=== PATIENT | female | born 1955 | race Caucasian/White ===

== ENCOUNTER 2017-11-01 12:56 | Emergency (ER) | payer SELFPAY ==
[~2017-11-01] VITALS: Ht 149.9 cm; Wt 59.0 kg
[~2017-11-01 12:56] MED LIST: ACHD5005 PO; ALPR1T PO; ALPR1TAB7; ALPR1TAB7 PO; DOCU-143 PO; DOXY-13 PO; HYDR-3820; HYDR-3820 PO; KETO10TA77 PO; OXYC10TA7; OXYC10TA7 PO; PRD20T PO; SULF1TAB35 PO; SULF1TAB38 PO; TRAM50TA2; TRM50T PO
--- OUTSIDE RECORDS SUMMARY | 2017-11-01 13:02 | XMS REPORT ---
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 Role Phone SHAHNAZ WIN Unavailable PROBLEMS Type Condition ICD9-CM Code [id number] Code Onset Dates Condition Status SNOMED Code Problem Excessive daytime sleepiness G47.19 Active 091543306399 Problem Lumbago with sciatica, left side M54.42 Active 820765615 Problem ADHD (attention deficit hyperactivity disorder), inattentive type F90.0 Active 62497909 Problem Other chronic pain G89.29 Active 58029169 Problem Other atopic dermatitis L20.89 Active 60459653 Problem 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 08024084990925 Problem 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 Active 28386964662845 Problem Arthritis M19.90 Active 7451605 Problem Positive skin test for tuberculosis R76.11 Active 342147909 ALLERGIES Substance Reaction Event Type Date Status Penicillins Unknown Non Drug Allergy Apr, Active ENCOUNTERS Encounter Location Date Diagnosis [place] [address] [id number] [place] [address] 58342- 8419 Aug, Other chronic pain G89.29 ; Right lower quadrant pain R10.31 and Other atopic dermatitis L20.89 [facility] [id number] [place] [address] 90592- 4883 Jul, Right lower quadrant abdominal pain R10.31 and Rash R21 [place] [address] 91128- 9903 Apr, ADHD (attention deficit hyperactivity disorder), inattentive type F90.0 ; Lumbago with sciatica, left side M54.42 and Arthritis M19.90 [facility] [id number] [place] [address] 26148- 0878 Apr, ADHD (attention deficit hyperactivity disorder), inattentive type F90.0 and Lumbar neuritis M54.16 [facility] [id number] [place] [address] 60799- 2591 16 Apr, 2017 [facility] [id number] [place] [address] 04502- 2671 Apr, Lumbar neuritis M54.16 [facility] [id number] [place] [address] 12678- 8800 Apr, Low back pain M54.5 [facility] [id number] [place] [address] 35133- 8416 Apr, ADHD (attention deficit hyperactivity disorder), inattentive type F90.0 [facility] [id number] [place] [address] 97322- 4514 Apr, Positive skin test for tuberculosis R76.11 [facility] [id number] [place] [address] 65432- 7444 Apr, Positive skin test for tuberculosis R76.11 [facility] [id number] [place] [address] 17221- 1375 Apr, [facility] [id number] [place] [address] 39703- 3375 Mar, Lumbar neuritis M54.16 [facility] [id number] [place] [address] 46671- 8030 Mar, ADHD (attention deficit hyperactivity disorder), inattentive type F90.0 [facility] [id number] [place] [address] 95270- 9584 Mar, [facility] [id number] [place] [address] 65517- 0791 Jan, Lumbar neuritis M54.16 [facility] [id number] [place] [address] 99269- 9344 Jan, ADHD (attention deficit hyperactivity disorder), inattentive type F90.0 [facility] [id number] [place] [address] 58638- 5889 Jan, [facility] [id number] [place] [address] 81064- 1962 Jan, [facility] [id number] [place] [address] 07484- 5851 Dec, Lumbar neuritis M54.16 [facility] [id number] [place] [address] 54272- 7969 Dec, ADHD (attention deficit hyperactivity disorder), inattentive type F90.0 and 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 [facility] [id number] [place] [address] 90497- 5389 Dec, [facility] [id number] [place] [address] 98478- 3657 Dec, [facility] [id number] [place] [address] 84218- 0300 Nov, Lumbar neuritis M54.16 and ADHD (attention deficit hyperactivity disorder), inattentive type F90.0 [facility] [id number] [place] [address] 87051- 1069 Nov, [facility] [id number] [place] [address] 77322- 3861 Oct, Lumbar neuritis M54.16 and ADHD (attention deficit hyperactivity disorder), inattentive type F90.0 [facility] [id number] [place] [address] 85846- 4289 Oct, [facility] [id number] [place] [address] 35214- 9587 Sep, ADHD (attention deficit hyperactivity disorder), inattentive type F90.0 and Lumbar neuritis M54.16 [facility] [id number] [place] [address] 59428- 7349 Sep, Lumbar neuritis M54.16 [facility] [id number] [place] [address] 49718- 6886 Sep, [facility] [id number] [place] [address] 25972- 9396 Sep, ADHD (attention deficit hyperactivity disorder), inattentive type F90.0 and Lumbar neuritis M54.16 [facility] [id number] [place] [address] 19647- 8167 Sep, [facility] [id number] [place] [address] 08012- 9094 Aug, [facility] [id number] [place] [address] 90892- 5906 Aug, [facility] [id number] [place] [address] 52501- 1372 Aug, [facility] [id number] [place] [address] 41942- 4907 Aug, [facility] [id number] [place] [address] 16351- 6133 Aug, ADHD (attention deficit hyperactivity disorder), inattentive type F90.0 and Lumbar neuritis M54.16 [facility] [id number] [place] [address] 49307- 6694 Jul, [facility] [id number] [place] [address] 31605- 6758 Jul, [facility] [address] [place] [address] 53433- 7897 Jul, Lumbar neuritis M54.16 and ADHD (attention deficit hyperactivity disorder), inattentive type F90.0 [facility] [address] [place] [address] [id number]- 1557 Jul, [facility] [address], [place] [address]- 9303 June, Lumbar neuritis M54.16 and ADHD (attention deficit hyperactivity disorder), inattentive type F90.0 [facility] [id number] [place] [address] 86015- 2273 June, [facility] [id number] [place] [address] 80784- 5148 June, [facility] [id number] [place] [address] 02072- 8600 May, 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 and Lumbago with sciatica, left side M54.42 [facility] [id number] [place] [address] 91324- 9297 May, Lumbar neuritis M54.16 and ADHD (attention deficit hyperactivity disorder), inattentive type F90.0 [facility] [id number] [place] [address] 93032- 2996 Apr, [facility] [id number] [place] [address] 03312- 8637 Apr, Lumbar neuritis M54.16 and ADHD (attention deficit hyperactivity disorder), inattentive type F90.0 [facility] [id number] [place] [address] 46320- 6455 Apr, [facility] [id number] [place] [address] 12986- 3524 Apr, [facility] [id number] [place] [address] 35283- 1754 Apr, ADHD (attention deficit hyperactivity disorder), inattentive type F90.0 [facility] [id number] [place] [address] 54208- 5025 Apr, Lumbar neuritis M54.16 [facility] [id number] [place] [address] 88559- 4085 08 Apr, 2016 [facility] [id number] [place] [address] 79140- 8523 Apr, [facility] [address], [place] [address]- 9726 Mar, Attention deficit hyperactivity disorder (ADHD), predominantly inattentive type F90.0 [facility] [address], [place] [address]- 6624 Mar, [facility] [address], [place] [address]- 7425 Mar, [facility] [address], [place] [address]- 0691 Mar, [facility] [address] [place] [address] 47282- 2879 Jan, Attention deficit hyperactivity disorder (ADHD), predominantly inattentive type F90.0 [facility] [address], [place] [address]- 5063 Jan, [facility] [address], [place] [address]- 7130 Jan, [facility] [address], [place] [address]- 2431 Jan, [facility] [address], [place] [address]- 0570 Jan, [facility] [address], [place] [address]- 1988 Jan, Low TSH level R94.6 [facility] [address], [place] [address]- 7876 Jan, [facility] [address], [place] [address]- 4502 Dec, [facility] [address], [place] [address]- 8605 Dec, [facility] [address], [place] [address]- 5374 Dec, [facility] [id number] [place] [address] 26785- 8708 Nov, Low TSH level R94.6 [facility] [id number] [place] [address] 63710- 5559 Nov, Excessive daytime sleepiness G47.19 and ADHD (attention deficit hyperactivity disorder), inattentive type F90.0 [facility] [id number] [place] [address] 20133- 9310 Nov, [facility] [id number] [place] [address] 64024- 2683 Nov, [facility] [id number] [place] [address] 46579- 7469 Nov, [facility] [id number] [place] [address] 01570- 1210 Oct, [facility] [id number] [place] [address] 32405- 1941 Oct, [facility] [id number] [place] [address] 14519- 0469 Oct, [facility] [id number] [place] [address] 45218- 7841 Sep, [facility] [id number] [place] [address] 69718- 5449 Sep, [facility] [id number] [place] [address] 40769- 3350 Sep, [facility] [id number] [place] [address] 49397- 4496 Aug, Lumbar neuritis M54.16 [facility] [id number] [place] [address] 85638- 1212 Aug, [facility] [id number] [place] [address] 52315- 6822 Aug, [facility] [id number] [place] [address] 00692- 0933 Jul, Lumbar neuritis M54.16 [facility] [address] [facility] [id number] [place] [address]- 2063 Jul, [facility] [address] [facility] [id number] [place] [address] 2546 Jul, [facility] [address] [facility] [id number] [place] [address], [place] [address]- 8547 June, Lumbar neuritis M54.16 [facility] [address] [facility] [id number] [place] [address]- 3617 June, [facility] [address] [facility] [id number] [place] [address], [place] [address]- 0679 June, [facility] [address] [facility] [id number] [place] [address], [place] [address]- 5269 May, Lumbar neuritis M54.16 [facility] [id number] [place] [address], [place] [address]- 2904 May, [facility] [address] [facility] [id number] [place] [address]- 2716 May, [facility] [address] [facility] [id number] [place] [address]- 0023 23 May, 2015 [facility] [address] [id number] [address]- 4291 Apr, [facility] [address], [place] [address]- 2785 14 May, 2015 [facility] [address] [facility] [id number] [place] [address]- 0239 Apr, [facility] [address] [facility] [id number] [place] [address]- 4423 24 Apr, 2015 [facility] [address] [facility] [id number] [place] [address]- 6454 Apr, Inguinal hernia, right K40.90 [facility] [address], [place] [address]- 2627 17 Apr, 2015 [facility] [id number] [place] [address]- 4984 Apr, 2016 Low back pain M54.5 and Sciatica, unspecified side M54.30 [facility] [address], [place] [address]- 3632 Mar, [facility] [id number] [place] [address] 80346- 7627 Mar, [facility] [id number] [place] [address] 76021- 3201 Jan, [facility] [id number] [place] [address] 48030- 1276 Jan, [facility] [id number] [place] [address] 62741- 6711 Jan, [facility] [id number] [place] [address] 60424- 9711 Dec, [facility] [address] [place] [address] 66693- 0024 Dec, [facility] [id number] [place] [address] 22060- 9847 Dec, [facility] [address], [place] [address]- 5178 Dec, [facility] [address] [place] [address] 20755- 2695 Nov, [facility] [address], [place] [address]- 2510 Nov, Encounter for immunization Z23 [facility] [id number] [place] [address] 76010- 6817 Nov, [facility] [address], [place] [address]- 9677 Nov, [facility] [id number] [place] [address]- 1295 Oct, [facility] [place] [facility] [address] [id number] [place] [address]- 3952 Oct, [facility] [place] [facility] [address] [id number] [place] [address]- 9384 Sep, Lumbago 724.2 [facility] [place] [facility] [address] [id number] [place] [address]- 1777 Sep, [facility] [place] [facility] [address] [id number] [place] [address]- 0515 Aug, Lumbago 724.2 [facility] [place] [facility] [address] [id number] [place] [address]- 2061 Aug, [facility] [place] [facility] [address] [id number] [place] [address]- 8540 Aug, [facility] [place] [facility] [address] [id number] [place] [address]- 1474 Jul, [facility] [place] [facility] [address] [id number] [place] [address]- 6287 Jul, [facility] [place] [facility] [address] [id number] [place] [address]- 4775 Jul, [facility] [place] [facility] [address] [id number] [place] [address]- 3526 June, [facility] [place] [facility] [address] [id number] [place] [address]- 7533 May, [facility] [place] [facility] [address] [id number] [place] [address] 254 May, [facility] [place] [facility] [address] [id number] [place] [address]- 2546 Apr, [facility] [place] [facility] [address] [id number] [place] [address]- 4009 Apr, [facility] [place] [facility] [address] [id number] [place] [address]- 8987 Apr, [facility] [place] [facility] [address] [id number] [place] [address]- 8442 Apr, [facility] [place] [facility] [address] [id number] [place] 8022 Apr, [facility] [place] [facility] [address] [id number] [place] [address]- 4346 Apr, [facility] [place] [facility] [address] [id number] [place] [address]- 3239 Apr, [facility] [place] [facility] [address] [id number] [place] [address]- 4118 Apr, [facility] [place] [facility] [address] [id number] [place] [address]- 2629 Mar, [facility] [place] [facility] [address] [id number] [place] [address]- 5815 Mar, [facility] [place] [facility] [address] [id number] [place] [address]- 3171 Jan, [facility] [place] [facility] [address] [id number] [place] [address]- 4929 Jan, [facility] [place] [facility] [address] [id number] [place] [address]- 7085 Jan, [facility] [place] [facility] [address] [id number] [place] [address]- 4759 Jan, [facility] [place] [facility] [address] [id number] [place] 8766 Jan, [facility] [place] [facility] [address] [id number] [place] 1549 Jan, [facility] [place] [facility] [address] [id number] [place] 4005 Dec, [facility] [place] [facility] [address] [id number] [place] 6933 Dec, [facility] [place] [facility] [address] [id number] [place] [address]- 5192 Nov, [facility] [place] [facility] [address] [id number] [place] [address]- 8818 Nov, [facility] [place] [facility] [address] [id number] [place] [address]- 1527 Nov, [facility] [place] [facility] [address] [id number] [place] [address]- 3489 Nov, [facility] [place] [facility] [address] [id number] [place] [address]- 6940 Oct, [facility] [place] [facility] [address] [id number] [place] [address]- 2188 Oct, [facility] [place] [facility] [address] [id number] [place] [address]- 6946 Sep, [facility] [place] [facility] [address] [id number] [place] [address]- 9620 Sep, [facility] [place] [facility] [address] [id number] [place] [address]- 6343 Sep, [facility] [place] [facility] [address] [id number] [place] [address]- 9516 Sep, [facility] [place] [facility] [address] [id number] [place] [address]- 6840 Aug, [facility] [place] [facility] [address] [id number] [place] [address]- 6889 Aug, [facility] [place] [facility] [address] [id number] [place] [address]- 2119 Aug, [facility] [place] [facility] [address] [id number] [place] [address]- 2936 Aug, [facility] [place] [facility] [address] [id number] [place] [address]- 3059 Jul, [facility] [place] [facility] [address] [id number] [place] [address]- 2432 Jul, [facility] [place] [facility] [address] [id number] [place] [address]- 8596 June, [facility] [place] [facility] [address] [id number] [place] [address]- 2077 June, [facility] [place] [facility] [address] [id number] [place] [address]- 2348 June, [facility] [place] [facility] [address] [id number] [place] [address]- 4626 May, [facility] [place] [facility] [address] [id number] [place] [address]- 8299 May, [facility] [place] [facility] [address] [id number] [place] [address]- 0871 May, [facility] [place] [facility] [address] [id number] [place] [address]- 2575 May, [facility] [place] [facility] [address] [id number] [place] [address]- 4017 May, [facility] [place] [facility] [address] [id number] [place] [address]- 7268 May, [facility] [place] [facility] [address] [id number] [place] [address] May, [facility] [place] [facility] [address] [id number] [place] [address] May, [facility] [place] [facility] [address] [id number] [place] [address] May, [facility] [place] [facility] [address] [id number] [place] [address] May, [facility] [place] [facility] [address] [id number] [place] [address] May, [facility] [place] [facility] [address] [id number] [place] [address] Apr, [facility] [place] [facility] [address] [id number] [place] [address] Apr, [facility] [place] [facility] [address] [id number] [place] [address] Apr, [facility] [place] [facility] [address] [id number] [place] [address] Apr, [facility] [place] [facility] [address] [id number] [place] [address] Apr, [facility] [place] [facility] [address] [id number] [place] [address] Apr, [facility] [place] [facility] [address] [id number] [place] [address] Apr, [facility] [place] [facility] [address] [id number] [place] [address] Apr, [facility] [place] [facility] [address] [id number] [place] [address] Apr, [facility] [place] [facility] [address] [id number] [place] [address] Apr, [facility] [place] [facility] [address] [facility] [id number] [place] [address] Apr, [facility] [place] [facility] [address] [id number] [place] [address] Apr, [facility] [place] [facility] [address] [id number] [place] [address] Mar, [facility] [place] [facility] [address] [id number] [place] [address] Mar, [facility] [place] [facility] [address] [id number] [place] [address] Mar, [facility] [place] [facility] [address] [id number] [place] [address] Mar, [facility] [place] [facility] [address] [id number] [place] [address] Mar, [facility] [address] [facility] [id number] [place] [address] Mar, [facility] [address] [facility] [id number], [place] [address] Jan, [facility] [address] [facility] [id number], [place] [address] Jan, [facility] [address] [facility] [id number], [place] [address] Dec, [facility] [address] [facility] [id number], [place] [address] Dec, IMMUNIZATIONS No Known Immunizations SOCIAL HISTORY Never Assessed REASON FOR VISIT Pain management (chronic)-Luis Angel MADDEN PLAN OF CARE VITAL SIGNS Height 59 in 2017-05-13 Weight 125.7 lbs 2017-05-13 Temperature 98.1 degrees Fahrenheit 2017-05-13 Heart Rate 74 bpm 2017-05-13 Respiratory Rate 18 2017-05-13 BMI 25.39 kg/m2 2017-05-13 Blood pressure systolic 128 mmHg 2017-05-13 Blood pressure diastolic 80 mmHg 2017-05-13 MEDICATIONS Medication Instructions Dosage Frequency Start Date End Date Duration Status Nabumetone 500 mg Orally Twice a day 1 tablet 12h 14 Apr, 2017 June, 30 day(s) Active RESULTS No Results PROCEDURES Procedure Date Ordered Result Body Site COMPREHEN METABOLIC PANEL May 13, 2017 ANTINUCLEAR ANTIBODIES May 13, 2017 RHEUMATOID FACTOR, QUANT May 13, 2017 ASSAY THYROID STIM HORMONE May 13, 2017 RBC SED RATE, AUTOMATED May 13, 2017 COMPLETE CBC W/AUTO DIFF WBC May 13, 2017 C-REACTIVE PROTEIN May 13, 2017 ANTISTREPTOLYSIN O, TITER May 13, 2017 INSTRUCTIONS MEDICATIONS ADMINISTERED No Known Medications MEDICAL (GENERAL) HISTORY Type Description Date Medical History narcolepsy Medical History lupus Surgical History Gallbladder removed 05/2014 Surgical History Hernia repair 05/24/2015
--- OUTSIDE RECORDS SUMMARY | 2017-11-01 13:02 | XMS REPORT ---
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 Name Role Phone SHAHNAZ WIN Unavailable PROBLEMS Type Condition ICD9-CM Code SSZ36-DW Code Onset Dates Condition Status SNOMED Code Problem Excessive daytime sleepiness G47.19 Active 520623977886 Problem Lumbago with sciatica, left side M54.42 Active 320708643 Problem ADHD (attention deficit hyperactivity disorder), inattentive type F90.0 Active 54300834 Problem Other chronic pain G89.29 Active 37381166 Problem Other atopic dermatitis L20.89 Active 90235215 Problem 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 17605348498405 Problem 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 Active 73662782967797 Problem Arthritis M19.90 Active 3205053 Problem Positive skin test for tuberculosis R76.11 Active 026785762 ALLERGIES Substance Reaction Event Type Date Status Penicillins Unknown Non Drug Allergy Jul, Active ENCOUNTERS Encounter Location Date Diagnosis [place] [id number] [place] [address] 43099- 7406 Aug, Other chronic pain G89.29 ; Right lower quadrant pain R10.31 and Other atopic dermatitis L20.89 [facility] [id number] [place] [address] 43191- 4007 Jul, Right lower quadrant abdominal pain R10.31 and Rash R21 [place] [address] 60069- 0545 Apr, ADHD (attention deficit hyperactivity disorder), inattentive type F90.0 ; Lumbago with sciatica, left side M54.42 and Arthritis M19.90 [facility] [id number] [place] [address] 49760- 2879 Apr, ADHD (attention deficit hyperactivity disorder), inattentive type F90.0 and Lumbar neuritis M54.16 [facility] [id number] [place] [address] 37993- 9559 16 Apr, 2017 [facility] [id number] [place] [address] 15474- 2387 Apr, Lumbar neuritis M54.16 [facility] [id number] [place] [address] 46525- 6564 Apr, Low back pain M54.5 [facility] [id number] [place] [address] 64450- 7064 Apr, ADHD (attention deficit hyperactivity disorder), inattentive type F90.0 [facility] [id number] [place] [address] 90989- 2234 Apr, Positive skin test for tuberculosis R76.11 [facility] [id number] [place] [address] 14467- 9009 Apr, Positive skin test for tuberculosis R76.11 [facility] [id number] [place] [address] 38256- 2641 Apr, [facility] [id number] [place] [address] 19609- 6959 Mar, Lumbar neuritis M54.16 [facility] [id number] [place] [address] 29001- 0436 Mar, ADHD (attention deficit hyperactivity disorder), inattentive type F90.0 [facility] [id number] [place] [address] 65988- 1031 Mar, [facility] [id number] [place] [address] 29699- 7317 Jan, Lumbar neuritis M54.16 [facility] [id number] [place] [address] 02194- 1861 Jan, ADHD (attention deficit hyperactivity disorder), inattentive type F90.0 [facility] [id number] [place] [address] 15721- 7567 Jan, [facility] [id number] [place] [address] 87871- 1213 Jan, [facility] [id number] [place] [address] 64409- 7674 Dec, Lumbar neuritis M54.16 [facility] [id number] [place] [address] 97194- 2388 Dec, ADHD (attention deficit hyperactivity disorder), inattentive type F90.0 and 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 [facility] [id number] [place] [address] 19029- 2954 Dec, [facility] [id number] [place] [address] 61917- 0406 Dec, [facility] [id number] [place] [address] 06744- 6124 Nov, Lumbar neuritis M54.16 and ADHD (attention deficit hyperactivity disorder), inattentive type F90.0 [facility] [id number] [place] [address] 61874- 6578 Nov, [facility] [id number] [place] [address] 57655- 2696 Oct, Lumbar neuritis M54.16 and ADHD (attention deficit hyperactivity disorder), inattentive type F90.0 [facility] [id number] [place] [address] 14224- 4381 Oct, [facility] [id number] [place] [address] 36394- 1789 Sep, ADHD (attention deficit hyperactivity disorder), inattentive type F90.0 and Lumbar neuritis M54.16 [facility] [id number] [place] [address] 20326- 1971 Sep, Lumbar neuritis M54.16 [facility] [id number] [place] [address] 93198- 1367 Sep, [facility] [id number] [place] [address] 54130- 9876 Sep, ADHD (attention deficit hyperactivity disorder), inattentive type F90.0 and Lumbar neuritis M54.16 [facility] [id number] [place] [address] 87765- 3379 Sep, [facility] [id number] [place] [address] 49401- 0813 Aug, [facility] [id number] [place] [address] 66002- 6651 Aug, [facility] [id number] [place] [address] 26033- 2993 Aug, [facility] [id number] [place] [address] 79193- 4896 Aug, [facility] [id number] [place] [address] 43081- 5175 Aug, ADHD (attention deficit hyperactivity disorder), inattentive type F90.0 and Lumbar neuritis M54.16 [facility] [id number] [place] [address] 74662- 7277 Jul, [facility] [id number] [place] [address] 89815- 3442 Jul, [facility] [id number] [place] [address] 94148- 5835 Jul, Lumbar neuritis M54.16 and ADHD (attention deficit hyperactivity disorder), inattentive type F90.0 [facility] [id number] [place] [address] [id number]- 6963 Jul, [facility] [address] [address]- 1405 June, Lumbar neuritis M54.16 and ADHD (attention deficit hyperactivity disorder), inattentive type F90.0 [facility] [id number] [place] [address] 80860- 7104 June, [facility] [id number] [place] [address] 56814- 5035 June, [facility] [id number] [place] [address] 60442- 1025 May, 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 and Lumbago with sciatica, left side M54.42 [facility] [id number] [place] [address] 96285- 6392 May, Lumbar neuritis M54.16 and ADHD (attention deficit hyperactivity disorder), inattentive type F90.0 [facility] [id number] [place] [address] 00630- 1695 Apr, [facility] [id number] [place] [address] 75397- 5149 Apr, Lumbar neuritis M54.16 and ADHD (attention deficit hyperactivity disorder), inattentive type F90.0 [facility] [id number] [place] [address] 88937- 4831 Apr, [facility] [id number] [place] [address] 68084- 1956 Apr, [facility] [id number] [place] [address] 02169- 7453 Apr, ADHD (attention deficit hyperactivity disorder), inattentive type F90.0 [facility] [id number] [place] [address] 90834- 6169 Apr, Lumbar neuritis M54.16 [facility] [id number] [place] [address] 85978- 5463 08 Apr, 2016 [facility] [id number] [place] [address] 32443- 4633 Apr, [facility] [address] [address]- 2972 Mar, Attention deficit hyperactivity disorder (ADHD), predominantly inattentive type F90.0 [facility] [address] 2752 Mar, [facility] [address] [address]- 2564 Mar, [facility] [address] [address]- 9409 Mar, [facility] [id number] [place] [address] 21968- 5439 Jan, Attention deficit hyperactivity disorder (ADHD), predominantly inattentive type F90.0 [facility] [address] [address]- 7167 Jan, [facility] [address] [address]- 6833 Jan, [facility] [address] [address]- 1109 Jan, [facility] [address] [address]- 6533 Jan, Low TSH level R94.6 [facility] [address], [place] [address]- 6755 Jan, [facility] [address], [place] [address]- 0585 Jan, [facility] [address] [address]- 5092 Dec, [facility] [address] [place] [address]- 7597 Dec, [facility] [address] [address]- 6400 Dec, [facility] [id number] [place] [address] 75954- 6012 Nov, Low TSH level R94.6 [facility] [id number] [place] [address] 30777- 3797 Nov, Excessive daytime sleepiness G47.19 and ADHD (attention deficit hyperactivity disorder), inattentive type F90.0 [facility] [id number] [place] [address] 31125- 3545 Nov, [facility] [id number] [place] [address] 34211- 8040 Nov, [facility] [id number] [place] [address] 42545- 2984 Nov, [facility] [id number] [place] [address] 68081- 5332 Oct, [facility] [id number] [place] [address] 75295- 3450 Oct, [facility] [id number] [place] [address] 04655- 4257 Oct, [facility] [id number] [place] [address] 93860- 6822 Sep, [facility] [id number] [place] [address] 91353- 1653 Sep, [facility] [id number] [place] [address] 20975- 0120 Sep, [facility] [id number] [place] [address] 88636- 5259 Aug, Lumbar neuritis M54.16 [facility] [id number] [place] [address] 41095- 8902 Aug, [facility] [id number] [place] [address] 90114- 5106 Aug, [facility] [id number] [place] [address] 67105- 0025 Jul, Lumbar neuritis M54.16 [facility] [address] [facility] [id number] [place] [address]- 3132 Jul, [facility] [address] [facility] [id number] [place] [address] 2546 Jul, [facility] [address] [facility] [id number] [place] [address], [place] [address]- 5286 June, Lumbar neuritis M54.16 [facility] [address] [facility] [id number] [place] [address]- 0240 June, [facility] [address] [facility] [id number] [place] [address], [place] [address]- 6397 June, [facility] [address] [facility] [id number] [place] [address], [place] [address]- 4003 May, Lumbar neuritis M54.16 [facility] [id number] [place] [address], [place] [address]- 1698 May, [facility] [address] [facility] [id number] [place] [address]- 6061 May, [facility] [address] [facility] [id number] [place] [address]- 0419 23 May, 2015 [facility] [id number] [place] [address]- 7467 Apr, [facility] [address], [place] [address]- 3065 14 May, 2015 [facility] [address] [facility] [id number] [place] [address]- 3300 Apr, [facility] [address] [facility] [id number] [place] [address]- 4675 24 Apr, 2015 [facility] [address] [facility] [id number] [place] [address]- 2328 Apr, Inguinal hernia, right K40.90 [facility] [address], [place] [address]- 4088 17 Apr, 2015 [facility] [id number] [address]- 8085 Apr, 2016 Low back pain M54.5 and Sciatica, unspecified side M54.30 [facility] [address], [place] [address]- 5047 Mar, [facility] [id number] [place] [address] 36620- 8942 Mar, [facility] [id number] [place] [address] 62697- 7069 Jan, [facility] [id number] [place] [address] 82793- 6724 Jan, [facility] [id number] [place] [address] 61069- 6036 Jan, [facility] [id number] [place] [address] 75514- 9249 Dec, [facility] [id number] [place] [address] 06008- 6056 Dec, [facility] [id number] [place] [address] 25014- 1719 Dec, [facility] [address], [place] [address]- 9695 Dec, [facility] [id number] [place] [address] 08838- 5414 Nov, [facility] [address], [place] [address]- 2966 Nov, Encounter for immunization Z23 [facility] [id number] [place] [address] 84183- 9297 Nov, [facility] [address], [place] [address]- 2021 Nov, [facility] [id number] [place] [place] [address]- 1269 Oct, [facility] [place] [facility] [address] [id number] [place] [address]- 2594 Oct, [facility] [place] [facility] [address] [id number] [place] [address]- 7954 Sep, Lumbago 724.2 [facility] [place] [facility] [address] [id number] [place] [address]- 3719 Sep, [facility] [place] [facility] [address] [id number] [place] [address]- 1718 Aug, Lumbago 724.2 [facility] [place] [facility] [address] [id number] [place] [address]- 0384 Aug, [facility] [place] [facility] [address] [id number] [place] [address]- 6794 Aug, [facility] [place] [facility] [address] [id number] [place] [address]- 5090 Jul, [facility] [place] [facility] [address] [id number] [place] [address]- 0828 Jul, [facility] [place] [facility] [address] [id number] [place] [address]- 8136 Jul, [facility] [place] [facility] [address] [id number] [place] [address]- 4572 June, [facility] [place] [facility] [address] [id number] [place] [address]- 5691 May, [facility] [place] [facility] [address] [id number] [place] [address] 2547 May, [facility] [place] [facility] [address] [id number] [place] [address]- 2546 Apr, [facility] [place] [facility] [address] [id number] [place] [address]- 4693 Apr, [facility] [place] [facility] [address] [id number] [place] [address]- 5292 Apr, [facility] [place] [facility] [address] [id number] [place] [address]- 2338 Apr, [facility] [place] [facility] [address] [id number] [place] 0518 Apr, [facility] [place] [facility] [address] [id number] [place] [address]- 3396 Apr, [facility] [place] [facility] [address] [id number] [place] [address]- 2016 Apr, [facility] [place] [facility] [address] [id number] [place] [address]- 3992 Apr, [facility] [place] [facility] [address] [id number] [place] [address]- 4533 Mar, [facility] [place] [facility] [address] [id number] [place] [address]- 7852 Mar, [facility] [place] [facility] [address] [id number] [place] [address]- 9846 Jan, [facility] [place] [facility] [address] [id number] [place] [address]- 8782 Jan, [facility] [place] [facility] [address] [id number] [place] [address]- 4225 Jan, [facility] [place] [facility] [address] [id number] [place] [address]- 6863 Jan, [facility] [place] [facility] [address] [id number] [place] 6433 Jan, [facility] [place] [facility] [address] [id number] [place] 2873 Jan, [facility] [place] [facility] [address] [id number] [place] 2290 Dec, [facility] [place] [facility] [address] [id number] [place] 2286 Dec, [facility] [place] [facility] [address] [id number] [place] [address]- 3754 Nov, [facility] [place] [facility] [address] [id number] [place] [address] Nov, [facility] [place] [facility] [address] [id number] [place] [address] Nov, [facility] [place] [facility] [address] [id number] [place] [address] Nov, [facility] [place] [facility] [address] [id number] [place] [address] Oct, [facility] [place] [facility] [address] [id number] [place] [address] Oct, [facility] [place] [facility] [address] [id number] [place] [address] Sep, [facility] [place] [facility] [address] [id number] [place] [address] Sep, [facility] [place] [facility] [address] [id number] [place] [address] Sep, [facility] [place] [facility] [address] [id number] [place] [address] Sep, [facility] [place] [facility] [address] [id number] [place] [address] Aug, [facility] [place] [facility] [address] [id number] [place] [address] Aug, [facility] [place] [facility] [address] [id number] [place] [address] Aug, [facility] [place] [facility] [address] [id number] [place] [address] Aug, [facility] [place] [facility] [address] [id number] [place] [address] Jul, [facility] [place] [facility] [address] [id number] [place] [address] Jul, [facility] [place] [facility] [address] [id number] [place] [address] June, [facility] [place] [facility] [address] [id number] [place] [address] June, [facility] [place] [facility] [address] [id number] [place] [address] June, [facility] [place] [facility] [address] [id number] [place] [address] May, [facility] [place] [facility] [address] [id number] [place] [address] May, [facility] [place] [facility] [address] [id number] [place] [address] May, [facility] [place] [facility] [address] [id number] [place] [address] May, [facility] [place] [facility] [address] [id number] [place] [address] May, [facility] [place] [facility] [address] [id number] [place] [address] May, [facility] [place] [facility] [address] [id number] [place] [address] May, [facility] [place] [facility] [address] [id number] [place] [address] May, [facility] [place] [facility] [address] [id number] [place] [address] May, [facility] [place] [facility] [address] [id number] [place] [address] May, [facility] [place] [facility] [address] [id number] [place] [address] May, [facility] [place] [facility] [address] [id number] [place] [address] Apr, [facility] [place] [facility] [address] [id number] [place] [address] Apr, [facility] [place] [facility] [address] [id number] [place] [address] Apr, [facility] [place] [facility] [address] [id number] [place] [address] Apr, [facility] [place] [facility] [address] [id number] [place] [address] Apr, [facility] [place] [facility] [address] [id number] [place] [address] Apr, [facility] [place] [facility] [address] [id number] [place] [address] Apr, [facility] [place] [facility] [address] [id number] [place] [address] Apr, [facility] [place] [facility] [address] [id number] [place] [address] Apr, [facility] [place] [facility] [address] [id number] [place] [address] Apr, [facility] [place] [facility] [address] [facility] [id number] [place] [address] Apr, [facility] [place] [facility] [address] [id number] [place] [address] Apr, [facility] [place] [facility] [address] [id number] [place] [address] Mar, [facility] [place] [facility] [address] [id number] [place] [address] Mar, [facility] [place] [facility] [address] [id number] [place] [address] Mar, [facility] [place] [facility] [address] [id number] [place] [address] Mar, [facility] [place] [facility] [address] [id number], [place] [address] Mar, [facility] [address] [facility] [id number] [place] [address] Mar, [facility] [address] [facility] [id number], [place] [address] Jan, [facility] [address] [facility] [id number], [place] [address] Jan, [facility] [address] [facility] [id number], [place] [address] Dec, [facility] [address] [facility] [id number], [place] [address] Dec, IMMUNIZATIONS No Known Immunizations SOCIAL HISTORY Never Assessed REASON FOR VISIT Lupus WB-MA, PT has sores all over her left forearm and has a few sores on the right forearm proximal to the wrist, PT has a sharp pain on her right abdomen PLAN OF CARE VITAL SIGNS Height 59 in 2017-08-05 Weight 127 lbs 2017-08-05 Temperature 99.1 degrees Fahrenheit 2017-08-05 Heart Rate 86 bpm 2017-08-05 Respiratory Rate 18 2017-08-05 BMI 25.65 kg/m2 2017-08-05 Blood pressure systolic 124 mmHg 2017-08-05 Blood pressure diastolic 82 mmHg 2017-08-05 MEDICATIONS Medication Instructions Dosage Frequency Start Date End Date Duration Status Tylenol Extra Strength 500 MG Orally every 6 hrs 1 tablet as needed 6h Active Meloxicam 7.5 MG Orally 2 times a day 1 tablet 12h Jul, Oct, 30 day(s) Active Triamcinolone Acetonide 0.1 % Externally Twice a day 1 application to affected area 12h Jul, Active PredniSONE 20 mg Orally Once a day 2 tablets 24h Jul, Jul, 05 days Active RESULTS No Results PROCEDURES No Known procedures INSTRUCTIONS MEDICATIONS ADMINISTERED No Known Medications MEDICAL (GENERAL) HISTORY Type Description Date Medical History narcolepsy Medical History lupus Surgical History Gallbladder removed 05/2014 Surgical History Hernia repair 05/24/2015
--- OUTSIDE RECORDS SUMMARY | 2017-11-01 13:03 | XMS REPORT ---
Author Author SHAHNAZ WIN Organization [facility] Address [address] [place] [address] Care Team Providers Care Consumer Loan Underwriter Name Role Phone SHAHNAZ WIN Unavailable PROBLEMS Type Condition ICD9-CM Code VKD17-LU Code Onset Dates Condition Status SNOMED Code Problem ADHD (attention deficit hyperactivity disorder), inattentive type F90.0 Active 38263821 Problem Arthritis M19.90 Active 0237406 Problem Positive skin test for tuberculosis R76.11 Active 303975286 Problem Lumbago with sciatica, left side M54.42 Active 096020467 Problem Excessive daytime sleepiness G47.19 Active 346948421718 Problem 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 97143425893071 Problem 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 Active 34395661043839 ALLERGIES No Information ENCOUNTERS Encounter Location Date Diagnosis [place] [id number] [place] [address] 47743- 9212 Jul, Right lower quadrant abdominal pain R10.31 and Rash R21 [place] [id number] [place] [address] 47497- 2031 14 Apr, 2017 ADHD (attention deficit hyperactivity disorder), inattentive type F90.0 ; Lumbago with sciatica, left side M54.42 and Arthritis M19.90 [facility] [id number] [place] [address] 37026- 5468 Apr, ADHD (attention deficit hyperactivity disorder), inattentive type F90.0 and Lumbar neuritis M54.16 [facility] [id number] [place] [address] 27929- 2734 Apr, [place] [id number] [place] [address] 46992- 2164 Apr, Lumbar neuritis M54.16 [facility] [id number] [place] [address] 47409- 8291 16 Apr, 2017 Low back pain M54.5 [facility] [id number] [place] [address] 97314- 7821 11 Apr, 2017 ADHD (attention deficit hyperactivity disorder), inattentive type F90.0 [facility] [id number] [place] [address] 86611- 0494 09 Apr, 2017 Positive skin test for tuberculosis R76.11 [facility] [id number] [place] [address] 28064- 8462 Apr, Positive skin test for tuberculosis R76.11 [facility] [id number] [place] [address] 37496- 6669 Apr, [facility] [id number] [place] [address] 38064- 4091 Mar, Lumbar neuritis M54.16 [facility] [id number] [place] [address] 04088- 6112 Mar, ADHD (attention deficit hyperactivity disorder), inattentive type F90.0 [facility] [id number] [place] [address] 17289- 9655 Mar, [facility] [id number] [place] [address] 08588- 5232 Jan, Lumbar neuritis M54.16 [facility] [id number] [place] [address] 94500- 5234 Jan, ADHD (attention deficit hyperactivity disorder), inattentive type F90.0 [facility] [id number] [place] [address] 76306- 3792 Jan, [facility] [id number] [place] [address] 29493- 4123 Jan, [facility] [id number] [place] [address] 98440- 2493 Dec, Lumbar neuritis M54.16 [facility] [id number] [place] [address] 57169- 2092 Dec, ADHD (attention deficit hyperactivity disorder), inattentive type F90.0 and 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 [facility] [id number] [place] [address] 90496- 9698 Dec, [facility] [id number] [place] [address] 51085- 6599 Dec, [facility] [id number] [place] [address] 56745- 2792 Nov, Lumbar neuritis M54.16 and ADHD (attention deficit hyperactivity disorder), inattentive type F90.0 [facility] [id number] [place] [address] 41885- 1807 Nov, [facility] [id number] [place] [address] 63394- 3016 Oct, Lumbar neuritis M54.16 and ADHD (attention deficit hyperactivity disorder), inattentive type F90.0 [facility] [id number] [place] [address] 23488- 1656 Oct, [facility] [id number] [place] [address] 06232- 8029 Sep, ADHD (attention deficit hyperactivity disorder), inattentive type F90.0 and Lumbar neuritis M54.16 [facility] [id number] [place] [address] 79246- 1755 Sep, Lumbar neuritis M54.16 [facility] [id number] [place] [address] 84406- 4723 Sep, [facility] [id number] [place] [address] 27212- 6475 Sep, ADHD (attention deficit hyperactivity disorder), inattentive type F90.0 and Lumbar neuritis M54.16 [facility] [address] [address]- 1132 Sep, [facility] [address] [address]- 6117 Aug, [facility] [address] [address]- 8005 Aug, [facility] [id number] [place] [address] 64172- 3706 Aug, [facility] [id number] [place] [address] 11713- 8654 Aug, [facility] [id number] [place] [address] 68098- 8712 Aug, ADHD (attention deficit hyperactivity disorder), inattentive type F90.0 and Lumbar neuritis M54.16 [facility] [id number] [place] [address] 81829- 7281 Jul, [facility] [address] [address]- 2208 Jul, [facility] [id number] [place] [address] 93785- 7577 Jul, Lumbar neuritis M54.16 and ADHD (attention deficit hyperactivity disorder), inattentive type F90.0 [facility] [address] [address]- 7422 Jul, [facility] [address] [address]- 9021 June, Lumbar neuritis M54.16 and ADHD (attention deficit hyperactivity disorder), inattentive type F90.0 [facility] [address]- 5126 June, [facility] [address] [address]- 5268 June, [facility] [id number] [place] [address] 42265- 3220 May, 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 and Lumbago with sciatica, left side M54.42 [facility] [id number] [place] [address] 53440- 9931 14 May, 2016 Lumbar neuritis M54.16 and ADHD (attention deficit hyperactivity disorder), inattentive type F90.0 [facility] [id number] [place] [address] 32774- 9476 Apr, [facility] [id number] [place] [address] 66231- 6879 Apr, Lumbar neuritis M54.16 and ADHD (attention deficit hyperactivity disorder), inattentive type F90.0 [facility] [id number] [place] [address] 24993- 4762 Apr, [facility] [id number] [place] [address] 63743- 6013 Apr, [facility] [id number] [place] [address] 64779- 1867 15 Apr, 2016 ADHD (attention deficit hyperactivity disorder), inattentive type F90.0 [facility] [id number] [place] [address] 15080- 9982 15 Apr, 2016 Lumbar neuritis M54.16 [facility] [id number] [place] [address] 59830- 4368 08 Apr, 2016 [facility] [id number] [place] [address] 90739- 3656 07 Apr, 2016 [facility] [id number] [place] [address] 47464- 3505 Mar, Attention deficit hyperactivity disorder (ADHD), predominantly inattentive type F90.0 [facility] [id number] [place] [address] 09538- 8411 Mar, [facility] [address] [place] [address]- 9709 Mar, [facility] [id number] [place] [address] 48385- 0926 Mar, [facility] [id number] [place] [address] 29985- 7278 Jan, Attention deficit hyperactivity disorder (ADHD), predominantly inattentive type F90.0 [facility] [id number] [place] [address] 40776- 6643 Jan, [facility] [id number] [place] [address] 49354- 1092 Jan, [facility] [id number] [place] [address] 91548- 0125 Jan, [facility] [id number] [place] [address] 17712- 2069 Jan, Low TSH level R94.6 [facility] [address] [address]- 0357 Jan, [facility] [id number] [place] [address] 80011- 4686 Jan, [facility] [id number] [place] [address] 46602- 1048 Dec, [facility] [address] [address]- 7528 Dec, [facility] [address], [place] [address]- 3989 Dec, [facility] [address] [address]- 9402 Nov, Low TSH level R94.6 [facility] [id number] [place] [address] 41941- 6355 Nov, Excessive daytime sleepiness G47.19 and ADHD (attention deficit hyperactivity disorder), inattentive type F90.0 [facility] [id number] [place] [address]- 1249 13 Dec, 2015 [facility] [address] [facility] [id number] [place] [address]- 2243 Nov, [facility] [place] [facility] [address] [facility] [id number] [place] [address]- 5060 Nov, [facility] [address] [facility] [id number] [place] [address]- 2138 Oct, [facility] [place] [facility] [address] [facility] [id number] [place] [address]- 4532 14 Nov, 2015 [facility] [address] [facility] [id number] [place] [address], [place] [address]- 2011 Oct, [facility] [place] [facility] [id number] [place] [address]- 0506 Sep, [facility] [id number] [place] [address], [place] [address]- 1374 Sep, [facility] [address] [facility] [id number] [place] [address]- 5410 Sep, [facility] [id number] [place] [address], [place] [address]- 7149 Aug, Lumbar neuritis M54.16 [facility] [address] [address]- 2737 Aug, [facility] [place] [facility] [address] [place] [address]- 2974 Aug, [facility] [place] [facility] [address] [facility] [id number] [address]- 3526 Jul, Lumbar neuritis M54.16 [facility] [address] [facility] [id number] [place] [address]- 6379 Jul, [facility] [place] [facility] [id number] [place] [address]- 0794 Jul, [facility] [place] [facility] [address], [place] [address]- 7701 June, Lumbar neuritis M54.16 [facility] [address], [place] [address]- 5777 June, [facility] [id number] [address]- 9356 June, [facility] [id number] [place] [address] 20001- 3483 May, Lumbar neuritis M54.16 [facility] [address], [place] [address]- 5136 May, [facility] [id number] [place] [address] 13058- 2228 May, [facility] [id number] [place] [address] 88245- 2400 Apr, [facility] [id number] [place] [address] 87251- 1489 14 May, 2015 [facility] [address], [place] [address]- 3032 14 May, 2015 [facility] [id number] [place] [address] 04516- 4037 Apr, [facility] [address], [place] [address]- 8520 24 Apr, 2015 [facility] [address], [place] [address]- 0329 Apr, Inguinal hernia, right K40.90 [facility] [address], [place] [address]- 2217 17 Apr, 2015 [facility] [id number] [place] [address] 79718- 9483 15 Apr, 2015 Low back pain M54.5 and Sciatica, unspecified side M54.30 [facility] [address], [place] [address]- 5714 Mar, [facility] [place] [facility] [address] [facility] [id number] [address]- 6797 Mar, [facility] [place] [facility] [address] [facility] [id number] [place] [address], [place] [address]- 8057 Jan, [facility] [place] [facility] [address] [facility] [id number] [place] [address]- 1414 Jan, [facility] [place] [facility] [address] [facility] [id number] [place] [address], [place] [address]- 9057 Jan, [facility] [place] [facility] [address] [facility] [id number] [place] [address], [place] [address]- 0092 Dec, [facility] [place] [facility] [address] [facility] [id number] [place] [address] 88439- 1483 Dec, [facility] [id number] [place] [address], [place] [address]- 3365 Dec, [facility] [place] [facility] [id number] [place] [address] 90808- 9359 Dec, [facility] [place] [facility] [address], [place] [address]- 2325 Nov, [facility] [id number] [place] [address] 42582- 5363 Nov, Encounter for immunization Z23 [facility] [id number], [place] [address]- 8413 Nov, [facility] [place] [facility] [address], [place] [address]- 3831 Nov, [facility] [place] [facility] [address] [facility] [id number], [place] [address]- 5479 Oct, [facility] [place] [facility] [id number], [place] [address]- 7833 Oct, [facility] [place] [facility] [address], [place] [address]- 7445 Sep, Lumbago 724.2 [facility] [place] [facility] [address] [id number] [place] [address]- 4731 Sep, [facility] [place] [facility] [address] [id number] [place] [address]- 4542 Aug, Lumbago 724.2 [facility] [place] [facility] [address] [id number] [place] [address]- 7550 Aug, [facility] [place] [facility] [address] [id number] [place] [address]- 6117 Aug, [facility] [place] [facility] [address] [id number] [place] [address]- 8575 Jul, [facility] [place] [facility] [address] [id number] [place] [address]- 5030 Jul, [facility] [place] [facility] [address] [id number] [place] [address]- 8601 Jul, [facility] [place] [facility] [address] [id number] [place] [address]- 8920 June, [facility] [place] [facility] [address] [id number] [place] [address]- 6592 May, [facility] [place] [facility] [address] [id number] [place] [address]- 3603 May, [facility] [place] [facility] [address] [id number] [place] [address]- 8970 Apr, [facility] [place] [facility] [address] [id number] [place] [address]- 9311 Apr, [facility] [place] [facility] [address] [id number] [place] [address]- 1977 Apr, [facility] [place] [facility] [address] [id number] [place] 2240 Apr, [facility] [place] [facility] [address] [id number] [place] [address]- 7312 Apr, [facility] [place] [facility] [address] [id number] [place] [address]- 7506 Apr, 2014 [facility] [place] [facility] [address] [id number] [place] [address]- 9239 Apr, [facility] [place] [facility] [address] [id number] [place] [address]- 7926 Apr, [facility] [place] [facility] [address] [id number] [place] [address]- 1891 Mar, [facility] [place] [facility] [address] [id number] [place] [address]- 2857 Mar, [facility] [place] [facility] [address] [id number] [place] 0416 Jan, [facility] [place] [facility] [address] [id number] [place] [address]- 2512 Jan, [facility] [place] [facility] [address] [id number] [place] [address]- 6920 Jan, [facility] [place] [facility] [address] [id number] [place] [address]- 8783 Jan, [facility] [place] [facility] [address] [id number] [place] [address]- 5757 Jan, [facility] [place] [facility] [address] [facility] [id number] [place] [address]- 3751 Jan, [facility] [place] [facility] [address] [id number] [place] [address]- 7499 Dec, [facility] [place] [facility] [address] [id number] [place] [address]- 5709 Dec, [facility] [place] [facility] [address] [id number] [place] [address]- 7401 Nov, [facility] [place] [facility] [address] [id number] [place] 6069 Nov, [facility] [place] [facility] [address] [id number] [place] [address]- 7345 Nov, [facility] [place] [facility] [address] [id number] [place] [address]- 7634 Nov, [facility] [place] [facility] [address] [id number] [place] 1859 Oct, [facility] [place] [facility] [address] [id number] [place] [address]- 1562 Oct, [facility] [place] [facility] [address] [id number] [place] [address]- 8622 Sep, [facility] [place] [facility] [address] [id number] [place] [address]- 0721 Sep, [facility] [place] [facility] [address] [id number] [place] [address]- 2193 Sep, [facility] [place] [facility] [address] [id number] [place] [address]- 9292 Sep, [facility] [place] [facility] [address] [id number] [place] [address]- 9808 Aug, [facility] [place] [facility] [address] [id number] [place] [address]- 5696 Aug, [facility] [place] [facility] [address] [id number] [place] [address]- 0663 Aug, [facility] [place] [facility] [address] [id number] [place] [address]- 8465 Aug, [facility] [place] [facility] [address] [id number] [place] [address]- 7395 Jul, [facility] [place] [facility] [address] [id number] [place] [address]- 9287 Jul, [facility] [place] [facility] [address] [id number] [place] [address]- 0425 June, [facility] [place] [facility] [address] [id number] [place] [address]- 0994 June, [facility] [place] [facility] [address] [id number] [place] [address]- 6923 June, [facility] [place] [facility] [address] [id number] [place] [address]- 3028 May, [facility] [place] [facility] [address] [id number] [place] [address] May, [facility] [place] [facility] [address] [id number] [place] [address] May, [facility] [place] [facility] [address] [id number] [place] [address] May, [facility] [place] [facility] [address] [id number] [place] [address] May, [facility] [place] [facility] [address] [id number] [place] [address] May, [facility] [place] [facility] [address] [id number] [place] [address] May, [facility] [place] [facility] [address] [id number] [place] [address] May, [facility] [place] [facility] [address] [id number] [place] [address] May, [facility] [place] [facility] [address] [id number] [place] [address] May, [facility] [place] [facility] [address] [id number] [place] [address] May, [facility] [place] [facility] [address] [id number] [place] [address] Apr, [facility] [place] [facility] [address] [id number] [place] [address] Apr, [facility] [place] [facility] [address] [id number] [place] [address] Apr, [facility] [place] [facility] [address] [id number] [place] [address] Apr, [facility] [place] [facility] [address] [id number] [place] [address] Apr, [facility] [place] [facility] [address] [id number] [place] [address] Apr, [facility] [place] [facility] [address] [id number] [place] [address] Apr, [facility] [place] [facility] [address] [id number] [place] [address] Apr, [facility] [place] [facility] [address] [id number] [place] [address] Apr, [facility] [place] [facility] [address] [id number] [place] [address] Apr, [facility] [place] [facility] [address] [id number] [place] [address] Apr, [facility] [place] [facility] [address] [id number] [place] [address] Apr, [facility] [place] [facility] [address] [id number] [place] [address] Mar, [facility] [place] [facility] [address] [facility] [id number] [place] [address] Mar, [facility] [place] [facility] [address] [id number] [place] [address] Mar, [facility] [place] [facility] [address] [id number] [place] [address] Mar, [facility] [place] [facility] [address] [id number] [place] [address] Mar, [facility] [place] [facility] [address] [id number] [place] [address] Mar, [facility] [place] [facility] [address] [id number] [place] [address] Jan, [facility] [place] [facility] [address] [id number] [place] [address] Jan, [facility] [address] [facility] [id number] [place] [address] Dec, [facility] [address] [facility] [id number] [place] [address] Dec, IMMUNIZATIONS No Known Immunizations SOCIAL HISTORY Never Assessed REASON FOR VISIT Controlled Med Refill 03/16/17 PLAN OF CARE VITAL SIGNS MEDICATIONS Medication Instructions Dosage Frequency Start Date End Date Duration Status Adderall XR 30 MG Orally Once a day 1 capsule in the morning 24h Mar, 28 days Active RESULTS No Results PROCEDURES No Known procedures INSTRUCTIONS MEDICATIONS ADMINISTERED No Known Medications MEDICAL (GENERAL) HISTORY Type Description Date Medical History narcolepsy Surgical History Gallbladder removed 05/2014 Surgical History Hernia repair 05/24/2015
--- OUTSIDE RECORDS SUMMARY | 2017-11-01 13:03 | XMS REPORT ---
Author Author SHAHNAZ WIN Organization [facility] Address [address] [place] [address] Care Team Providers Care Clay Press Operator Name Role Phone SHAHNAZ WIN Unavailable PROBLEMS Type Condition ICD9-CM Code FAN24-AF Code Onset Dates Condition Status SNOMED Code Problem ADHD (attention deficit hyperactivity disorder), inattentive type F90.0 Active 96605752 Problem Arthritis M19.90 Active 1221980 Problem Positive skin test for tuberculosis R76.11 Active 212585305 Problem Lumbago with sciatica, left side M54.42 Active 070933317 Problem Excessive daytime sleepiness G47.19 Active 877213398552 Problem 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 62568570518814 Problem 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 Active [id number] ALLERGIES No Information ENCOUNTERS Encounter Location Date Diagnosis [place] [id number] [place] [address] 95161- 5547 June, [place] [id number] [place] [address] 29246- 4884 Apr, ADHD (attention deficit hyperactivity disorder), inattentive type F90.0 ; Lumbago with sciatica, left side M54.42 and Arthritis M19.90 [facility] [id number] [place] [address] 80938- 4326 Apr, ADHD (attention deficit hyperactivity disorder), inattentive type F90.0 and Lumbar neuritis M54.16 [place] [id number] [place] [address] 74711- 6115 Apr, [place] [id number] [place] [address] 98632- 1862 Apr, Lumbar neuritis M54.16 [place] [id number] [place] [address] 23810- 4204 16 Apr, 2017 Low back pain M54.5 [facility] [id number] [place] [address] 79410- 1046 Apr, ADHD (attention deficit hyperactivity disorder), inattentive type F90.0 [facility] [id number] [place] [address] 44490- 4156 Apr, Positive skin test for tuberculosis R76.11 [facility] [id number] [place] [address] 81992- 9260 Apr, Positive skin test for tuberculosis R76.11 [facility] [id number] [place] [address] 13011- 1249 Apr, [facility] [id number] [place] [address] 76115- 4085 Mar, Lumbar neuritis M54.16 [facility] [id number] [place] [address] 47770- 7564 Mar, ADHD (attention deficit hyperactivity disorder), inattentive type F90.0 [facility] [id number] [place] [address] 37085- 7016 Mar, [facility] [id number] [place] [address] 31735- 5524 Jan, Lumbar neuritis M54.16 [facility] [id number] [place] [address] 11545- 1105 Jan, ADHD (attention deficit hyperactivity disorder), inattentive type F90.0 [facility] [id number] [place] [address] 67408- 0876 Jan, [facility] [id number] [place] [address] 02654- 5090 Jan, [facility] [id number] [place] [address] 13985- 3428 Dec, Lumbar neuritis M54.16 [facility] [id number] [place] [address] 31326- 3591 Dec, ADHD (attention deficit hyperactivity disorder), inattentive type F90.0 and 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16 and ADHD (attention deficit hyperactivity disorder), inattentive type F90.0 [facility] [id number] [place] [address] 10212- 1209 Oct, [facility] [id number] [place] [address] 76260- 2537 Sep, ADHD (attention deficit hyperactivity disorder), inattentive type F90.0 and Lumbar neuritis M54.16 [facility] [id number] [place] [address] 13845- 7426 Sep, Lumbar neuritis M54.16 [facility] [id number] [place] [address] 73356- 6191 Sep, [facility] [id number] [place] [address] 25658- 6011 Sep, ADHD (attention deficit hyperactivity disorder), inattentive type F90.0 and Lumbar neuritis M54.16 [facility] [address] [place] [address]- 3601 Sep, [facility] [address] [address]- 9277 Aug, [facility] [address] 0241 Aug, [facility] [address] [address]- 8775 Aug, [facility] [address] [address]- 8068 Aug, [facility] [id number] [place] [address] 22140- 1850 Aug, ADHD (attention deficit hyperactivity disorder), inattentive type F90.0 and Lumbar neuritis M54.16 [facility] [id number] [address]- 7779 Jul, [facility] [id number] [address]- 0782 Jul, [facility] [id number] [place] [address] 35307- 2178 Jul, Lumbar neuritis M54.16 and ADHD (attention deficit hyperactivity disorder), inattentive type F90.0 [facility] [address] [address]- 2242 Jul, [facility] [address] [address]- 5881 June, Lumbar neuritis M54.16 and ADHD (attention deficit hyperactivity disorder), inattentive type F90.0 [facility] [address] 2273 June, [facility] [address] 6870 June, [facility] [address] [address]- 2356 May, 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 and Lumbago with sciatica, left side M54.42 [facility] [id number] [place] [address] 52870- 8479 May, Lumbar neuritis M54.16 and ADHD (attention deficit hyperactivity disorder), inattentive type F90.0 [facility] [id number] [place] [address] 67051- 3423 Apr, [facility] [id number] [place] [address] 34919- 9156 Apr, Lumbar neuritis M54.16 and ADHD (attention deficit hyperactivity disorder), inattentive type F90.0 [facility] [id number] [place] [address] 41409- 9349 Apr, [facility] [id number] [place] [address] 67612- 4527 Apr, [facility] [id number] [place] [address] 15836- 5206 Apr, ADHD (attention deficit hyperactivity disorder), inattentive type F90.0 [facility] [id number] [place] [address] 79979- 5077 Apr, Lumbar neuritis M54.16 [facility] [id number] [place] [address] 47146- 0687 08 Apr, 2016 [facility] [id number] [place] [address] 79780- 3322 07 Apr, 2016 [facility] [id number] [place] [address] 28427- 4020 Mar, Attention deficit hyperactivity disorder (ADHD), predominantly inattentive type F90.0 [facility] [id number] [place] [address] 37799- 1731 Mar, [facility] [id number] [place] [address] 61550- 5927 Mar, [facility] [id number] [place] [address] 17644- 4315 Mar, [facility] [id number] [place] [address] 93613- 1640 Jan, Attention deficit hyperactivity disorder (ADHD), predominantly inattentive type F90.0 [facility] [id number] [place] [address] 58337- 8485 Jan, [facility] [id number] [place] [address] 73047- 5398 Jan, [facility] [id number] [place] [address] 38481- 0647 Jan, [facility] [id number] [place] [address] 12087- 3495 Jan, Low TSH level R94.6 [facility] [id number] [place] [address] 04423- 6980 Jan, [facility] [id number] [place] [address] 73159- 9601 Jan, [facility] [id number] [place] [address] 30421- 6403 Dec, [facility] [id number] [place] [address] 58442- 4453 Dec, [facility] [id number] [place] [address] 90105- 8860 Dec, [facility] [id number] [place] [address] 97571- 6610 Nov, Low TSH level R94.6 [facility] [id number] [place] [address] 93369- 3652 Nov, Excessive daytime sleepiness G47.19 and ADHD (attention deficit hyperactivity disorder), inattentive type F90.0 [facility] [id number] [place] [address] 91047- 0692 Nov, [facility] [address] [facility] [id number] [place] [address]- 4273 Nov, [facility] [place] [facility] [address] [facility] [id number] [place] [address]- 9966 Nov, [facility] [address] [facility] [id number] [place] [address]- 6317 Oct, [facility] [place] [facility] [address] [facility] [id number] [place] [address], [place] [address]- 6870 Oct, [facility] [place] [facility] [address] [facility] [id number] [place] [address]- 3129 Oct, [facility] [place] [facility] [id number] [place] [address], [place] [address]- 8455 Sep, [facility] [place] [facility] [id number] [place] [address], [place] [address]- 7471 Sep, [facility] [place] [facility] [address] [facility] [id number] [place] [address], [place] [address]- 8722 Sep, [facility] [id number] [address]- 0745 Aug, Lumbar neuritis M54.16 [facility] [id number] [address]- 2700 Aug, [facility] [place] [facility] [address] [address]- 7512 Aug, [facility] [place] [facility] [address] [facility] [id number] [address]- 2621 Jul, Lumbar neuritis M54.16 [facility] [place] [facility] [address] [facility] [id number] [place] 4107 Jul, [facility] [place] [facility] [address] [facility] [id number] [place] [address]- 7866 Jul, [facility] [place] [facility] [address] [address]- 5136 June, Lumbar neuritis M54.16 [facility] [address] [place] [address]- 3357 June, [facility] [id number] [place] [address] 75778- 7152 June, [facility] [id number] [place] [address] 28623- 4656 May, Lumbar neuritis M54.16 [facility] [id number] [place] [address] 77413- 1276 May, [facility] [id number] [place] [address] 05853- 8367 May, [facility] [id number] [place] [address] 18368- 1595 23 May, 2015 [facility] [id number] [place] [address] 61201- 5662 Apr, [facility] [id number] [place] [address] 20865- 1590 14 May, 2015 [facility] [id number] [place] [address] 98513- 5161 Apr, [facility] [id number] [address]- 8797 24 Apr, 2015 [facility] [id number] [place] [address] 05039- 1903 22 Apr, 2015 Inguinal hernia, right K40.90 [facility] [address] [address]- 9880 17 Apr, 2015 [facility] [id number] [place] [address] 63586- 6196 15 Apr, 2015 Low back pain M54.5 and Sciatica, unspecified side M54.30 [facility] [address] [address]- 7101 Mar, [facility] [address] [id number] [place] [address]- 3658 Mar, [facility] [address] [facility] [id number] [place] [address], [place] [address]- 0587 Jan, [facility] [place] [facility] [address] [facility] [id number] [place] [address]- 4689 Jan, [facility] [address] [facility] [id number] [place] [address], [place] [address]- 3113 Jan, [facility] [place] [facility] [address] [facility] [id number] [place] [address]- 5390 Dec, [facility] [id number] [place] [address], [place] [address]- 1652 Dec, [facility] [id number] [place] [address], [place] [address]- 3221 Dec, [facility] [id number] [place] [address], [place] [address]- 6716 Dec, [facility] [id number] [place] [address] 43546- 8363 Nov, [facility] [id number] [place] [address] 14272- 4757 Nov, Encounter for immunization Z23 [facility] [address] [address]- 6002 Nov, [facility] [id number] [address]- 2945 Nov, [facility] [id number] [address]- 5298 Oct, [facility] [id number] [place] [address]- 7863 Oct, [facility] [id number] [address]- 7599 Sep, Lumbago 724.2 [facility] [id number] [place] [address]- 2176 Sep, [facility] [place] [facility] [address] [id number] [place] [address]- 9200 Aug, Lumbago 724.2 [facility] [place] [facility] [address] [id number] [place] [address]- 7786 Aug, [facility] [place] [facility] [address] [id number] [place] [address]- 9030 Aug, [facility] [place] [facility] [address] [id number] [place] [address]- 3473 Jul, [facility] [place] [facility] [address] [id number] [place] [address]- 5182 Jul, [facility] [place] [facility] [address] [id number] [place] [address]- 7965 Jul, [facility] [place] [facility] [address] [id number] [place] [address]- 9468 June, [facility] [place] [facility] [address] [id number] [place] [address]- 7851 May, [facility] [place] [facility] [address] [id number] [place] [address]- 3159 May, [facility] [place] [facility] [address] [facility] [id number] [place] [address]- 3235 Apr, [facility] [place] [facility] [address] [id number] [place] [address]- 8461 Apr, [facility] [place] [facility] [address] [id number] [place] [address]- 0462 Apr, [facility] [place] [facility] [address] [id number] [place] [address]- 4216 Apr, [facility] [place] [facility] [address] [id number] [place] [address]- 5036 Apr, [facility] [place] [facility] [address] [id number] [place] [address]- 1895 Apr, [facility] [place] [facility] [address] [id number] [place] [address]- 6498 Apr, [facility] [place] [facility] [address] [id number] [place] [address]- 1066 Apr, [facility] [place] [facility] [address] [facility] [id number] [place] [address]- 7125 Mar, [facility] [place] [facility] [address] [id number] [place] [address]- 7755 Mar, [facility] [place] [facility] [address] [id number] [place] [address]- 3491 Jan, [facility] [place] [facility] [address] [id number] [place] [address]- 8563 Jan, [facility] [place] [facility] [address] [id number] [place] [address]- 0342 Jan, [facility] [place] [facility] [address] [id number] [place] [address]- 8826 Jan, [facility] [place] [facility] [address] [id number] [place] [address]- 4439 Jan, [facility] [place] [facility] [address] [facility] [id number] [place] [address]- 9157 Jan, [facility] [place] [facility] [address] [id number] [place] [address]- 2103 Dec, [facility] [place] [facility] [address] [id number] [address]- 5579 Dec, [facility] [place] [facility] [address] [id number] [place] [address]- 4752 Nov, [facility] [place] [facility] [address] [id number] [place] [address]- 4546 Nov, [facility] [place] [facility] [address] [facility] [id number] [place] [address]- 6736 Nov, [facility] [place] [facility] [address] [id number] [place] [address]- 9416 Nov, [facility] [place] [facility] [address] [id number] [place] [address]- 9177 Oct, [facility] [place] [facility] [address] [id number] [place] 0340 Oct, [facility] [place] [facility] [address] [id number] [place] [address]- 2020 Sep, [facility] [place] [facility] [address] [id number] [place] [address]- 4069 Sep, [facility] [place] [facility] [address] [id number] [place] [address]- 1099 Sep, [facility] [place] [facility] [address] [id number] [place] [address]- 7419 Sep, [facility] [place] [facility] [address] [id number] [place] [address]- 0581 Aug, [facility] [place] [facility] [address] [id number] [place] [address]- 3898 Aug, [facility] [place] [facility] [address] [id number] [place] [address]- 6392 Aug, [facility] [place] [facility] [address] [id number] [place] [address]- 6940 Aug, [facility] [place] [facility] [address] [id number] [place] [address]- 9143 Jul, [facility] [place] [facility] [address] [id number] [place] [address]- 6766 Jul, [facility] [place] [facility] [address] [id number] [place] [address]- 5800 June, [facility] [place] [facility] [address] [id number] [id number] 1969 June, [facility] [place] [facility] [address] [id number] [place] [address]- 1701 June, [facility] [place] [facility] [address] [id number] [place] [address]- 2587 May, [facility] [place] [facility] [address] [id number] [place] [address]- 2552 May, [facility] [place] [facility] [address] [id number] [place] [address]- 6155 May, [facility] [place] [facility] [address] [id number] [place] [address]- 5635 May, [facility] [place] [facility] [address] [id number] [place] [address]- 2224 May, [facility] [place] [facility] [address] [id number] [place] [address]- 5967 May, [facility] [place] [facility] [address] [id number] [place] [address]- 9200 May, [facility] [place] [facility] [address] [id number] [place] [address]- 8763 May, [facility] [place] [facility] [address] [id number] [place] [address] May, [facility] [place] [facility] [address] [id number] [place] [address] May, [facility] [place] [facility] [address] [id number] [place] [address] May, [facility] [place] [facility] [address] [id number] [place] [address] Apr, [facility] [place] [facility] [address] [id number] [place] [address] Apr, [facility] [place] [facility] [address] [id number] [place] [address] Apr, [facility] [place] [facility] [address] [id number] [place] [address] Apr, [facility] [place] [facility] [address] [id number] [place] [address] Apr, [facility] [place] [facility] [address] [id number] [place] [address] Apr, [facility] [place] [facility] [address] [id number] [place] [address] Apr, [facility] [place] [facility] [address] [id number] [place] [address] Apr, [facility] [place] [facility] [address] [id number] [place] [address] Apr, [facility] [place] [facility] [address] [id number] [place] [address] Apr, [facility] [place] [facility] [address] [id number] [place] [address] Apr, [facility] [place] [facility] [address] [id number] [place] [address] Apr, [facility] [place] [facility] [address] [id number] [place] [address] Mar, [facility] [place] [facility] [address] [id number] [place] [address] Mar, [facility] [place] [facility] [address] [facility] [id number] [place] [address] Mar, [facility] [place] [facility] [address] [id number] [place] [address] Mar, [facility] [place] [facility] [address] [id number] [place] [address] Mar, [facility] [place] [facility] [address] [id number] [place] [address] Mar, [facility] [place] [facility] [address] [id number] [place] [address] Jan, [facility] [place] [facility] [address] [id number] [place] [address] Jan, [facility] [address] [facility] [id number] [place] [id number] Dec, [facility] [address] [facility] [id number] [place] [id number] Dec, IMMUNIZATIONS No Known Immunizations SOCIAL HISTORY Never Assessed REASON FOR VISIT Controlled Med Refill 12/16/16 PLAN OF CARE VITAL SIGNS MEDICATIONS Medication Instructions Dosage Frequency Start Date End Date Duration Status [place] 10-325 MG Orally every 6 hrs 1 tablet as needed 6h Nov, Active Xanax 1 MG Orally 3 times a day 1 tablet 8h Sep, Active RESULTS No Results PROCEDURES No Known procedures INSTRUCTIONS MEDICATIONS ADMINISTERED No Known Medications MEDICAL (GENERAL) HISTORY Type Description Date Medical History narcolepsy Surgical History Gallbladder removed 05/2014 Surgical History Hernia repair 05/24/2015
--- OUTSIDE RECORDS SUMMARY | 2017-11-01 13:04 | XMS REPORT ---
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 52494177452910 Problem ADHD (attention deficit hyperactivity disorder), inattentive type F90.0 Active 24006375 Problem Excessive daytime sleepiness G47.19 Active [id number] ALLERGIES Unknown Allergies SOCIAL HISTORY No smoking Hx information available PLAN OF CARE VITAL SIGNS MEDICATIONS Medication Instructions Dosage Frequency Start Date End Date Duration Status Hydrocodone-Acetaminophen 10-325 MG Orally every 6 hrs 1 tablet as needed 6h 10 Mar, 2016 28 days Active Alprazolam 1 MG Orally Three times a day 1 tablet 8h Apr, 28 days Active RESULTS No Results PROCEDURES No Known procedures IMMUNIZATIONS No Known Immunizations
--- OUTSIDE RECORDS SUMMARY | 2017-11-01 13:04 | XMS REPORT ---
Author Author SHAHNAZ WIN Organization [facility] Address [address] [place] [address] Care Team Providers Care Paver Layer Name Role Phone SHAHNAZ WIN Unavailable PROBLEMS Type Condition ICD9-CM Code RTS49-JH Code Onset Dates Condition Status SNOMED Code Problem ADHD (attention deficit hyperactivity disorder), inattentive type F90.0 Active 72004090 Problem Arthritis M19.90 Active 8620499 Problem Positive skin test for tuberculosis R76.11 Active 735672779 Problem Lumbago with sciatica, left side M54.42 Active 276724093 Problem Excessive daytime sleepiness G47.19 Active 893504547720 Problem 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 34961913740902 Problem 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 Active [id number] ALLERGIES No Information ENCOUNTERS Encounter Location Date Diagnosis [place] [address] [address] Apr, ADHD (attention deficit hyperactivity disorder), inattentive type F90.0 ; Lumbago with sciatica, left side M54.42 and Arthritis M19.90 [place] [address] [place] [id number] [place] [address] 67361- 4026 Apr, ADHD (attention deficit hyperactivity disorder), inattentive type F90.0 and Lumbar neuritis M54.16 [place] [address] [place] [id number] [place] [address] 74400- 9274 Apr, [place] [address] [address]- [address] Apr, Lumbar neuritis M54.16 [place] [address] [place] [id number] [place] [address] 91420- 6783 Apr, Low back pain M54.5 [facility] [id number] [address] 99320- 3010 Apr, ADHD (attention deficit hyperactivity disorder), inattentive type F90.0 [facility] [address] [place] [id number] [place] [address] 77676- 2978 Apr, Positive skin test for tuberculosis R76.11 [facility] [address] [place] [id number] [place] [address] 27227- 7803 Apr, Positive skin test for tuberculosis R76.11 [facility] [address] [place] [id number] [place] [address] 32870- 6602 Apr, [facility] [address] [address] [id number] [place] [address] 77434- 2829 Mar, Lumbar neuritis M54.16 [facility] [address] [place] [address] [id number] [place] [address] 20779- 1291 Mar, ADHD (attention deficit hyperactivity disorder), inattentive type F90.0 [facility] [address] [place] [id number] [place] [address] 58111- 3205 Mar, [facility] [address] [place] [id number] [place] [address] 81365- 0464 Jan, Lumbar neuritis M54.16 [facility] [address] [place] [address] [id number] [place] [address] 85302- 5511 Jan, ADHD (attention deficit hyperactivity disorder), inattentive type F90.0 [facility] [id number] [place] [address] 22167- 3528 Jan, [facility] [address] [place] [id number] [place] [address] 44392- 6676 Jan, [facility] [address] [place] [id number] [place] [address] 95892- 5128 Dec, Lumbar neuritis M54.16 [facility] [address] [place] [id number] [place] [address] 45903- 1216 Dec, ADHD (attention deficit hyperactivity disorder), inattentive type F90.0 and 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 [facility] [address] [place] [id number] [place] [address] 77594- 8445 Dec, [facility] [address] [place] [address] [id number] [place] [address] 74932- 8499 Dec, [facility] [address] [place] [id number] [place] [address] 35963- 7665 Nov, Lumbar neuritis M54.16 and ADHD (attention deficit hyperactivity disorder), inattentive type F90.0 [facility] [address] [place] [id number] [place] [address] 58697- 9507 Nov, [facility] [address] [place] [id number] [place] [address] 29232- 8178 Oct, Lumbar neuritis M54.16 and ADHD (attention deficit hyperactivity disorder), inattentive type F90.0 [facility] [address] [place] [id number] [place] [address] 69294- 5305 Oct, [facility] [address] [place] [id number] [place] [address] 89464- 9166 Sep, ADHD (attention deficit hyperactivity disorder), inattentive type F90.0 and Lumbar neuritis M54.16 [facility] [address] [place] [id number] [place] [address] 82169- 7172 Sep, Lumbar neuritis M54.16 [facility] [address] [place] [id number] [place] [address] 51132- 7630 Sep, [facility] [address] [place] [id number] [place] [address] 05392- 0453 Sep, ADHD (attention deficit hyperactivity disorder), inattentive type F90.0 and Lumbar neuritis M54.16 [facility] [address] [place] [id number] [place] [address] 12512- 2028 Sep, [facility] [address] [place] [address]- 5987 Aug, [facility] [address] [address]- 4555 Aug, [facility] [address] [address]- 3696 Aug, [facility] [address] [place] [id number] [place] [address] 02601- 5634 Aug, [facility] [address] [place] [id number] [place] [address] 17815- 0595 Aug, ADHD (attention deficit hyperactivity disorder), inattentive type F90.0 and Lumbar neuritis M54.16 [facility] [address] [address]- 2744 Jul, [facility] [address] [place] [id number] [place] [address] 21155- 3518 Jul, [facility] [id number] [place] [address] 69755- 2422 Jul, Lumbar neuritis M54.16 and ADHD (attention deficit hyperactivity disorder), inattentive type F90.0 [facility] [address] [address]- 5927 Jul, [facility] [address] [address]- 5265 June, Lumbar neuritis M54.16 and ADHD (attention deficit hyperactivity disorder), inattentive type F90.0 [facility] [address] [address]- 3631 June, [facility] [address] [address]- 5895 June, [facility] [address] [address]- 5649 May, 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 and Lumbago with sciatica, left side M54.42 [facility] [place] [facility] [address], [place] [address]- 4942 14 May, 2016 Lumbar neuritis M54.16 and ADHD (attention deficit hyperactivity disorder), inattentive type F90.0 [facility] [address] [place] [id number] [address]- 3886 Apr, [facility] [address] [place] [id number] [place] [address] 80505- 5420 Apr, Lumbar neuritis M54.16 and ADHD (attention deficit hyperactivity disorder), inattentive type F90.0 [facility] [address] [place] [id number] [place] [address] 74607- 3922 Apr, [facility] [address] [place] [id number] [place] [address] 29222- 7356 Apr, [facility] [address] [place] [id number] [place] [address] 99425- 0481 15 Apr, 2016 ADHD (attention deficit hyperactivity disorder), inattentive type F90.0 [facility] [id number] [place] [address] 12265- 1790 15 Apr, 2016 Lumbar neuritis M54.16 [facility] [address] [place] [id number] [address]- 6057 08 Apr, 2016 [facility] [address] [place] [id number] [place] [address] 58979- 0171 Apr, [facility] [address] [place] [id number] [place] [address] 71454- 7897 Mar, Attention deficit hyperactivity disorder (ADHD), predominantly inattentive type F90.0 [facility] [address] [place] [id number] [place] [address] 32565- 5043 Mar, [facility] [address] [address]- 8312 Mar, [facility] [address] [place] [id number] [place] [address] 85559- 7544 Mar, [facility] [id number] [place] [address] 81378- 4995 Jan, Attention deficit hyperactivity disorder (ADHD), predominantly inattentive type F90.0 [facility] [address] [place] [id number] [place] [address] 97366- 5805 Jan, [facility] [address] [place] [id number] [place] [address] 46136- 6679 Jan, [facility] [address] [place] [id number] [place] [address] 49022- 1771 Jan, [facility] [address] [place] [id number] [place] [address] 81519- 2852 Jan, [facility] [address] [place] [id number] [place] [address] 67005- 0881 Jan, Low TSH level R94.6 [facility] [address] [place] [id number] [place] [address] 61339- 5829 Jan, [facility] [address] [place] [id number] [place] [address] 72516- 0806 Dec, [facility] [address] [place] [id number] [place] [address] 95040- 0454 Dec, [facility] [address] [place] [id number] [place] [address] 43356- 5625 Dec, [facility] [address] [place] [id number] [place] [address] 06505- 4387 Nov, Low TSH level R94.6 [facility] [id number] [place] [address] 97864- 7286 Nov, Excessive daytime sleepiness G47.19 and ADHD (attention deficit hyperactivity disorder), inattentive type F90.0 [facility] [id number] [place] [address] 19328- 3954 13 Dec, 2015 [facility] [address] [place] [id number] [place] [address] 74202- 0396 Nov, [facility] [address] [facility] [id number] [place] [address]- 4731 Nov, [facility] [address] [facility] [id number] [place] [address], [place] [address]- 9514 Oct, [facility] [address] [facility] [id number] [place] [address]- 5015 Oct, [facility] [address] [facility] [id number] [place] [address], [place] [address]- 8334 Oct, [facility] [address] [facility] [id number] [place] [address], [place] [address]- 3913 Sep, [facility] [address] [facility] [id number] [place] [address], [place] [address]- 9474 Sep, [facility] [address] [facility] [id number] [place] [address], [place] [address]- 2948 Sep, [facility] [address] [place] [id number] [place] [address] 53420- 7055 Aug, Lumbar neuritis M54.16 [facility] [address] [place] [id number] [address]- 6076 Aug, [facility] [address] [place] [id number] [address]- 4058 Aug, [facility] [address] [address]- 9817 Jul, Lumbar neuritis M54.16 [facility] [address] [facility] [id number] [address]- 7016 Jul, [facility] [address] [place] [id number] [address]- 6936 Jul, [facility] [place] [facility] [address] [facility] [id number] [address]- 9610 June, Lumbar neuritis M54.16 [facility] [address] [place] [id number] [address]- 2512 June, [facility] [id number] [place] [address] 20875- 9382 June, [facility] [address] [place] [id number] [place] [address] 50022- 3000 May, Lumbar neuritis M54.16 [facility] [address] [place] [id number] [place] [address] 44709- 6332 May, [facility] [address] [place] [id number] [place] [address] 58196- 9913 May, [facility] [address] [place] [id number] [place] [address] 92600- 7258 Apr, [facility] [address] [place] [id number] [place] [address] 75580- 1960 Apr, [facility] [address] [place] [id number] [place] [address] 43036- 7111 Apr, [facility] [address] [place] [id number] [place] [address] 28900- 3448 Apr, [facility] [address] [place] [id number] [place] [address] 67753- 9099 24 Apr, 2015 [facility] [address] [place] [id number] [address]- 1347 Apr, Inguinal hernia, right K40.90 [facility] [address] [place] [id number] [place] [address] 23647- 0547 Apr, [facility] [id number] [place] [address] 67653- 2081 15 Apr, 2015 Low back pain M54.5 and Sciatica, unspecified side M54.30 [facility] [address] [place] [id number] [address]- 2768 Mar, [facility] [address] [place] [id number] [place] [address] 11298- 9782 Mar, [facility] [address] [facility] [id number] [place] [address]- 7935 Jan, [facility] [address] [place] [id number] [place] [address], [place] [address]- 0473 Jan, [facility] [place] [facility] [address] [facility] [id number] [place] [address]- 7593 Jan, [facility] [place] [facility] [address] [facility] [id number] [place] [address], [place] [address]- 8826 Dec, [facility] [place] [facility] [address] [facility] [id number] [place] [address]- 8391 Dec, [facility] [place] [facility] [address] [place] [id number] [place] [address], [place] [address]- 7733 Dec, [facility] [place] [facility] [address] [place] [id number] [place] [address], [place] [address]- 7657 Dec, [facility] [place] [facility] [address] [place] [id number] [place] [address], [place] [address]- 4528 Nov, [facility] [address] [place] [id number] [place] [address] 15925- 1085 Nov, Encounter for immunization Z23 [facility] [id number] [place] [address] 86891- 7900 Nov, [facility] [address] [address]- 0150 Nov, [facility] [place] [facility] [address] [address]- 9218 Oct, [facility] [place] [facility] [address] [place] [id number] [address]- 5375 Oct, [facility] [place] [facility] [address] [place] [id number] [address]- 1654 Sep, Lumbago 724.2 [facility] [place] [facility] [address] [place] [address]- 4079 Sep, [facility] [place] [facility] [address] [place] [id number] [place] [address]- 6354 Aug, Lumbago 724.2 [facility] [place] [facility] [address] [id number] [place] [address]- 8559 17 Aug, 2014 [facility] [place] [facility] [address] [id number] [place] [address]- 4250 Aug, [facility] [place] [facility] [address] [id number] [place] [address]- 6655 Jul, [facility] [place] [facility] [address] [id number] [place] [address]- 7870 Jul, [facility] [place] [facility] [address] [id number] [place] [address]- 8546 Jul, [facility] [place] [facility] [address] [facility] [id number] [place] [address]- 3790 June, [facility] [place] [facility] [address] [facility] [id number] [place] [address]- 3080 May, [facility] [place] [facility] [address] [facility] [id number] [place] [address]- 4601 May, [facility] [place] [facility] [address] [facility] [id number] [place] [address]- 4652 Apr, [facility] [place] [facility] [address] [facility] [id number] [place] [address]- 6116 Apr, [facility] [place] [facility] [address] [facility] [id number] [place] [address]- 2546 Apr, [facility] [place] [facility] [address] [facility] [id number] [place] [address]- 9356 Apr, [facility] [place] [facility] [address] [facility] [id number] [place] [address]- 9896 Apr, [facility] [place] [facility] [address] [facility] [id number] [place] [address]- 2546 Apr, [facility] [place] [facility] [address] [facility] [id number] [place] [address]- 6253 Apr, [facility] [place] [facility] [address] [id number] [place] [address]- 8577 Apr, [facility] [place] [facility] [address] [id number] [place] [address]- 3396 Mar, [facility] [place] [facility] [address] [facility] [id number] [place] [address]- 9183 Mar, [facility] [place] [facility] [address] [id number] [place] [address]- 6384 Jan, [facility] [place] [facility] [address] [id number] [place] 3941 Jan, [facility] [place] [facility] [address] [facility] [id number] [place] [address]- 3597 Jan, [facility] [place] [facility] [address] [facility] [id number] [place] [address]- 3934 Jan, [facility] [place] [facility] [address] [id number] [place] [address]- 5260 Jan, [facility] [place] [facility] [address] [facility] [id number] [place] [address]- 2127 Jan, [facility] [place] [facility] [address] [facility] [id number] [place] [address]- 4624 Dec, [facility] [place] [facility] [address] [facility] [id number] [address]- 9877 Dec, [facility] [place] [facility] [address] [id number] [address]- 5459 Nov, [facility] [place] [facility] [address] [id number] [place] [address]- 9945 Nov, [facility] [place] [facility] [address] [facility] [id number] [address]- 3181 Nov, [facility] [place] [facility] [address] [facility] [id number] [address]- 3142 Nov, [facility] [place] [facility] [address] [id number] [place] [address]- 1818 15 Oct, 2013 [facility] [address] [id number] [place] [address]- 8796 Oct, [facility] [place] [facility] [address] [id number] [place] [address] Sep, [facility] [place] [facility] [address] [id number] [place] [address] Sep, [facility] [place] [facility] [address] [id number] [place] [address] Sep, [facility] [place] [facility] [address] [id number] [place] [address] Sep, [facility] [place] [facility] [address] [id number] [place] [address] Aug, [facility] [place] [facility] [address] [id number] [place] [address] Aug, [facility] [address] [id number] [place] [address] Aug, [facility] [place] [facility] [address] [id number] [place] [address] Aug, [facility] [address] [id number] [place] [address] Jul, [facility] [place] [facility] [address] [id number] [place] [address] Jul, [facility] [place] [facility] [address] [id number] [place] [address] June, [facility] [place] [facility] [address] [id number] [place] [address] June, [facility] [place] [facility] [address] [id number] [place] [address] June, [facility] [place] [facility] [address] [id number] [place] [address] May, [facility] [place] [facility] [address] [id number] [place] [address] 30 May, 2013 [facility] [place] [facility] [address] [id number] [place] [address] May, [facility] [place] [facility] [address] [id number] [place] [address] May, [facility] [place] [facility] [address] [id number] [place] [address] May, [facility] [place] [facility] [address] [id number] [place] [address] May, [facility] [place] [facility] [address] [id number] [place] [address] May, [facility] [place] [facility] [address] [id number] [place] [address] May, [facility] [place] [facility] [address] [id number] [place] [address]- [address] May, [facility] [place] [facility] [address] [id number] [place] [address]- [address] May, [facility] [place] [facility] [address] [id number] [place] [address] May, [facility] [place] [facility] [address] [id number] [place] [address] Apr, [facility] [place] [facility] [address] [id number] [place] [address] Apr, [facility] [place] [facility] [address] [id number] [place] [address] Apr, [facility] [place] [facility] [address] [id number] [place] [address] Apr, [facility] [place] [facility] [address] [id number] [place] [address] Apr, [facility] [place] [facility] [address] [id number] [place] [address] Apr, [facility] [place] [facility] [address] [id number] [place] [address] Apr, [facility] [place] [facility] [address] [id number] [place] [address] Apr, [facility] [place] [facility] [address] [id number] [place] [address] Apr, [facility] [place] [facility] [address] [id number] [place] [address] Apr, [facility] [place] [facility] [address] [id number] [place] [address] Apr, [facility] [place] [facility] [address] [id number] [place] [address]- [address] Apr, [facility] [place] [facility] [address] [id number] [place] [address] Mar, [facility] [place] [facility] [address] [id number] [place] [address] Mar, [facility] [place] [facility] [address] [id number] [place] [address] Mar, [facility] [place] [facility] [address] [id number] [place] [address] Mar, [facility] [place] [facility] [address] [id number] [place] [address] Mar, [facility] [place] [facility] [address] [id number] [place] [address] Mar, [facility] [place] [facility] [address] [id number] [place] [address] Jan, [facility] [place] [facility] [address] [id number] [place] [address] Jan, [facility] [place] [facility] [address] [id number] [place] [address] Dec, [facility] [address] [facility] [id number] [place] [address] Dec, IMMUNIZATIONS No Known Immunizations SOCIAL HISTORY Never Assessed REASON FOR VISIT Controlled Refill Request PLAN OF CARE VITAL SIGNS MEDICATIONS Medication Instructions Dosage Frequency Start Date End Date Duration Status Adderall XR 20 MG Orally Once a day 1 capsule in the morning 24h Nov, 28 days Active Tramadol HCl 50 MG Orally every 6 hrs 1 tablet as needed 6h Jan, 28 days Active RESULTS No Results PROCEDURES No Known procedures INSTRUCTIONS MEDICATIONS ADMINISTERED No Known Medications MEDICAL (GENERAL) HISTORY Type Description Date Medical History narcolepsy Surgical History Gallbladder removed 05/2014 Surgical History Hernia repair 05/24/2015
--- OUTSIDE RECORDS SUMMARY | 2017-11-01 13:04 | XMS REPORT ---
Author Author ELEANOR NEGRON [facility] Address [address] [place] [address] Care Team Providers Care Mine Car Repairer Name Role Phone ELEANOR NEGRON Unavailable PROBLEMS Type Condition ICD9-CM Code HGL24-QD Code Onset Dates Condition Status SNOMED Code Problem ADHD (attention deficit hyperactivity disorder), inattentive type F90.0 Active 63711071 Problem Arthritis M19.90 Active 8883112 Problem Positive skin test for tuberculosis R76.11 Active 209419725 Problem Lumbago with sciatica, left side M54.42 Active 839631731 Problem Excessive daytime sleepiness G47.19 Active 070619615357 Problem 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 16362068700535 Problem 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 Active [id number] ALLERGIES No Information ENCOUNTERS Encounter Location Date Diagnosis [place] [address] [address] June, [place] [address] [place] [id number] [place] [address] 77581- 1255 Apr, ADHD (attention deficit hyperactivity disorder), inattentive type F90.0 ; Lumbago with sciatica, left side M54.42 and Arthritis M19.90 [facility] [id number] [place] [address] 37723- 3770 Apr, ADHD (attention deficit hyperactivity disorder), inattentive type F90.0 and Lumbar neuritis M54.16 [facility] [address] [id number] [place] [address] 07377- 4385 Apr, [facility] [id number] [place] [address] 09277- 6956 16 Apr, 2017 Lumbar neuritis M54.16 [facility] [address] [place] [address] 61256- 1401 16 Apr, 2017 Low back pain M54.5 [facility] [address] [id number] [place] [address] 34581- 0092 11 Apr, 2017 ADHD (attention deficit hyperactivity disorder), inattentive type F90.0 [facility] [id number] [place] [address] 97732- 4584 09 Apr, 2017 Positive skin test for tuberculosis R76.11 [facility] [address] [place] [id number] [place] [address] 28157- 5143 Apr, Positive skin test for tuberculosis R76.11 [facility] [id number] [place] [address] 31601- 4801 Apr, [facility] [address] [id number] [place] [address] 89872- 4280 Mar, Lumbar neuritis M54.16 [facility] [address] [id number] [place] [address] 27467- 8768 Mar, ADHD (attention deficit hyperactivity disorder), inattentive type F90.0 [facility] [id number] [place] [address] 08757- 1423 Mar, [facility] [id number] [place] [address] 23612- 0285 Jan, Lumbar neuritis M54.16 [facility] [address] [place] [id number] [place] [address] 99301- 4118 Jan, ADHD (attention deficit hyperactivity disorder), inattentive type F90.0 [facility] [address] [id number] [place] [address] 67497- 3329 Jan, [facility] [address] [place] [id number] [place] [address] 27972- 7876 Jan, [facility] [address] [id number] [place] [address] 93399- 4965 Dec, Lumbar neuritis M54.16 [facility] [address] [id number] [place] [address] 00634- 4173 Dec, ADHD (attention deficit hyperactivity disorder), inattentive type F90.0 and 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 [facility] [address] [id number] [place] [address] 73538- 4441 Dec, [facility] [address] [place] [id number] [place] [address] 56284- 7790 Dec, [facility] [address] [place] [id number] [place] [address] 22943- 7435 Nov, Lumbar neuritis M54.16 and ADHD (attention deficit hyperactivity disorder), inattentive type F90.0 [facility] [address] [place] [id number] [place] [address] 65333- 6818 Nov, [facility] [address] [place] [id number] [place] [address] 38242- 7473 Oct, Lumbar neuritis M54.16 and ADHD (attention deficit hyperactivity disorder), inattentive type F90.0 [facility] [address] [place] [id number] [place] [address] 41875- 2657 Oct, [facility] [address] [place] [address] [id number] [place] [address] 90568- 7050 Sep, ADHD (attention deficit hyperactivity disorder), inattentive type F90.0 and Lumbar neuritis M54.16 [facility] [address] [place] [id number] [place] [address] 76041- 6046 Sep, Lumbar neuritis M54.16 [facility] [address] [place] [id number] [place] [address] 14620- 4122 Sep, [facility] [address] [place] [id number] [place] [address] 23557- 2735 Sep, ADHD (attention deficit hyperactivity disorder), inattentive type F90.0 and Lumbar neuritis M54.16 [facility] [address] [address]- 6605 Sep, [facility] [id number] [address]- 1965 Aug, [facility] [address] [address]- 6117 Aug, [facility] [address] [place] [id number] [place] [address] 29375- 8336 Aug, [facility] [address] [place] [id number] [place] [address] 29346- 9835 Aug, [facility] [address] [place] [id number] [place] [address] 72499- 9589 Aug, ADHD (attention deficit hyperactivity disorder), inattentive type F90.0 and Lumbar neuritis M54.16 [facility] [address] [place] [id number] [place] [address] 44928- 5741 Jul, [facility] [address] [place] [address] [id number] [address]- 1385 Jul, [facility] [address] [place] [id number] [place] [address] 58542- 3146 Jul, Lumbar neuritis M54.16 and ADHD (attention deficit hyperactivity disorder), inattentive type F90.0 [facility] [address] [address]- 7281 Jul, [facility] [address] [address]- 7647 June, Lumbar neuritis M54.16 and ADHD (attention deficit hyperactivity disorder), inattentive type F90.0 [facility] [address] [id number] [address] 8278 June, [facility] [address] [address]- 1907 June, [facility] [address] [place] [id number] [place] [address] 04496- 1138 May, 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 and Lumbago with sciatica, left side M54.42 [facility] [address] [place] [id number] [place] [address] 04250- 9887 May, Lumbar neuritis M54.16 and ADHD (attention deficit hyperactivity disorder), inattentive type F90.0 [facility] [address] 31341- 7325 Apr, [facility] [address] [place] [address] [id number] [place] [address] 88350- 7224 Apr, Lumbar neuritis M54.16 and ADHD (attention deficit hyperactivity disorder), inattentive type F90.0 [facility] [address] [place] [id number] [place] [address] 73700- 9566 Apr, [facility] [address] 07773- 6560 Apr, [facility] [address] [place] [id number] [place] [address] 39830- 2040 15 Apr, 2016 ADHD (attention deficit hyperactivity disorder), inattentive type F90.0 [facility] [address] [place] [id number] [place] [address] 01217- 8957 15 Apr, 2016 Lumbar neuritis M54.16 [facility] [address] [place] [id number] [place] [address] 77476- 6071 08 Apr, 2016 [facility] [address] [place] [id number] [place] [address] 27467- 1131 Apr, [facility] [address] [place] [id number] [place] [address] 69023- 4245 Mar, Attention deficit hyperactivity disorder (ADHD), predominantly inattentive type F90.0 [facility] [address] [place] [id number] [place] [address] 63953- 5822 Mar, [facility] [address] [place] [id number] [place] [address] 99745- 6625 Mar, [facility] [address] [address]- 5016 Mar, [facility] [address] [place] [address] 149610- 7268 Jan, Attention deficit hyperactivity disorder (ADHD), predominantly inattentive type F90.0 [facility] [address] [place] [id number] [place] [address] 21463- 0114 Jan, [facility] [address] [place] [id number] [place] [address] 47500- 9230 Jan, [facility] [address] [place] [id number] [place] [address] 48197- 5479 Jan, [facility] [address] [place] [id number] [place] [address] 89877- 5563 Jan, Low TSH level R94.6 [facility] [address] [place] [id number] [place] [address] 81002- 2927 Jan, [facility] [address] [place] [address] 12759- 4022 Jan, [facility] [address] [place] [address] 42469- 0394 Dec, [facility] [address] [address]- 2076 Dec, [facility] [address] [place] [id number] [place] [address] 69637- 7568 Dec, [facility] [address] [place] [address] 64090- 4890 Nov, Low TSH level R94.6 [facility] [address] [place] [address] 27960- 0117 Nov, Excessive daytime sleepiness G47.19 and ADHD (attention deficit hyperactivity disorder), inattentive type F90.0 [facility] [address] [place] [id number] [place] [address] 68900- 2708 Nov, [facility] [address] [id number] [place] [address]- 5766 Nov, [facility] [address] [id number] [place] [address]- 3998 Nov, [facility] [address] [id number] [place] [address]- 3121 Oct, [facility] [address] [id number] [place] [address]- 5145 Oct, [facility] [address] [id number] [place] [address]- 6562 Oct, [facility] [place] [facility] [address] [facility] [id number] [place] [address]- 7815 Sep, [facility] [address] [place] [id number] [place] [address]- 3359 Sep, [facility] [address] [facility] [id number] [place] [address]- 7418 Sep, [facility] [address] [facility] [id number] [place] [address]- 5524 Aug, Lumbar neuritis M54.16 [facility] [address] [facility] [id number] [place] [address]- 6770 Aug, [facility] [place] [facility] [address] [place] [id number] [place] [address]- 3025 Aug, [facility] [place] [facility] [address] [facility] [id number] [place] [address]- 1575 Jul, Lumbar neuritis M54.16 [facility] [address] [facility] [id number] [place] 3370 Jul, [facility] [place] [facility] [address] [facility] [id number] [place] [address]- 2919 Jul, [facility] [address] [place] [id number] [place] [address]- 2091 June, Lumbar neuritis M54.16 [facility] [address] [place] [address]- 1221 June, [facility] [address] [place] [address] 95264- 3586 June, [facility] [address] [place] [id number] [place] [address], [place] [address]- 8957 May, Lumbar neuritis M54.16 [facility] [address] [place] [id number] [place] [address], [place] [address]- 7114 May, [facility] [address] [place] [id number] [place] [address], [place] [address]- 1013 May, [facility] [address] [id number] [place] [address] 53335- 7293 Apr, [facility] [address] [place] [id number] [place] [address] 38683- 6056 14 May, 2015 [facility] [address] [place] [address] 09780- 4359 14 May, 2015 [facility] [address] [place] [address] 34263- 0388 Apr, [facility] [address] [address]- 3309 24 Apr, 2015 [facility] [address] [place] [address] 16456- 8922 Apr, Inguinal hernia, right K40.90 [facility] [address] [address]- 7390 17 Apr, 2015 [facility] [id number] [address]- 7175 15 Apr, 2015 Low back pain M54.5 and Sciatica, unspecified side M54.30 [facility] [address] [address]- 0327 Mar, [facility] [address] [id number] [place] [address]- 6657 Mar, [facility] [place] [facility] [address] [facility] [id number] [place] [address]- 7916 Jan, [facility] [place] [facility] [address] [facility] [id number] [place] [address]- 7678 Jan, [facility] [place] [facility] [address] [facility] [id number] [place] [address], [place] [address]- 5693 Jan, [facility] [place] [facility] [address] [id number] [place] [address]- 8757 Dec, [facility] [place] [facility] [id number] [place] [address], [place] [address]- 2077 Dec, [facility] [address] [place] [address]- 7549 Dec, [facility] [place] [facility] [id number] [place] [address], [place] [address]- 4350 Dec, [facility] [address] [place] [id number] [place] [address]- 5614 Nov, [facility] [address] [address]- 1815 Nov, Encounter for immunization Z23 [facility] [address] [place] [id number] [place] [address]- 7194 Nov, [facility] [place] [facility] [address] [place] [place] [id number] [address]- 7816 Nov, [facility] [place] [facility] [address] [facility] [id number] [place] [address]- 0059 Oct, [facility] [place] [facility] [address] [place] [place] [id number] [address]- 9837 Oct, [facility] [place] [facility] [address] [place] [id number] [place] [address]- 4579 Sep, Lumbago 724.2 [facility] [address] [id number] [place] [address]- 2659 Sep, [facility] [place] [facility] [address] [id number] [place] [address]- 5790 Aug, Lumbago 724.2 [facility] [place] [facility] [address] [id number] [place] [address]- 9404 Aug, [facility] [place] [facility] [address] [id number] [place] [address]- 3624 Aug, [facility] [place] [facility] [address] [id number] [place] [address]- 0868 Jul, [facility] [place] [facility] [address] [id number] [place] [address]- 8456 Jul, [facility] [place] [facility] [address] [id number] [place] [address]- 2626 Jul, [facility] [place] [facility] [address] [id number] [place] [address]- 1827 June, [facility] [place] [facility] [address] [id number] [place] [address]- 8929 May, [facility] [place] [facility] [address] [id number] [place] [address]- 6605 May, [facility] [place] [facility] [address] [id number] [place] [address]- 0066 Apr, [facility] [place] [facility] [address] [id number] [place] [address]- 5985 Apr, [facility] [place] [facility] [address] [id number] [place] [address]- 6665 Apr, [facility] [place] [facility] [address] [id number] [place] [address]- 2257 Apr, [facility] [place] [facility] [address] [id number] [place] [address]- 6112 Apr, [facility] [place] [facility] [address] [id number] [address]- 7969 Apr, [facility] [place] [facility] [address] [id number] [place] [address]- 6433 Apr, [facility] [place] [facility] [address] [id number] [place] [address]- 3293 Apr, [facility] [place] [facility] [address] [facility] [id number] [place] [address]- 0553 Mar, [facility] [place] [facility] [address] [id number] [place] [address]- 2788 Mar, [facility] [place] [facility] [address] [id number] [place] [address]- 5634 Jan, [facility] [place] [facility] [address] [id number] [place] [address]- 5856 Jan, [facility] [place] [facility] [address] [id number] [place] [address]- 3428 Jan, [facility] [place] [facility] [address] [id number] [place] [address]- 6171 Jan, [facility] [place] [facility] [address] [id number] [place] [address]- 0301 Jan, [facility] [place] [facility] [address] [facility] [id number] [place] [address]- 6494 Jan, [facility] [place] [facility] [address] [id number] [address]- 8559 Dec, [facility] [place] [facility] [address] [id number] [place] [address]- 7664 Dec, [facility] [place] [facility] [address] [id number] [place] [address]- 4773 Nov, [facility] [place] [facility] [address] [id number] [place] [address]- 6446 Nov, [facility] [place] [facility] [address] [facility] [id number] [place] [address]- 4355 Nov, [facility] [place] [facility] [address] [id number] [place] [address]- 9854 Nov, [facility] [place] [facility] [address] [id number] [place] [address]- 1965 Oct, [facility] [place] [facility] [address] [id number] [place] [address]- 5526 Oct, [facility] [place] [facility] [address] [id number] [place] [address]- 8691 Sep, [facility] [place] [facility] [address] [id number] [place] [address]- 5875 Sep, [facility] [place] [facility] [address] [id number] [place] [address]- 4709 Sep, [facility] [place] [facility] [address] [id number] [place] [address]- 6055 Sep, [facility] [place] [facility] [address] [id number] [place] [address]- 2004 Aug, [facility] [place] [facility] [address] [id number] [place] [address]- 9994 Aug, [facility] [place] [facility] [address] [id number] [place] [address]- 2272 Aug, [facility] [place] [facility] [address] [id number] [place] [address]- 7215 Aug, [facility] [place] [facility] [address] [id number] [place] [address]- 9759 Jul, [facility] [place] [facility] [address] [id number] [place] [address]- 7922 Jul, [facility] [place] [facility] [address] [id number] [place] [address]- 5508 June, [facility] [place] [facility] [address] [id number] [place] [address]- 1073 June, [facility] [place] [facility] [address] [id number] [place] [address]- 9588 June, [facility] [place] [facility] [address] [id number] [place] [address]- 1224 May, [facility] [place] [facility] [address] [id number] [place] [address]- 7306 May, [facility] [place] [facility] [address] [id number] [place] [address]- 3587 May, [facility] [place] [facility] [address] [id number] [place] [address]- 0329 May, [facility] [place] [facility] [address] [id number] [place] [address]- 2367 May, [facility] [place] [facility] [address] [id number] [place] [address]- 3172 May, [facility] [place] [facility] [address] [id number] [place] [address]- 3211 May, [facility] [place] [facility] [address] [id number] [place] [address]- [address] May, [facility] [place] [facility] [address] [id number] [place] [address] 1998 May, [facility] [place] [facility] [address] [id number] [place] [address] May, [facility] [place] [facility] [address] [id number] [place] [address] May, [facility] [place] [facility] [address] [id number] [place] [address] Apr, [facility] [place] [facility] [address] [id number] [place] [address] Apr, [facility] [place] [facility] [address] [id number] [place] [address] Apr, [facility] [place] [facility] [address] [id number] [place] [address] Apr, [facility] [place] [facility] [address] [id number] [place] [address] Apr, [facility] [place] [facility] [address] [id number] [place] [address] Apr, [facility] [place] [facility] [address] [id number] [place] [address] Apr, [facility] [place] [facility] [address] [id number] [place] [address] 1996 Apr, [facility] [place] [facility] [address] [id number] [place] [address] 254 Apr, [facility] [place] [facility] [address] [id number] [place] [address] Apr, [facility] [place] [facility] [address] [id number] [place] [address] Apr, [facility] [place] [facility] [address] [id number] [place] [address] Apr, [facility] [place] [facility] [address] [id number] [place] [address] Mar, [facility] [place] [facility] [address] [id number] [place] [address] Mar, [facility] [place] [facility] [address] [facility] [id number] [place] [address] Mar, [facility] [place] [facility] [address] [id number] [place] [address] Mar, [facility] [place] [facility] [address] [id number] [place] [address]- [address] Mar, [facility] [place] [facility] [address] [id number] [place] [address] Mar, [facility] [place] [facility] [address] [id number] [place] [address] Jan, [facility] [place] [facility] [address] [id number] [place] [address] Jan, [facility] [address] [facility] [id number] [place] [address] Dec, [facility] [address] [facility] [id number] [place] [address] Dec, IMMUNIZATIONS No Known Immunizations SOCIAL HISTORY Never Assessed REASON FOR VISIT Controlled Med Refill 10/31/16 PLAN OF CARE VITAL SIGNS MEDICATIONS Medication Instructions Dosage Frequency Start Date End Date Duration Status Adderall XR 20 MG Orally Once a day 1 capsule in the morning 24h Oct, 28 days Active Tramadol HCl 50 MG Orally every 6 hrs 1 tablet as needed 6h Jan, 28 days Active RESULTS No Results PROCEDURES No Known procedures INSTRUCTIONS MEDICATIONS ADMINISTERED No Known Medications MEDICAL (GENERAL) HISTORY Type Description Date Medical History narcolepsy Surgical History Gallbladder removed 05/2014 Surgical History Hernia repair 05/24/2015
--- OUTSIDE RECORDS SUMMARY | 2017-11-01 13:04 | XMS REPORT ---
Author SHAHNAZ Card Organization [employer] Address Unknown Phone Unavailable Care Team Providers Care Director Global Sales Name Role Phone SHAHNAZ WIN CP Unavailable Allergies No Known Allergies Problems Problem Type Condition Code Onset Dates Condition Status Problem Pain in joint, pelvic region and thigh 719.45 Active Problem Anxiety state, unspecified 300.00 Active Problem Lumbago 724.2 Active Problem ADHD (attention deficit hyperactivity disorder), inattentive type F90.0 Active Problem Unspecified arthropathy, site unspecified 716.90 Active Problem Excessive daytime sleepiness G47.19 Active Problem Family history of malignant neoplasm of breast V16.3 Active Problem Family history of diabetes mellitus V18.0 Active Problem Family history of ischemic heart disease V17.3 Active Problem Family history of other cardiovascular diseases V17.49 Active Assessment Low TSH level R94.6 Active Problem Screening examination for pulmonary tuberculosis V74.1 Active Problem Pneumonia, organism unspecified 486 Active Medications No Known Medications Results No Known Results Summary Purpose [employer] Submission
--- OUTSIDE RECORDS SUMMARY | 2017-11-01 13:04 | XMS REPORT ---
Author Author SHAHNAZ WIN Organization [facility] Address [address] [place] [address] Care Team Providers Care Moulder Operator Name Role Phone SHAHNAZ WIN Unavailable PROBLEMS Type Condition ICD9-CM Code [id number] Code Onset Dates Condition Status SNOMED Code Problem Lumbago 724.2 Active 031917540 Problem Family history of diabetes mellitus V18.0 Active 400573799 Problem Anxiety state, unspecified 300.00 Active 667865599 Problem Screening examination for pulmonary tuberculosis V74.1 Active 890772421 Problem Pneumonia, organism unspecified 486 Active 409951003 Problem Pain in joint, pelvic region and thigh 719.45 Active 217761467 Problem Excessive daytime sleepiness G47.19 Active 597890627066 Problem ADHD (attention deficit hyperactivity disorder), inattentive type F90.0 Active 28075214 Problem Family history of other cardiovascular diseases V17.49 Active 064453906 Problem Family history of malignant neoplasm of breast V16.3 Active 447758139 Problem Unspecified arthropathy, site unspecified 716.90 Active 313637699 Problem Family history of ischemic heart disease V17.3 Active 866355306 ALLERGIES Unknown Allergies SOCIAL HISTORY No smoking Hx information available PLAN OF CARE VITAL SIGNS MEDICATIONS Medication Instructions Dosage Frequency Start Date End Date Duration Status Hydrocodone-Acetaminophen 10-325 MG Orally every 6 hrs 1 tablet as needed 6h 12 Jan, 2016 Active Alprazolam 1 MG 1 tablet 8h 30 Apr, 2014 Active RESULTS No Results PROCEDURES No Known procedures IMMUNIZATIONS No Known Immunizations
--- OUTSIDE RECORDS SUMMARY | 2017-11-01 13:04 | XMS REPORT ---
Author Author SHAHNAZ WIN Organization [employer] Address Unknown Phone Unavailable Care Team Providers Care Line Cook Name Role Phone SHAHNAZ WIN CP Unavailable Allergies No Known Allergies Problems Problem Type Condition Code Onset Dates Condition Status Problem Screening examination for pulmonary tuberculosis V74.1 Active Problem Pain in joint, pelvic region and thigh 719.45 Active Problem Pneumonia, organism unspecified 486 Active Problem Family history of ischemic heart disease V17.3 Active Problem Family history of other cardiovascular diseases V17.49 Active Problem Unspecified arthropathy, site unspecified 716.90 Active Problem Anxiety state, unspecified 300.00 Active Problem Lumbago 724.2 Active Problem Family history of malignant neoplasm of breast V16.3 Active Problem Family history of diabetes mellitus V18.0 Active Medications No Known Medications Results No Known Results Summary Purpose [employer] Submission
--- OUTSIDE RECORDS SUMMARY | 2017-11-01 13:05 | XMS REPORT ---
Author Author SHAHNAZ WIN Organization [employer] Address Unknown Phone Unavailable Care Team Providers Care Import Export Agent Name Role Phone SHAHNAZ WIN CP Unavailable [...]
--- OUTSIDE RECORDS SUMMARY | 2017-11-01 13:05 | XMS REPORT ---
Author Author SHAHNAZ WIN Organization [facility] Address [address] [place] [address] Care Team Providers Care Crystal Calibrator Name Role Phone SHAHNAZ WIN Unavailable PROBLEMS Type Condition ICD9-CM Code BVT45-TD Code Onset Dates Condition Status SNOMED Code Problem ADHD (attention deficit hyperactivity disorder), inattentive type F90.0 Active 16560407 Problem Arthritis M19.90 Active 4742548 Problem Positive skin test for tuberculosis R76.11 Active 584932913 Problem Lumbago with sciatica, left side M54.42 Active 775913055 Problem Excessive daytime sleepiness G47.19 Active 625188363605 Problem 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 03923520022492 Problem 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 Active [id number] ALLERGIES No Information ENCOUNTERS Encounter Location Date Diagnosis [facility] [id number] [place] [address] 90490- 9473 June, [facility] [id number] [place] [address] 08598- 5457 Apr, ADHD (attention deficit hyperactivity disorder), inattentive type F90.0 ; Lumbago with sciatica, left side M54.42 and Arthritis M19.90 [facility] [id number] [place] [address] 44616- 6750 Apr, ADHD (attention deficit hyperactivity disorder), inattentive type F90.0 and Lumbar neuritis M54.16 [facility] [id number] [place] [address] 29409- 7959 Apr, [facility] [id number] [place] [address] 56896- 0254 Apr, Lumbar neuritis M54.16 [facility] [id number] [place] [address] 39642- 4194 16 Apr, 2017 Low back pain M54.5 [facility] [id number] [place] [address] 32711- 4921 Apr, ADHD (attention deficit hyperactivity disorder), inattentive type F90.0 [facility] [id number] [place] [address] 63862- 2085 Apr, Positive skin test for tuberculosis R76.11 [facility] [id number] [place] [address] 04531- 1171 Apr, Positive skin test for tuberculosis R76.11 [facility] [id number] [place] [address] 30421- 1005 Apr, [facility] [id number] [place] [address] 68230- 7395 Mar, Lumbar neuritis M54.16 [facility] [id number] [place] [address] 67760- 5511 Mar, ADHD (attention deficit hyperactivity disorder), inattentive type F90.0 [facility] [id number] [place] [address] 22678- 2808 Mar, [facility] [id number] [place] [address] 05748- 8891 Jan, Lumbar neuritis M54.16 [facility] [id number] [place] [address] 74154- 2057 Jan, ADHD (attention deficit hyperactivity disorder), inattentive type F90.0 [facility] [id number] [place] [address] 61807- 6186 Jan, [facility] [id number] [place] [address] 53909- 0032 Jan, [facility] [id number] [place] [address] 39343- 2976 Dec, Lumbar neuritis M54.16 [facility] [id number] [place] [address] 77453- 6110 Dec, ADHD (attention deficit hyperactivity disorder), inattentive type F90.0 and 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 [facility] [id number] [place] [address] 27675- 2508 Dec, [facility] [id number] [place] [address] 06875- 3937 Dec, [facility] [id number] [place] [address] 18133- 5174 Nov, Lumbar neuritis M54.16 and ADHD (attention deficit hyperactivity disorder), inattentive type F90.0 [facility] [id number] [place] [address] 84127- 5173 Nov, [facility] [id number] [place] [address] 09690- 1761 Oct, Lumbar neuritis M54.16 and ADHD (attention deficit hyperactivity disorder), inattentive type F90.0 [facility] [id number] [place] [address] 34660- 5578 Oct, [facility] [id number] [place] [address] 80286- 9823 Sep, ADHD (attention deficit hyperactivity disorder), inattentive type F90.0 and Lumbar neuritis M54.16 [facility] [id number] [place] [address] 56505- 6753 Sep, Lumbar neuritis M54.16 [facility] [id number] [place] [address] 29380- 7554 Sep, [facility] [id number] [place] [address] 21640- 7136 Sep, ADHD (attention deficit hyperactivity disorder), inattentive type F90.0 and Lumbar neuritis M54.16 [facility] [address] [place] [address]- 4485 Sep, [facility] [address] [address]- 8082 Aug, [facility] [address] 6283 Aug, [facility] [address] [address]- 4950 Aug, [facility] [address] [address]- 8920 Aug, [facility] [id number] [place] [address] 10141- 6801 Aug, ADHD (attention deficit hyperactivity disorder), inattentive type F90.0 and Lumbar neuritis M54.16 [facility] [id number] [address]- 4827 Jul, [facility] [id number] [address]- 0654 Jul, [facility] [address] [place] [address] 60000- 8554 Jul, Lumbar neuritis M54.16 and ADHD (attention deficit hyperactivity disorder), inattentive type F90.0 [facility] [address] [address]- 4770 Jul, [facility] [address] [address]- 6471 June, Lumbar neuritis M54.16 and ADHD (attention deficit hyperactivity disorder), inattentive type F90.0 [facility] [address] 6652 June, [facility] [address] 6514 June, [facility] [address] [address]- 9256 May, 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 and Lumbago with sciatica, left side M54.42 [facility] [id number] [place] [address] 22264- 9221 May, Lumbar neuritis M54.16 and ADHD (attention deficit hyperactivity disorder), inattentive type F90.0 [facility] [id number] [place] [address] 35691- 1711 Apr, [facility] [id number] [place] [address] 55157- 0049 Apr, Lumbar neuritis M54.16 and ADHD (attention deficit hyperactivity disorder), inattentive type F90.0 [facility] [id number] [place] [address] 02328- 8439 Apr, [facility] [id number] [place] [address] 96508- 1506 Apr, [facility] [id number] [place] [address] 89640- 1117 Apr, ADHD (attention deficit hyperactivity disorder), inattentive type F90.0 [facility] [id number] [place] [address] 54886- 2201 Apr, Lumbar neuritis M54.16 [facility] [id number] [place] [address] 55783- 1035 08 Apr, 2016 [facility] [id number] [place] [address] 29857- 1217 07 Apr, 2016 [facility] [id number] [place] [address] 68921- 9755 Mar, Attention deficit hyperactivity disorder (ADHD), predominantly inattentive type F90.0 [facility] [id number] [place] [address] 41629- 7132 Mar, [facility] [id number] [place] [address] 41535- 2465 Mar, [facility] [id number] [place] [address] 12103- 2520 Mar, [facility] [id number] [place] [address] 29492- 5064 Jan, Attention deficit hyperactivity disorder (ADHD), predominantly inattentive type F90.0 [facility] [id number] [place] [address] 99961- 5019 Jan, [facility] [id number] [place] [address] 48607- 3425 Jan, [facility] [id number] [place] [address] 06963- 1378 Jan, [facility] [id number] [place] [address] 33431- 2618 Jan, Low TSH level R94.6 [facility] [id number] [place] [address] 47927- 3325 Jan, [facility] [id number] [place] [address] 82185- 0158 Jan, [facility] [id number] [place] [address] 04758- 2252 Dec, [facility] [id number] [place] [address] 30737- 4946 Dec, [facility] [id number] [place] [address] 56599- 4972 Dec, [facility] [id number] [place] [address] 25364- 8718 Nov, Low TSH level R94.6 [facility] [id number] [place] [address] 66098- 9700 Nov, Excessive daytime sleepiness G47.19 and ADHD (attention deficit hyperactivity disorder), inattentive type F90.0 [facility] [id number] [place] [address] 57695- 5129 Nov, [facility] [address] [facility] [id number] [place] [address]- 0011 Nov, [facility] [place] [facility] [address] [facility] [id number] [place] [address]- 5173 Nov, [facility] [address] [facility] [id number] [place] [address]- 2568 Oct, [facility] [place] [facility] [address] [facility] [id number] [place] [address], [place] [address]- 4735 Oct, [facility] [place] [facility] [address] [facility] [id number] [place] [address]- 6718 Oct, [facility] [place] [facility] [id number] [place] [address], [place] [address]- 6709 Sep, [facility] [place] [facility] [id number] [place] [address], [place] [address]- 7371 Sep, [facility] [place] [facility] [address] [facility] [id number] [place] [address], [place] [address]- 5691 Sep, [facility] [id number] [address]- 6029 Aug, Lumbar neuritis M54.[address] [facility] [id number] [address]- 0372 Aug, [facility] [place] [facility] [address] [address]- 9611 Aug, [facility] [place] [facility] [address] [facility] [id number] [address]- 9373 Jul, Lumbar neuritis M54.16 [facility] [place] [facility] [address] [facility] [id number] [place] 2831 Jul, [facility] [place] [facility] [address] [facility] [id number] [place] [address]- 0138 Jul, [facility] [place] [facility] [address], [place] [address]- 8125 June, Lumbar neuritis M54.16 [facility] [address] [place] [address]- 7603 June, [facility] [id number] [place] [address] 75065- 8547 June, [facility] [id number] [place] [address] 45374- 3367 May, Lumbar neuritis M54.16 [facility] [id number] [place] [address] 93940- 2981 May, [facility] [id number] [place] [address] 82446- 8874 May, [facility] [id number] [place] [address] 63234- 0742 23 May, 2015 [facility] [id number] [place] [address] 15503- 3698 Apr, [facility] [id number] [place] [address] 22053- 1546 14 May, 2015 [facility] [id number] [place] [address] 58518- 0988 Apr, [facility] [id number], [place] [address]- 1879 24 Apr, 2015 [facility] [id number] [place] [address] 02444- 9294 22 Apr, 2015 Inguinal hernia, right K40.90 [facility] [address], [place] [address]- 7662 17 Apr, 2015 [facility] [id number] [place] [address] 15757- 5337 15 Apr, 2015 Low back pain M54.5 and Sciatica, unspecified side M54.30 [facility] [address], [place] [address]- 1839 Mar, [facility] [address] [id number] [place] [address]- 6379 Mar, [facility] [address] [facility] [id number] [place] [address], [place] [address]- 1928 Jan, [facility] [place] [facility] [address] [facility] [id number] [place] [address]- 2438 Jan, [facility] [address] [facility] [id number] [place] [address], [place] [address]- 4701 Jan, [facility] [place] [facility] [address] [facility] [id number] [place] [address]- 3682 Dec, [facility] [id number] [place] [address], [place] [address]- 8044 Dec, [facility] [id number] [place] [address], [place] [address]- [address] Dec, [facility] [id number] [place] [address], [place] [address]- [address] Dec, [facility] [id number] [place] [address] 98627- 3664 Nov, [facility] [id number] [place] [address] 97642- 3050 Nov, Encounter for immunization Z23 [facility] [address], [place] [address]- [address] Nov, [facility] [id number], [place] [address]- 9693 Nov, [facility] [id number], [place] [address]- 6191 Oct, [facility] [id number] [place] [address]- 9837 Oct, [facility] [id number], [place] [address]- 0323 Sep, Lumbago 724.2 [facility] [id number] [place] [address]- 8000 Sep, [facility] [place] [facility] [address] [id number] [place] [address]- 1280 Aug, Lumbago 724.2 [facility] [place] [facility] [address] [id number] [place] [address]- 4676 Aug, [facility] [place] [facility] [address] [id number] [place] [address]- 8627 Aug, [facility] [place] [facility] [address] [id number] [place] [address]- 1344 Jul, [facility] [place] [facility] [address] [id number] [place] [address]- 2472 Jul, [facility] [place] [facility] [address] [id number] [place] [address]- 9005 Jul, [facility] [place] [facility] [address] [id number] [place] [address]- 6483 June, [facility] [place] [facility] [address] [id number] [place] [address]- 1599 May, [facility] [place] [facility] [address] [id number] [place] [address]- 5600 May, [facility] [place] [facility] [address] [facility] [id number] [place] [address]- 8015 Apr, [facility] [place] [facility] [address] [id number] [place] [address]- 6146 Apr, [facility] [place] [facility] [address] [id number] [place] [address]- 0066 Apr, [facility] [place] [facility] [address] [id number] [place] [address]- 3936 Apr, [facility] [place] [facility] [address] [id number] [place] [address]- 1876 Apr, [facility] [place] [facility] [address] [id number] [place] [address]- 5774 Apr, [facility] [place] [facility] [address] [id number] [place] [address]- 0537 Apr, [facility] [place] [facility] [address] [id number] [place] [address]- 8026 Apr, [facility] [place] [facility] [address] [facility] [id number] [place] [address]- 3651 Mar, [facility] [place] [facility] [address] [id number] [place] [address]- 0568 Mar, [facility] [place] [facility] [address] [id number] [place] [address]- 3649 Jan, [facility] [place] [facility] [address] [id number] [place] [address]- 1413 Jan, [facility] [place] [facility] [address] [id number] [place] [address]- 7650 Jan, [facility] [place] [facility] [address] [id number] [place] [address]- 9078 Jan, [facility] [place] [facility] [address] [id number] [place] [address]- 0353 Jan, [facility] [place] [facility] [address] [facility] [id number] [place] [address]- 0707 Jan, [facility] [place] [facility] [address] [id number] [place] [address]- 8383 Dec, [facility] [place] [facility] [address] [id number] [address]- 7752 Dec, [facility] [place] [facility] [address] [id number] [place] [address]- 8663 Nov, [facility] [place] [facility] [address] [id number] [place] [address]- 0169 Nov, [facility] [place] [facility] [address] [facility] [id number] [place] [address]- 4460 Nov, [facility] [place] [facility] [address] [id number] [place] [address]- 4680 Nov, [facility] [place] [facility] [address] [id number] [place] [address]- 3781 Oct, [facility] [place] [facility] [address] [id number] [place] 0130 Oct, [facility] [place] [facility] [address] [id number] [place] [address]- 0437 Sep, [facility] [place] [facility] [address] [id number] [place] [address]- 7491 Sep, [facility] [place] [facility] [address] [id number] [place] [address]- 4633 Sep, [facility] [place] [facility] [address] [id number] [place] [address]- 9270 Sep, [facility] [place] [facility] [address] [id number] [place] [address]- 6034 Aug, [facility] [place] [facility] [address] [id number] [place] [address]- 8030 Aug, [facility] [place] [facility] [address] [id number] [place] [address]- 6425 Aug, [facility] [place] [facility] [address] [id number] [place] [address]- 0702 Aug, [facility] [place] [facility] [address] [id number] [place] [address]- 2206 Jul, [facility] [place] [facility] [address] [id number] [place] [address]- 6720 Jul, [facility] [place] [facility] [address] [id number] [place] [address] June, [facility] [place] [facility] [address] [id number] [place] [id number] June, [facility] [place] [facility] [address] [id number] [place] [address] June, [facility] [place] [facility] [address] [id number] [place] [address] May, [facility] [place] [facility] [address] [id number] [place] [address] May, [facility] [place] [facility] [address] [id number] [place] [address] May, [facility] [place] [facility] [address] [id number] [place] [address] May, [facility] [place] [facility] [address] [id number] [place] [address] May, [facility] [place] [facility] [address] [id number] [place] [address] May, [facility] [place] [facility] [address] [id number] [place] [address] May, [facility] [place] [facility] [address] [id number] [place] [address] May, [facility] [place] [facility] [address] [id number] [place] [address] May, [facility] [place] [facility] [address] [id number] [place] [address] May, [facility] [place] [facility] [address] [id number] [place] [address] May, [facility] [place] [facility] [address] [id number] [place] [address] Apr, [facility] [place] [facility] [address] [id number] [place] [address] Apr, [facility] [place] [facility] [address] [id number] [place] [address] Apr, [facility] [place] [facility] [address] [id number] [place] [address] Apr, [facility] [place] [facility] [address] [id number] [place] [address] Apr, [facility] [place] [facility] [address] [id number] [place] [address] Apr, [facility] [place] [facility] [address] [id number] [place] [address] Apr, [facility] [place] [facility] [address] [id number] [place] [address] Apr, [facility] [place] [facility] [address] [id number] [place] [address] Apr, [facility] [place] [facility] [address] [id number] [place] [address] Apr, [facility] [place] [facility] [address] [id number] [place] [address] Apr, [facility] [place] [facility] [address] [id number] [place] [address] Apr, [facility] [place] [facility] [address] [id number] [place] [address] Mar, [facility] [place] [facility] [address] [id number] [place] [address] Mar, [facility] [place] [facility] [address] [facility] [id number] [place] [address] Mar, [facility] [place] [facility] [address] [id number] [place] [address] Mar, [facility] [place] [facility] [address] [id number] [place] [address] Mar, [facility] [place] [facility] [address] [id number] [place] [address] Mar, [facility] [place] [facility] [address] [id number] [place] [address] Jan, [facility] [place] [facility] [address] [id number] [place] [address] Jan, [facility] [address] [facility] [id number] [place] [id number] Dec, [facility] [address] [facility] [id number] [address] Dec, IMMUNIZATIONS No Known Immunizations SOCIAL HISTORY Never Assessed REASON FOR VISIT Controlled Med Refill 10/03/16 PLAN OF CARE VITAL SIGNS MEDICATIONS Medication Instructions Dosage Frequency Start Date End Date Duration Status Tramadol HCl 50 MG Orally every 6 hrs 1 tablet as needed 6h Jan, 28 days Active Adderall XR 20 MG Orally Once a day 1 capsule in the morning 24h Sep, 28 days Active RESULTS No Results PROCEDURES No Known procedures INSTRUCTIONS MEDICATIONS ADMINISTERED No Known Medications MEDICAL (GENERAL) HISTORY Type Description Date Medical History narcolepsy Surgical History Gallbladder removed 05/2014 Surgical History Hernia repair 05/24/2015
--- OUTSIDE RECORDS SUMMARY | 2017-11-01 13:05 | XMS REPORT ---
Author Author SHAHNAZ WIN Organization [employer] Address Unknown Phone Unavailable Care Team Providers Care Human Service Specialist Name Role Phone SHAHNAZ WIN CP Unavailable [...] history of diabetes mellitus V18.0 Active Medications Medication Code System Code Instructions Start Date End Date Status Dosage tramadol NDC 0 50 mg May 29, 2014 take 1 tablet (50 mg) by oral route every 6 hours as needed Results No Known Results Summary Purpose [employer] Submission
--- OUTSIDE RECORDS SUMMARY | 2017-11-01 13:05 | XMS REPORT ---
Author Author SHAHNAZ WIN Organization [facility] Address [address] [place] [address] Care Team Providers Care Roll Plugger Name Role Phone SHAHNAZ WIN Unavailable PROBLEMS Type Condition ICD9-CM Code UIR03-FG Code Onset Dates Condition Status SNOMED Code Problem ADHD (attention deficit hyperactivity disorder), inattentive type F90.0 Active 28330674 Problem Arthritis M19.90 Active 8604624 Problem Positive skin test for tuberculosis R76.11 Active 405606516 Problem Lumbago with sciatica, left side M54.42 Active 650024012 Problem Excessive daytime sleepiness G47.19 Active 643333181607 Problem 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 49668454432927 Problem 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 Active [id number] ALLERGIES No Information ENCOUNTERS Encounter Location Date Diagnosis [place] [id number] [place] [address] 38088- 4648 June, [place] [id number] [place] [address] 37890- 8427 Apr, ADHD (attention deficit hyperactivity disorder), inattentive type F90.0 ; Lumbago with sciatica, left side M54.42 and Arthritis M19.90 [facility] [id number] [place] [address] 04653- 6920 Apr, ADHD (attention deficit hyperactivity disorder), inattentive type F90.0 and Lumbar neuritis M54.16 [place] [id number] [place] [address] 97278- 2082 16 Apr, 2017 [place] [id number] [place] [address] 36818- 0813 Apr, Lumbar neuritis M54.16 [place] [id number] [place] [address] 30827- 8712 16 Apr, 2017 Low back pain M54.5 [facility] [id number] [place] [address] 09298- 6528 Apr, ADHD (attention deficit hyperactivity disorder), inattentive type F90.0 [facility] [id number] [place] [address] 46283- 9629 Apr, Positive skin test for tuberculosis R76.11 [facility] [id number] [place] [address] 74730- 2895 Apr, Positive skin test for tuberculosis R76.11 [facility] [id number] [place] [address] 99451- 4848 Apr, [facility] [id number] [place] [address] 46685- 0166 Mar, Lumbar neuritis M54.16 [facility] [id number] [place] [address] 12420- 8787 Mar, ADHD (attention deficit hyperactivity disorder), inattentive type F90.0 [facility] [id number] [place] [address] 40591- 5273 Mar, [facility] [id number] [place] [address] 98022- 7259 Jan, Lumbar neuritis M54.16 [facility] [id number] [place] [address] 36232- 9960 Jan, ADHD (attention deficit hyperactivity disorder), inattentive type F90.0 [facility] [id number] [place] [address] 01678- 9646 Jan, [facility] [id number] [place] [address] 27182- 9266 Jan, [facility] [id number] [place] [address] 94707- 8167 Dec, Lumbar neuritis M54.16 [facility] [id number] [place] [address] 76595- 9160 Dec, ADHD (attention deficit hyperactivity disorder), inattentive type F90.0 and 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 [facility] [id number] [place] [address] 50407- 0577 Dec, [facility] [id number] [place] [address] 46905- 8090 Dec, [facility] [id number] [place] [address] 90180- 8933 Nov, Lumbar neuritis M54.16 and ADHD (attention deficit hyperactivity disorder), inattentive type F90.0 [facility] [id number] [place] [address] 33464- 4463 Nov, [facility] [id number] [place] [address] 07005- 5772 Oct, Lumbar neuritis M54.16 and ADHD (attention deficit hyperactivity disorder), inattentive type F90.0 [facility] [id number] [place] [address] 48780- 4408 Oct, [facility] [id number] [place] [address] 77847- 4163 Sep, ADHD (attention deficit hyperactivity disorder), inattentive type F90.0 and Lumbar neuritis M54.16 [facility] [id number] [place] [address] 30010- 5780 Sep, Lumbar neuritis M54.16 [facility] [id number] [place] [address] 06934- 7760 Sep, [facility] [id number] [place] [address] 44321- 5778 Sep, ADHD (attention deficit hyperactivity disorder), inattentive type F90.0 and Lumbar neuritis M54.16 [facility] [address] [address]- 5103 Sep, [facility] [address] [address]- 5136 Aug, [facility] [address] 0632 Aug, [facility] [address], [place] [address]- 8854 Aug, [facility] [address], [place] [address]- 3025 Aug, [facility] [id number] [place] [address] 75755- 4538 Aug, ADHD (attention deficit hyperactivity disorder), inattentive type F90.0 and Lumbar neuritis M54.16 [facility] [id number] [address]- 7556 Jul, [facility] [id number] [address]- 3275 Jul, [facility] [address] [place] [address] 91356- 6252 Jul, Lumbar neuritis M54.16 and ADHD (attention deficit hyperactivity disorder), inattentive type F90.0 [facility] [address] [address]- 2772 Jul, [facility] [address], [place] [address]- 2988 June, Lumbar neuritis M54.16 and ADHD (attention deficit hyperactivity disorder), inattentive type F90.0 [facility] [address] 4016 June, [facility] [address] 0445 June, [facility] [address], [place] [address]- 3161 May, 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 and Lumbago with sciatica, left side M54.42 [facility] [id number] [place] [address] 89131- 1888 May, Lumbar neuritis M54.16 and ADHD (attention deficit hyperactivity disorder), inattentive type F90.0 [facility] [id number] [place] [address] 95042- 1054 Apr, [facility] [id number] [place] [address] 80183- 6925 Apr, Lumbar neuritis M54.16 and ADHD (attention deficit hyperactivity disorder), inattentive type F90.0 [facility] [id number] [place] [address] 75597- 1813 Apr, [facility] [id number] [place] [address] 91387- 1703 Apr, [facility] [id number] [place] [address] 54016- 0708 Apr, ADHD (attention deficit hyperactivity disorder), inattentive type F90.0 [facility] [id number] [place] [address] 60659- 4754 Apr, Lumbar neuritis M54.16 [facility] [id number] [place] [address] 07453- 8456 08 Apr, 2016 [facility] [id number] [place] [address] 48668- 6060 07 Apr, 2016 [facility] [id number] [place] [address] 65341- 5878 Mar, Attention deficit hyperactivity disorder (ADHD), predominantly inattentive type F90.0 [facility] [id number] [place] [address] 41903- 0989 Mar, [facility] [id number] [place] [address] 70467- 3215 Mar, [facility] [address] [place] [address] 55786- 9093 Mar, [facility] [id number] [place] [address] 37902- 3330 Jan, Attention deficit hyperactivity disorder (ADHD), predominantly inattentive type F90.0 [facility] [id number] [place] [address] 45920- 8286 Jan, [facility] [id number] [place] [address] 21520- 0268 Jan, [facility] [id number] [place] [address] 70807- 4404 Jan, [facility] [id number] [place] [address] 33486- 3080 Jan, [facility] [id number] [place] [address] 07528- 6427 Jan, Low TSH level R94.6 [facility] [id number] [place] [address] 40786- 2265 Jan, [facility] [id number] [place] [address] 48915- 5294 Dec, [facility] [id number] [place] [address] 70074- 7544 Dec, [facility] [id number] [place] [address] 25829- 0292 Dec, [facility] [address] [place] [address] 08939- 7006 Nov, Low TSH level R94.6 [facility] [id number] [place] [address] 27593- 6180 Nov, Excessive daytime sleepiness G47.19 and ADHD (attention deficit hyperactivity disorder), inattentive type F90.0 [facility] [id number] [place] [address] 54207- 0195 Nov, [facility] [address] [facility] [id number] [place] [address]- 5851 Nov, [facility] [place] [facility] [address] [facility] [id number] [place] [address]- 4279 Nov, [facility] [address] [facility] [id number] [place] [address]- 3636 Oct, [facility] [place] [facility] [address] [facility] [id number] [place] [address], [place] [address]- 9354 Oct, [facility] [place] [facility] [address] [facility] [id number] [place] [address]- 0221 Oct, [facility] [place] [facility] [id number] [place] [address], [place] [address]- 4007 Sep, [facility] [place] [facility] [id number] [place] [address], [place] [address]- 5419 Sep, [facility] [place] [facility] [address] [facility] [id number] [place] [address], [place] [address]- 7738 Sep, [facility] [id number], [place] [address]- 6578 Aug, Lumbar neuritis M54.16 [facility] [id number], [place] [address]- 8373 Aug, [facility] [place] [facility] [address], [place] [address]- 9041 Aug, [facility] [place] [facility] [address] [facility] [id number], [place] [address]- 5732 Jul, Lumbar neuritis M54.16 [facility] [place] [facility] [address] [facility] [id number] [place] 2743 Jul, [facility] [place] [facility] [address] [facility] [id number] [place] [address]- 7603 Jul, [facility] [place] [facility] [address], [place] [address]- 0914 June, Lumbar neuritis M54.16 [facility] [address] [place] [address]- 4769 June, [facility] [id number] [place] [address] 67830- 9511 June, [facility] [id number] [place] [address] 45573- 9472 May, Lumbar neuritis M54.16 [facility] [id number] [place] [address] 48412- 9178 May, [facility] [id number] [place] [address] 09577- 4210 May, [facility] [id number] [place] [address] 76402- 6193 23 May, 2015 [facility] [id number] [place] [address] 23867- 2561 Apr, [facility] [id number] [place] [address] 72507- 3657 14 May, 2015 [facility] [id number] [place] [address] 50085- 6720 Apr, [facility] [id number] [address]- 3856 24 Apr, 2015 [facility] [id number] [place] [address] 69043- 1582 22 Apr, 2015 Inguinal hernia, right K40.90 [facility] [address], [place] [address]- 4633 17 Apr, 2015 [facility] [id number] [place] [address] 62178- 5933 15 Apr, 2015 Low back pain M54.5 and Sciatica, unspecified side M54.30 [facility] [address], [place] [address]- 5064 Mar, [facility] [address] [id number] [place] [address]- 4342 Mar, [facility] [address] [facility] [id number] [place] [address], [place] [address]- 7848 Jan, [facility] [place] [facility] [address] [facility] [id number] [place] [address]- 6474 Jan, [facility] [address] [facility] [id number] [place] [address], [place] [address]- 8231 Jan, [facility] [place] [facility] [address] [facility] [id number] [place] [address]- 3470 Dec, [facility] [id number] [place] [address], [place] [address]- 9740 Dec, [facility] [id number] [place] [address], [place] [address]- 1676 Dec, [facility] [id number] [place] [address], [place] [address]- 3343 Dec, [facility] [id number] [place] [address] 99542- 8918 Nov, [facility] [id number] [place] [address] 12828- 8892 Nov, Encounter for immunization Z23 [facility] [address], [place] [address]- 2561 Nov, [facility] [id number], [place] [address]- 5820 Nov, [facility] [id number], [place] [address]- 7281 Oct, [facility] [id number] [place] [address]- 8874 Oct, [facility] [id number], [place] [address]- 3200 Sep, Lumbago 724.2 [facility] [id number] [place] [address]- 4037 Sep, [facility] [place] [facility] [address] [id number] [place] [address]- 9265 Aug, Lumbago 724.2 [facility] [place] [facility] [address] [id number] [place] [address]- 8006 Aug, [facility] [place] [facility] [address] [id number] [place] [address]- 2321 Aug, [facility] [place] [facility] [address] [id number] [place] [address]- 6121 Jul, [facility] [place] [facility] [address] [id number] [place] [address]- 8719 Jul, [facility] [place] [facility] [address] [id number] [place] [address]- 2068 Jul, [facility] [place] [facility] [address] [id number] [place] [address]- 5342 June, [facility] [place] [facility] [address] [id number] [place] [address]- 8419 May, [facility] [place] [facility] [address] [id number] [place] [address]- 4657 May, [facility] [place] [facility] [address] [facility] [id number] [place] [address]- 3570 Apr, [facility] [place] [facility] [address] [id number] [place] [address]- 0080 Apr, [facility] [place] [facility] [address] [id number] [place] [address]- 1454 Apr, [facility] [place] [facility] [address] [id number] [place] [address]- 5916 Apr, [facility] [place] [facility] [address] [id number] [place] [address]- 6136 Apr, [facility] [place] [facility] [address] [id number] [place] [address]- 9673 Apr, [facility] [place] [facility] [address] [id number] [place] [address]- 3963 Apr, [facility] [place] [facility] [address] [id number] [place] [address]- 6436 Apr, [facility] [place] [facility] [address] [facility] [id number] [place] [address]- 3140 Mar, [facility] [place] [facility] [address] [id number] [place] [address]- 4111 Mar, [facility] [place] [facility] [address] [id number] [place] [address]- 8804 Jan, [facility] [place] [facility] [address] [id number] [place] [address]- 4322 Jan, [facility] [place] [facility] [address] [id number] [place] [address]- 7798 Jan, [facility] [place] [facility] [address] [id number] [place] [address]- 7663 Jan, [facility] [place] [facility] [address] [id number] [place] [address]- 2928 Jan, [facility] [place] [facility] [address] [facility] [id number] [place] [address]- 4985 Jan, [facility] [place] [facility] [address] [id number] [place] [address]- 2879 Dec, [facility] [place] [facility] [address] [id number], [place] [address]- 9260 Dec, [facility] [place] [facility] [address] [id number] [place] [address]- 8564 Nov, [facility] [place] [facility] [address] [id number] [place] [address]- 8392 Nov, [facility] [place] [facility] [address] [facility] [id number] [place] [address]- 1146 Nov, [facility] [place] [facility] [address] [id number] [place] [address]- 8765 Nov, [facility] [place] [facility] [address] [id number] [place] [address]- 2414 Oct, [facility] [place] [facility] [address] [id number] [place] 8180 Oct, [facility] [place] [facility] [address] [id number] [place] [address]- 1721 Sep, [facility] [place] [facility] [address] [id number] [place] [address]- 6061 Sep, [facility] [place] [facility] [address] [id number] [place] [address]- 1953 Sep, [facility] [place] [facility] [address] [id number] [place] [address]- 9207 Sep, [facility] [place] [facility] [address] [id number] [place] [address]- 9731 Aug, [facility] [place] [facility] [address] [id number] [place] [address]- 6960 Aug, [facility] [place] [facility] [address] [id number] [place] [address]- 6824 Aug, [facility] [place] [facility] [address] [id number] [place] [address]- 8789 Aug, [facility] [place] [facility] [address] [id number] [place] [address]- 7213 Jul, [facility] [place] [facility] [address] [id number] [place] [address]- 0502 Jul, [facility] [place] [facility] [address] [id number] [place] [address]- 4141 June, [facility] [place] [facility] [address] [id number] [place] [id number] June, [facility] [place] [facility] [address] [id number] [place] [address] June, [facility] [place] [facility] [address] [id number] [place] [address] May, [facility] [place] [facility] [address] [id number] [place] [address] May, [facility] [place] [facility] [address] [id number] [place] [address] May, [facility] [place] [facility] [address] [id number] [place] [address] May, [facility] [place] [facility] [address] [id number] [place] [address] May, [facility] [place] [facility] [address] [id number] [place] [address] May, [facility] [place] [facility] [address] [id number] [place] [address] May, [facility] [place] [facility] [address] [id number] [place] [address] May, [facility] [place] [facility] [address] [id number] [place] [address] May, [facility] [place] [facility] [address] [id number] [place] [address] May, [facility] [place] [facility] [address] [id number] [place] [address] May, [facility] [place] [facility] [address] [id number] [place] [address] Apr, [facility] [place] [facility] [address] [id number] [place] [address] Apr, [facility] [place] [facility] [address] [id number] [place] [address] Apr, [facility] [place] [facility] [address] [id number] [place] [address] Apr, [facility] [place] [facility] [address] [id number] [place] [address] Apr, [facility] [place] [facility] [address] [id number] [place] [address] Apr, [facility] [place] [facility] [address] [id number] [place] [address] Apr, [facility] [place] [facility] [address] [id number] [place] [address] Apr, [facility] [place] [facility] [address] [id number] [place] [address] Apr, [facility] [place] [facility] [address] [id number] [place] [address] Apr, [facility] [place] [facility] [address] [id number] [place] [address] Apr, [facility] [place] [facility] [address] [id number] [place] [address] Apr, [facility] [place] [facility] [address] [id number] [place] [address] Mar, [facility] [place] [facility] [address] [id number] [place] [address] Mar, [facility] [place] [facility] [address] [facility] [id number] [place] [address] Mar, [facility] [place] [facility] [address] [id number] [place] [address] Mar, [facility] [place] [facility] [address] [id number] [place] [address] Mar, [facility] [place] [facility] [address] [id number] [place] [address] Mar, [facility] [place] [facility] [address] [id number] [place] [address] Jan, [facility] [place] [facility] [address] [id number] [place] [address] Jan, [facility] [address] [facility] [id number] [place] [id number] Dec, [facility] [address] [facility] [id number] [address] Dec, IMMUNIZATIONS No Known Immunizations SOCIAL HISTORY Never Assessed REASON FOR VISIT PLAN OF CARE VITAL SIGNS MEDICATIONS Medication Instructions Dosage Frequency Start Date End Date Duration Status Xanax 1 MG Orally 3 times a day 1 tablet 8h Sep, Active Hart 10-325 MG Orally every 6 hrs 1 tablet as needed 6h Oct, Active RESULTS No Results PROCEDURES No Known procedures INSTRUCTIONS MEDICATIONS ADMINISTERED No Known Medications MEDICAL (GENERAL) HISTORY Type Description Date Medical History narcolepsy Surgical History Gallbladder removed 05/2014 Surgical History Hernia repair 05/24/2015
--- OUTSIDE RECORDS SUMMARY | 2017-11-01 13:06 | XMS REPORT ---
Author Author SHAHNAZ WIN Organization [employer] Address Unknown Phone Unavailable Care Team Providers Care Foot Cutter Name Role Phone SHAHNAZ WIN CP Unavailable [...] Instructions Start Date End Date Status Dosage Hydrocodone-Acetaminophen [facility] [address]-22 10-325 MG May 29, 2014 take 1 tablet by oral route every 6 hours as needed for pain PRN tramadol [facility] 0 50 mg May 29, 2014 take 1 tablet (50 mg) by oral route every 6 hours as needed Alprazolam [facility] [address]-01 1 MG May 29, 2014 take 1 tablet (1 mg) by oral route 3 times per day Results No Known Results Summary Purpose [employer] Submission
--- OUTSIDE RECORDS SUMMARY | 2017-11-01 13:06 | XMS REPORT ---
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
--- OUTSIDE RECORDS SUMMARY | 2017-11-01 13:06 | XMS REPORT ---
Author Author SHAHNAZ WIN [facility] Address [address] [place] [address] Care Team Providers Care Release Coordinator Name Role Phone SHAHNAZ WIN Unavailable PROBLEMS Type Condition ICD9-CM Code SJJ09-[id number] Code Onset Dates Condition Status SNOMED Code Problem Lumbago 724.2 Active 033539142 Problem Family history of diabetes mellitus V18.0 Active 141059808 Problem Anxiety state, unspecified 300.00 Active 586092726 Problem Screening examination for pulmonary tuberculosis V74.1 Active 801880971 Problem Pneumonia, organism unspecified 486 Active 430651344 Problem Pain in joint, pelvic region and thigh 719.45 Active 754253562 Problem Excessive daytime sleepiness G47.19 Active 377137211551 Problem ADHD (attention deficit hyperactivity disorder), inattentive type F90.0 Active 38163007 Problem Family history of other cardiovascular diseases V17.49 Active 991088820 Problem Family history of malignant neoplasm of breast V16.3 Active 780604108 Problem Unspecified arthropathy, site unspecified 716.90 Active 080766388 Problem Family history of ischemic heart disease V17.3 Active 002002182 ALLERGIES Unknown Allergies SOCIAL HISTORY No smoking Hx information available PLAN OF CARE VITAL SIGNS MEDICATIONS Unknown Medications RESULTS No Results PROCEDURES No Known procedures IMMUNIZATIONS No Known Immunizations
--- OUTSIDE RECORDS SUMMARY | 2017-11-01 13:06 | XMS REPORT ---
Author Author SHAHNAZ WIN Organization [facility] Address [address] [place] [address] Care Team Providers Care Cup Machine Operator Name Role Phone SHAHNAZ WIN Unavailable PROBLEMS Type Condition ICD9-CM Code QOP29-EK Code Onset Dates Condition Status SNOMED Code Problem ADHD (attention deficit hyperactivity disorder), inattentive type F90.0 Active 71698807 Problem Arthritis M19.90 Active 8773265 Problem Positive skin test for tuberculosis R76.11 Active 353592477 Problem Lumbago with sciatica, left side M54.42 Active 916767490 Problem Excessive daytime sleepiness G47.19 Active 603459306678 Problem 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 96356469929982 Problem 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 Active [id number] ALLERGIES No Information ENCOUNTERS Encounter Location Date Diagnosis [facility] [id number] [place] [address] 86377- 1538 Aug, [facility] [id number] [place] [address] 07070- 7932 Jul, Right lower quadrant abdominal pain R10.31 and Rash R21 [facility] [id number] [place] [address] 28041- 9360 Apr, ADHD (attention deficit hyperactivity disorder), inattentive type F90.0 ; Lumbago with sciatica, left side M54.42 and Arthritis M19.90 [facility] [address] 92081- 9690 Apr, ADHD (attention deficit hyperactivity disorder), inattentive type F90.0 and Lumbar neuritis M54.16 [facility] [id number] [place] [address] 34938- 9790 Apr, [facility] [id number] [place] [address] 84497- 5096 Apr, Lumbar neuritis M54.16 [facility] [id number] [place] [address] 70027- 4729 16 Apr, 2017 Low back pain M54.5 [facility] [id number] [place] [address] 04291- 6474 Apr, ADHD (attention deficit hyperactivity disorder), inattentive type F90.0 [facility] [id number] [place] [address] 47721- 4822 Apr, Positive skin test for tuberculosis R76.11 [facility] [id number] [place] [address] 20323- 3253 Apr, Positive skin test for tuberculosis R76.11 [facility] [id number] [place] [address] 90822- 5563 Apr, [facility] [id number] [place] [address] 35404- 1232 Mar, Lumbar neuritis M54.16 [facility] [id number] [place] [address] 06893- 6059 Mar, ADHD (attention deficit hyperactivity disorder), inattentive type F90.0 [facility] [id number] [place] [address] 36403- 8919 Mar, [facility] [id number] [place] [address] 16334- 2619 Jan, Lumbar neuritis M54.16 [facility] [id number] [place] [address] 90487- 1050 Jan, ADHD (attention deficit hyperactivity disorder), inattentive type F90.0 [facility] [id number] [place] [address] 18109- 6276 Jan, [facility] [id number] [place] [address] 56279- 1297 Jan, [facility] [id number] [place] [address] 81124- 1650 Dec, Lumbar neuritis M54.16 [facility] [id number] [place] [address] 60939- 6474 Dec, ADHD (attention deficit hyperactivity disorder), inattentive type F90.0 and 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 [facility] [id number] [place] [address] 78505- 1336 Dec, [facility] [id number] [place] [address] 54520- 2059 Dec, [facility] [id number] [place] [address] 64535- 3673 Nov, Lumbar neuritis M54.16 and ADHD (attention deficit hyperactivity disorder), inattentive type F90.0 [facility] [id number] [place] [address] 24524- 8434 Nov, [facility] [id number] [place] [address] 08971- 0724 Oct, Lumbar neuritis M54.16 and ADHD (attention deficit hyperactivity disorder), inattentive type F90.0 [facility] [id number] [place] [address] 31790- 5611 Oct, [facility] [id number] [place] [address] 31721- 3146 Sep, ADHD (attention deficit hyperactivity disorder), inattentive type F90.0 and Lumbar neuritis M54.16 [facility] [id number] [place] [address] 75615- 8739 Sep, Lumbar neuritis M54.16 [facility] [id number] [place] [address] 11825- 1752 Sep, [facility] [id number] [place] [address] 24692- 5379 Sep, ADHD (attention deficit hyperactivity disorder), inattentive type F90.0 and Lumbar neuritis M54.16 [facility] [address] [address]- 8283 Sep, [facility] [id number] [address]- 7893 Aug, [facility] [id number] [place] [address] 87257- 3927 Aug, [facility] [id number] [place] [address] 30817- 0210 Aug, [facility] [id number] [place] [address] 59907- 1531 Aug, [facility] [id number] [place] [address] 57712- 3100 Aug, ADHD (attention deficit hyperactivity disorder), inattentive type F90.0 and Lumbar neuritis M54.16 [facility] [address] [address]- 3777 Jul, [facility] [id number] [place] [address] 93121- 7471 Jul, [facility] [address] [place] [address] 93951- 1141 Jul, Lumbar neuritis M54.16 and ADHD (attention deficit hyperactivity disorder), inattentive type F90.0 [facility] [address], [place] [address]- 8442 Jul, [facility] [id number] [place] [address] 43757- 7283 June, Lumbar neuritis M54.16 and ADHD (attention deficit hyperactivity disorder), inattentive type F90.0 [facility] [address], [place] [address]- 4547 June, [facility] [id number] [place] [address] 60485- 4345 June, [facility] [id number] [place] [address] 08744- 3905 May, 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 and Lumbago with sciatica, left side M54.42 [facility] [id number] [place] [address] 45866- 3194 May, Lumbar neuritis M54.16 and ADHD (attention deficit hyperactivity disorder), inattentive type F90.0 [facility] [id number] [place] [address] 20500- 4181 Apr, [facility] [id number] [place] [address] 66054- 0761 Apr, Lumbar neuritis M54.16 and ADHD (attention deficit hyperactivity disorder), inattentive type F90.0 [facility] [id number] [place] [address] 90915- 0588 Apr, [facility] [id number] [place] [address] 11394- 7052 Apr, [facility] [id number] [place] [address] 07514- 1310 Apr, ADHD (attention deficit hyperactivity disorder), inattentive type F90.0 [facility] [id number] [place] [address] 38683- 9932 Apr, Lumbar neuritis M54.16 [facility] [id number] [place] [address] 11536- 8951 Apr, [facility] [id number] [place] [address] 14028- 6855 Apr, [facility] [id number] [place] [address] 73890- 7574 Mar, Attention deficit hyperactivity disorder (ADHD), predominantly inattentive type F90.0 [facility] [id number] [address]- 7617 Mar, [facility] [id number] [place] [address] 30084- 1821 Mar, [facility] [id number] [place] [address] 85064- 4897 Mar, [facility] [id number] [place] [address] 83250- 3108 Jan, Attention deficit hyperactivity disorder (ADHD), predominantly inattentive type F90.0 [facility] [id number] [place] [address] 97758- 1974 Jan, [facility] [id number] [place] [address] 37293- 7010 Jan, [facility] [id number] [place] [address] 38609- 6602 Jan, [facility] [id number] [place] [address] 33563- 2935 Jan, Low TSH level R94.6 [facility] [id number] [place] [address] 68760- 0890 Jan, [facility] [id number] [place] [address] 55981- 2623 Jan, [facility] [address] [place] [address] 15656- 5734 Dec, [facility] [id number] [place] [address] 61424- 6277 Dec, [facility] [address] [place] [address] 71171- 4673 Dec, [facility] [id number] [place] [address] 33864- 7467 Nov, Low TSH level R94.6 [facility] [address] [place] [address] 29328- 7946 17 Oct, 2016 Excessive daytime sleepiness G47.19 and ADHD (attention deficit hyperactivity disorder), inattentive type F90.0 [facility] [id number] [place] [address] 59246- 3383 Nov, [facility] [id number] [place] [address] 10355- 0185 Nov, [facility] [id number] [place] [address] 30764- 7778 Nov, [facility] [id number] [place] [address] 29371- 1396 Oct, [facility] [id number] [place] [address] 53791- 0545 Oct, [facility] [id number] [place] [address] 81903- 6897 Oct, [facility] [id number] [place] [address] 69987- 4194 Sep, [facility] [id number] [place] [address] 84551- 9785 Sep, [facility] [id number] [place] [address] 34318- 7573 Sep, [facility] [address] [place] [address] 76598- 9390 Aug, Lumbar neuritis M54.16 [facility] [id number] [place] [address] 69244- 6175 Aug, [facility] [id number] [place] [address] 86899- 3015 Aug, [facility] [id number] [place] [address] 19917- 9859 Jul, Lumbar neuritis M54.16 [facility] [id number] [place] [address] 50687- 0838 Jul, [facility] [id number] [place] [address] 67856- 3138 Jul, [facility] [address] [address]- 3917 June, Lumbar neuritis M54.16 [facility] [address], [place] [address]- 3883 June, [facility] [id number] [place] [address] 82620- 7852 June, [facility] [address] [place] [address] 58577- 3744 May, Lumbar neuritis M54.16 [facility] [id number] [place] [address] 78544- 1870 May, [facility] [address] [place] [address] 96095- 4794 May, [facility] [address] [place] [address] 84799- 1957 Apr, [facility] [address], [place] [address]- 3892 Apr, [facility] [address], [place] [address]- 9491 14 May, 2015 [facility] [address], [place] [address]- 2982 Apr, [facility] [address], [place] [address]- 9825 24 Apr, 2015 [facility] [address], [place] [address]- 2009 Apr, Inguinal hernia, right K40.90 [facility] [address], [place] [address]- 3304 17 Apr, 2015 [facility] [address] [address]- 1298 15 Apr, 2015 Low back pain M54.5 and Sciatica, unspecified side M54.30 [facility] [address] [id number], [place] [address]- 1653 Mar, [facility] [address] [id number], [place] [address]- 5411 Mar, [facility] [address] [id number], [place] [address]- 7303 Jan, [facility] [id number] [place] [address] 83163- 3234 Jan, [facility] [address] [id number] [place] [address]- 1410 Jan, [facility] [id number] [place] [address] 45598- 3092 Dec, [facility] [address], [place] [address]- 0417 Dec, [facility] [id number] [place] [address] 58089- 5876 Dec, [facility] [id number], [place] [address]- 3840 Dec, [facility] [address], [place] [address]- 5801 Nov, [facility] [address], [place] [address]- 4335 Nov, Encounter for immunization Z23 [facility] [address] [id number], [place] [address]- 5294 Nov, [facility] [address] [id number], [place] [address]- 6223 Nov, [facility] [id number], [place] [address]- 2586 Oct, [facility] [id number], [place] [address]- 6698 08 Oct, 2014 [facility] [address] [address]- 4739 Sep, Lumbago 724.2 [facility] [place] [facility] [address] [id number] [place] 9470 Sep, [facility] [place] [facility] [address] [id number] [place] [address]- 5463 Aug, Lumbago 724.2 [facility] [place] [facility] [address] [id number] [place] [address]- 4551 Aug, [facility] [place] [facility] [address] [id number] [place] [address]- 9048 Aug, [facility] [place] [facility] [address] [id number] [place] [address]- 6740 Jul, [facility] [place] [facility] [address] [id number] [place] [address]- 2902 Jul, [facility] [place] [facility] [address] [id number] [place] [address]- 5286 Jul, [facility] [place] [facility] [address] [id number] [place] [address]- 2596 June, [facility] [place] [facility] [address] [id number] [place] [address]- 8688 May, [facility] [place] [facility] [address] [id number] [place] [address]- 0188 May, [facility] [place] [facility] [address] [id number] [place] [address]- 6567 Apr, [facility] [place] [facility] [address] [id number] [place] [address]- 8677 Apr, [facility] [place] [facility] [address] [id number] [place] [address]- 5850 Apr, [facility] [place] [facility] [address] [id number] [place] [address]- 0645 Apr, [facility] [place] [facility] [address] [id number] [place] [address]- 6903 Apr, 2014 [facility] [place] [facility] [address] [id number] [place] [address]- 1167 Apr, 2014 [facility] [place] [facility] [address] [id number] [place] [address]- 6026 Apr, [facility] [place] [facility] [address] [id number] [place] [address]- 9726 Apr, [facility] [place] [facility] [address] [id number] [place] [address]- 8611 Mar, [facility] [place] [facility] [address] [id number] [place] [address]- 0045 Mar, [facility] [place] [facility] [address] [id number] [place] [address]- 7530 Jan, [facility] [place] [facility] [address] [id number] [place] [address]- 0873 Jan, [facility] [place] [facility] [address] [id number] [place] [address]- 3903 Jan, [facility] [place] [facility] [address] [id number] [place] [address]- 7976 Jan, [facility] [place] [facility] [address] [id number] [place] [address]- 7587 Jan, [facility] [place] [facility] [address] [id number] [place] [address]- 1607 Jan, [facility] [place] [facility] [address] [id number] [place] [address]- 2022 Dec, [facility] [place] [facility] [address] [id number] [place] 3415 Dec, [facility] [place] [facility] [address] [id number] [place] 8974 Nov, [facility] [place] [facility] [address] [id number] [place] 2896 Nov, [facility] [place] [facility] [address] [id number] [place] [address]- 9926 Nov, [facility] [place] [facility] [address] [id number] [place] 2875 Nov, [facility] [place] [facility] [address] [id number] [place] [address]- 7137 Oct, [facility] [place] [facility] [address] [id number] [place] [address]- 5013 Oct, [facility] [place] [facility] [address] [id number] [place] [address]- 5733 Sep, [facility] [place] [facility] [address] [id number] [place] [address]- 7419 Sep, [facility] [place] [facility] [address] [id number] [place] [address]- 6897 Sep, [facility] [place] [facility] [address] [id number] [place] [address]- 5532 Sep, [facility] [place] [facility] [address] [id number] [place] [address]- 2366 Aug, [facility] [place] [facility] [address] [id number] [place] [address]- 9042 Aug, [facility] [place] [facility] [address] [id number] [place] [address]- 8966 Aug, [facility] [place] [facility] [address] [id number] [place] [address]- 6783 Aug, [facility] [place] [facility] [address] [id number] [place] [address]- 9061 Jul, [facility] [place] [facility] [address] [id number] [place] [address]- 5094 Jul, [facility] [place] [facility] [address] [id number] [place] [address]- 6521 June, [facility] [place] [facility] [address] [id number] [place] [address]- 3532 June, [facility] [place] [facility] [address] [id number] [place] [address]- 0057 June, [facility] [place] [facility] [address] [id number] [place] [address]- 8556 May, [facility] [place] [facility] [address] [id number] [place] [address]- 1997 May, [facility] [place] [facility] [address] [id number] [place] [address]- 2011 May, [facility] [place] [facility] [address] [id number] [place] [address]- 2302 May, [facility] [place] [facility] [address] [id number] [place] [address]- 5783 May, [facility] [place] [facility] [address] [id number] [place] [address]- 1957 May, [facility] [place] [facility] [address] [id number] [place] [address]- 6226 May, [facility] [place] [facility] [address] [id number] [place] [address]- 1924 May, [facility] [place] [facility] [address] [id number] [place] [address]- 4474 May, [facility] [place] [facility] [address] [id number] [place] [address] May, [facility] [place] [facility] [address] [id number] [place] [address] May, [facility] [place] [facility] [address] [id number] [place] [address] Apr, [facility] [place] [facility] [address] [id number] [place] [address] Apr, [facility] [place] [facility] [address] [id number] [place] [address] Apr, [facility] [place] [facility] [address] [id number] [place] [address] Apr, [facility] [place] [facility] [address] [id number] [place] [address] Apr, [facility] [place] [facility] [address] [id number] [place] [address] Apr, [facility] [place] [facility] [address] [id number] [place] [address] Apr, [facility] [place] [facility] [address] [id number] [place] [address] Apr, [facility] [place] [facility] [address] [id number] [place] [address] Apr, [facility] [place] [facility] [address] [id number] [place] [address] Apr, [facility] [place] [facility] [address] [id number] [place] [address] Apr, [facility] [place] [facility] [address] [id number] [place] [address] Apr, [facility] [place] [facility] [address] [id number] [place] [address] Mar, [facility] [place] [facility] [address] [id number] [place] [address] Mar, [facility] [place] [facility] [address] [id number] [place] [address] Mar, [facility] [place] [facility] [address] [id number] [place] [address] Mar, [facility] [place] [facility] [address] [id number] [place] [address] Mar, [facility] [place] [facility] [address] [id number] [place] [address] Mar, [facility] [place] [facility] [address] [id number] [place] [address] Jan, [facility] [address] [id number] [place] [address] Jan, [facility] [address] [id number], [place] [address] Dec, [facility] [address] [id number], [place] [address] Dec, IMMUNIZATIONS No Known Immunizations SOCIAL HISTORY Never Assessed REASON FOR VISIT Med List Update PLAN OF CARE VITAL SIGNS MEDICATIONS Unknown Medications RESULTS No Results PROCEDURES No Known procedures INSTRUCTIONS MEDICATIONS ADMINISTERED No Known Medications MEDICAL (GENERAL) HISTORY Type Description Date Medical History narcolepsy Surgical History Gallbladder removed 05/2014 Surgical History Hernia repair 05/24/2015
--- OUTSIDE RECORDS SUMMARY | 2017-11-01 13:06 | XMS REPORT ---
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 Name Role Phone NORAH BARBER CP Unavailable Allergies No Known Allergies Problems Problem Type Condition Code Onset Dates Condition Status Problem Screening examination for pulmonary tuberculosis V74.1 Active Problem Pain in joint, pelvic region and thigh 719.45 Active Problem Pneumonia, organism unspecified 486 Active Assessment Encounter for immunization Z23 Active Problem Family history of ischemic heart disease V17.3 Active Problem Family history of other cardiovascular diseases V17.49 Active Problem Unspecified arthropathy, site unspecified 716.90 Active Problem Anxiety state, unspecified 300.00 Active Problem Lumbago 724.2 Active Problem Family history of malignant neoplasm of breast V16.3 Active Problem Family history of diabetes mellitus V18.0 Active Medications No Known Medications Procedures Procedure Coding System Code Date SINGLE IMMUNIZATION ADMIN CPT-4 35446 Dec 21, 2014 TDAP (BOOSTRIX) CPT-4 06125 Dec 21, 2014 Results No Known Results Immunizations Vaccine Administration Date TDAP (BOOSTRIX) Dec 21, 2014 Summary Purpose [employer] Submission
--- OUTSIDE RECORDS SUMMARY | 2017-11-01 13:06 | XMS REPORT ---
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 Name Role Phone SHAHNAZ WIN CP Unavailable Allergies No Known Allergies Problems Problem Type Condition Code Onset Dates Condition Status Problem Pain in joint, pelvic region and thigh 719.45 Active Problem Anxiety state, unspecified 300.00 Active Problem Lumbago 724.2 Active Problem Screening examination for pulmonary tuberculosis V74.1 Active Problem Pneumonia, organism unspecified 486 Active Problem ADHD (attention deficit hyperactivity disorder), inattentive type F90.0 Active Problem Unspecified arthropathy, site unspecified 716.90 Active Problem Excessive daytime sleepiness G47.19 Active Problem Family history of malignant neoplasm of breast V16.3 Active Problem Family history of diabetes mellitus V18.0 Active Problem Family history of ischemic heart disease V17.3 Active Problem Family history of other cardiovascular diseases V17.49 Active Medications Medication Code System Code Instructions Start Date End Date Status Dosage Alprazolam [facility] [address]-14 1 MG Three times a day May 29, 2014 1 tablet Results No Known Results Summary Purpose e[employer]Works Submission
--- OUTSIDE RECORDS SUMMARY | 2017-11-01 13:06 | XMS REPORT ---
Author Author SHAHNAZ WIN Organization [employer] Address Unknown Phone Unavailable Care Team Providers Care Diamond Cleaner Name Role Phone SHAHNAZ WIN CP Unavailable [...]
--- OUTSIDE RECORDS SUMMARY | 2017-11-01 13:07 | XMS REPORT ---
Author Author SHAHNAZ WIN Organization [facility] Address [address] [place] [address] Care Team Providers Care Application Development Intern Name Role Phone SHAHNAZ WIN Unavailable PROBLEMS Type Condition ICD9-CM Code EWP92-TM Code Onset Dates Condition Status SNOMED Code Problem ADHD (attention deficit hyperactivity disorder), inattentive type F90.0 Active 35393898 Problem Arthritis M19.90 Active 4864241 Problem Positive skin test for tuberculosis R76.11 Active 051451937 Problem Lumbago with sciatica, left side M54.42 Active 284588464 Problem Excessive daytime sleepiness G47.19 Active 758419526716 Problem 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 13847506441657 Problem 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 Active [id number] ALLERGIES No Information ENCOUNTERS Encounter Location Date Diagnosis [facility] [id number] [place] [address] 01285- 8130 Aug, [facility] [id number] [place] [address] 67714- 0211 06 Jul, 2017 Right lower quadrant abdominal pain R10.31 and Rash R21 [facility] [address] 40253- 4743 Apr, ADHD (attention deficit hyperactivity disorder), inattentive type F90.0 ; Lumbago with sciatica, left side M54.42 and Arthritis M19.90 [facility] [facility] [address] 62459- 0702 Apr, ADHD (attention deficit hyperactivity disorder), inattentive type F90.0 and Lumbar neuritis M54.16 [place] [id number] [place] [address] 29644- 0329 Apr, [facility] [id number] [place] [address] 69445- 6005 Apr, Lumbar neuritis M54.16 [facility] [id number] [place] [address] 38721- 1939 16 Apr, 2017 Low back pain M54.5 [facility] [id number] [place] [address] 98219- 1754 Apr, ADHD (attention deficit hyperactivity disorder), inattentive type F90.0 [facility] [id number] [place] [address] 77603- 7031 Apr, Positive skin test for tuberculosis R76.11 [facility] [id number] [place] [address] 76178- 3229 Apr, Positive skin test for tuberculosis R76.11 [facility] [id number] [place] [address] 83310- 3373 Apr, [facility] [id number] [place] [address] 92493- 8235 Mar, Lumbar neuritis M54.16 [facility] [id number] [place] [address] 15084- 2163 Mar, ADHD (attention deficit hyperactivity disorder), inattentive type F90.0 [facility] [id number] [place] [address] 25727- 1564 Mar, [facility] [id number] [place] [address] 63832- 7895 Jan, Lumbar neuritis M54.16 [facility] [id number] [place] [address] 45640- 4011 Jan, ADHD (attention deficit hyperactivity disorder), inattentive type F90.0 [facility] [id number] [place] [address] 28800- 4746 Jan, [facility] [id number] [place] [address] 01772- 6251 Jan, [facility] [id number] [place] [address] 77333- 0173 Dec, Lumbar neuritis M54.16 [facility] [id number] [place] [address] 38379- 4574 Dec, ADHD (attention deficit hyperactivity disorder), inattentive type F90.0 and 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 [facility] [id number] [place] [address] 97988- 5674 Dec, [facility] [id number] [place] [address] 59429- 1782 Dec, [facility] [id number] [place] [address] 19562- 5086 Nov, Lumbar neuritis M54.16 and ADHD (attention deficit hyperactivity disorder), inattentive type F90.0 [facility] [id number] [place] [address] 19415- 7287 Nov, [facility] [id number] [place] [address] 77830- 1484 Oct, Lumbar neuritis M54.16 and ADHD (attention deficit hyperactivity disorder), inattentive type F90.0 [facility] [id number] [place] [address] 78893- 4471 Oct, [facility] [id number] [place] [address] 76102- 5108 Sep, ADHD (attention deficit hyperactivity disorder), inattentive type F90.0 and Lumbar neuritis M54.16 [facility] [id number] [place] [address] 76835- 4229 Sep, Lumbar neuritis M54.16 [facility] [id number] [place] [address] 94073- 0585 Sep, [facility] [id number] [place] [address] 65354- 7557 Sep, ADHD (attention deficit hyperactivity disorder), inattentive type F90.0 and Lumbar neuritis M54.16 [facility] [address] [address]- 5078 Sep, [facility] [id number] [address]- 9788 Aug, [facility] [id number] [place] [address] 05818- 6725 Aug, [facility] [id number] [place] [address] 46758- 4757 Aug, [facility] [id number] [place] [address] 33856- 5091 Aug, [facility] [id number] [place] [address] 08147- 5255 Aug, ADHD (attention deficit hyperactivity disorder), inattentive type F90.0 and Lumbar neuritis M54.16 [facility] [address] [address]- 2212 Jul, [facility] [id number] [place] [address] 17070- 9217 Jul, [facility] [id number] [place] [address] 00287- 3777 Jul, Lumbar neuritis M54.16 and ADHD (attention deficit hyperactivity disorder), inattentive type F90.0 [facility] [address] [address]- 2130 Jul, [facility] [id number] [place] [address] 64063- 2164 June, Lumbar neuritis M54.16 and ADHD (attention deficit hyperactivity disorder), inattentive type F90.0 [facility] [id number] [address]- 3621 June, [facility] [id number] [place] [address] 13687- 2408 June, [facility] [id number] [place] [address] 57054- 6059 May, 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 and Lumbago with sciatica, left side M54.42 [facility] [id number] [place] [address] 56006- 7146 May, Lumbar neuritis M54.16 and ADHD (attention deficit hyperactivity disorder), inattentive type F90.0 [facility] [id number] [place] [address] 74316- 4992 Apr, [facility] [id number] [place] [address] 84117- 7288 Apr, Lumbar neuritis M54.16 and ADHD (attention deficit hyperactivity disorder), inattentive type F90.0 [facility] [id number] [place] [address] 39528- 1949 Apr, [facility] [id number] [place] [address] 39083- 7077 Apr, [facility] [id number] [place] [address] 61179- 8491 Apr, ADHD (attention deficit hyperactivity disorder), inattentive type F90.0 [facility] [id number] [place] [address] 50130- 6453 Apr, Lumbar neuritis M54.16 [facility] [id number] [place] [address] 79326- 5969 Apr, [facility] [id number] [place] [address] 33505- 4609 Apr, [facility] [id number] [place] [address] 83726- 2794 Mar, Attention deficit hyperactivity disorder (ADHD), predominantly inattentive type F90.0 [facility] [id number] [address]- 3681 Mar, [facility] [id number] [place] [address] 57381- 4243 Mar, [facility] [id number] [place] [address] 95461- 0409 Mar, [facility] [id number] [place] [address] 37735- 7157 Jan, Attention deficit hyperactivity disorder (ADHD), predominantly inattentive type F90.0 [facility] [id number] [place] [address] 05136- 8103 Jan, [facility] [id number] [place] [address] 21541- 6546 Jan, [facility] [id number] [place] [address] 58101- 9342 Jan, [facility] [id number] [place] [address] 29177- 6108 Jan, Low TSH level R94.6 [facility] [id number] [place] [address] 65741- 3323 Jan, [facility] [id number] [place] [address] 94439- 8328 Jan, [facility] [id number] [place] [address] 87145- 9710 Dec, [facility] [id number] [place] [address] 63598- 2330 Dec, [facility] [id number] [place] [address] 76926- 9237 Dec, [facility] [id number] [place] [address] 59540- 3553 Nov, Low TSH level R94.6 [facility] [id number] [place] [address] 78112- 3956 17 Oct, 2016 Excessive daytime sleepiness G47.19 and ADHD (attention deficit hyperactivity disorder), inattentive type F90.0 [facility] [id number] [place] [address] 56029- 3418 Nov, [facility] [id number] [place] [address] 24858- 2361 Nov, [facility] [id number] [place] [address] 83665- 0547 Nov, [facility] [id number] [place] [address] 60049- 8036 Oct, [facility] [id number] [place] [address] 95138- 5723 Oct, [facility] [id number] [place] [address] 03917- 3646 Oct, [facility] [id number] [place] [address] 54746- 7664 Sep, [facility] [id number] [place] [address] 21248- 8590 Sep, [facility] [id number] [place] [address] 28707- 6194 Sep, [facility] [id number] [place] [address] 62131- 5171 Aug, Lumbar neuritis M54.16 [facility] [id number] [place] [address] 52165- 4387 Aug, [facility] [id number] [place] [address] 68673- 2032 Aug, [facility] [id number] [place] [address] 81376- 4130 Jul, Lumbar neuritis M54.16 [facility] [id number] [place] [address] 14433- 5364 Jul, [facility] [id number] [place] [address] 95343- 4190 Jul, [facility] [id number], [place] [address]- 3996 June, Lumbar neuritis M54.16 [facility] [id number] [address]- 4347 June, [facility] [id number] [place] [address] 33977- 0045 June, [facility] [id number] [place] [address] 72094- 2479 May, Lumbar neuritis M54.16 [facility] [id number] [place] [address] 34980- 5360 May, [facility] [id number] [place] [address] 11910- 2286 May, [facility] [id number] [place] [address] 27075- 1437 Apr, [facility] [id number] [address]- 3397 Apr, [facility] [id number] [address]- 5159 14 May, 2015 [facility] [id number] [address]- 5846 Apr, [facility] [id number], [place] [address]- 6267 24 Apr, 2015 [facility] [id number] [address]- 9203 Apr, Inguinal hernia, right K40.90 [facility] [address] [address]- 2620 17 Apr, 2015 [facility] [address] [address]- 6212 15 Apr, 2015 Low back pain M54.5 and Sciatica, unspecified side M54.30 [facility] [address] [id number] [address]- 7526 Mar, [facility] [address] [id number], [place] [address]- 0195 Mar, [facility] [address] [id number] [address]- 3159 Jan, [facility] [id number] [place] [address] 62256- 3628 Jan, [facility] [address] [id number] [place] [address]- 5934 Jan, [facility] [id number] [place] [address] 48037- 6139 Dec, [facility] [id number], [place] [address]- 8753 Dec, [facility] [id number] [place] [address] 28062- 7721 Dec, [facility] [id number] [address]- 6014 Dec, [facility] [id number], [place] [address]- 1631 Nov, [facility] [id number], [place] [address]- 8581 Nov, Encounter for immunization Z23 [facility] [address] [id number], [place] [address]- 0541 Nov, [facility] [address] [id number], [place] [address]- 5615 Nov, [facility] [id number] [address]- 8122 Oct, [facility] [id number] [address]- 6700 08 Oct, 2014 [facility] [id number] [place] [address]- 9341 Sep, Lumbago 724.2 [facility] [place] [facility] [address] [id number] [place] 9333 Sep, [facility] [place] [facility] [address] [id number] [place] [address]- 5990 Aug, Lumbago 724.2 [facility] [place] [facility] [address] [id number] [place] [address]- 2669 Aug, [facility] [place] [facility] [address] [id number] [place] [address]- 6768 Aug, [facility] [place] [facility] [address] [id number] [place] [address]- 9673 Jul, [facility] [place] [facility] [address] [id number] [place] [address]- 3133 Jul, [facility] [place] [facility] [address] [id number] [place] [address]- 3407 Jul, [facility] [place] [facility] [address] [id number] [place] [address]- 1741 June, [facility] [place] [facility] [address] [id number] [place] [address]- 5625 May, [facility] [place] [facility] [address] [id number] [place] [address]- 7297 May, [facility] [place] [facility] [address] [id number] [place] [address]- 1374 Apr, [facility] [place] [facility] [address] [id number] [place] [address]- 5016 Apr, [facility] [place] [facility] [address] [id number] [place] [address]- 4275 Apr, [facility] [place] [facility] [address] [id number] [place] [address]- 0604 Apr, [facility] [place] [facility] [address] [id number] [place] [address]- 3031 Apr, 2014 [facility] [place] [facility] [address] [id number] [place] [address]- 2002 Apr, 2014 [facility] [place] [facility] [address] [id number] [place] [address]- 1816 Apr, [facility] [place] [facility] [address] [id number] [place] [address]- 5066 Apr, [facility] [place] [facility] [address] [id number] [place] [address]- 6668 Mar, [facility] [place] [facility] [address] [id number] [place] [address]- 2441 Mar, [facility] [place] [facility] [address] [id number] [place] [address]- 3128 Jan, [facility] [place] [facility] [address] [id number] [place] [address]- 0142 Jan, [facility] [place] [facility] [address] [id number] [place] [address]- 5157 Jan, [facility] [place] [facility] [address] [id number] [place] [address]- 6208 Jan, [facility] [place] [facility] [address] [id number] [place] [address]- 4390 Jan, [facility] [place] [facility] [address] [id number] [place] [address]- 3416 Jan, [facility] [place] [facility] [address] [id number] [place] [address]- 4049 Dec, [facility] [place] [facility] [address] [id number] [place] 6873 Dec, [facility] [place] [facility] [address] [id number] [place] 0410 Nov, [facility] [place] [facility] [address] [id number] [place] 0598 Nov, [facility] [place] [facility] [address] [id number] [place] [address]- 3811 Nov, [facility] [place] [facility] [address] [id number] [place] 9358 Nov, [facility] [place] [facility] [address] [id number] [place] [address]- 4806 Oct, [facility] [place] [facility] [address] [id number] [place] [address]- 7638 Oct, [facility] [place] [facility] [address] [id number] [place] [address]- 1052 Sep, [facility] [place] [facility] [address] [id number] [place] [address] Sep, [facility] [place] [facility] [address] [id number] [place] [address] Sep, [facility] [place] [facility] [address] [id number] [place] [address] Sep, [facility] [place] [facility] [address] [id number] [place] [address] Aug, [facility] [place] [facility] [address] [id number] [place] [address] Aug, [facility] [place] [facility] [address] [id number] [place] [address] Aug, [facility] [place] [facility] [address] [id number] [place] [address] Aug, [facility] [place] [facility] [address] [id number] [place] [address] Jul, [facility] [place] [facility] [address] [id number] [place] [address] Jul, [facility] [place] [facility] [address] [id number] [place] [address] June, [facility] [place] [facility] [address] [id number] [place] [address] June, [facility] [place] [facility] [address] [id number] [place] [address] June, [facility] [place] [facility] [address] [id number] [place] [address] May, [facility] [place] [facility] [address] [id number] [place] [address] May, [facility] [place] [facility] [address] [id number] [place] [address] May, [facility] [place] [facility] [address] [id number] [place] [address] May, [facility] [place] [facility] [address] [id number] [place] [address]- [address] May, [facility] [place] [facility] [address] [id number] [place] [address]- [address] May, [facility] [place] [facility] [address] [id number] [place] [address] May, [facility] [place] [facility] [address] [id number] [place] [address]- [address] May, [facility] [place] [facility] [address] [id number] [place] [address] May, [facility] [place] [facility] [address] [id number] [place] [address] May, [facility] [place] [facility] [address] [id number] [place] [address]- [address] May, [facility] [place] [facility] [address] [id number] [place] [address] Apr, [facility] [place] [facility] [address] [id number] [place] [address] Apr, [facility] [place] [facility] [address] [id number] [place] [address] Apr, [facility] [place] [facility] [address] [id number] [place] [address]- [address] Apr, [facility] [place] [facility] [address] [id number] [place] [address] Apr, [facility] [place] [facility] [address] [id number] [place] [address]- [address] Apr, [facility] [place] [facility] [address] [id number] [place] [address] Apr, [facility] [place] [facility] [address] [id number] [place] [address] Apr, [facility] [place] [facility] [address] [id number] [place] [address] Apr, [facility] [place] [facility] [address] [id number] [place] [address] Apr, [facility] [place] [facility] [address] [id number] [place] [address] Apr, [facility] [place] [facility] [address] [id number] [place] [address] Apr, [facility] [place] [facility] [address] [id number] [place] [address] Mar, [facility] [place] [facility] [address] [id number] [place] [address] Mar, [facility] [place] [facility] [address] [id number] [place] [address] Mar, [facility] [place] [facility] [address] [id number] [place] [address]- [address] Mar, [facility] [place] [facility] [address] [id number] [place] [address] Mar, [facility] [place] [facility] [address] [id number] [place] [address] Mar, [facility] [place] [facility] [address] [id number] [place] [address] Jan, [facility] [address] [id number] [place] [address] Jan, [facility] [address] [id number] [address] Dec, [facility] [address] [id number], [place] [address] Dec, IMMUNIZATIONS No Known Immunizations SOCIAL HISTORY Never Assessed REASON FOR VISIT Controlled Substance VIOLATION PLAN OF CARE VITAL SIGNS MEDICATIONS Unknown Medications RESULTS No Results PROCEDURES No Known procedures INSTRUCTIONS MEDICATIONS ADMINISTERED No Known Medications MEDICAL (GENERAL) HISTORY Type Description Date Medical History narcolepsy Surgical History Gallbladder removed 05/2014 Surgical History Hernia repair 05/24/2015
--- OUTSIDE RECORDS SUMMARY | 2017-11-01 13:07 | XMS REPORT ---
Author Author SHAHNAZ WIN Organization [facility] Address [address] [place] [address] Care Team Providers Care Card Boxer Name Role Phone SHAHNAZ WIN Unavailable PROBLEMS Type Condition ICD9-CM Code URL18-FX Code Onset Dates Condition Status SNOMED Code Problem ADHD (attention deficit hyperactivity disorder), inattentive type F90.0 Active 43972528 Problem Arthritis M19.90 Active 9680818 Problem Positive skin test for tuberculosis R76.11 Active 717522828 Problem Lumbago with sciatica, left side M54.42 Active 786363206 Problem Excessive daytime sleepiness G47.19 Active 682088244235 Problem 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 07649299210631 Problem 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 Active [id number] ALLERGIES No Information ENCOUNTERS Encounter Location Date Diagnosis [facility] [id number] [place] [address] 91230- 0133 Aug, [facility] [id number] [place] [address] 49238- 0091 06 Jul, 2017 Right lower quadrant abdominal pain R10.31 and Rash R21 [facility] [address] [address]- 9438 Apr, ADHD (attention deficit hyperactivity disorder), inattentive type F90.0 ; Lumbago with sciatica, left side M54.42 and Arthritis M19.90 [facility] [address] 91021- 1060 Apr, ADHD (attention deficit hyperactivity disorder), inattentive type F90.0 and Lumbar neuritis M54.16 [facility] [id number] [place] [address] 11211- 4252 Apr, [facility] [id number] [place] [address] 02938- 1709 Apr, Lumbar neuritis M54.16 [facility] [id number] [place] [address] 93017- 0407 16 Apr, 2017 Low back pain M54.5 [facility] [id number] [place] [address] 41601- 6738 Apr, ADHD (attention deficit hyperactivity disorder), inattentive type F90.0 [facility] [id number] [place] [address] 79156- 8003 Apr, Positive skin test for tuberculosis R76.11 [facility] [id number] [place] [address] 15804- 6231 Apr, Positive skin test for tuberculosis R76.11 [facility] [id number] [place] [address] 53195- 8671 Apr, [facility] [id number] [place] [address] 48563- 1457 Mar, Lumbar neuritis M54.16 [facility] [id number] [place] [address] 65369- 0867 Mar, ADHD (attention deficit hyperactivity disorder), inattentive type F90.0 [facility] [id number] [place] [address] 96881- 9028 Mar, [facility] [id number] [place] [address] 09573- 9193 Jan, Lumbar neuritis M54.16 [facility] [id number] [place] [address] 18740- 3284 Jan, ADHD (attention deficit hyperactivity disorder), inattentive type F90.0 [facility] [id number] [place] [address] 67325- 1013 Jan, [facility] [id number] [place] [address] 96234- 8782 Jan, [facility] [address] [place] [address] 18064- 2444 Dec, Lumbar neuritis M54.16 [facility] [id number] [place] [address] 20659- 4762 Dec, ADHD (attention deficit hyperactivity disorder), inattentive type F90.0 and 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 [facility] [id number] [place] [address] 43057- 1813 Dec, [facility] [id number] [place] [address] 56308- 0574 Dec, [facility] [id number] [place] [address] 60991- 4393 Nov, Lumbar neuritis M54.16 and ADHD (attention deficit hyperactivity disorder), inattentive type F90.0 [facility] [id number] [place] [address] 83402- 9201 Nov, [facility] [id number] [place] [address] 15614- 3058 Oct, Lumbar neuritis M54.16 and ADHD (attention deficit hyperactivity disorder), inattentive type F90.0 [facility] [id number] [place] [address] 43056- 4029 Oct, [facility] [id number] [place] [address] 64357- 1004 Sep, ADHD (attention deficit hyperactivity disorder), inattentive type F90.0 and Lumbar neuritis M54.16 [facility] [id number] [place] [address] 11900- 5906 Sep, Lumbar neuritis M54.16 [facility] [id number] [place] [address] 79303- 5706 Sep, [facility] [id number] [place] [address] 06501- 1257 Sep, ADHD (attention deficit hyperactivity disorder), inattentive type F90.0 and Lumbar neuritis M54.16 [facility] [address] [address]- 9050 Sep, [facility] [id number] [address]- 7316 Aug, [facility] [id number] [place] [address] 03579- 3818 Aug, [facility] [id number] [place] [address] 58765- 3190 Aug, [facility] [id number] [place] [address] 61242- 3149 Aug, [facility] [id number] [place] [address] 87161- 5807 Aug, ADHD (attention deficit hyperactivity disorder), inattentive type F90.0 and Lumbar neuritis M54.16 [facility] [address] [address]- 4287 Jul, [facility] [id number] [place] [address] 06680- 6923 Jul, [facility] [address] [place] [address] 55536- 3423 Jul, Lumbar neuritis M54.16 and ADHD (attention deficit hyperactivity disorder), inattentive type F90.0 [facility] [address] [address]- 7346 Jul, [facility] [id number] [place] [address] 24641- 7474 June, Lumbar neuritis M54.16 and ADHD (attention deficit hyperactivity disorder), inattentive type F90.0 [facility] [address] [address]- 7989 June, [facility] [id number] [place] [address] 19683- 8087 June, [facility] [id number] [place] [address] 78539- 0556 May, 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 and Lumbago with sciatica, left side M54.42 [facility] [id number] [place] [address] 05776- 7643 May, Lumbar neuritis M54.16 and ADHD (attention deficit hyperactivity disorder), inattentive type F90.0 [facility] [id number] [place] [address] 01863- 6017 Apr, [facility] [id number] [place] [address] 37843- 1813 Apr, Lumbar neuritis M54.16 and ADHD (attention deficit hyperactivity disorder), inattentive type F90.0 [facility] [id number] [place] [address] 46277- 3779 Apr, [facility] [id number] [place] [address] 34910- 6127 Apr, [facility] [id number] [place] [address] 83792- 1689 Apr, ADHD (attention deficit hyperactivity disorder), inattentive type F90.0 [facility] [id number] [place] [address] 12466- 3303 Apr, Lumbar neuritis M54.16 [facility] [id number] [place] [address] 87073- 3089 Apr, [facility] [id number] [place] [address] 34246- 7874 Apr, [facility] [id number] [place] [address] 33640- 6578 Mar, Attention deficit hyperactivity disorder (ADHD), predominantly inattentive type F90.0 [facility] [id number] [address]- 2123 Mar, [facility] [id number] [place] [address] 01156- 0661 Mar, [facility] [id number] [place] [address] 23884- 5076 Mar, [facility] [id number] [place] [address] 82030- 1218 Jan, Attention deficit hyperactivity disorder (ADHD), predominantly inattentive type F90.0 [facility] [id number] [place] [address] 80109- 1330 Jan, [facility] [id number] [place] [address] 06753- 0969 Jan, [facility] [id number] [place] [address] 22042- 4514 Jan, [facility] [id number] [place] [address] 40932- 6733 Jan, Low TSH level R94.6 [facility] [id number] [place] [address] 17028- 6893 Jan, [facility] [id number] [place] [address] 32522- 5927 Jan, [facility] [address] [place] [address] 20749- 5813 Dec, [facility] [id number] [place] [address] 78318- 7798 Dec, [facility] [address] [place] [address] 67636- 8899 Dec, [facility] [id number] [place] [address] 43059- 9341 Nov, Low TSH level R94.6 [facility] [address] [place] [address] 35928- 7006 17 Oct, 2016 Excessive daytime sleepiness G47.19 and ADHD (attention deficit hyperactivity disorder), inattentive type F90.0 [facility] [id number] [place] [address] 01633- 4569 Nov, [facility] [id number] [place] [address] 05133- 0279 Nov, [facility] [id number] [place] [address] 56076- 6576 Nov, [facility] [id number] [place] [address] 66109- 3924 Oct, [facility] [id number] [place] [address] 70176- 4002 Oct, [facility] [id number] [place] [address] 85196- 8018 Oct, [facility] [id number] [place] [address] 19687- 3136 Sep, [facility] [id number] [place] [address] 63023- 2579 Sep, [facility] [id number] [place] [address] 85785- 7996 Sep, [facility] [address] [place] [address] 47602- 4417 Aug, Lumbar neuritis M54.16 [facility] [id number] [place] [address] 89283- 2615 Aug, [facility] [id number] [place] [address] 68027- 8376 Aug, [facility] [id number] [place] [address] 14593- 2427 Jul, Lumbar neuritis M54.16 [facility] [id number] [place] [address] 57147- 4798 Jul, [facility] [id number] [place] [address] 07016- 9437 Jul, [facility] [address] [address]- 8157 June, Lumbar neuritis M54.16 [facility] [address] [address]- 7601 June, [facility] [id number] [place] [address] 34871- 5286 June, [facility] [address] [place] [address] 05621- 0489 May, Lumbar neuritis M54.16 [facility] [id number] [place] [address] 96823- 6718 May, [facility] [address] [place] [address] 28062- 3950 May, [facility] [address] [place] [address] 45013- 8087 Apr, [facility] [address] [address]- 0191 Apr, [facility] [address] [address]- 6359 14 May, 2015 [facility] [address] [address]- 4925 Apr, [facility] [address] [address]- 2298 24 Apr, 2015 [facility] [address] [address]- 8912 Apr, Inguinal hernia, right K40.90 [facility] [address], [place] [address]- 7309 17 Apr, 2015 [facility] [address] [address]- 9138 15 Apr, 2015 Low back pain M54.5 and Sciatica, unspecified side M54.30 [facility] [address] [facility] [id number] [address]- 9124 Mar, [facility] [address] [facility] [id number], [place] [address]- 2123 Mar, [facility] [address] [facility] [id number], [place] [address]- 1937 Jan, [facility] [address] [facility] [id number] [place] [address] 99227- 1066 Jan, [facility] [address] [facility] [id number] [place] [address]- 5000 Jan, [facility] [id number] [place] [address] 10654- 4478 Dec, [facility] [address], [place] [address]- 7397 Dec, [facility] [address] [place] [address] 35327- 3649 Dec, [facility] [id number] [address]- 6727 Dec, [facility] [address], [place] [address]- 0493 Nov, [facility] [address], [place] [address]- 5120 Nov, Encounter for immunization Z23 [facility] [address] [facility] [id number], [place] [address]- 8714 Nov, [facility] [address] [facility] [id number], [place] [address]- 1778 Nov, [facility] [id number], [place] [address]- 3618 Oct, [facility] [id number], [place] [address]- 3633 08 Oct, 2014 [facility] [address] [place] [address]- 2079 Sep, Lumbago 724.2 [facility] [place] [facility] [address] [id number] [place] 9040 Sep, [facility] [place] [facility] [address] [id number] [place] [address]- 4925 Aug, Lumbago 724.2 [facility] [place] [facility] [address] [id number] [place] [address]- 3759 Aug, [facility] [place] [facility] [address] [id number] [place] [address]- 7359 Aug, [facility] [place] [facility] [address] [id number] [place] [address]- 7855 Jul, [facility] [place] [facility] [address] [id number] [place] [address]- 3033 Jul, [facility] [place] [facility] [address] [id number] [place] [address]- 8630 Jul, [facility] [place] [facility] [address] [id number] [place] [address]- 0496 June, [facility] [place] [facility] [address] [id number] [place] [address]- 3422 May, [facility] [place] [facility] [address] [id number] [place] [address]- 0342 May, [facility] [place] [facility] [address] [id number] [place] [address]- 3856 Apr, [facility] [place] [facility] [address] [id number] [place] [address]- 1355 Apr, [facility] [place] [facility] [address] [id number] [place] [address]- 5559 Apr, [facility] [place] [facility] [address] [id number] [place] [address]- 8361 Apr, [facility] [place] [facility] [address] [id number] [place] [address]- 1357 Apr, 2014 [facility] [place] [facility] [address] [id number] [place] [address]- 0503 Apr, 2014 [facility] [place] [facility] [address] [id number] [place] [address]- 6556 Apr, [facility] [place] [facility] [address] [id number] [place] [address]- 2426 Apr, [facility] [place] [facility] [address] [id number] [place] [address]- 0298 Mar, [facility] [place] [facility] [address] [id number] [place] [address]- 1202 Mar, [facility] [place] [facility] [address] [id number] [place] [address]- 0914 Jan, [facility] [place] [facility] [address] [id number] [place] [address]- 5079 Jan, [facility] [place] [facility] [address] [id number] [place] [address]- 4409 Jan, [facility] [place] [facility] [address] [id number] [place] [address]- 5033 Jan, [facility] [place] [facility] [address] [facility] [id number] [place] [address]- 4036 Jan, [facility] [place] [facility] [address] [id number] [place] [address]- 1938 Jan, [facility] [place] [facility] [address] [id number] [place] [address]- 8383 Dec, [facility] [place] [facility] [address] [id number] [place] 6001 Dec, [facility] [place] [facility] [address] [id number] [place] 9917 Nov, [facility] [place] [facility] [address] [id number] [place] 8579 Nov, [facility] [place] [facility] [address] [id number] [place] [address]- 1328 Nov, [facility] [place] [facility] [address] [id number] [place] 0752 Nov, [facility] [place] [facility] [address] [id number] [place] [address]- 0633 Oct, [facility] [place] [facility] [address] [id number] [place] [address]- 6155 Oct, [facility] [place] [facility] [address] [id number] [place] [address]- 1772 Sep, [facility] [place] [facility] [address] [id number] [place] [address]- 2480 Sep, [facility] [place] [facility] [address] [id number] [place] [address]- 7179 Sep, [facility] [place] [facility] [address] [id number] [place] [address]- 6169 Sep, [facility] [place] [facility] [address] [id number] [place] [address]- 6972 Aug, [facility] [place] [facility] [address] [id number] [place] [address]- 4764 Aug, [facility] [place] [facility] [address] [id number] [place] [address]- 6358 Aug, [facility] [place] [facility] [address] [id number] [place] [address]- 4905 Aug, [facility] [place] [facility] [address] [id number] [place] [address]- 6725 Jul, [facility] [place] [facility] [address] [id number] [place] [address]- 6887 Jul, [facility] [place] [facility] [address] [id number] [place] [address]- 0174 June, [facility] [place] [facility] [address] [id number] [place] [address]- 4528 June, [facility] [place] [facility] [address] [id number] [place] [address]- 1086 June, [facility] [place] [facility] [address] [id number] [place] [address]- 8444 May, [facility] [place] [facility] [address] [id number] [place] [address]- 3049 May, [facility] [place] [facility] [address] [id number] [place] [address]- 5647 May, [facility] [place] [facility] [address] [id number] [place] [address]- 5821 May, [facility] [place] [facility] [address] [id number] [place] [address]- 4633 May, [facility] [place] [facility] [address] [id number] [place] [address]- 7139 May, [facility] [place] [facility] [address] [id number] [place] [address]- 4502 May, [facility] [place] [facility] [address] [id number] [place] [address]- 7037 May, [facility] [place] [facility] [address] [id number] [place] [address] May, [facility] [place] [facility] [address] [id number] [place] [address] May, [facility] [place] [facility] [address] [id number] [place] [address] May, [facility] [place] [facility] [address] [id number] [place] [address] Apr, [facility] [place] [facility] [address] [id number] [place] [address] Apr, [facility] [place] [facility] [address] [id number] [place] [address] Apr, [facility] [place] [facility] [address] [id number] [place] [address] Apr, [facility] [place] [facility] [address] [id number] [place] [address] Apr, [facility] [place] [facility] [address] [id number] [place] [address] Apr, [facility] [place] [facility] [address] [id number] [place] [address] Apr, [facility] [place] [facility] [address] [id number] [place] [address] Apr, [facility] [place] [facility] [address] [id number] [place] [address] Apr, [facility] [place] [facility] [address] [id number] [place] [address] Apr, [facility] [place] [facility] [address] [id number] [place] [address] Apr, [facility] [place] [facility] [address] [id number] [place] [address] Apr, [facility] [place] [facility] [address] [id number] [place] [address] Mar, [facility] [place] [facility] [address] [id number] [place] [address] Mar, [facility] [place] [facility] [address] [id number] [place] [address] Mar, [facility] [place] [facility] [address] [id number] [place] [address] Mar, [facility] [place] [facility] [address] [id number] [place] [address] Mar, [facility] [place] [facility] [address] [id number] [place] [address] Mar, [facility] [place] [facility] [address] [id number] [place] [address] Jan, [facility] [address] [facility] [id number] [place] [address] Jan, [facility] [address] [facility] [id number] [address] Dec, [facility] [address] [facility] [id number], [place] [address] Dec, IMMUNIZATIONS No Known Immunizations SOCIAL HISTORY Never Assessed REASON FOR VISIT Ameritox CBrumbackRN PLAN OF CARE VITAL SIGNS MEDICATIONS Unknown Medications RESULTS Name Result Date Reference Range AMERITOX 2017-04-17 PROCEDURES Procedure Date Ordered Result Body Site No Charge Apr 17, 2017 INSTRUCTIONS MEDICATIONS ADMINISTERED No Known Medications MEDICAL (GENERAL) HISTORY Type Description Date Medical History narcolepsy Surgical History Gallbladder removed 05/2014 Surgical History Hernia repair 05/24/2015
--- OUTSIDE RECORDS SUMMARY | 2017-11-01 13:08 | XMS REPORT ---
Author Author SHAHNAZ WIN Organization [employer] Address Unknown Phone Unavailable Care Team Providers Care Cripple Cutter Name Role Phone SHAHNAZ WIN CP [...]
--- OUTSIDE RECORDS SUMMARY | 2017-11-01 13:08 | XMS REPORT ---
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
--- OUTSIDE RECORDS SUMMARY | 2017-11-01 13:08 | XMS REPORT ---
Author SHAHNAZ Card Organization [employer] Address Unknown Phone Unavailable Care Team Providers Care Straightening Press Operator Name Role Phone SHAHNAZ WIN CP Unavailable Allergies, Adverse Reactions, Alerts Substance Reaction Event Type Penicillins Info Not Available Non Drug Allergy Problems Problem Type Condition ICD-9 Code Onset Dates Condition Status Problem Screening examination for pulmonary tuberculosis V74.1 Active Problem Pain in joint, pelvic region and thigh 719.45 Active Problem Pneumonia, organism unspecified 486 Active Assessment Lumbago 724.2 Active Problem Family history of ischemic heart [...] Start Date End Date Status Dosage Alprazolam [facility] [address]-85 1 MG May 29, 2014 take 1 tablet (1 mg) by oral route 3 times per day tramadol NDC 0 50 mg May 29, 2014 take 1 tablet (50 mg) by oral route every 6 hours as needed Hydrocodone-Acetaminophen [facility] [address]-64 10-325 MG May 29, 2014 take 1 tablet by oral route every 6 hours as needed for pain PRN Procedures Procedure Coding System Code Date Office Visit, Est Pt., Level 3 CPT-4 19532 Oct 18, 2014 Vital Signs Date/Time: Oct 18, 2014 Temperature 97.8 F Weight 125.9 lbs Height 59 in BMI 25.43 Index Blood Pressure Diastolic 78 mmHg Blood Pressure Systolic 120 mmHg Cardiac Monitoring Heart Rate 72 bpm Results No Known Results Summary Purpose [employer] Submission
--- OUTSIDE RECORDS SUMMARY | 2017-11-01 13:08 | XMS REPORT ---
Author Author SHAHNAZ WIN Organization [facility] Address [address] [place] [address] Care Team Providers Care Contracts Manager Name Role Phone SHAHNAZ WIN Unavailable PROBLEMS Type Condition ICD9-CM Code IXJ52-CA Code Onset Dates Condition Status SNOMED Code Problem ADHD (attention deficit hyperactivity disorder), inattentive type F90.0 Active 67292384 Problem Arthritis M19.90 Active 3258554 Problem Positive skin test for tuberculosis R76.11 Active 484034027 Problem Lumbago with sciatica, left side M54.42 Active 903808856 Problem Excessive daytime sleepiness G47.19 Active 272469496351 Problem 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 30335511570545 Problem 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 Active [id number] ALLERGIES No Information ENCOUNTERS Encounter Location Date Diagnosis [place] [address] [address] Apr, ADHD (attention deficit hyperactivity disorder), inattentive type F90.0 ; Lumbago with sciatica, left side M54.42 and Arthritis M19.90 [place] [address] [place] [id number] [place] [address] 52252- 6035 Apr, ADHD (attention deficit hyperactivity disorder), inattentive type F90.0 and Lumbar neuritis M54.16 [place] [address] [place] [id number] [place] [address] 06239- 3441 Apr, [place] [address] [address]- [address] Apr, Lumbar neuritis M54.16 [place] [address] [place] [id number] [place] [address] 00802- 4671 Apr, Low back pain M54.5 [facility] [id number] [place] [address] 96040- 1919 Apr, ADHD (attention deficit hyperactivity disorder), inattentive type F90.0 [facility] [address] [place] [id number] [place] [address] 61036- 5952 Apr, Positive skin test for tuberculosis R76.11 [facility] [address] [place] [id number] [place] [address] 62885- 0442 Apr, Positive skin test for tuberculosis R76.11 [facility] [address] [place] [id number] [place] [address] 97520- 9067 Apr, [facility] [address] [place] [id number] [place] [address] 47452- 6049 Mar, Lumbar neuritis M54.16 [facility] [address] [place] [id number] [place] [address] 81610- 4941 Mar, ADHD (attention deficit hyperactivity disorder), inattentive type F90.0 [facility] [address] [place] [id number] [place] [address] 36459- 3367 Mar, [facility] [address] [place] [id number] [place] [address] 45544- 1499 Jan, Lumbar neuritis M54.16 [facility] [address] [place] [id number] [place] [address] 17748- 6816 Jan, ADHD (attention deficit hyperactivity disorder), inattentive type F90.0 [facility] [id number] [place] [address] 52314- 1690 Jan, [facility] [address] [place] [id number] [place] [address] 09406- 3061 Jan, [facility] [address] [place] [id number] [place] [address] 18140- 3096 Dec, Lumbar neuritis M54.16 [facility] [address] [place] [id number] [place] [address] 68553- 6211 Dec, ADHD (attention deficit hyperactivity disorder), inattentive type F90.0 and 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 [facility] [address] [place] [id number] [place] [address] 15429- 1169 Dec, [facility] [address] [place] [id number] [place] [address] 44890- 5411 Dec, [facility] [address] [place] [id number] [place] [address] 72148- 8985 Nov, Lumbar neuritis M54.16 and ADHD (attention deficit hyperactivity disorder), inattentive type F90.0 [facility] [address] [place] [id number] [place] [address] 41364- 0819 Nov, [facility] [address] [place] [id number] [place] [address] 65812- 2951 Oct, Lumbar neuritis M54.16 and ADHD (attention deficit hyperactivity disorder), inattentive type F90.0 [facility] [address] [place] [id number] [place] [address] 49367- 8802 Oct, [facility] [address] [place] [id number] [place] [address] 59099- 8888 Sep, ADHD (attention deficit hyperactivity disorder), inattentive type F90.0 and Lumbar neuritis M54.16 [facility] [address] [place] [id number] [place] [address] 48490- 4225 Sep, Lumbar neuritis M54.16 [facility] [address] [place] [id number] [place] [address] 64142- 4267 Sep, [facility] [address] [place] [id number] [place] [address] 72239- 6308 Sep, ADHD (attention deficit hyperactivity disorder), inattentive type F90.0 and Lumbar neuritis M54.16 [facility] [address] [place] [id number] [place] [address] 60128- 0642 Sep, [facility] [address] [place] [address]- 7540 Aug, [facility] [address] [address]- 5885 Aug, [facility] [address] [address]- 8087 Aug, [facility] [address] [place] [id number] [place] [address] 19399- 0801 Aug, [facility] [address] [place] [id number] [place] [address] 02459- 3948 Aug, ADHD (attention deficit hyperactivity disorder), inattentive type F90.0 and Lumbar neuritis M54.16 [facility] [address] [address]- 2377 Jul, [facility] [address] [place] [id number] [place] [address] 38447- 9487 Jul, [facility] [id number] [place] [address] 76182- 4208 Jul, Lumbar neuritis M54.16 and ADHD (attention deficit hyperactivity disorder), inattentive type F90.0 [facility] [address] [address]- 8884 Jul, [facility] [address] [address]- 6785 June, Lumbar neuritis M54.16 and ADHD (attention deficit hyperactivity disorder), inattentive type F90.0 [facility] [address] [address]- 7582 June, [facility] [address] [address]- 2241 June, [facility] [address] [address]- 2824 May, 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 and Lumbago with sciatica, left side M54.42 [facility] [place] [facility] [address] [address]- 8874 14 May, 2016 Lumbar neuritis M54.16 and ADHD (attention deficit hyperactivity disorder), inattentive type F90.0 [facility] [address] [place] [id number] [address]- 4056 Apr, [facility] [address] [place] [id number] [place] [address] 39561- 0373 Apr, Lumbar neuritis M54.16 and ADHD (attention deficit hyperactivity disorder), inattentive type F90.0 [facility] [address] [place] [id number] [place] [address] 48309- 4721 Apr, [facility] [address] [place] [id number] [place] [address] 07903- 4276 Apr, [facility] [address] [place] [id number] [place] [address] 74356- 2238 15 Apr, 2016 ADHD (attention deficit hyperactivity disorder), inattentive type F90.0 [facility] [id number] [place] [address] 07878- 2564 15 Apr, 2016 Lumbar neuritis M54.16 [facility] [address] [place] [id number] [address]- 1401 08 Apr, 2016 [facility] [address] [place] [id number] [place] [address] 86586- 0605 Apr, [facility] [address] [place] [id number] [place] [address] 24105- 2053 Mar, Attention deficit hyperactivity disorder (ADHD), predominantly inattentive type F90.0 [facility] [address] [place] [id number] [place] [address] 18005- 0846 Mar, [facility] [address] [address]- 5134 Mar, [facility] [address] [place] [id number] [place] [address] 86961- 1916 Mar, [facility] [id number] [place] [address] 55418- 4039 Jan, Attention deficit hyperactivity disorder (ADHD), predominantly inattentive type F90.0 [facility] [address] [place] [id number] [place] [address] 39178- 1110 Jan, [facility] [address] [place] [id number] [place] [address] 16154- 6939 Jan, [facility] [address] [place] [id number] [place] [address] 57659- 4908 Jan, [facility] [address] [place] [id number] [place] [address] 75641- 4820 Jan, [facility] [address] [place] [id number] [place] [address] 08166- 9361 Jan, Low TSH level R94.6 [facility] [address] [place] [id number] [place] [address] 71948- 9628 Jan, [facility] [address] [place] [id number] [place] [address] 19121- 0133 Dec, [facility] [address] [place] [id number] [place] [address] 19156- 9151 Dec, [facility] [address] [place] [id number] [place] [address] 24403- 1425 Dec, [facility] [address] [place] [id number] [place] [address] 25080- 4545 Nov, Low TSH level R94.6 [facility] [id number] [place] [address] 98330- 6707 Nov, Excessive daytime sleepiness G47.19 and ADHD (attention deficit hyperactivity disorder), inattentive type F90.0 [facility] [id number] [place] [address] 29855- 8871 13 Dec, 2015 [facility] [address] [place] [id number] [place] [address] 06707- 8026 Nov, [facility] [address] [facility] [id number] [place] [address]- 7776 Nov, [facility] [address] [facility] [id number] [place] [address], [place] [address]- 7739 Oct, [facility] [address] [facility] [id number] [place] [address]- 1459 Oct, [facility] [address] [facility] [id number] [place] [address], [place] [address]- 4497 Oct, [facility] [address] [facility] [id number] [place] [address], [place] [address]- 9575 Sep, [facility] [address] [facility] [id number] [place] [address], [place] [address]- 2868 Sep, [facility] [address] [facility] [id number] [place] [address], [place] [address]- 3409 Sep, [facility] [address] [place] [id number] [place] [address] 79010- 1599 Aug, Lumbar neuritis M54.16 [facility] [address] [place] [id number] [address]- 8607 Aug, [facility] [address] [place] [id number] [address]- 7519 Aug, [facility] [address] [address]- 0447 Jul, Lumbar neuritis M54.16 [facility] [address] [facility] [id number] [place] [address]- 5723 Jul, [facility] [address] [place] [id number] [address]- 7206 Jul, [facility] [place] [facility] [address] [facility] [id number] [address]- 5057 June, Lumbar neuritis M54.16 [facility] [address] [place] [id number] [address]- 8699 June, [facility] [id number] [place] [address] 53697- 3635 June, [facility] [address] [place] [id number] [place] [address] 91525- 2079 May, Lumbar neuritis M54.16 [facility] [address] [place] [id number] [place] [address] 58335- 4376 May, [facility] [address] [place] [id number] [place] [address] 26458- 4148 May, [facility] [address] [place] [id number] [place] [address] 26496- 9817 Apr, [facility] [address] [place] [id number] [place] [address] 12705- 8952 Apr, [facility] [address] [place] [id number] [place] [address] 90024- 5390 Apr, [facility] [address] [place] [id number] [place] [address] 03188- 8656 Apr, [facility] [address] [place] [id number] [place] [address] 46820- 5108 24 Apr, 2015 [facility] [address] [place] [id number] [address]- 1873 Apr, Inguinal hernia, right K40.90 [facility] [address] [place] [id number] [place] [address] 61890- 4375 Apr, [facility] [id number] [place] [address] 88807- 0679 15 Apr, 2015 Low back pain M54.5 and Sciatica, unspecified side M54.30 [facility] [address] [place] [id number] [address]- 8016 Mar, [facility] [address] [place] [id number] [place] [address] 37667- 7171 Mar, [facility] [address] [facility] [id number] [place] [address]- 8487 Jan, [facility] [address] [place] [id number] [place] [address], [place] [address]- 4376 Jan, [facility] [place] [facility] [address] [facility] [id number] [place] [address]- 0131 Jan, [facility] [place] [facility] [address] [facility] [id number] [place] [address], [place] [address]- 3860 Dec, [facility] [place] [facility] [address] [facility] [id number] [place] [address]- 5652 Dec, [facility] [place] [facility] [address] [place] [id number] [place] [address], [place] [address]- 1868 Dec, [facility] [place] [facility] [address] [place] [id number] [place] [address], [place] [address]- 6849 Dec, [facility] [place] [facility] [address] [place] [id number] [place] [address], [place] [address]- 8936 Nov, [facility] [address] [place] [id number] [place] [address] 88180- 6356 Nov, Encounter for immunization Z23 [facility] [id number] [place] [address] 35844- 2250 Nov, [facility] [address] [address]- 6206 Nov, [facility] [place] [facility] [address] [address]- 1024 Oct, [facility] [place] [facility] [address] [place] [id number] [address]- 0561 Oct, [facility] [place] [facility] [address] [place] [id number] [address]- 0789 Sep, Lumbago 724.2 [facility] [place] [facility] [address] [place] [address]- 1303 Sep, [facility] [place] [facility] [address] [place] [id number] [place] [address]- 2333 Aug, Lumbago 724.2 [facility] [place] [facility] [address] [id number] [place] [address]- 8862 17 Aug, 2014 [facility] [place] [facility] [address] [id number] [place] [address]- 0479 Aug, [facility] [place] [facility] [address] [id number] [place] [address]- 2477 Jul, [facility] [place] [facility] [address] [id number] [place] [address]- 2128 Jul, [facility] [place] [facility] [address] [id number] [place] [address]- 5545 Jul, [facility] [place] [facility] [address] [facility] [id number] [place] [address]- 8716 June, [facility] [place] [facility] [address] [facility] [id number] [place] [address]- 9250 May, [facility] [place] [facility] [address] [facility] [id number] [place] [address]- 1126 May, [facility] [place] [facility] [address] [facility] [id number] [place] [address]- 0266 Apr, [facility] [place] [facility] [address] [facility] [id number] [place] [address]- 9880 Apr, [facility] [place] [facility] [address] [facility] [id number] [place] [address]- 2546 Apr, [facility] [place] [facility] [address] [facility] [id number] [place] [address]- 1646 Apr, [facility] [place] [facility] [address] [facility] [id number] [place] [address]- 6066 Apr, [facility] [place] [facility] [address] [facility] [id number] [place] [address]- 2546 Apr, [facility] [place] [facility] [address] [facility] [id number] [place] [address]- 2636 Apr, [facility] [place] [facility] [address] [id number] [place] [address]- 8580 Apr, [facility] [place] [facility] [address] [id number] [place] [address]- 1531 Mar, [facility] [place] [facility] [address] [facility] [id number] [place] [address]- 9112 Mar, [facility] [place] [facility] [address] [id number] [place] [address]- 1956 Jan, [facility] [place] [facility] [address] [id number] [place] 9360 Jan, [facility] [place] [facility] [address] [facility] [id number] [place] [address]- 9872 Jan, [facility] [place] [facility] [address] [facility] [id number] [place] [address]- 6628 Jan, [facility] [place] [facility] [address] [id number] [place] [address]- 0925 Jan, [facility] [place] [facility] [address] [facility] [id number] [place] [address]- 3021 Jan, [facility] [place] [facility] [address] [facility] [id number] [place] [address]- 9857 Dec, [facility] [place] [facility] [address] [facility] [id number] [address]- 6922 Dec, [facility] [place] [facility] [address] [id number] [address]- 0919 Nov, [facility] [place] [facility] [address] [id number] [place] [address]- 1083 Nov, [facility] [place] [facility] [address] [facility] [id number] [place] [address]- 9896 Nov, [facility] [place] [facility] [address] [facility] [id number] [place] [address]- 7957 Nov, [facility] [place] [facility] [address] [id number] [place] [address]- 1847 15 Oct, 2013 [facility] [address] [id number] [place] [address]- 5290 Oct, [facility] [place] [facility] [address] [id number] [place] [address]- 3964 Sep, [facility] [place] [facility] [address] [id number] [place] [address]- 4194 Sep, [facility] [place] [facility] [address] [id number] [place] [address]- 2392 Sep, [facility] [place] [facility] [address] [id number] [place] [address]- 2594 Sep, [facility] [place] [facility] [address] [id number] [place] [address]- 0889 Aug, [facility] [place] [facility] [address] [id number] [place] [address]- 7205 Aug, [facility] [address] [id number] [place] [address]- 9824 Aug, [facility] [place] [facility] [address] [id number] [place] [address]- 3667 Aug, [facility] [address] [id number] [place] [address]- 5443 Jul, [facility] [place] [facility] [address] [id number] [place] [address] Jul, [facility] [place] [facility] [address] [id number] [place] [address] June, [facility] [place] [facility] [address] [id number] [place] [address] June, [facility] [place] [facility] [address] [id number] [place] [address] June, [facility] [place] [facility] [address] [id number] [place] [address] May, [facility] [place] [facility] [address] [id number] [place] [address] 30 May, 2013 [facility] [place] [facility] [address] [id number] [place] [address] May, [facility] [place] [facility] [address] [id number] [place] [address] May, [facility] [place] [facility] [address] [id number] [place] [address] May, [facility] [place] [facility] [address] [id number] [place] [address] May, [facility] [place] [facility] [address] [id number] [place] [address] May, [facility] [place] [facility] [address] [id number] [place] [address] May, [facility] [place] [facility] [address] [id number] [place] [address] May, [facility] [place] [facility] [address] [id number] [place] [address] May, [facility] [place] [facility] [address] [id number] [place] [address] May, [facility] [place] [facility] [address] [id number] [place] [address] Apr, [facility] [place] [facility] [address] [id number] [place] [address] Apr, [facility] [place] [facility] [address] [id number] [place] [address] Apr, [facility] [place] [facility] [address] [id number] [place] [address] Apr, [facility] [place] [facility] [address] [id number] [place] [address] Apr, [facility] [place] [facility] [address] [id number] [place] [address] Apr, [facility] [place] [facility] [address] [id number] [place] [address] Apr, [facility] [place] [facility] [address] [id number] [place] [address] Apr, [facility] [place] [facility] [address] [id number] [place] [address] Apr, [facility] [place] [facility] [address] [id number] [place] [address] Apr, [facility] [place] [facility] [address] [id number] [place] [address] Apr, [facility] [place] [facility] [address] [id number] [place] [address] Apr, [facility] [place] [facility] [address] [id number] [place] [address] Mar, [facility] [place] [facility] [address] [id number] [place] [address] Mar, [facility] [place] [facility] [address] [id number] [place] [address] Mar, [facility] [place] [facility] [address] [id number] [place] [address] Mar, [facility] [place] [facility] [address] [id number] [place] [address] Mar, [facility] [place] [facility] [address] [id number] [place] [address] Mar, [facility] [place] [facility] [address] [id number] [place] [address] Jan, [facility] [place] [facility] [address] [id number] [place] [address] Jan, [facility] [place] [facility] [address] [id number] [place] [address] Dec, [facility] [address] [facility] [id number] [place] [address] Dec, IMMUNIZATIONS No Known Immunizations SOCIAL HISTORY Never Assessed REASON FOR VISIT Controlled Med Refill 02/10/17 PLAN OF CARE VITAL SIGNS MEDICATIONS Medication Instructions Dosage Frequency Start Date End Date Duration Status Xanax 1 MG Orally 3 times a day 1 tablet 8h 24 Sep, 2016 Active [place] 10-325 MG Orally every 6 hrs 1 tablet as needed 6h Jan, Active RESULTS No Results PROCEDURES No Known procedures INSTRUCTIONS MEDICATIONS ADMINISTERED No Known Medications MEDICAL (GENERAL) HISTORY Type Description Date Medical History narcolepsy Surgical History Gallbladder removed 05/2014 Surgical History Hernia repair 05/24/2015
--- OUTSIDE RECORDS SUMMARY | 2017-11-01 13:08 | XMS REPORT ---
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
--- OUTSIDE RECORDS SUMMARY | 2017-11-01 13:08 | XMS REPORT ---
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 10713070823246 Problem ADHD (attention deficit hyperactivity disorder), inattentive type F90.0 Active 51016161 Problem Excessive daytime sleepiness G47.19 Active 821891988347 ALLERGIES Unknown Allergies SOCIAL HISTORY No smoking Hx information available PLAN OF CARE VITAL SIGNS MEDICATIONS Medication Instructions Dosage Frequency Start Date End Date Duration Status Alprazolam 1 MG Orally Three times a day 1 tablet 8h Apr, 28 days Active Hydrocodone-Acetaminophen 10-325 MG Orally every 6 hrs 1 tablet as needed 6h Apr, 28 days Active RESULTS No Results PROCEDURES No Known procedures IMMUNIZATIONS No Known Immunizations
--- OUTSIDE RECORDS SUMMARY | 2017-11-01 13:08 | XMS REPORT ---
Author Author SHAHNAZ WIN Organization [facility] Address [address] [place] [address] Care Team Providers Care [employer] Designer Name Role Phone SHAHNAZ WIN Unavailable PROBLEMS Type Condition ICD9-CM Code [id number] Code Onset Dates Condition Status SNOMED Code Problem ADHD (attention deficit hyperactivity disorder), inattentive type F90.0 Active 27664884 Problem Arthritis M19.90 Active 2006943 Problem Positive skin test for tuberculosis R76.11 Active 921100603 Problem Lumbago with sciatica, left side M54.42 Active 540143245 Problem Excessive daytime sleepiness G47.19 Active 607664190462 Problem 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 08626383512583 Problem 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 Active [id number] ALLERGIES No Information ENCOUNTERS Encounter Location Date Diagnosis [place] [id number] [place] [address] 25273- 8709 Aug, [place] [facility] [id number] [place] [address] 70645- 9445 06 Jul, 2017 Right lower quadrant abdominal pain R10.31 and Rash R21 [place] [address] 36182- 7019 Apr, ADHD (attention deficit hyperactivity disorder), inattentive type F90.0 ; Lumbago with sciatica, left side M54.42 and Arthritis M19.90 [place] [address] 56873- 8353 Apr, ADHD (attention deficit hyperactivity disorder), inattentive type F90.0 and Lumbar neuritis M54.16 [place] [id number] [place] [address] 10259- 6955 Apr, [facility] [id number] [place] [address] 40014- 2803 Apr, Lumbar neuritis M54.16 [facility] [id number] [place] [address] 26752- 0715 16 Apr, 2017 Low back pain M54.5 [facility] [id number] [place] [address] 04100- 1821 Apr, ADHD (attention deficit hyperactivity disorder), inattentive type F90.0 [facility] [id number] [place] [address] 28062- 1910 Apr, Positive skin test for tuberculosis R76.11 [facility] [id number] [place] [address] 17780- 6613 Apr, Positive skin test for tuberculosis R76.11 [facility] [id number] [place] [address] 90086- 1048 Apr, [facility] [id number] [place] [address] 02281- 4292 Mar, Lumbar neuritis M54.16 [facility] [id number] [place] [address] 57653- 7529 Mar, ADHD (attention deficit hyperactivity disorder), inattentive type F90.0 [facility] [id number] [place] [address] 22116- 6128 Mar, [facility] [id number] [place] [address] 75157- 0550 Jan, Lumbar neuritis M54.16 [facility] [id number] [place] [address] 39740- 8042 Jan, ADHD (attention deficit hyperactivity disorder), inattentive type F90.0 [facility] [id number] [place] [address] 98807- 3632 Jan, [facility] [id number] [place] [address] 51774- 8276 Jan, [facility] [id number] [place] [address] 61529- 8609 Dec, Lumbar neuritis M54.16 [facility] [id number] [place] [address] 56735- 6284 Dec, ADHD (attention deficit hyperactivity disorder), inattentive type F90.0 and 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 [facility] [id number] [place] [address] 09949- 0072 Dec, [facility] [id number] [place] [address] 78757- 3878 Dec, [facility] [id number] [place] [address] 02309- 1037 Nov, Lumbar neuritis M54.16 and ADHD (attention deficit hyperactivity disorder), inattentive type F90.0 [facility] [id number] [place] [address] 93990- 2209 Nov, [facility] [id number] [place] [address] 05471- 6289 Oct, Lumbar neuritis M54.16 and ADHD (attention deficit hyperactivity disorder), inattentive type F90.0 [facility] [id number] [place] [address] 40642- 3836 Oct, [facility] [id number] [place] [address] 38440- 8042 Sep, ADHD (attention deficit hyperactivity disorder), inattentive type F90.0 and Lumbar neuritis M54.16 [facility] [id number] [place] [address] 72460- 7974 Sep, Lumbar neuritis M54.16 [facility] [id number] [place] [address] 28888- 1155 Sep, [facility] [id number] [place] [address] 74288- 0443 Sep, ADHD (attention deficit hyperactivity disorder), inattentive type F90.0 and Lumbar neuritis M54.16 [facility] [address] [address]- 5781 Sep, [facility] [id number] [address]- 4808 Aug, [facility] [id number] [place] [address] 56219- 8192 Aug, [facility] [id number] [place] [address] 56881- 5850 Aug, [facility] [id number] [place] [address] 24650- 0792 Aug, [facility] [id number] [place] [address] 25522- 1033 Aug, ADHD (attention deficit hyperactivity disorder), inattentive type F90.0 and Lumbar neuritis M54.16 [facility] [address] [address]- 2196 Jul, [facility] [id number] [place] [address] 00363- 8251 Jul, [facility] [address] [place] [address] 84532- 2468 Jul, Lumbar neuritis M54.16 and ADHD (attention deficit hyperactivity disorder), inattentive type F90.0 [facility] [address] [address]- 7166 Jul, [facility] [id number] [place] [address] 16536- 6997 June, Lumbar neuritis M54.16 and ADHD (attention deficit hyperactivity disorder), inattentive type F90.0 [facility] [address] [address]- 7167 June, [facility] [id number] [place] [address] 09503- 2612 June, [facility] [id number] [place] [address] 07371- 2163 May, 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 and Lumbago with sciatica, left side M54.42 [facility] [id number] [place] [address] 20792- 4354 May, Lumbar neuritis M54.16 and ADHD (attention deficit hyperactivity disorder), inattentive type F90.0 [facility] [id number] [place] [address] 21805- 4413 Apr, [facility] [id number] [place] [address] 35683- 9690 Apr, Lumbar neuritis M54.16 and ADHD (attention deficit hyperactivity disorder), inattentive type F90.0 [facility] [id number] [place] [address] 64209- 2277 Apr, [facility] [id number] [place] [address] 73867- 4696 Apr, [facility] [id number] [place] [address] 67392- 9837 Apr, ADHD (attention deficit hyperactivity disorder), inattentive type F90.0 [facility] [id number] [place] [address] 02599- 4799 Apr, Lumbar neuritis M54.16 [facility] [id number] [place] [address] 10131- 7714 Apr, [facility] [id number] [place] [address] 41024- 3886 Apr, [facility] [id number] [place] [address] 75373- 2109 Mar, Attention deficit hyperactivity disorder (ADHD), predominantly inattentive type F90.0 [facility] [id number] [address]- 9719 Mar, [facility] [id number] [place] [address] 82261- 0211 Mar, [facility] [id number] [place] [address] 08862- 9285 Mar, [facility] [id number] [place] [address] 56877- 6007 Jan, Attention deficit hyperactivity disorder (ADHD), predominantly inattentive type F90.0 [facility] [id number] [place] [address] 69172- 8531 Jan, [facility] [id number] [place] [address] 48419- 4989 Jan, [facility] [id number] [place] [address] 18734- 3359 Jan, [facility] [id number] [place] [address] 76647- 8415 Jan, Low TSH level R94.6 [facility] [id number] [place] [address] 25346- 2092 Jan, [facility] [id number] [place] [address] 35858- 7680 Jan, [facility] [id number] [place] [address] 20448- 9574 Dec, [facility] [id number] [place] [address] 30406- 3936 Dec, [facility] [id number] [place] [address] 18316- 4598 Dec, [facility] [id number] [place] [address] 53554- 6906 Nov, Low TSH level R94.6 [facility] [id number] [place] [address] 61275- 9677 17 Oct, 2016 Excessive daytime sleepiness G47.19 and ADHD (attention deficit hyperactivity disorder), inattentive type F90.0 [facility] [id number] [place] [address] 34239- 7699 Nov, [facility] [id number] [place] [address] 81295- 9215 Nov, [facility] [id number] [place] [address] 01893- 8042 Nov, [facility] [id number] [place] [address] 68986- 8885 Oct, [facility] [id number] [place] [address] 82949- 7261 Oct, [facility] [id number] [place] [address] 90781- 3648 Oct, [facility] [id number] [place] [address] 85325- 1725 Sep, [facility] [id number] [place] [address] 29534- 5108 Sep, [facility] [id number] [place] [address] 93194- 2932 Sep, [facility] [id number] [place] [address] 65583- 3923 Aug, Lumbar neuritis M54.16 [facility] [id number] [place] [address] 99214- 8895 Aug, [facility] [id number] [place] [address] 92560- 7292 Aug, [facility] [id number] [place] [address] 98729- 0611 Jul, Lumbar neuritis M54.16 [facility] [id number] [place] [address] 01585- 3460 Jul, [facility] [id number] [place] [address] 21345- 2858 Jul, [facility] [address], [place] [address]- 2690 June, Lumbar neuritis M54.16 [facility] [address] [address]- 9265 June, [facility] [id number] [place] [address] 07729- 1147 June, [facility] [address] [place] [address] 63110- 0952 May, Lumbar neuritis M54.16 [facility] [id number] [place] [address] 64812- 3093 May, [facility] [id number] [place] [address] 48529- 4470 May, [facility] [address] [place] [address] 91667- 6929 Apr, [facility] [address], [place] [address]- 7193 Apr, [facility] [address] [address]- 6123 14 May, 2015 [facility] [address] [address]- 0902 Apr, [facility] [address] [address]- 6199 24 Apr, 2015 [facility] [address], [place] [address]- 2532 Apr, Inguinal hernia, right K40.90 [facility] [address], [place] [address]- 1875 17 Apr, 2015 [facility] [address], [place] [address]- 4272 15 Apr, 2015 Low back pain M54.5 and Sciatica, unspecified side M54.30 [facility] [address] [facility] [place] [id number] [address]- 2281 Mar, [facility] [address] [facility] [place] [place] [id number], [place] [address]- 0306 Mar, [facility] [address] [facility] [place] [id number], [place] [address]- 3986 Jan, [facility] [address] [facility] [place] [id number] [place] [address] 16494- 0838 Jan, [facility] [address] [facility] [place] [id number] [place] [address]- 1432 Jan, [facility] [id number] [place] [address] 17149- 1021 Dec, [facility] [address], [place] [address]- 2618 Dec, [facility] [address] [place] [address] 15407- 8275 Dec, [facility] [id number], [place] [address]- 0871 Dec, [facility] [address], [place] [address]- 6520 Nov, [facility] [address], [place] [address]- 8597 Nov, Encounter for immunization Z23 [facility] [address] [facility] [place] [id number], [place] [address]- 7798 Nov, [facility] [address] [facility] [place] [id number], [place] [address]- 2110 Nov, [facility] [id number], [place] [address]- 9943 Oct, [facility] [id number] [address]- 5024 08 Oct, 2014 [facility] [address] [place] [address]- 6566 Sep, Lumbago 724.2 [facility] [place] [facility] [address] [id number] [place] 7690 Sep, [facility] [place] [facility] [address] [id number] [place] [address]- 7187 Aug, Lumbago 724.2 [facility] [place] [facility] [address] [id number] [place] [address]- 4464 Aug, [facility] [place] [facility] [address] [id number] [place] [address]- 0870 Aug, [facility] [place] [facility] [address] [id number] [place] [address]- 9014 Jul, [facility] [place] [facility] [address] [id number] [place] [address]- 9421 Jul, [facility] [place] [facility] [address] [id number] [place] [address]- 3717 Jul, [facility] [place] [facility] [address] [id number] [place] [address]- 0856 June, [facility] [place] [facility] [address] [id number] [place] [address]- 6154 May, [facility] [place] [facility] [address] [id number] [place] [address]- 2191 May, [facility] [place] [facility] [address] [id number] [place] [address]- 4610 Apr, [facility] [place] [facility] [address] [id number] [place] [address]- 9204 Apr, [facility] [place] [facility] [address] [id number] [place] [address]- 9556 Apr, [facility] [place] [facility] [address] [id number] [place] [address]- 2269 Apr, [facility] [place] [facility] [address] [id number] [place] [address]- 7462 Apr, 2014 [facility] [place] [facility] [address] [id number] [place] [address]- 0230 Apr, 2014 [facility] [place] [facility] [address] [id number] [place] [address]- 4386 Apr, [facility] [place] [facility] [address] [id number] [place] [address]- 2626 Apr, [facility] [place] [facility] [address] [id number] [place] [address]- 9254 Mar, [facility] [place] [facility] [address] [id number] [place] [address]- 8305 Mar, [facility] [place] [facility] [address] [id number] [place] [address]- 6157 Jan, [facility] [place] [facility] [address] [id number] [place] [address]- 2996 Jan, [facility] [place] [facility] [address] [id number] [place] [address]- 7016 Jan, [facility] [place] [facility] [address] [id number] [place] [address]- 6741 Jan, [facility] [place] [facility] [address] [facility] [place] [place] [id number] [place] [address]- 7902 Jan, [facility] [place] [facility] [address] [id number] [place] [address]- 0793 Jan, [facility] [place] [facility] [address] [id number] [place] [address]- 8790 Dec, [facility] [place] [facility] [address] [id number] [place] 0154 Dec, [facility] [place] [facility] [address] [id number] [place] 0228 Nov, [facility] [place] [facility] [address] [id number] [place] 3098 Nov, [facility] [place] [facility] [address] [id number] [place] [address]- 7788 Nov, [facility] [place] [facility] [address] [id number] [place] 2743 Nov, [facility] [place] [facility] [address] [id number] [place] [address]- 6687 Oct, [facility] [place] [facility] [address] [id number] [place] [address]- 4745 Oct, [facility] [place] [facility] [address] [id number] [place] [address]- 4852 Sep, [facility] [place] [facility] [address] [id number] [place] [address]- 6886 Sep, [facility] [place] [facility] [address] [id number] [place] [address]- 2511 Sep, [facility] [place] [facility] [address] [id number] [place] [address]- 8099 Sep, [facility] [place] [facility] [address] [id number] [place] [address]- 3106 Aug, [facility] [place] [facility] [address] [id number] [place] [address]- 8676 Aug, [facility] [place] [facility] [address] [id number] [place] [address]- 6156 Aug, [facility] [place] [facility] [address] [id number] [place] [address]- 8356 Aug, [facility] [place] [facility] [address] [id number] [place] [address]- 3530 Jul, [facility] [place] [facility] [address] [id number] [place] [address]- 3086 Jul, [facility] [place] [facility] [address] [id number] [place] [address]- 5409 June, [facility] [place] [facility] [address] [id number] [place] [address]- 8949 June, [facility] [place] [facility] [address] [id number] [place] [address]- 4114 June, [facility] [place] [facility] [address] [id number] [place] [address]- 8244 May, [facility] [place] [facility] [address] [id number] [place] [address] May, [facility] [place] [facility] [address] [id number] [place] [address] May, [facility] [place] [facility] [address] [id number] [place] [address] May, [facility] [place] [facility] [address] [id number] [place] [address] May, [facility] [place] [facility] [address] [id number] [place] [address] May, [facility] [place] [facility] [address] [id number] [place] [address] May, [facility] [place] [facility] [address] [id number] [place] [address] May, [facility] [place] [facility] [address] [id number] [place] [address] May, [facility] [place] [facility] [address] [id number] [place] [address] May, [facility] [place] [facility] [address] [id number] [place] [address] May, [facility] [place] [facility] [address] [id number] [place] [address] Apr, [facility] [place] [facility] [address] [id number] [place] [address] Apr, [facility] [place] [facility] [address] [id number] [place] [address] Apr, [facility] [place] [facility] [address] [id number] [place] [address] Apr, [facility] [place] [facility] [address] [id number] [place] [address] Apr, [facility] [place] [facility] [address] [id number] [place] [address] Apr, [facility] [place] [facility] [address] [id number] [place] [address] Apr, [facility] [place] [facility] [address] [id number] [place] [address] Apr, [facility] [place] [facility] [address] [id number] [place] [address] Apr, [facility] [place] [facility] [address] [id number] [place] [address] Apr, [facility] [place] [facility] [address] [id number] [place] [address] Apr, [facility] [place] [facility] [address] [id number] [place] [address] Apr, [facility] [place] [facility] [address] [id number] [place] [address] Mar, [facility] [place] [facility] [address] [id number] [place] [address] Mar, [facility] [place] [facility] [address] [id number] [place] [address] Mar, [facility] [place] [facility] [address] [id number] [place] [address] Mar, [facility] [place] [facility] [address] [id number] [place] [address] Mar, [facility] [place] [facility] [address] [id number] [place] [address] Mar, [facility] [place] [facility] [address] [id number] [place] [address] Jan, [facility] [address] [facility] [place] [id number] [place] [address] Jan, [facility] [address] [facility] [id number], [place] [address] Dec, [facility] [address] [facility] [id number], [place] [address] Dec, IMMUNIZATIONS No Known Immunizations SOCIAL HISTORY Never Assessed REASON FOR VISIT Tramadol 04/17/17 PLAN OF CARE VITAL SIGNS MEDICATIONS Medication [...]
--- OUTSIDE RECORDS SUMMARY | 2017-11-01 13:09 | XMS REPORT ---
Author Author SHAHNAZ WIN Organization [employer] Address Unknown Phone Unavailable Care Team Providers Care Customer Resolution Specialist Name Role Phone SHAHNAZ WIN CP [...] route every 6 hours as needed Alprazolam [facility] [address]-27 1 MG May 29, 2014 take 1 tablet (1 mg) by oral route 3 times per day Hydrocodone-Acetaminophen [facility] [address]-43 10-325 MG May 29, 2014 take 1 tablet by oral route every 6 hours as needed for pain PRN Results No Known Results Summary Purpose [employer] Submission
--- OUTSIDE RECORDS SUMMARY | 2017-11-01 13:09 | XMS REPORT ---
Author Author SHAHNAZ WIN Organization [facility] Address [address] [place] [address] Care Team Providers Care Movie Producer Name Role Phone SHAHNAZ WIN Unavailable PROBLEMS Type Condition ICD9-CM Code HSF21-DC Code Onset Dates Condition Status SNOMED Code Problem ADHD (attention deficit hyperactivity disorder), inattentive type F90.0 Active 58738487 Problem Arthritis M19.90 Active 6753615 Problem Positive skin test for tuberculosis R76.11 Active 803828374 Problem Lumbago with sciatica, left side M54.42 Active 488831929 Problem Excessive daytime sleepiness G47.19 Active 140687906886 Problem 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42 and Arthritis M19.90 [place] [address] 03397- 2469 Apr, ADHD (attention deficit hyperactivity disorder), inattentive type F90.0 and Lumbar neuritis M54.16 [place] [id number] [place] [address] 56491- 1088 Apr, [facility] [id number] [place] [address] 66285- 6951 Apr, Lumbar neuritis M54.16 [facility] [id number] [place] [address] 43982- 2644 16 Apr, 2017 Low back pain M54.5 [facility] [id number] [place] [address] 25292- 1774 Apr, ADHD (attention deficit hyperactivity disorder), inattentive type F90.0 [facility] [id number] [place] [address] 52443- 5079 Apr, Positive skin test for tuberculosis R76.11 [facility] [id number] [place] [address] 93304- 1915 Apr, Positive skin test for tuberculosis R76.11 [facility] [id number] [place] [address] 34129- 2163 Apr, [facility] [id number] [place] [address] 61458- 7674 Mar, Lumbar neuritis M54.16 [facility] [id number] [place] [address] 08157- 8859 Mar, ADHD (attention deficit hyperactivity disorder), inattentive type F90.0 [facility] [id number] [place] [address] 18767- 2171 Mar, [facility] [id number] [place] [address] 08518- 0285 Jan, Lumbar neuritis M54.16 [facility] [id number] [place] [address] 06441- 7496 Jan, ADHD (attention deficit hyperactivity disorder), inattentive type F90.0 [facility] [id number] [place] [address] 31863- 0404 Jan, [facility] [id number] [place] [address] 84875- 8864 Jan, [facility] [id number] [place] [address] 46652- 8021 Dec, Lumbar neuritis M54.16 [facility] [id number] [place] [address] 04514- 3395 Dec, ADHD (attention deficit hyperactivity disorder), inattentive type F90.0 and 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 [facility] [id number] [place] [address] 58579- 5733 Dec, [facility] [id number] [place] [address] 05468- 6613 Dec, [facility] [id number] [place] [address] 55761- 6540 Nov, Lumbar neuritis M54.16 and ADHD (attention deficit hyperactivity disorder), inattentive type F90.0 [facility] [id number] [place] [address] 28968- 6423 Nov, [facility] [id number] [place] [address] 28574- 0226 Oct, Lumbar neuritis M54.16 and ADHD (attention deficit hyperactivity disorder), inattentive type F90.0 [facility] [id number] [place] [address] 04799- 8986 Oct, [facility] [id number] [place] [address] 51366- 1763 Sep, ADHD (attention deficit hyperactivity disorder), inattentive type F90.0 and Lumbar neuritis M54.16 [facility] [id number] [place] [address] 30764- 2676 Sep, Lumbar neuritis M54.16 [facility] [id number] [place] [address] 49798- 3394 Sep, [facility] [id number] [place] [address] 87808- 8965 Sep, ADHD (attention deficit hyperactivity disorder), inattentive type F90.0 and Lumbar neuritis M54.16 [facility] [address] [address]- 9359 Sep, [facility] [id number] [address]- 8727 Aug, [facility] [id number] [place] [address] 09588- 3336 Aug, [facility] [id number] [place] [address] 56284- 3406 Aug, [facility] [id number] [place] [address] 67895- 1648 Aug, [facility] [id number] [place] [address] 25348- 9660 Aug, ADHD (attention deficit hyperactivity disorder), inattentive type F90.0 and Lumbar neuritis M54.16 [facility] [address] [address]- 0391 Jul, [facility] [id number] [place] [address] 32006- 7480 Jul, [facility] [id number] [place] [address] 02990- 3550 Jul, Lumbar neuritis M54.16 and ADHD (attention deficit hyperactivity disorder), inattentive type F90.0 [facility] [address] [address]- 6052 Jul, [facility] [id number] [place] [address] 35063- 2354 June, Lumbar neuritis M54.16 and ADHD (attention deficit hyperactivity disorder), inattentive type F90.0 [facility] [address] [address]- 3321 June, [facility] [id number] [place] [address] 49714- 0328 June, [facility] [id number] [place] [address] 09393- 6264 May, 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 and Lumbago with sciatica, left side M54.42 [facility] [id number] [place] [address] 92268- 7716 May, Lumbar neuritis M54.16 and ADHD (attention deficit hyperactivity disorder), inattentive type F90.0 [facility] [id number] [place] [address] 57183- 3589 Apr, [facility] [id number] [place] [address] 72411- 2724 Apr, Lumbar neuritis M54.16 and ADHD (attention deficit hyperactivity disorder), inattentive type F90.0 [facility] [id number] [place] [address] 37776- 4943 Apr, [facility] [id number] [place] [address] 85541- 0422 Apr, [facility] [id number] [place] [address] 54101- 3374 Apr, ADHD (attention deficit hyperactivity disorder), inattentive type F90.0 [facility] [id number] [place] [address] 49268- 8212 Apr, Lumbar neuritis M54.16 [facility] [id number] [place] [address] 60837- 4501 Apr, [facility] [id number] [place] [address] 03909- 2950 Apr, [facility] [id number] [place] [address] 68244- 2693 Mar, Attention deficit hyperactivity disorder (ADHD), predominantly inattentive type F90.0 [facility] [id number] [address]- 4142 Mar, [facility] [id number] [place] [address] 26354- 8662 Mar, [facility] [id number] [place] [address] 29670- 7136 Mar, [facility] [id number] [place] [address] 41631- 3137 Jan, Attention deficit hyperactivity disorder (ADHD), predominantly inattentive type F90.0 [facility] [id number] [place] [address] 06963- 8501 Jan, [facility] [id number] [place] [address] 93682- 1885 Jan, [facility] [id number] [place] [address] 02903- 8843 Jan, [facility] [id number] [place] [address] 78485- 5609 Jan, Low TSH level R94.6 [facility] [id number] [place] [address] 61515- 2673 Jan, [facility] [id number] [place] [address] 95835- 8215 Jan, [facility] [id number] [place] [address] 24836- 8745 Dec, [facility] [id number] [place] [address] 87316- 6716 Dec, [facility] [id number] [place] [address] 53842- 9307 Dec, [facility] [id number] [place] [address] 83102- 7007 Nov, Low TSH level R94.6 [facility] [id number] [place] [address] 34099- 3541 17 Oct, 2016 Excessive daytime sleepiness G47.19 and ADHD (attention deficit hyperactivity disorder), inattentive type F90.0 [facility] [id number] [place] [address] 43857- 3379 Nov, [facility] [id number] [place] [address] 41150- 5599 Nov, [facility] [id number] [place] [address] 17716- 5376 Nov, [facility] [id number] [place] [address] 77702- 9760 Oct, [facility] [id number] [place] [address] 05212- 5540 Oct, [facility] [id number] [place] [address] 20028- 7932 Oct, [facility] [id number] [place] [address] 62848- 1898 Sep, [facility] [id number] [place] [address] 69054- 7285 Sep, [facility] [id number] [place] [address] 31119- 7925 Sep, [facility] [id number] [place] [address] 75150- 7471 Aug, Lumbar neuritis M54.16 [facility] [id number] [place] [address] 14199- 2170 Aug, [facility] [id number] [place] [address] 91917- 3829 Aug, [facility] [id number] [place] [address] 84791- 0997 Jul, Lumbar neuritis M54.16 [facility] [id number] [place] [address] 17803- 9071 Jul, [facility] [id number] [place] [address] 91532- 0699 Jul, [facility] [address] [address]- 4215 June, Lumbar neuritis M54.16 [facility] [address] [address]- 5092 June, [facility] [id number] [place] [address] 89006- 7198 June, [facility] [id number] [place] [address] 42281- 3646 May, Lumbar neuritis M54.16 [facility] [id number] [place] [address] 23068- 4516 May, [facility] [id number] [place] [address] 40856- 8639 May, [facility] [id number] [place] [address] 97206- 0912 Apr, [facility] [address] [address]- 4276 Apr, [facility] [address] [address]- 6070 14 May, 2015 [facility] [address] [address]- 8961 Apr, [facility] [address] [address]- 7368 24 Apr, 2015 [facility] [address] [address]- 7018 Apr, Inguinal hernia, right K40.90 [facility] [address] [address]- 5122 17 Apr, 2015 [facility] [address] [address]- 8329 15 Apr, 2015 Low back pain M54.5 and Sciatica, unspecified side M54.30 [facility] [address] [facility] [id number] [address]- 5443 Mar, [facility] [address] [facility] [id number] [place] [address]- 9753 Mar, [facility] [address] [facility] [id number] [place] [address]- 2385 Jan, [facility] [address] [facility] [id number] [place] [address] 15700- 1746 Jan, [facility] [address] [facility] [id number] [place] [address]- 1842 Jan, [facility] [id number] [place] [address] 34281- 9651 Dec, [facility] [address] [address]- 3241 Dec, [facility] [id number] [place] [address] 49692- 0122 Dec, [facility] [id number] [address]- 1651 Dec, [facility] [address] [address]- 6484 Nov, [facility] [address] [address]- 8762 Nov, Encounter for immunization Z23 [facility] [address] [facility] [id number] [place] [address]- 2180 Nov, [facility] [address] [facility] [id number] [place] [address]- 8876 Nov, [facility] [id number] [address]- 3609 Oct, [facility] [id number] [address]- 5867 08 Oct, 2014 [facility] [address] [place] [address]- 3208 Sep, Lumbago 724.2 [facility] [place] [facility] [address] [id number] [place] 2436 Sep, [facility] [place] [facility] [address] [id number] [place] [address]- 5156 Aug, Lumbago 724.2 [facility] [place] [facility] [address] [id number] [place] [address]- 7442 Aug, [facility] [place] [facility] [address] [id number] [place] [address]- 7062 Aug, [facility] [place] [facility] [address] [id number] [place] [address]- 0974 Jul, [facility] [place] [facility] [address] [id number] [place] [address]- 3000 Jul, [facility] [place] [facility] [address] [id number] [place] [address]- 8060 Jul, [facility] [place] [facility] [address] [id number] [place] [address]- 8806 June, [facility] [place] [facility] [address] [id number] [place] [address]- 4786 May, [facility] [place] [facility] [address] [id number] [place] [address]- 7532 May, [facility] [place] [facility] [address] [id number] [place] [address]- 0327 Apr, [facility] [place] [facility] [address] [id number] [place] [address]- 6808 Apr, [facility] [place] [facility] [address] [id number] [place] [address]- 5024 Apr, [facility] [place] [facility] [address] [id number] [place] [address]- 2094 Apr, [facility] [place] [facility] [address] [id number] [place] [address]- 7273 Apr, 2014 [facility] [place] [facility] [address] [id number] [place] [address]- 1741 Apr, 2014 [facility] [place] [facility] [address] [id number] [place] [address]- 6446 Apr, [facility] [place] [facility] [address] [id number] [place] [address]- 3546 Apr, [facility] [place] [facility] [address] [id number] [place] [address]- 1854 Mar, [facility] [place] [facility] [address] [id number] [place] [address]- 5556 Mar, [facility] [place] [facility] [address] [id number] [place] [address]- 2458 Jan, [facility] [place] [facility] [address] [id number] [place] [address]- 1784 Jan, [facility] [place] [facility] [address] [id number] [place] [address]- 4406 Jan, [facility] [place] [facility] [address] [id number] [place] [address]- 1090 Jan, [facility] [place] [facility] [address] [facility] [id number] [place] [address]- 5066 Jan, [facility] [place] [facility] [address] [id number] [place] [address]- 9797 Jan, [facility] [place] [facility] [address] [id number] [place] [address]- 1454 Dec, [facility] [place] [facility] [address] [id number] [place] 6293 Dec, [facility] [place] [facility] [address] [id number] [place] 0815 Nov, [facility] [place] [facility] [address] [id number] [place] 3261 Nov, [facility] [place] [facility] [address] [id number] [place] [address]- 6931 Nov, [facility] [place] [facility] [address] [id number] [place] 2492 Nov, [facility] [place] [facility] [address] [id number] [place] [address]- 7408 Oct, [facility] [place] [facility] [address] [id number] [place] [address]- 8309 Oct, [facility] [place] [facility] [address] [id number] [place] [address]- 8344 Sep, [facility] [place] [facility] [address] [id number] [place] [address]- 8555 Sep, [facility] [place] [facility] [address] [id number] [place] [address]- 9638 Sep, [facility] [place] [facility] [address] [id number] [place] [address]- 5480 Sep, [facility] [place] [facility] [address] [id number] [place] [address]- 2744 Aug, [facility] [place] [facility] [address] [id number] [place] [address]- 9185 Aug, [facility] [place] [facility] [address] [id number] [place] [address]- 7449 Aug, [facility] [place] [facility] [address] [id number] [place] [address]- 7321 Aug, [facility] [place] [facility] [address] [id number] [place] [address]- 9810 Jul, [facility] [place] [facility] [address] [id number] [place] [address]- 4841 Jul, [facility] [place] [facility] [address] [id number] [place] [address]- 8139 June, [facility] [place] [facility] [address] [id number] [place] [address]- 6400 June, [facility] [place] [facility] [address] [id number] [place] [address]- 6402 June, [facility] [place] [facility] [address] [id number] [place] [address]- 3436 May, [facility] [place] [facility] [address] [id number] [place] [address]- 4237 May, [facility] [place] [facility] [address] [id number] [place] [address]- 2170 May, [facility] [place] [facility] [address] [id number] [place] [address]- 4457 May, [facility] [place] [facility] [address] [id number] [place] [address]- 3061 May, [facility] [place] [facility] [address] [id number] [place] [address]- 3823 May, [facility] [place] [facility] [address] [id number] [place] [address]- 5706 May, [facility] [place] [facility] [address] [id number] [place] [address]- 3216 May, [facility] [place] [facility] [address] [id number] [place] [address] May, [facility] [place] [facility] [address] [id number] [place] [address] May, [facility] [place] [facility] [address] [id number] [place] [address] May, [facility] [place] [facility] [address] [id number] [place] [address] Apr, [facility] [place] [facility] [address] [id number] [place] [address] Apr, [facility] [place] [facility] [address] [id number] [place] [address] Apr, [facility] [place] [facility] [address] [id number] [place] [address] Apr, [facility] [place] [facility] [address] [id number] [place] [address] Apr, [facility] [place] [facility] [address] [id number] [place] [address] Apr, [facility] [place] [facility] [address] [id number] [place] [address] Apr, [facility] [place] [facility] [address] [id number] [place] [address] Apr, [facility] [place] [facility] [address] [id number] [place] [address] Apr, [facility] [place] [facility] [address] [id number] [place] [address] Apr, [facility] [place] [facility] [address] [id number] [place] [address] Apr, [facility] [place] [facility] [address] [id number] [place] [address] Apr, [facility] [place] [facility] [address] [id number] [place] [address] Mar, [facility] [place] [facility] [address] [id number] [place] [address] Mar, [facility] [place] [facility] [address] [id number] [place] [address] Mar, [facility] [place] [facility] [address] [id number] [place] [address] Mar, [facility] [place] [facility] [address] [id number] [place] [address] Mar, [facility] [place] [facility] [address] [id number] [place] [address] Mar, [facility] [place] [facility] [address] [id number] [place] [address] Jan, [facility] [address] [facility] [id number] [place] [address] Jan, [facility] [address] [facility] [id number] [address] Dec, [facility] [address] [facility] [id number] [place] [address] Dec, IMMUNIZATIONS No Known Immunizations SOCIAL HISTORY Never Assessed REASON FOR VISIT Controlled Med Refill 04/13/17 PLAN OF CARE VITAL SIGNS MEDICATIONS Medication Instructions Dosage Frequency Start Date End Date Duration Status Adderall XR 30 MG Orally Once a day 1 capsule in the morning 24h Apr, 28 days Active RESULTS No Results PROCEDURES No Known procedures INSTRUCTIONS MEDICATIONS ADMINISTERED No Known Medications MEDICAL (GENERAL) HISTORY Type Description Date Medical History narcolepsy Surgical History Gallbladder removed 05/2014 Surgical History Hernia repair 05/24/2015
--- OUTSIDE RECORDS SUMMARY | 2017-11-01 13:09 | XMS REPORT ---
Author Author SHAHNAZ WIN Organization [employer] Address Unknown Phone Unavailable Care Team Providers Care Logistics Management Specialist Name Role Phone SHAHNAZ WIN CP Unavailable Allergies, Adverse Reactions, Alerts Substance Reaction Event Type Penicillins Info Not Available Non Drug Allergy Problems Problem Type Condition Code Onset Dates Condition Status Problem Screening examination for pulmonary tuberculosis V74.1 Active Problem Pain in joint, pelvic region and thigh 719.45 Active Problem Pneumonia, organism unspecified 486 Active Assessment Lumbar neuritis M54.16 Active Problem Family history of ischemic heart [...] route every 6 hours as needed Hydrocodone-Acetaminophen [facility] [address]-74 10-325 MG every 6 hrs April 1 tablet as needed Alprazolam [facility] [address]-56 1 MG Three times a day May 29, 2014 1 tablet Procedures Procedure Coding System Code Date Office Visit, Est Pt., Level 3 CPT-4 26426 June 28, 2015 Vital Signs Date/Time: June 28, 2015 Temperature 98.5 F Weight 125.0 lbs Height 59 in BMI 25.24 Index Blood Pressure Diastolic 72 mmHg Blood Pressure Systolic 144 mmHg Cardiac Monitoring Heart Rate 76 bpm Results No Known Results Summary Purpose [employer] Submission
--- OUTSIDE RECORDS SUMMARY | 2017-11-01 13:09 | XMS REPORT ---
Author Author SHAHNAZ WIN Organization [employer] Address Unknown Phone Unavailable Care Team Providers Care Cardiac Nurse Name Role Phone SHAHNZA WIN CP Unavailable Allergies No Known Allergies [...] Start Date End Date Status Dosage Alprazolam [facility] [address]-48 1 MG Three times a day May 29, 2014 1 tablet Hydrocodone-Acetaminophen [facility] [address]-75 10-325 MG every 6 hrs April 1 tablet as needed Results No Known Results Summary Purpose [employer] Submission
--- OUTSIDE RECORDS SUMMARY | 2017-11-01 13:09 | XMS REPORT ---
Author Author SHAHNAZ WIN [facility] Address [address] [place] [address] Care Team Providers Care Hand Spray Operator Name Role Phone SHAHNAZ WIN Unavailable PROBLEMS Type Condition ICD9-CM Code RFO35-SH Code Onset Dates Condition Status SNOMED Code Problem Lumbago 724.2 Active 312370350 Problem Family history of diabetes mellitus V18.0 Active 470109799 Problem Anxiety state, unspecified 300.00 Active 599827699 Assessment Low TSH level R94.6 Jan, Active 971074083 Problem Screening examination for pulmonary tuberculosis V74.1 Active 444077727 Problem Pneumonia, organism unspecified 486 Active 816752653 Problem Pain in joint, pelvic region and thigh 719.45 Active 097103167 Problem Excessive daytime sleepiness G47.19 Active 716039501157 Problem ADHD (attention deficit hyperactivity disorder), inattentive type F90.0 Active 57311388 Problem Family history of other cardiovascular diseases V17.49 Active 431540713 Problem Family history of malignant neoplasm of breast V16.3 Active 261995885 Problem Unspecified arthropathy, site unspecified 716.90 Active 149191142 Problem Family history of ischemic heart disease V17.3 Active 057371694 ALLERGIES Unknown Allergies SOCIAL HISTORY No smoking Hx information available PLAN OF CARE VITAL SIGNS MEDICATIONS Unknown Medications RESULTS No Results PROCEDURES Procedure Date Ordered Related Diagnosis Body Site ASSAY THYROID STIM HORMONE Feb 04, 2016 VENIPUNCT, ROUTINE* Feb 04, 2016 IMMUNIZATIONS No Known Immunizations
--- OUTSIDE RECORDS SUMMARY | 2017-11-01 13:09 | XMS REPORT ---
Author Author SHAHNAZ WIN Organization [employer] Address Unknown Phone Unavailable Care Team Providers Care Cost Specialist Name Role Phone SHAHNAZ WIN CP [...]
--- OUTSIDE RECORDS SUMMARY | 2017-11-01 13:10 | XMS REPORT ---
Author Author SHAHNAZ WIN Organization [facility] Address [address] [place] [address] Care Team Providers Care Industrial Hygenist Name Role Phone SHAHNAZ WIN Unavailable PROBLEMS Type Condition ICD9-CM Code [id number] Code Onset Dates Condition Status SNOMED Code Problem ADHD (attention deficit hyperactivity disorder), inattentive type F90.0 Active 01784454 Problem Arthritis M19.90 Active 6108242 Problem Positive skin test for tuberculosis R76.11 Active 649290529 Problem Lumbago with sciatica, left side M54.42 Active 075322668 Problem Excessive daytime sleepiness G47.19 Active 175787467735 Problem 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 19519362975313 Problem 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 Active [id number] ALLERGIES No Information ENCOUNTERS Encounter Location Date Diagnosis [place] [id number] [place] [address] 79789- 5269 Aug, [place] [id number] [place] [address] 39021- 7618 06 Jul, 2017 Right lower quadrant abdominal pain R10.31 and Rash R21 [place] [address] 61726- 4443 14 Apr, 2017 ADHD (attention deficit hyperactivity disorder), inattentive type F90.0 ; Lumbago with sciatica, left side M54.42 and Arthritis M19.90 [place] [address] 34734- 1786 Apr, ADHD (attention deficit hyperactivity disorder), inattentive type F90.0 and Lumbar neuritis M54.16 [place] [id number] [place] [address] 14043- 3643 Apr, [facility] [id number] [place] [address] 17103- 1157 Apr, Lumbar neuritis M54.16 [facility] [id number] [place] [address] 17179- 7736 16 Apr, 2017 Low back pain M54.5 [facility] [id number] [place] [address] 58640- 1013 Apr, ADHD (attention deficit hyperactivity disorder), inattentive type F90.0 [facility] [id number] [place] [address] 46207- 9602 Apr, Positive skin test for tuberculosis R76.11 [facility] [id number] [place] [address] 32107- 8909 Apr, Positive skin test for tuberculosis R76.11 [facility] [id number] [place] [address] 59934- 1341 Apr, [facility] [id number] [place] [address] 76839- 6939 Mar, Lumbar neuritis M54.16 [facility] [id number] [place] [address] 87528- 3621 Mar, ADHD (attention deficit hyperactivity disorder), inattentive type F90.0 [facility] [id number] [place] [address] 44712- 3505 Mar, [facility] [id number] [place] [address] 44874- 5495 Jan, Lumbar neuritis M54.16 [facility] [id number] [place] [address] 14770- 6781 Jan, ADHD (attention deficit hyperactivity disorder), inattentive type F90.0 [facility] [id number] [place] [address] 71521- 8444 Jan, [facility] [id number] [place] [address] 74721- 9497 Jan, [facility] [id number] [place] [address] 35619- 9694 Dec, Lumbar neuritis M54.16 [facility] [id number] [place] [address] 17436- 1339 Dec, ADHD (attention deficit hyperactivity disorder), inattentive type F90.0 and 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 [facility] [id number] [place] [address] 74857- 2243 Dec, [facility] [id number] [place] [address] 27482- 8653 Dec, [facility] [id number] [place] [address] 45045- 5052 Nov, Lumbar neuritis M54.16 and ADHD (attention deficit hyperactivity disorder), inattentive type F90.0 [facility] [id number] [place] [address] 82659- 0960 Nov, [facility] [id number] [place] [address] 21280- 6739 Oct, Lumbar neuritis M54.16 and ADHD (attention deficit hyperactivity disorder), inattentive type F90.0 [facility] [id number] [place] [address] 07850- 9502 Oct, [facility] [id number] [place] [address] 35373- 7513 Sep, ADHD (attention deficit hyperactivity disorder), inattentive type F90.0 and Lumbar neuritis M54.16 [facility] [id number] [place] [address] 49226- 3949 Sep, Lumbar neuritis M54.16 [facility] [id number] [place] [address] 63965- 0615 Sep, [facility] [id number] [place] [address] 90209- 5133 Sep, ADHD (attention deficit hyperactivity disorder), inattentive type F90.0 and Lumbar neuritis M54.16 [facility] [address] [address]- 3753 Sep, [facility] [id number] [address]- 2547 Aug, [facility] [id number] [place] [address] 09571- 8837 Aug, [facility] [id number] [place] [address] 20037- 6835 Aug, [facility] [id number] [place] [address] 63198- 5908 Aug, [facility] [id number] [place] [address] 67263- 1565 Aug, ADHD (attention deficit hyperactivity disorder), inattentive type F90.0 and Lumbar neuritis M54.16 [facility] [address] [address]- 4189 Jul, [facility] [id number] [place] [address] 00224- 0794 Jul, [facility] [id number] [place] [address] 43793- 2430 Jul, Lumbar neuritis M54.16 and ADHD (attention deficit hyperactivity disorder), inattentive type F90.0 [facility] [address] [address]- 1860 Jul, [facility] [id number] [place] [address] 82340- 6735 June, Lumbar neuritis M54.16 and ADHD (attention deficit hyperactivity disorder), inattentive type F90.0 [facility] [address] [address]- 1575 June, [facility] [id number] [place] [address] 74690- 1240 June, [facility] [id number] [place] [address] 96506- 9921 May, 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 and Lumbago with sciatica, left side M54.42 [facility] [id number] [place] [address] 78410- 6876 May, Lumbar neuritis M54.16 and ADHD (attention deficit hyperactivity disorder), inattentive type F90.0 [facility] [id number] [place] [address] 44637- 5085 Apr, [facility] [id number] [place] [address] 60748- 3393 Apr, Lumbar neuritis M54.16 and ADHD (attention deficit hyperactivity disorder), inattentive type F90.0 [facility] [id number] [place] [address] 33130- 9127 Apr, [facility] [id number] [place] [address] 97475- 9276 Apr, [facility] [id number] [place] [address] 94816- 2405 Apr, ADHD (attention deficit hyperactivity disorder), inattentive type F90.0 [facility] [id number] [place] [address] 97218- 6971 Apr, Lumbar neuritis M54.16 [facility] [id number] [place] [address] 16353- 5103 Apr, [facility] [id number] [place] [address] 53815- 7535 Apr, [facility] [id number] [place] [address] 17222- 8326 Mar, Attention deficit hyperactivity disorder (ADHD), predominantly inattentive type F90.0 [facility] [id number] [address]- 6125 Mar, [facility] [id number] [place] [address] 21866- 1143 Mar, [facility] [id number] [place] [address] 19346- 1536 Mar, [facility] [id number] [place] [address] 25792- 5110 Jan, Attention deficit hyperactivity disorder (ADHD), predominantly inattentive type F90.0 [facility] [id number] [place] [address] 98697- 6455 Jan, [facility] [id number] [place] [address] 61283- 3418 Jan, [facility] [id number] [place] [address] 41992- 6138 Jan, [facility] [id number] [place] [address] 01449- 3641 Jan, Low TSH level R94.6 [facility] [id number] [place] [address] 78531- 8149 Jan, [facility] [id number] [place] [address] 85849- 9747 Jan, [facility] [id number] [place] [address] 41251- 7848 Dec, [facility] [id number] [place] [address] 23800- 8521 Dec, [facility] [id number] [place] [address] 99453- 4583 Dec, [facility] [id number] [place] [address] 50130- 5803 Nov, Low TSH level R94.6 [facility] [id number] [place] [address] 14070- 1918 17 Oct, 2016 Excessive daytime sleepiness G47.19 and ADHD (attention deficit hyperactivity disorder), inattentive type F90.0 [facility] [id number] [place] [address] 39793- 4342 Nov, [facility] [id number] [place] [address] 92805- 8391 Nov, [facility] [id number] [place] [address] 06072- 9043 Nov, [facility] [id number] [place] [address] 69449- 3683 Oct, [facility] [id number] [place] [address] 51707- 3486 Oct, [facility] [id number] [place] [address] 95895- 7783 Oct, [facility] [id number] [place] [address] 12953- 7332 Sep, [facility] [id number] [place] [address] 59619- 8629 Sep, [facility] [id number] [place] [address] 29443- 4213 Sep, [facility] [id number] [place] [address] 92999- 1244 Aug, Lumbar neuritis M54.16 [facility] [id number] [place] [address] 00142- 2376 Aug, [facility] [id number] [place] [address] 24335- 8319 Aug, [facility] [id number] [place] [address] 95578- 7332 Jul, Lumbar neuritis M54.16 [facility] [id number] [place] [address] 70134- 2521 Jul, [facility] [id number] [place] [address] 57674- 0068 Jul, [facility] [address] [address]- 0171 June, Lumbar neuritis M54.16 [facility] [address] [address]- 7146 June, [facility] [id number] [place] [address] 17275- 1113 June, [facility] [id number] [place] [address] 22450- 7469 May, Lumbar neuritis M54.16 [facility] [id number] [place] [address] 52644- 4486 May, [facility] [id number] [place] [address] 24517- 1348 May, [facility] [id number] [place] [address] 04099- 0793 Apr, [facility] [address] [address]- 0688 Apr, [facility] [address] [address]- 1609 14 May, 2015 [facility] [address] [address]- 3044 Apr, [facility] [address] [address]- 2412 24 Apr, 2015 [facility] [address] [address]- 7209 Apr, Inguinal hernia, right K40.90 [facility] [address], [place] [address]- 6497 17 Apr, 2015 [facility] [address] [address]- 5454 15 Apr, 2015 Low back pain M54.5 and Sciatica, unspecified side M54.30 [facility] [address] [facility] [id number] [address]- 7101 Mar, [facility] [address] [facility] [id number] [address]- 4890 Mar, [facility] [address] [facility] [id number], [place] [address]- 9425 Jan, [facility] [address] [facility] [id number] [place] [address] 18042- 2273 Jan, [facility] [address] [facility] [id number] [place] [address]- 5067 Jan, [facility] [id number] [place] [address] 16770- 2436 Dec, [facility] [address], [place] [address]- 5129 Dec, [facility] [id number] [place] [address] 64131- 5853 Dec, [facility] [id number] [address]- 8529 Dec, [facility] [address], [place] [address]- 7830 Nov, [facility] [address] [address]- 2738 Nov, Encounter for immunization Z23 [facility] [address] [facility] [id number] [address]- 1863 Nov, [facility] [address] [facility] [id number] [address]- 3780 Nov, [facility] [id number] [address]- 4395 Oct, [facility] [id number] [address]- 0466 08 Oct, 2014 [facility] [id number] [place] [address]- 0668 Sep, Lumbago 724.2 [facility] [place] [facility] [address] [id number] [place] 9874 Sep, [facility] [place] [facility] [address] [id number] [place] [address]- 8662 Aug, Lumbago 724.2 [facility] [place] [facility] [address] [id number] [place] [address]- 8465 Aug, [facility] [place] [facility] [address] [id number] [place] [address]- 6895 Aug, [facility] [place] [facility] [address] [id number] [place] [address]- 3769 Jul, [facility] [place] [facility] [address] [id number] [place] [address]- 0811 Jul, [facility] [place] [facility] [address] [id number] [place] [address]- 7102 Jul, [facility] [place] [facility] [address] [id number] [place] [address]- 6604 June, [facility] [place] [facility] [address] [id number] [place] [address]- 3878 May, [facility] [place] [facility] [address] [id number] [place] [address]- 3834 May, [facility] [place] [facility] [address] [id number] [place] [address]- 8241 Apr, [facility] [place] [facility] [address] [id number] [place] [address]- 6021 Apr, [facility] [place] [facility] [address] [id number] [place] [address]- 9379 Apr, [facility] [place] [facility] [address] [id number] [place] [address]- 7185 Apr, [facility] [place] [facility] [address] [id number] [place] [address]- 5736 Apr, 2014 [facility] [place] [facility] [address] [id number] [place] [address]- 9456 Apr, 2014 [facility] [place] [facility] [address] [id number] [place] [address]- 9786 Apr, [facility] [place] [facility] [address] [id number] [place] [address]- 3656 Apr, [facility] [place] [facility] [address] [id number] [place] [address]- 6716 Mar, [facility] [place] [facility] [address] [id number] [place] [address]- 9012 Mar, [facility] [place] [facility] [address] [id number] [place] [address]- 1569 Jan, [facility] [place] [facility] [address] [id number] [place] [address]- 4488 Jan, [facility] [place] [facility] [address] [id number] [place] [address]- 1703 Jan, [facility] [place] [facility] [address] [id number] [place] [address]- 8990 Jan, [facility] [place] [facility] [address] [facility] [id number] [place] [address]- 8403 Jan, [facility] [place] [facility] [address] [id number] [place] [address]- 0358 Jan, [facility] [place] [facility] [address] [id number] [place] [address]- 1278 Dec, [facility] [place] [facility] [address] [id number] [place] 7162 Dec, [facility] [place] [facility] [address] [id number] [place] 3293 Nov, [facility] [place] [facility] [address] [id number] [place] 8285 Nov, [facility] [place] [facility] [address] [id number] [place] [address]- 4984 Nov, [facility] [place] [facility] [address] [id number] [place] 1302 Nov, [facility] [place] [facility] [address] [id number] [place] [address]- 0685 Oct, [facility] [place] [facility] [address] [id number] [place] [address]- 8044 Oct, [facility] [place] [facility] [address] [id number] [place] [address]- 2401 Sep, [facility] [place] [facility] [address] [id number] [place] [address]- 3236 Sep, [facility] [place] [facility] [address] [id number] [place] [address]- 0035 Sep, [facility] [place] [facility] [address] [id number] [place] [address]- 0848 Sep, [facility] [place] [facility] [address] [id number] [place] [address] Aug, [facility] [place] [facility] [address] [id number] [place] [address] Aug, [facility] [place] [facility] [address] [id number] [place] [address] Aug, [facility] [place] [facility] [address] [id number] [place] [address] Aug, [facility] [place] [facility] [address] [id number] [place] [address] Jul, [facility] [place] [facility] [address] [id number] [place] [address] Jul, [facility] [place] [facility] [address] [id number] [place] [address] June, [facility] [place] [facility] [address] [id number] [place] [address] June, [facility] [place] [facility] [address] [id number] [place] [address] June, [facility] [place] [facility] [address] [id number] [place] [address] May, [facility] [place] [facility] [address] [id number] [place] [address] May, [facility] [place] [facility] [address] [id number] [place] [address]- [address] May, [facility] [place] [facility] [address] [id number] [place] [address] May, [facility] [place] [facility] [address] [id number] [place] [address] May, [facility] [place] [facility] [address] [id number] [place] [address]- [address] May, [facility] [place] [facility] [address] [id number] [place] [address]- [address] May, [facility] [place] [facility] [address] [id number] [place] [address]- [address] May, [facility] [place] [facility] [address] [id number] [place] [address]- [address] May, [facility] [place] [facility] [address] [id number] [place] [address]- [address] May, [facility] [place] [facility] [address] [id number] [place] [address]- [address] May, [facility] [place] [facility] [address] [id number] [place] [address]- [address] Apr, [facility] [place] [facility] [address] [id number] [place] [address]- [address] Apr, [facility] [place] [facility] [address] [id number] [place] [address]- [address] Apr, [facility] [place] [facility] [address] [id number] [place] [address]- [address] Apr, [facility] [place] [facility] [address] [id number] [place] [address]- [address] Apr, [facility] [place] [facility] [address] [id number] [place] [address]- [address] Apr, [facility] [place] [facility] [address] [id number] [place] [address]- [address] Apr, [facility] [place] [facility] [address] [id number] [place] [address] Apr, [facility] [place] [facility] [address] [id number] [place] [address]- [address] Apr, [facility] [place] [facility] [address] [id number] [place] [address] Apr, [facility] [place] [facility] [address] [id number] [place] [address] Apr, [facility] [place] [facility] [address] [id number] [place] [address]- [address] Apr, [facility] [place] [facility] [address] [id number] [place] [address] Mar, [facility] [place] [facility] [address] [id number] [place] [address] Mar, [facility] [place] [facility] [address] [id number] [place] [address] Mar, [facility] [place] [facility] [address] [id number] [place] [address] Mar, [facility] [place] [facility] [address] [id number] [place] [address]- [address] Mar, [facility] [place] [facility] [address] [id number] [place] [address] Mar, [facility] [place] [facility] [address] [id number] [place] [address] Jan, [facility] [address] [facility] [id number] [place] [address] Jan, [facility] [address] [facility] [id number] [address] Dec, [facility] [address] [facility] [id number] [address] Dec, IMMUNIZATIONS No Known Immunizations SOCIAL HISTORY Never Assessed REASON FOR VISIT Xray Order PLAN OF CARE VITAL SIGNS MEDICATIONS Unknown Medications RESULTS No Results PROCEDURES No Known procedures INSTRUCTIONS MEDICATIONS ADMINISTERED No Known Medications MEDICAL (GENERAL) HISTORY Type Description Date Medical History narcolepsy Surgical History Gallbladder removed 05/2014 Surgical History Hernia repair 05/24/2015
--- OUTSIDE RECORDS SUMMARY | 2017-11-01 13:10 | XMS REPORT ---
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 94923417729427 Problem ADHD (attention deficit hyperactivity disorder), inattentive type F90.0 Active 36385825 Problem Excessive daytime sleepiness G47.19 Active [id number] ALLERGIES No Information SOCIAL HISTORY Never Assessed PLAN OF CARE VITAL SIGNS MEDICATIONS Medication Instructions Dosage Frequency Start Date End Date Duration Status Alprazolam 1 MG Orally Three times a day 1 tablet 8h Apr, 28 days Active Hydrocodone-Acetaminophen 10-325 MG Orally every 6 hrs 1 tablet as needed 6h June, 28 days Active RESULTS No Results PROCEDURES No Known procedures IMMUNIZATIONS No Known Immunizations MEDICAL (GENERAL) HISTORY Type Description Date Surgical History Gallbladder removed 05/2014 Surgical History Hernia repair 05/24/2015
--- OUTSIDE RECORDS SUMMARY | 2017-11-01 13:10 | XMS REPORT ---
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
--- OUTSIDE RECORDS SUMMARY | 2017-11-01 13:10 | XMS REPORT ---
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
--- OUTSIDE RECORDS SUMMARY | 2017-11-01 13:10 | XMS REPORT ---
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 Name Role Phone SHAHNAZ WIN Unavailable PROBLEMS Type Condition ICD9-CM Code EAY24-EF Code Onset Dates Condition Status SNOMED Code Problem ADHD (attention deficit hyperactivity disorder), inattentive type F90.0 Active 09077576 Problem Arthritis M19.90 Active 8803983 Problem Positive skin test for tuberculosis R76.11 Active 180976512 Problem Lumbago with sciatica, left side M54.42 Active 538039141 Problem Excessive daytime sleepiness G47.19 Active 310147846985 Problem 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 57183073223656 Problem 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 Active [id number] ALLERGIES No Information ENCOUNTERS Encounter Location Date Diagnosis [facility] [id number] [place] [address] 86840- 7197 Aug, [facility] [id number] [place] [address] 53240- 3523 06 Jul, 2017 Right lower quadrant abdominal pain R10.31 and Rash R21 [place] [address] 75131- 8580 14 Apr, 2017 ADHD (attention deficit hyperactivity disorder), inattentive type F90.0 ; Lumbago with sciatica, left side M54.42 and Arthritis M19.90 [place] [address] 62449- 3918 Apr, ADHD (attention deficit hyperactivity disorder), inattentive type F90.0 and Lumbar neuritis M54.16 [place] [id number] [place] [address] 62859- 5163 Apr, [facility] [id number] [place] [address] 71140- 1396 Apr, Lumbar neuritis M54.16 [facility] [id number] [place] [address] 16738- 4163 16 Apr, 2017 Low back pain M54.5 [facility] [id number] [place] [address] 67868- 8908 Apr, ADHD (attention deficit hyperactivity disorder), inattentive type F90.0 [facility] [id number] [place] [address] 69206- 5882 Apr, Positive skin test for tuberculosis R76.11 [facility] [id number] [place] [address] 55825- 8296 Apr, Positive skin test for tuberculosis R76.11 [facility] [id number] [place] [address] 79621- 6815 Apr, [facility] [id number] [place] [address] 74100- 6997 Mar, Lumbar neuritis M54.16 [facility] [id number] [place] [address] 31431- 1137 Mar, ADHD (attention deficit hyperactivity disorder), inattentive type F90.0 [facility] [id number] [place] [address] 76437- 8537 Mar, [facility] [id number] [place] [address] 02189- 0638 Jan, Lumbar neuritis M54.16 [facility] [id number] [place] [address] 77848- 9907 Jan, ADHD (attention deficit hyperactivity disorder), inattentive type F90.0 [facility] [id number] [place] [address] 33971- 9409 Jan, [facility] [place] [id number] [place] [address] 95580- 3103 Jan, [facility] [place] [id number] [place] [address] 20040- 6436 Dec, Lumbar neuritis M54.16 [facility] [id number] [place] [address] 43915- 0468 Dec, ADHD (attention deficit hyperactivity disorder), inattentive type F90.0 and 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 [facility] [place] [id number] [place] [address] 20579- 3043 Dec, [facility] [place] [id number] [place] [address] 69744- 1733 Dec, [facility] [place] [id number] [place] [address] 41829- 4848 Nov, Lumbar neuritis M54.16 and ADHD (attention deficit hyperactivity disorder), inattentive type F90.0 [facility] [place] [id number] [place] [address] 42137- 7629 Nov, [facility] [place] [id number] [place] [address] 64168- 7867 Oct, Lumbar neuritis M54.16 and ADHD (attention deficit hyperactivity disorder), inattentive type F90.0 [facility] [place] [id number] [place] [address] 63665- 6757 Oct, [facility] [place] [id number] [place] [address] 52063- 8781 Sep, ADHD (attention deficit hyperactivity disorder), inattentive type F90.0 and Lumbar neuritis M54.16 [facility] [place] [id number] [place] [address] 16792- 6488 Sep, Lumbar neuritis M54.16 [facility] [place] [id number] [place] [address] 27994- 0548 Sep, [facility] [place] [id number] [place] [address] 08091- 5037 Sep, ADHD (attention deficit hyperactivity disorder), inattentive type F90.0 and Lumbar neuritis M54.16 [facility] [place] [address] [address]- 0574 Sep, [facility] [place] [id number] [address]- 8873 Aug, [facility] [place] [id number] [place] [address] 82968- 5153 Aug, [facility] [place] [id number] [place] [address] 72038- 5455 Aug, [facility] [place] [id number] [place] [address] 30873- 2478 Aug, [facility] [place] [id number] [place] [address] 50105- 0624 Aug, ADHD (attention deficit hyperactivity disorder), inattentive type F90.0 and Lumbar neuritis M54.16 [facility] [place] [address] [address]- 4573 Jul, [facility] [place] [id number] [place] [address] 85325- 2765 Jul, [facility] [place] [id number] [place] [address] 88906- 6845 Jul, Lumbar neuritis M54.16 and ADHD (attention deficit hyperactivity disorder), inattentive type F90.0 [facility] [place] [address] [address]- 1282 Jul, [facility] [place] [id number] [place] [address] 24208- 9651 June, Lumbar neuritis M54.16 and ADHD (attention deficit hyperactivity disorder), inattentive type F90.0 [facility] [place] [address] [address]- 4650 June, [facility] [place] [id number] [place] [address] 41031- 0066 June, [facility] [place] [id number] [place] [address] 63521- 8761 May, 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 and Lumbago with sciatica, left side M54.42 [facility] [place] [id number] [place] [address] 47922- 6114 May, Lumbar neuritis M54.16 and ADHD (attention deficit hyperactivity disorder), inattentive type F90.0 [facility] [place] [id number] [place] [address] 29552- 3465 Apr, [facility] [place] [id number] [place] [address] 65510- 3250 Apr, Lumbar neuritis M54.16 and ADHD (attention deficit hyperactivity disorder), inattentive type F90.0 [facility] [place] [id number] [place] [address] 03701- 4503 Apr, [facility] [place] [id number] [place] [address] 81895- 1447 Apr, [facility] [place] [id number] [place] [address] 82738- 6122 Apr, ADHD (attention deficit hyperactivity disorder), inattentive type F90.0 [facility] [place] [id number] [place] [address] 77486- 6343 Apr, Lumbar neuritis M54.16 [facility] [place] [id number] [place] [address] 04423- 7723 Apr, [facility] [place] [id number] [place] [address] 58435- 6331 Apr, [facility] [place] [id number] [place] [address] 08628- 3468 Mar, Attention deficit hyperactivity disorder (ADHD), predominantly inattentive type F90.0 [facility] [place] [id number] [address]- 6929 Mar, [facility] [place] [id number] [place] [address] 81956- 5998 Mar, [facility] [place] [id number] [place] [address] 38955- 0419 Mar, [facility] [place] [id number] [place] [address] 64055- 2038 Jan, Attention deficit hyperactivity disorder (ADHD), predominantly inattentive type F90.0 [facility] [place] [id number] [place] [address] 03578- 8431 Jan, [facility] [place] [id number] [place] [address] 86096- 4265 Jan, [facility] [place] [id number] [place] [address] 20050- 7611 Jan, [facility] [place] [id number] [place] [address] 71478- 2892 Jan, Low TSH level R94.6 [facility] [place] [id number] [place] [address] 47486- 2316 Jan, [facility] [place] [id number] [place] [address] 69905- 1722 Jan, [facility] [place] [id number] [place] [address] 45546- 4073 Dec, [facility] [place] [id number] [place] [address] 37091- 4883 Dec, [facility] [place] [id number] [place] [address] 37305- 3955 Dec, [facility] [place] [id number] [place] [address] 37897- 8478 Nov, Low TSH level R94.6 [facility] [place] [id number] [place] [address] 39312- 4873 17 Oct, 2016 Excessive daytime sleepiness G47.19 and ADHD (attention deficit hyperactivity disorder), inattentive type F90.0 [facility] [place] [id number] [place] [address] 01081- 6604 Nov, [facility] [place] [id number] [place] [address] 18433- 5227 Nov, [facility] [place] [id number] [place] [address] 56976- 0143 Nov, [facility] [place] [id number] [place] [address] 25430- 6030 Oct, [facility] [place] [id number] [place] [address] 42719- 6009 Oct, [facility] [place] [id number] [place] [address] 12776- 4762 Oct, [facility] [place] [id number] [place] [address] 43518- 4218 Sep, [facility] [place] [id number] [place] [address] 88381- 1408 Sep, [facility] [place] [id number] [place] [address] 29210- 2299 Sep, [facility] [place] [id number] [place] [address] 52498- 1659 Aug, Lumbar neuritis M54.16 [facility] [place] [id number] [place] [address] 14287- 4060 Aug, [facility] [place] [id number] [place] [address] 74192- 9563 Aug, [facility] [place] [id number] [place] [address] 65877- 1486 Jul, Lumbar neuritis M54.16 [facility] [place] [id number] [place] [address] 01620- 9043 Jul, [facility] [place] [id number] [place] [address] 98966- 6960 Jul, [facility] [address] [address]- 7953 June, Lumbar neuritis M54.16 [facility] [address] [address]- 8336 June, [facility] [place] [id number] [place] [address] 33511- 0223 June, [facility] [place] [id number] [place] [address] 46734- 4018 May, Lumbar neuritis M54.16 [facility] [place] [id number] [place] [address] 42924- 6014 May, [facility] [place] [id number] [place] [address] 57842- 9259 May, [facility] [id number] [place] [address] 00120- 2912 Apr, [facility] [address] [address]- 5477 Apr, [facility] [address] [address]- 0197 14 May, 2015 [facility] [address] [address]- 7398 Apr, [facility] [address] [address]- 0020 24 Apr, 2015 [facility] [address] [address]- 5976 Apr, Inguinal hernia, right K40.90 [facility] [address] [address]- 2731 17 Apr, 2015 [facility] [address] [address]- 5099 15 Apr, 2015 Low back pain M54.5 and Sciatica, unspecified side M54.30 [facility] [address] [facility] [id number] [address]- 6927 Mar, [facility] [address] [facility] [id number] [address]- 1608 Mar, [facility] [address] [facility] [id number] [address]- 5031 Jan, [facility] [address] [facility] [id number] [place] [address] 36028- 8108 Jan, [facility] [address] [facility] [id number] [place] [address]- 9124 Jan, [facility] [id number] [place] [address] 52694- 8520 Dec, [facility] [address] [address]- 9631 Dec, [facility] [id number] [place] [address] 22159- 4637 Dec, [facility] [id number] [address]- 7113 Dec, [facility] [address] [address]- 9013 Nov, [facility] [address] [address]- 0332 Nov, Encounter for immunization Z23 [facility] [address] [facility] [id number] [address]- 9319 Nov, [facility] [address] [facility] [id number] [address]- 7939 Nov, [facility] [id number] [address]- 4017 Oct, [facility] [id number] [address]- 5017 08 Oct, 2014 [facility] [id number] [address]- 6179 Sep, Lumbago 724.2 [facility] [place] [facility] [address] [id number] [place] 6246 Sep, [facility] [place] [facility] [address] [id number] [place] [address]- 4193 Aug, Lumbago 724.2 [facility] [place] [facility] [address] [id number] [place] [address]- 1853 Aug, [facility] [place] [facility] [address] [id number] [place] [address]- 5783 Aug, [facility] [place] [facility] [address] [id number] [place] [address]- 1131 Jul, [facility] [place] [facility] [address] [id number] [place] [address]- 1706 Jul, [facility] [place] [facility] [address] [id number] [place] [address]- 2482 Jul, [facility] [place] [facility] [address] [id number] [place] [address]- 2446 June, [facility] [place] [facility] [address] [id number] [place] [address]- 1933 May, [facility] [place] [facility] [address] [id number] [place] [address]- 5219 May, [facility] [place] [facility] [address] [id number] [place] [address]- 3080 Apr, [facility] [place] [facility] [address] [id number] [place] [address]- 5801 Apr, [facility] [place] [facility] [address] [id number] [place] [address]- 1790 Apr, [facility] [place] [facility] [address] [id number] [place] [address]- 6329 Apr, [facility] [place] [facility] [address] [id number] [place] [address]- 0057 Apr, 2014 [facility] [place] [facility] [address] [id number] [place] [address]- 2467 Apr, 2014 [facility] [place] [facility] [address] [id number] [place] [address]- 1766 Apr, [facility] [place] [facility] [address] [id number] [place] [address] Apr, [facility] [place] [facility] [address] [id number] [place] [address] Mar, [facility] [place] [facility] [address] [id number] [place] [address] Mar, [facility] [place] [facility] [address] [id number] [place] [address] Jan, [facility] [place] [facility] [address] [id number] [place] [address] Jan, [facility] [place] [facility] [address] [id number] [place] [address] Jan, [facility] [place] [facility] [address] [id number] [place] [address] Jan, [facility] [place] [facility] [address] [facility] [id number] [place] [address] Jan, [facility] [place] [facility] [address] [id number] [place] [address] Jan, [facility] [place] [facility] [address] [id number] [place] [address] Dec, [facility] [place] [facility] [address] [id number] [place] [address] Dec, [facility] [place] [facility] [address] [id number] [place] [address] Nov, [facility] [place] [facility] [address] [id number] [place] [address] Nov, [facility] [place] [facility] [address] [id number] [place] [address] Nov, [facility] [place] [facility] [address] [id number] [place] [address] Nov, [facility] [place] [facility] [address] [id number] [place] [address] Oct, [facility] [place] [facility] [address] [id number] [place] [address] Oct, [facility] [place] [facility] [address] [id number] [place] [address] Sep, [facility] [place] [facility] [address] [id number] [place] [address] Sep, [facility] [place] [facility] [address] [id number] [place] [address] Sep, [facility] [place] [facility] [address] [id number] [place] [address] Sep, [facility] [place] [facility] [address] [id number] [place] [address] Aug, [facility] [place] [facility] [address] [id number] [place] [address] Aug, [facility] [place] [facility] [address] [id number] [place] [address] Aug, [facility] [place] [facility] [address] [id number] [place] [address] Aug, [facility] [place] [facility] [address] [id number] [place] [address] Jul, [facility] [place] [facility] [address] [id number] [place] [address] Jul, [facility] [place] [facility] [address] [id number] [place] [address] June, [facility] [place] [facility] [address] [id number] [place] [address] June, [facility] [place] [facility] [address] [id number] [place] [address] June, [facility] [place] [facility] [address] [id number] [place] [address] May, [facility] [place] [facility] [address] [id number] [place] [address] May, [facility] [place] [facility] [address] [id number] [place] [address] May, [facility] [place] [facility] [address] [id number] [place] [address] May, [facility] [place] [facility] [address] [id number] [place] [address]- [address] May, [facility] [place] [facility] [address] [id number] [place] [address] May, [facility] [place] [facility] [address] [id number] [place] [address] May, [facility] [place] [facility] [address] [id number] [place] [address] May, [facility] [place] [facility] [address] [id number] [place] [address] May, [facility] [place] [facility] [address] [id number] [place] [address] May, [facility] [place] [facility] [address] [id number] [place] [address] May, [facility] [place] [facility] [address] [id number] [place] [address] Apr, [facility] [place] [facility] [address] [id number] [place] [address] Apr, [facility] [place] [facility] [address] [id number] [place] [address] Apr, [facility] [place] [facility] [address] [id number] [place] [address] Apr, [facility] [place] [facility] [address] [id number] [place] [address] Apr, [facility] [place] [facility] [address] [id number] [place] [address] Apr, [facility] [place] [facility] [address] [id number] [place] [address] Apr, [facility] [place] [facility] [address] [id number] [place] [address] Apr, [facility] [place] [facility] [address] [id number] [place] [address] Apr, [facility] [place] [facility] [address] [id number] [place] [address] Apr, [facility] [place] [facility] [address] [id number] [place] [address] Apr, [facility] [place] [facility] [address] [id number] [place] [address] Apr, [facility] [place] [facility] [address] [id number] [place] [address] Mar, [facility] [place] [facility] [address] [id number] [place] [address] Mar, [facility] [place] [facility] [address] [id number] [place] [address] Mar, [facility] [place] [facility] [address] [id number] [place] [address] Mar, [facility] [place] [facility] [address] [id number] [place] [address] Mar, [facility] [place] [facility] [address] [id number] [place] [address] Mar, [facility] [place] [facility] [address] [id number] [place] [address] Jan, [facility] [place] [address] [facility] [id number] [place] [address] Jan, [facility] [place] [address] [facility] [id number] [address] Dec, [facility] [place] [address] [facility] [id number] [address] Dec, IMMUNIZATIONS No Known Immunizations SOCIAL HISTORY Never Assessed REASON FOR VISIT Xray (walk-in) MHill RT(R) PLAN OF CARE VITAL SIGNS MEDICATIONS Unknown Medications RESULTS Name Result Date Reference Range Xray : Chest 2 View (IN HOUSE) 2017-04-10 PROCEDURES Procedure Date Ordered Result Body Site X-RAY EXAM CHEST 2 VIEWS Apr 10, 2017 INSTRUCTIONS MEDICATIONS ADMINISTERED No Known Medications MEDICAL (GENERAL) HISTORY Type Description Date Medical History narcolepsy Surgical History Gallbladder removed 05/2014 Surgical History Hernia repair 05/24/2015
--- OUTSIDE RECORDS SUMMARY | 2017-11-01 13:11 | XMS REPORT ---
Author Author SHAHNAZ WIN Organization [employer] Address Unknown Phone Unavailable Care Team Providers Care Stamping Die Maker Name Role Phone SHAHNAZ WIN CP Unavailable [...] Start Date End Date Status Dosage Hydrocodone-Acetaminophen [facility] [address]-81 10-325 MG May 29, 2014 take 1 tablet by oral route every 6 hours as needed for pain PRN Alprazolam [facility] [address]-93 1 MG May 29, 2014 take 1 tablet (1 mg) by oral route 3 times per day tramadol NDC 0 50 mg May 29, 2014 take 1 tablet (50 mg) by oral route every 6 hours as needed Results No Known Results Summary Purpose [employer] Submission
--- OUTSIDE RECORDS SUMMARY | 2017-11-01 13:11 | XMS REPORT ---
Author Author SHAHNAZ WIN Organization [facility] Address [address] [place] [address] Care Team Providers Care Tow Picker Name Role Phone SHAHNAZ WIN Unavailable PROBLEMS Type Condition ICD9-CM Code [id number] Code Onset Dates Condition Status SNOMED Code Problem ADHD (attention deficit hyperactivity disorder), inattentive type F90.0 Active 83361566 Problem Arthritis M19.90 Active 3988501 Problem Positive skin test for tuberculosis R76.11 Active 936065334 Problem Lumbago with sciatica, left side M54.42 Active 137854725 Problem Excessive daytime sleepiness G47.19 Active 279301277831 Problem 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 63433060470442 Problem 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 Active [id number] ALLERGIES No Information ENCOUNTERS Encounter Location Date Diagnosis [place] [address] [address] Apr, ADHD (attention deficit hyperactivity disorder), inattentive type F90.0 ; Lumbago with sciatica, left side M54.42 and Arthritis M19.90 [place] [address] [place] [id number] [place] [address] 51772- 6649 Apr, ADHD (attention deficit hyperactivity disorder), inattentive type F90.0 and Lumbar neuritis M54.16 [place] [address] [place] [id number] [place] [address] 36217- 8980 Apr, [place] [address] [address]- 1196 16 Apr, 2017 Lumbar neuritis M54.16 [place] [address] [place] [id number] [place] [address] 33595- 8002 Apr, Low back pain M54.5 [facility] [address] [place] [address] 90892- 4713 Apr, ADHD (attention deficit hyperactivity disorder), inattentive type F90.0 [facility] [address] [place] [id number] [place] [address] 84536- 0824 Apr, Positive skin test for tuberculosis R76.11 [facility] [address] [place] [id number] [place] [address] 44507- 2785 Apr, Positive skin test for tuberculosis R76.11 [facility] [address] [place] [id number] [place] [address] 01509- 6345 Apr, [facility] [address] [place] [id number] [place] [address] 52012- 5246 Mar, Lumbar neuritis M54.16 [facility] [address] [place] [id number] [place] [address] 45012- 5743 Mar, ADHD (attention deficit hyperactivity disorder), inattentive type F90.0 [facility] [address] [place] [id number] [place] [address] 40682- 1547 Mar, [facility] [address] [place] [id number] [place] [address] 21314- 0586 Jan, Lumbar neuritis M54.16 [facility] [address] [place] [id number] [place] [address] 71611- 2511 Jan, ADHD (attention deficit hyperactivity disorder), inattentive type F90.0 [facility] [address] [place] [address] 25966- 5064 Jan, [facility] [address] [place] [id number] [place] [address] 74370- 1485 Jan, [facility] [address] [place] [id number] [place] [address] 37307- 6481 Dec, Lumbar neuritis M54.16 [facility] [address] [place] [id number] [place] [address] 67441- 6584 Dec, ADHD (attention deficit hyperactivity disorder), inattentive type F90.0 and 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 [facility] [address] [place] [id number] [place] [address] 68245- 7272 Dec, [facility] [address] [place] [id number] [place] [address] 84278- 2767 Dec, [facility] [address] [place] [id number] [place] [address] 11370- 5894 Nov, Lumbar neuritis M54.16 and ADHD (attention deficit hyperactivity disorder), inattentive type F90.0 [facility] [address] [place] [id number] [place] [address] 49134- 4880 Nov, [facility] [address] [place] [id number] [place] [address] 52752- 5562 Oct, Lumbar neuritis M54.16 and ADHD (attention deficit hyperactivity disorder), inattentive type F90.0 [facility] [address] [place] [id number] [place] [address] 91795- 1045 Oct, [facility] [address] [place] [id number] [place] [address] 08327- 6884 Sep, ADHD (attention deficit hyperactivity disorder), inattentive type F90.0 and Lumbar neuritis M54.16 [facility] [address] [place] [id number] [place] [address] 23288- 7894 Sep, Lumbar neuritis M54.16 [facility] [address] [place] [id number] [place] [address] 26380- 8877 Sep, [facility] [address] [place] [id number] [place] [address] 10909- 4327 Sep, ADHD (attention deficit hyperactivity disorder), inattentive type F90.0 and Lumbar neuritis M54.16 [facility] [address] [place] [id number] [place] [address] 28902- 0166 Sep, [facility] [address] [place] [address]- 2681 Aug, [facility] [address], [place] [address]- 4930 Aug, [facility] [address], [place] [address]- 1372 Aug, [facility] [address] [place] [id number] [place] [address] 25655- 5216 Aug, [facility] [address] [place] [id number] [place] [address] 98585- 4247 Aug, ADHD (attention deficit hyperactivity disorder), inattentive type F90.0 and Lumbar neuritis M54.16 [facility] [address] [address]- 2267 Jul, [facility] [address] [place] [id number] [place] [address] 03422- 2707 Jul, [facility] [address] [place] [address] 43189- 9836 Jul, Lumbar neuritis M54.16 and ADHD (attention deficit hyperactivity disorder), inattentive type F90.0 [facility] [address] [address]- 5919 Jul, [facility] [address] [place] [address]- 1609 June, Lumbar neuritis M54.16 and ADHD (attention deficit hyperactivity disorder), inattentive type F90.0 [facility] [address], [place] [address]- 0353 June, [facility] [address] [place] [address]- 5962 June, [facility] [address], [place] [address]- 1304 May, 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 and Lumbago with sciatica, left side M54.42 [facility] [place] [facility] [address], [place] [address]- 3152 14 May, 2016 Lumbar neuritis M54.16 and ADHD (attention deficit hyperactivity disorder), inattentive type F90.0 [facility] [address] [place] [id number] [address]- 2946 Apr, [facility] [address] [place] [id number] [place] [address] 41424- 4867 Apr, Lumbar neuritis M54.16 and ADHD (attention deficit hyperactivity disorder), inattentive type F90.0 [facility] [address] [place] [id number] [place] [address] 96130- 0475 Apr, [facility] [address] [place] [id number] [place] [address] 91058- 0576 Apr, [facility] [address] [place] [id number] [place] [address] 96029- 8198 15 Apr, 2016 ADHD (attention deficit hyperactivity disorder), inattentive type F90.0 [facility] [address] [place] [address] 73492- 1840 15 Apr, 2016 Lumbar neuritis M54.16 [facility] [address] [place] [id number] [address]- 5134 08 Apr, 2016 [facility] [address] [place] [id number] [place] [address] 67263- 0679 Apr, [facility] [address] [place] [id number] [place] [address] 98318- 0747 Mar, Attention deficit hyperactivity disorder (ADHD), predominantly inattentive type F90.0 [facility] [address] [place] [id number] [place] [address] 57121- 8588 Mar, [facility] [address], [place] [address]- 7194 Mar, [facility] [address] [place] [id number] [place] [address] 10887- 3142 Mar, [facility] [address] [place] [address] 71319- 2200 Jan, Attention deficit hyperactivity disorder (ADHD), predominantly inattentive type F90.0 [facility] [address] [place] [id number] [place] [address] 47112- 6562 Jan, [facility] [address] [place] [id number] [place] [address] 79205- 8354 Jan, [facility] [address] [place] [id number] [place] [address] 35420- 2658 Jan, [facility] [address] [place] [id number] [place] [address] 72133- 0825 Jan, Low TSH level R94.6 [facility] [address] [place] [id number] [place] [address] 81064- 4182 Jan, [facility] [address] [place] [id number] [place] [address] 77875- 5656 Jan, [facility] [address] [place] [id number] [place] [address] 08497- 2339 Dec, [facility] [address] [place] [id number] [place] [address] 46170- 0812 Dec, [facility] [address] [place] [id number] [place] [address] 90765- 5945 Dec, [facility] [address] [place] [id number] [place] [address] 04671- 1356 Nov, Low TSH level R94.6 [facility] [address] [place] [id number] [place] [address] 29896- 8069 Nov, Excessive daytime sleepiness G47.19 and ADHD (attention deficit hyperactivity disorder), inattentive type F90.0 [facility] [address] [place] [address] 20360- 2496 13 Dec, 2015 [facility] [address] [place] [id number] [place] [address] 42516- 5291 Nov, [facility] [address] [facility] [id number] [place] [address]- 4125 Nov, [facility] [address] [facility] [id number] [place] [address], [place] [address]- 7569 Oct, [facility] [address] [facility] [id number] [place] [address]- 2912 Oct, [facility] [address] [facility] [id number] [place] [address], [place] [address]- 3465 Oct, [facility] [address] [facility] [id number] [place] [address], [place] [address]- 6179 Sep, [facility] [address] [facility] [id number] [place] [address], [place] [address]- 6708 Sep, [facility] [address] [facility] [id number] [place] [address], [place] [address]- 2788 Sep, [facility] [address] [place] [id number] [place] [address] 53779- 4364 Aug, Lumbar neuritis M54.16 [facility] [address] [place] [id number], [place] [address]- 0951 Aug, [facility] [address] [place] [id number], [place] [address]- 6043 Aug, [facility] [address], [place] [address]- 9628 Jul, Lumbar neuritis M54.16 [facility] [address] [facility] [id number], [place] [address]- 2788 Jul, [facility] [address] [place] [id number], [place] [address]- 2309 Jul, [facility] [place] [facility] [address] [facility] [id number], [place] [address]- 3938 June, Lumbar neuritis M54.16 [facility] [address] [place] [id number], [place] [address]- 3111 June, [facility] [address] [place] [address] 00756- 2007 June, [facility] [address] [place] [id number] [place] [address] 92802- 8426 May, Lumbar neuritis M54.16 [facility] [address] [place] [id number] [place] [address] 08374- 9785 May, [facility] [address] [place] [id number] [place] [address] 40126- 6964 May, [facility] [address] [place] [id number] [place] [address] 80920- 7851 Apr, [facility] [address] [place] [id number] [place] [address] 61397- 6652 Apr, [facility] [address] [place] [id number] [place] [address] 14899- 3123 Apr, [facility] [address] [place] [id number] [place] [address] 84684- 2103 Apr, [facility] [address] [place] [id number] [place] [address] 25367- 6677 24 Apr, 2015 [facility] [address] [place] [id number], [place] [address]- 2580 Apr, Inguinal hernia, right K40.90 [facility] [address] [place] [id number] [place] [address] 31486- 9417 Apr, [facility] [address] [place] [address] 71333- 3175 15 Apr, 2015 Low back pain M54.5 and Sciatica, unspecified side M54.30 [facility] [address] [place] [id number], [place] [address]- 8619 Mar, [facility] [address] [place] [id number] [place] [address] 60418- 0933 Mar, [facility] [address] [facility] [id number] [place] [address]- 9563 Jan, [facility] [address] [place] [id number] [place] [address], [place] [address]- 5132 Jan, [facility] [place] [facility] [address] [facility] [id number] [place] [address]- 6557 Jan, [facility] [place] [facility] [address] [facility] [id number] [place] [address], [place] [address]- 0208 Dec, [facility] [place] [facility] [address] [facility] [id number] [place] [address]- 8314 Dec, [facility] [place] [facility] [address] [place] [id number] [place] [address], [place] [address]- 9972 Dec, [facility] [place] [facility] [address] [place] [id number] [place] [address], [place] [address]- 2260 Dec, [facility] [place] [facility] [address] [place] [id number] [place] [address], [place] [address]- 8089 Nov, [facility] [address] [place] [id number] [place] [address] 86402- 4681 Nov, Encounter for immunization Z23 [facility] [address] [place] [address] 95742- 3771 Nov, [facility] [address], [place] [address]- 1039 Nov, [facility] [place] [facility] [address], [place] [address]- 4417 Oct, [facility] [place] [facility] [address] [place] [id number], [place] [address]- 6684 Oct, [facility] [place] [facility] [address] [place] [id number], [place] [address]- 1464 Sep, Lumbago 724.2 [facility] [place] [facility] [address] [place] [address]- 7045 Sep, [facility] [place] [facility] [address] [place] [id number] [place] [address]- 1270 Aug, Lumbago 724.2 [facility] [place] [facility] [address] [id number] [place] [address]- 9191 17 Aug, 2014 [facility] [place] [facility] [address] [id number] [place] [address]- 0183 Aug, [facility] [place] [facility] [address] [id number] [place] [address]- 0490 Jul, [facility] [place] [facility] [address] [id number] [place] [address]- 3919 Jul, [facility] [place] [facility] [address] [id number] [place] [address]- 5330 Jul, [facility] [place] [facility] [address] [facility] [id number] [place] [address]- 9470 June, [facility] [place] [facility] [address] [facility] [id number] [place] [address]- 7988 May, [facility] [place] [facility] [address] [facility] [id number] [place] [address]- 5627 May, [facility] [place] [facility] [address] [facility] [id number] [place] [address]- 1068 Apr, [facility] [place] [facility] [address] [facility] [id number] [place] [address]- 3962 Apr, [facility] [place] [facility] [address] [facility] [id number] [place] [address]- 2546 Apr, [facility] [place] [facility] [address] [facility] [id number] [place] [address]- 3926 Apr, [facility] [place] [facility] [address] [facility] [id number] [place] [address]- 7146 Apr, [facility] [place] [facility] [address] [facility] [id number] [place] [address]- 2546 Apr, [facility] [place] [facility] [address] [facility] [id number] [place] [address]- 0036 Apr, [facility] [place] [facility] [address] [id number] [place] [address]- 6055 Apr, [facility] [place] [facility] [address] [id number] [place] [address]- 8874 Mar, [facility] [place] [facility] [address] [facility] [id number] [place] [address]- 5636 Mar, [facility] [place] [facility] [address] [id number] [place] [address]- 4626 Jan, [facility] [place] [facility] [address] [id number] [place] 4311 Jan, [facility] [place] [facility] [address] [facility] [id number] [place] [address]- 2267 Jan, [facility] [place] [facility] [address] [facility] [id number] [place] [address]- 4057 Jan, [facility] [place] [facility] [address] [id number] [place] [address]- 2216 Jan, [facility] [place] [facility] [address] [facility] [id number] [place] [address]- 4395 Jan, [facility] [place] [facility] [address] [facility] [id number] [place] [address]- 5771 Dec, [facility] [place] [facility] [address] [facility] [id number], [place] [address]- 2157 Dec, [facility] [place] [facility] [address] [id number], [place] [address]- 0306 Nov, [facility] [place] [facility] [address] [id number] [place] [address]- 8575 Nov, [facility] [place] [facility] [address] [facility] [id number], [place] [address]- 2581 Nov, [facility] [place] [facility] [address] [facility] [id number], [place] [address]- 1598 Nov, [facility] [place] [facility] [address] [id number] [place] [address]- 1875 15 Oct, 2013 [facility] [address] [id number] [place] [address]- 8463 Oct, [facility] [place] [facility] [address] [id number] [place] [address]- 4865 Sep, [facility] [place] [facility] [address] [id number] [place] [address]- 1873 Sep, [facility] [place] [facility] [address] [id number] [place] [address]- 6828 Sep, [facility] [place] [facility] [address] [id number] [place] [address]- 4489 Sep, [facility] [place] [facility] [address] [id number] [place] [address]- 0375 Aug, [facility] [place] [facility] [address] [id number] [place] [address]- 1431 Aug, [facility] [address] [id number] [place] [address]- 9339 Aug, [facility] [place] [facility] [address] [id number] [place] [address]- 6181 Aug, [facility] [address] [id number] [place] [address]- 7594 Jul, [facility] [place] [facility] [address] [id number] [place] [address]- 7677 Jul, [facility] [place] [facility] [address] [id number] [place] [address]- 8726 June, [facility] [place] [facility] [address] [id number] [place] [address]- 2750 June, [facility] [place] [facility] [address] [id number] [place] [address]- 7982 June, [facility] [place] [facility] [address] [id number] [place] [address]- 2557 May, [facility] [place] [facility] [address] [id number] [place] [address]- 4649 30 May, 2013 [facility] [place] [facility] [address] [id number] [place] [address]- 7166 May, [facility] [place] [facility] [address] [id number] [place] [address]- 2413 May, [facility] [place] [facility] [address] [id number] [place] [address] May, [facility] [place] [facility] [address] [id number] [place] [address] May, [facility] [place] [facility] [address] [id number] [place] [address] May, [facility] [place] [facility] [address] [id number] [place] [address] May, [facility] [place] [facility] [address] [id number] [place] [address] May, [facility] [place] [facility] [address] [id number] [place] [address] May, [facility] [place] [facility] [address] [id number] [place] [address] May, [facility] [place] [facility] [address] [id number] [place] [address] Apr, [facility] [place] [facility] [address] [id number] [place] [address] Apr, [facility] [place] [facility] [address] [id number] [place] [address] Apr, [facility] [place] [facility] [address] [id number] [place] [address] Apr, [facility] [place] [facility] [address] [id number] [place] [address] Apr, [facility] [place] [facility] [address] [id number] [place] [address] Apr, [facility] [place] [facility] [address] [id number] [place] [address] Apr, [facility] [place] [facility] [address] [id number] [place] [address] Apr, [facility] [place] [facility] [address] [id number] [place] [address] Apr, [facility] [place] [facility] [address] [id number] [place] [address] Apr, [facility] [place] [facility] [address] [id number] [place] [address] Apr, [facility] [place] [facility] [address] [id number] [place] [address] Apr, [facility] [place] [facility] [address] [id number] [place] [address] Mar, [facility] [place] [facility] [address] [id number] [place] [address] Mar, [facility] [place] [facility] [address] [id number] [place] [address] Mar, [facility] [place] [facility] [address] [id number] [place] [address] Mar, [facility] [place] [facility] [address] [id number] [place] [address] Mar, [facility] [place] [facility] [address] [id number] [place] [address] Mar, [facility] [place] [facility] [address] [id number] [place] [address] Jan, [facility] [place] [facility] [address] [id number] [place] [address] Jan, [facility] [place] [facility] [address] [id number] [place] [address] Dec, [facility] [address] [facility] [id number] [place] [address] Dec, IMMUNIZATIONS No Known Immunizations SOCIAL HISTORY Never Assessed REASON FOR VISIT Controlled Med Refill 08/28/16 PLAN OF CARE VITAL SIGNS MEDICATIONS Medication Instructions Dosage Frequency Start Date End Date Duration Status Alprazolam 1 MG Orally Three times a day 1 tablet 8h Apr, 28 days Active Hydrocodone-Acetaminophen 10-325 MG Orally every 6 hrs 1 tablet as needed 6h Jul, 28 days Active RESULTS No Results PROCEDURES No Known procedures INSTRUCTIONS MEDICATIONS ADMINISTERED No Known Medications MEDICAL (GENERAL) HISTORY Type Description Date Medical History narcolepsy Surgical History Gallbladder removed 05/2014 Surgical History Hernia repair 05/24/2015
--- OUTSIDE RECORDS SUMMARY | 2017-11-01 13:11 | XMS REPORT ---
Author Author SHAHNAZ WIN Organization [facility] Address [address] [place] [address] Care Team Providers Care Logistics Supply Officer Name Role Phone SHAHNAZ WIN Unavailable PROBLEMS Type Condition ICD9-CM Code KSQ44-TI Code Onset Dates Condition Status SNOMED Code Problem ADHD (attention deficit hyperactivity disorder), inattentive type F90.0 Active 69119985 Problem Arthritis M19.90 Active 6652797 Problem Positive skin test for tuberculosis R76.11 Active 746236472 Problem Lumbago with sciatica, left side M54.42 Active 560887161 Problem Excessive daytime sleepiness G47.19 Active 929197355655 Problem 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 27098910251851 Problem 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 Active [id number] ALLERGIES No Information ENCOUNTERS Encounter Location Date Diagnosis [place] [id number] [place] [address] 21822- 6467 Aug, [place] [id number] [place] [address] 00659- 9269 Jul, Right lower quadrant abdominal pain R10.31 and Rash R21 [place] [id number] [place] [address] 75804- 2931 Apr, ADHD (attention deficit hyperactivity disorder), inattentive type F90.0 ; Lumbago with sciatica, left side M54.42 and Arthritis M19.90 [place] [address] [address]- 1160 Apr, ADHD (attention deficit hyperactivity disorder), inattentive type F90.0 and Lumbar neuritis M54.16 [place] [id number] [place] [address] 81615- 7560 Apr, [facility] [id number] [place] [address] 75212- 0725 Apr, Lumbar neuritis M54.16 [facility] [id number] [place] [address] 50748- 0775 16 Apr, 2017 Low back pain M54.5 [facility] [id number] [place] [address] 22932- 1713 Apr, ADHD (attention deficit hyperactivity disorder), inattentive type F90.0 [facility] [id number] [place] [address] 92845- 6899 Apr, Positive skin test for tuberculosis R76.11 [facility] [id number] [place] [address] 87576- 8828 Apr, Positive skin test for tuberculosis R76.11 [facility] [id number] [place] [address] 76370- 1166 Apr, [facility] [id number] [place] [address] 11608- 3844 Mar, Lumbar neuritis M54.16 [facility] [id number] [place] [address] 99348- 7800 Mar, ADHD (attention deficit hyperactivity disorder), inattentive type F90.0 [facility] [id number] [place] [address] 50118- 9673 Mar, [facility] [id number] [place] [address] 67974- 4903 Jan, Lumbar neuritis M54.16 [facility] [id number] [place] [address] 26740- 1480 Jan, ADHD (attention deficit hyperactivity disorder), inattentive type F90.0 [facility] [id number] [place] [address] 12012- 3966 Jan, [facility] [id number] [place] [address] 76509- 5638 Jan, [facility] [id number] [place] [address] 09607- 9857 Dec, Lumbar neuritis M54.16 [facility] [id number] [place] [address] 08106- 2665 Dec, ADHD (attention deficit hyperactivity disorder), inattentive type F90.0 and 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 [facility] [id number] [place] [address] 38907- 8476 Dec, [facility] [id number] [place] [address] 50416- 0087 Dec, [facility] [id number] [place] [address] 69135- 5932 Nov, Lumbar neuritis M54.16 and ADHD (attention deficit hyperactivity disorder), inattentive type F90.0 [facility] [id number] [place] [address] 02111- 0818 Nov, [facility] [id number] [place] [address] 62097- 6821 Oct, Lumbar neuritis M54.16 and ADHD (attention deficit hyperactivity disorder), inattentive type F90.0 [facility] [id number] [place] [address] 24548- 3361 Oct, [facility] [id number] [place] [address] 09512- 9800 Sep, ADHD (attention deficit hyperactivity disorder), inattentive type F90.0 and Lumbar neuritis M54.16 [facility] [id number] [place] [address] 02377- 2712 Sep, Lumbar neuritis M54.16 [facility] [id number] [place] [address] 82289- 3737 Sep, [facility] [id number] [place] [address] 46553- 1780 Sep, ADHD (attention deficit hyperactivity disorder), inattentive type F90.0 and Lumbar neuritis M54.16 [facility] [address] [address]- 8303 Sep, [facility] [id number] [address]- 5527 Aug, [facility] [id number] [place] [address] 60932- 3116 Aug, [facility] [id number] [place] [address] 78563- 3924 Aug, [facility] [id number] [place] [address] 59955- 9013 Aug, [facility] [id number] [place] [address] 90933- 6431 Aug, ADHD (attention deficit hyperactivity disorder), inattentive type F90.0 and Lumbar neuritis M54.16 [facility] [address] [address]- 4496 Jul, [facility] [id number] [place] [address] 66804- 3175 Jul, [facility] [address] [place] [address] 40820- 8437 Jul, Lumbar neuritis M54.16 and ADHD (attention deficit hyperactivity disorder), inattentive type F90.0 [facility] [address] [address]- 5981 Jul, [facility] [id number] [place] [address] 73535- 0747 June, Lumbar neuritis M54.16 and ADHD (attention deficit hyperactivity disorder), inattentive type F90.0 [facility] [address] [address]- 7650 June, [facility] [id number] [place] [address] 34882- 9899 June, [facility] [id number] [place] [address] 02532- 2133 May, 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 and Lumbago with sciatica, left side M54.42 [facility] [id number] [place] [address] 32152- 7199 May, Lumbar neuritis M54.16 and ADHD (attention deficit hyperactivity disorder), inattentive type F90.0 [facility] [id number] [place] [address] 61092- 7498 Apr, [facility] [id number] [place] [address] 89823- 8403 Apr, Lumbar neuritis M54.16 and ADHD (attention deficit hyperactivity disorder), inattentive type F90.0 [facility] [id number] [place] [address] 87671- 3095 Apr, [facility] [id number] [place] [address] 12517- 5192 Apr, [facility] [id number] [place] [address] 25204- 5651 Apr, ADHD (attention deficit hyperactivity disorder), inattentive type F90.0 [facility] [id number] [place] [address] 23259- 6277 Apr, Lumbar neuritis M54.16 [facility] [id number] [place] [address] 14629- 6063 Apr, [facility] [id number] [place] [address] 48355- 8234 Apr, [facility] [id number] [place] [address] 95021- 5330 Mar, Attention deficit hyperactivity disorder (ADHD), predominantly inattentive type F90.0 [facility] [id number] [address]- 2330 Mar, [facility] [id number] [place] [address] 91483- 2732 Mar, [facility] [id number] [place] [address] 80974- 2874 Mar, [facility] [id number] [place] [address] 71444- 9753 Jan, Attention deficit hyperactivity disorder (ADHD), predominantly inattentive type F90.0 [facility] [id number] [place] [address] 88228- 0543 Jan, [facility] [id number] [place] [address] 24800- 4416 Jan, [facility] [id number] [place] [address] 23686- 9029 Jan, [facility] [id number] [place] [address] 12996- 6995 Jan, Low TSH level R94.6 [facility] [id number] [place] [address] 56854- 8927 Jan, [facility] [id number] [place] [address] 69794- 5032 Jan, [facility] [address] [place] [address] 24331- 5366 Dec, [facility] [id number] [place] [address] 24852- 6814 Dec, [facility] [address] [place] [address] 70898- 1053 Dec, [facility] [id number] [place] [address] 74095- 1191 Nov, Low TSH level R94.6 [facility] [address] [place] [address] 06714- 1269 17 Oct, 2016 Excessive daytime sleepiness G47.19 and ADHD (attention deficit hyperactivity disorder), inattentive type F90.0 [facility] [id number] [place] [address] 19579- 0763 Nov, [facility] [id number] [place] [address] 29658- 1705 Nov, [facility] [id number] [place] [address] 00797- 4512 Nov, [facility] [id number] [place] [address] 27981- 0857 Oct, [facility] [id number] [place] [address] 80394- 5965 Oct, [facility] [id number] [place] [address] 02049- 1082 Oct, [facility] [id number] [place] [address] 93378- 4745 Sep, [facility] [id number] [place] [address] 95794- 6264 Sep, [facility] [id number] [place] [address] 62290- 2559 Sep, [facility] [address] [place] [address] 82193- 2413 Aug, Lumbar neuritis M54.16 [facility] [id number] [place] [address] 38872- 6502 Aug, [facility] [id number] [place] [address] 12161- 2627 Aug, [facility] [id number] [place] [address] 80514- 8556 Jul, Lumbar neuritis M54.16 [facility] [id number] [place] [address] 54566- 6863 Jul, [facility] [id number] [place] [address] 10197- 7005 Jul, [facility] [address] [address]- 3872 June, Lumbar neuritis M54.16 [facility] [address] [address]- 5949 June, [facility] [id number] [place] [address] 38227- 5642 June, [facility] [address] [place] [address] 72994- 3322 May, Lumbar neuritis M54.16 [facility] [id number] [place] [address] 10933- 9413 May, [facility] [address] [place] [address] 39525- 6384 May, [facility] [address] [place] [address] 19745- 8780 Apr, [facility] [address] [address]- 9711 Apr, [facility] [address] [address]- 6732 14 May, 2015 [facility] [address], [place] [address]- 4758 Apr, [facility] [address] [address]- 7010 24 Apr, 2015 [facility] [address], [place] [address]- 2982 Apr, Inguinal hernia, right K40.90 [facility] [address], [place] [address]- 6406 17 Apr, 2015 [facility] [address] [address]- 4268 15 Apr, 2015 Low back pain M54.5 and Sciatica, unspecified side M54.30 [facility] [address] [facility] [id number] [address]- 1552 Mar, [facility] [address] [facility] [id number], [place] [address]- 8883 Mar, [facility] [address] [facility] [id number], [place] [address]- 5895 Jan, [facility] [address] [facility] [id number] [place] [address] 13218- 0702 Jan, [facility] [address] [facility] [id number] [place] [address]- 6125 Jan, [facility] [id number] [place] [address] 77085- 8325 Dec, [facility] [address] [address]- 3219 Dec, [facility] [address] [place] [address] 37035- 6459 Dec, [facility] [id number] [address]- 3391 Dec, [facility] [address] [address]- 4848 Nov, [facility] [address] [address]- 0821 Nov, Encounter for immunization Z23 [facility] [address] [facility] [id number], [place] [address]- 0502 Nov, [facility] [address] [facility] [id number], [place] [address]- 0628 Nov, [facility] [id number] [address]- 1336 Oct, [facility] [id number] [address]- 6998 08 Oct, 2014 [facility] [address] [place] [address]- 7910 Sep, Lumbago 724.2 [facility] [place] [facility] [address] [id number] [place] 3782 Sep, [facility] [place] [facility] [address] [id number] [place] [address]- 7935 Aug, Lumbago 724.2 [facility] [place] [facility] [address] [id number] [place] [address]- 1565 Aug, [facility] [place] [facility] [address] [id number] [place] [address]- 8799 Aug, [facility] [place] [facility] [address] [id number] [place] [address]- 5547 Jul, [facility] [place] [facility] [address] [id number] [place] [address]- 1867 Jul, [facility] [place] [facility] [address] [id number] [place] [address]- 7480 Jul, [facility] [place] [facility] [address] [id number] [place] [address]- 7826 June, [facility] [place] [facility] [address] [id number] [place] [address]- 8682 May, [facility] [place] [facility] [address] [id number] [place] [address]- 1451 May, [facility] [place] [facility] [address] [id number] [place] [address]- 6004 Apr, [facility] [place] [facility] [address] [id number] [place] [address]- 2116 Apr, [facility] [place] [facility] [address] [id number] [place] [address]- 1582 Apr, [facility] [place] [facility] [address] [id number] [place] [address]- 6371 Apr, [facility] [place] [facility] [address] [id number] [place] [address]- 7991 Apr, 2014 [facility] [place] [facility] [address] [id number] [place] [address]- 6919 Apr, 2014 [facility] [place] [facility] [address] [id number] [place] [address]- 5406 Apr, [facility] [place] [facility] [address] [id number] [place] [address]- 5026 Apr, [facility] [place] [facility] [address] [id number] [place] [address]- 4469 Mar, [facility] [place] [facility] [address] [id number] [place] [address]- 4267 Mar, [facility] [place] [facility] [address] [id number] [place] [address]- 4955 Jan, [facility] [place] [facility] [address] [id number] [place] [address]- 8151 Jan, [facility] [place] [facility] [address] [id number] [place] [address]- 3512 Jan, [facility] [place] [facility] [address] [id number] [place] [address]- 2815 Jan, [facility] [place] [facility] [address] [facility] [id number] [place] [address]- 9660 Jan, [facility] [place] [facility] [address] [id number] [place] [address]- 3490 Jan, [facility] [place] [facility] [address] [id number] [place] [address]- 5958 Dec, [facility] [place] [facility] [address] [id number] [place] 5239 Dec, [facility] [place] [facility] [address] [id number] [place] 7634 Nov, [facility] [place] [facility] [address] [id number] [place] 3547 Nov, [facility] [place] [facility] [address] [id number] [place] [address]- 8955 Nov, [facility] [place] [facility] [address] [id number] [place] 9682 Nov, [facility] [place] [facility] [address] [id number] [place] [address]- 8845 Oct, [facility] [place] [facility] [address] [id number] [place] [address]- 2261 Oct, [facility] [place] [facility] [address] [id number] [place] [address]- 4045 Sep, [facility] [place] [facility] [address] [id number] [place] [address]- 0821 Sep, [facility] [place] [facility] [address] [id number] [place] [address]- 4606 Sep, [facility] [place] [facility] [address] [id number] [place] [address]- 1688 Sep, [facility] [place] [facility] [address] [id number] [place] [address]- 5525 Aug, [facility] [place] [facility] [address] [id number] [place] [address]- 7875 Aug, [facility] [place] [facility] [address] [id number] [place] [address]- 5186 Aug, [facility] [place] [facility] [address] [id number] [place] [address]- 1063 Aug, [facility] [place] [facility] [address] [id number] [place] [address]- 5538 Jul, [facility] [place] [facility] [address] [id number] [place] [address]- 2598 Jul, [facility] [place] [facility] [address] [id number] [place] [address]- 1787 June, [facility] [place] [facility] [address] [id number] [place] [address]- 3328 June, [facility] [place] [facility] [address] [id number] [place] [address]- 3771 June, [facility] [place] [facility] [address] [id number] [place] [address]- 7952 May, [facility] [place] [facility] [address] [id number] [place] [address]- 6453 May, [facility] [place] [facility] [address] [id number] [place] [address]- 4622 May, [facility] [place] [facility] [address] [id number] [place] [address]- 1605 May, [facility] [place] [facility] [address] [id number] [place] [address]- 3941 May, [facility] [place] [facility] [address] [id number] [place] [address]- 4904 May, [facility] [place] [facility] [address] [id number] [place] [address]- 3831 May, [facility] [place] [facility] [address] [id number] [place] [address]- 7006 May, [facility] [place] [facility] [address] [id number] [place] [address]- 8433 May, [facility] [place] [facility] [address] [id number] [place] [address]- 1138 May, [facility] [place] [facility] [address] [id number] [place] [address]- 1956 May, [facility] [place] [facility] [address] [id number] [place] [address]- 1650 Apr, [facility] [place] [facility] [address] [id number] [place] [address]- 7856 Apr, [facility] [place] [facility] [address] [id number] [place] [address] Apr, [facility] [place] [facility] [address] [id number] [place] [address] Apr, [facility] [place] [facility] [address] [id number] [place] [address] Apr, [facility] [place] [facility] [address] [id number] [place] [address] Apr, [facility] [place] [facility] [address] [id number] [place] [address] Apr, [facility] [place] [facility] [address] [id number] [place] [address] Apr, [facility] [place] [facility] [address] [id number] [place] [address] Apr, [facility] [place] [facility] [address] [id number] [place] [address] Apr, [facility] [place] [facility] [address] [id number] [place] [address] Apr, [facility] [place] [facility] [address] [id number] [place] [address] Apr, [facility] [place] [facility] [address] [id number] [place] [address] Mar, [facility] [place] [facility] [address] [id number] [place] [address] Mar, [facility] [place] [facility] [address] [id number] [place] [address] Mar, [facility] [place] [facility] [address] [id number] [place] [address] Mar, [facility] [place] [facility] [address] [id number] [place] [address] Mar, [facility] [place] [facility] [address] [id number] [place] [address] Mar, [facility] [place] [facility] [address] [id number] [place] [address] Jan, [facility] [address] [facility] [id number] [place] [address] Jan, [facility] [address] [facility] [id number], [place] [address] Dec, [facility] [address] [facility] [id number], [place] [address] Dec, IMMUNIZATIONS No Known Immunizations SOCIAL HISTORY Never Assessed REASON FOR VISIT Controlled Med Refill - 04/07/17 PLAN OF CARE VITAL SIGNS MEDICATIONS Medication Instructions Dosage Frequency Start Date End Date Duration Status Xanax 1 MG Orally 2 times a day 1 tablet 12h Sep, 28 days Active [place] 10-325 MG Orally every 6 hrs 1 tablet as needed 6h Apr, 28 days Active RESULTS No Results PROCEDURES No Known procedures INSTRUCTIONS MEDICATIONS ADMINISTERED No Known Medications MEDICAL (GENERAL) HISTORY Type Description Date Medical History narcolepsy Surgical History Gallbladder removed 05/2014 Surgical History Hernia repair 05/24/2015
--- OUTSIDE RECORDS SUMMARY | 2017-11-01 13:12 | XMS REPORT ---
Author Author SHAHNAZ WIN Organization [facility] Address [address] [place] [address] Care Team Providers Care Radio Rigger Name Role Phone SHAHNAZ WIN Unavailable PROBLEMS Type Condition ICD9-CM Code QBY31-VX Code Onset Dates Condition Status SNOMED Code Problem ADHD (attention deficit hyperactivity disorder), inattentive type F90.0 Active 93179297 Problem Arthritis M19.90 Active 7276892 Problem Positive skin test for tuberculosis R76.11 Active 213666323 Problem Lumbago with sciatica, left side M54.42 Active 869367937 Problem Excessive daytime sleepiness G47.19 Active 810281706313 Problem 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 52992971592789 Problem 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 Active [id number] ALLERGIES No Information ENCOUNTERS Encounter Location Date Diagnosis [place] [id number] [place] [address] 39995- 0961 Jul, Right lower quadrant abdominal pain R10.31 and Rash R21 [place] [id number] [place] [address] 42730- 7042 14 Apr, 2017 ADHD (attention deficit hyperactivity disorder), inattentive type F90.0 ; Lumbago with sciatica, left side M54.42 and Arthritis M19.90 [facility] [id number] [place] [address] 38535- 5207 Apr, ADHD (attention deficit hyperactivity disorder), inattentive type F90.0 and Lumbar neuritis M54.16 [facility] [id number] [place] [address] 86199- 3635 Apr, [place] [id number] [place] [address] 87734- 6715 Apr, Lumbar neuritis M54.16 [facility] [id number] [place] [address] 76757- 0780 16 Apr, 2017 Low back pain M54.5 [facility] [id number] [place] [address] 97061- 5771 11 Apr, 2017 ADHD (attention deficit hyperactivity disorder), inattentive type F90.0 [facility] [id number] [place] [address] 12544- 9091 09 Apr, 2017 Positive skin test for tuberculosis R76.11 [facility] [id number] [place] [address] 79079- 5599 Apr, Positive skin test for tuberculosis R76.11 [facility] [id number] [place] [address] 53519- 5041 Apr, [facility] [id number] [place] [address] 25000- 0748 Mar, Lumbar neuritis M54.16 [facility] [id number] [place] [address] 69230- 3822 Mar, ADHD (attention deficit hyperactivity disorder), inattentive type F90.0 [facility] [id number] [place] [address] 44433- 7580 Mar, [facility] [id number] [place] [address] 76393- 0560 Jan, Lumbar neuritis M54.16 [facility] [id number] [place] [address] 20966- 2551 Jan, ADHD (attention deficit hyperactivity disorder), inattentive type F90.0 [facility] [id number] [place] [address] 46307- 5190 Jan, [facility] [id number] [place] [address] 97266- 0983 Jan, [facility] [id number] [place] [address] 63762- 1280 Dec, Lumbar neuritis M54.16 [facility] [id number] [place] [address] 53177- 2074 Dec, ADHD (attention deficit hyperactivity disorder), inattentive type F90.0 and 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 [facility] [id number] [place] [address] 30648- 5647 Dec, [facility] [id number] [place] [address] 85162- 4827 Dec, [facility] [id number] [place] [address] 56457- 9326 Nov, Lumbar neuritis M54.16 and ADHD (attention deficit hyperactivity disorder), inattentive type F90.0 [facility] [id number] [place] [address] 25463- 8377 Nov, [facility] [id number] [place] [address] 55319- 7332 Oct, Lumbar neuritis M54.16 and ADHD (attention deficit hyperactivity disorder), inattentive type F90.0 [facility] [id number] [place] [address] 81200- 8168 Oct, [facility] [id number] [place] [address] 50101- 9751 Sep, ADHD (attention deficit hyperactivity disorder), inattentive type F90.0 and Lumbar neuritis M54.16 [facility] [id number] [place] [address] 24550- 8757 Sep, Lumbar neuritis M54.16 [facility] [id number] [place] [address] 89283- 5571 Sep, [facility] [id number] [place] [address] 66835- 3189 Sep, ADHD (attention deficit hyperactivity disorder), inattentive type F90.0 and Lumbar neuritis M54.16 [facility] [address] [address]- 3833 Sep, [facility] [address] [address]- 5915 Aug, [facility] [address] [address]- 3401 Aug, [facility] [id number] [place] [address] 72965- 9382 Aug, [facility] [id number] [place] [address] 15521- 2115 Aug, [facility] [id number] [place] [address] 57380- 7222 Aug, ADHD (attention deficit hyperactivity disorder), inattentive type F90.0 and Lumbar neuritis M54.16 [facility] [id number] [place] [address] 59371- 6491 Jul, [facility] [address] [address]- 9604 Jul, [facility] [id number] [place] [address] 09483- 3318 Jul, Lumbar neuritis M54.16 and ADHD (attention deficit hyperactivity disorder), inattentive type F90.0 [facility] [address] [address]- 2702 Jul, [facility] [address] [address]- 9936 June, Lumbar neuritis M54.16 and ADHD (attention deficit hyperactivity disorder), inattentive type F90.0 [facility] [address] 7286 June, [facility] [address] [address]- 8401 June, [facility] [id number] [place] [address] 20413- 9416 May, 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 and Lumbago with sciatica, left side M54.42 [facility] [id number] [place] [address] 83491- 9398 14 May, 2016 Lumbar neuritis M54.16 and ADHD (attention deficit hyperactivity disorder), inattentive type F90.0 [facility] [id number] [place] [address] 45366- 4201 Apr, [facility] [id number] [place] [address] 52677- 7166 Apr, Lumbar neuritis M54.16 and ADHD (attention deficit hyperactivity disorder), inattentive type F90.0 [facility] [id number] [place] [address] 31607- 2685 Apr, [facility] [id number] [place] [address] 40325- 8318 Apr, [facility] [id number] [place] [address] 58918- 4151 15 Apr, 2016 ADHD (attention deficit hyperactivity disorder), inattentive type F90.0 [facility] [id number] [place] [address] 39754- 2766 15 Apr, 2016 Lumbar neuritis M54.16 [facility] [id number] [place] [address] 31228- 5180 08 Apr, 2016 [facility] [id number] [place] [address] 18806- 5612 07 Apr, 2016 [facility] [id number] [place] [address] 70835- 8586 Mar, Attention deficit hyperactivity disorder (ADHD), predominantly inattentive type F90.0 [facility] [id number] [place] [address] 67608- 8517 Mar, [facility] [address] [place] [address]- 4194 Mar, [facility] [id number] [place] [address] 37655- 9577 Mar, [facility] [id number] [place] [address] 46732- 0380 Jan, Attention deficit hyperactivity disorder (ADHD), predominantly inattentive type F90.0 [facility] [id number] [place] [address] 79711- 1559 Jan, [facility] [id number] [place] [address] 64765- 0016 Jan, [facility] [id number] [place] [address] 36838- 8682 Jan, [facility] [id number] [place] [address] 86466- 6573 Jan, Low TSH level R94.6 [facility] [address] [address]- 6085 Jan, [facility] [id number] [place] [address] 40560- 1161 Jan, [facility] [id number] [place] [address] 16679- 0251 Dec, [facility] [address] [address]- 7719 Dec, [facility] [address] [address]- 3574 Dec, [facility] [address] [address]- 2847 Nov, Low TSH level R94.6 [facility] [id number] [place] [address] 13857- 5156 Nov, Excessive daytime sleepiness G47.19 and ADHD (attention deficit hyperactivity disorder), inattentive type F90.0 [facility] [id number] [place] [address]- 5868 13 Dec, 2015 [facility] [address] [facility] [id number] [place] [address]- 9186 Nov, [facility] [place] [facility] [address] [facility] [id number] [place] [address]- 5548 Nov, [facility] [address] [facility] [id number] [place] [address]- 3149 Oct, [facility] [place] [facility] [address] [facility] [id number] [place] [address]- 3404 14 Nov, 2015 [facility] [address] [facility] [id number] [place] [address], [place] [address]- 0791 Oct, [facility] [place] [facility] [id number] [place] [address]- 0656 Sep, [facility] [id number] [place] [address], [place] [address]- 0176 Sep, [facility] [address] [facility] [id number] [place] [address]- 2437 Sep, [facility] [id number] [place] [address], [place] [address]- 3311 Aug, Lumbar neuritis M54.16 [facility] [address] [address]- 1133 Aug, [facility] [place] [facility] [address] [place] [address]- 5827 Aug, [facility] [place] [facility] [address] [facility] [id number] [address]- 8273 Jul, Lumbar neuritis M54.16 [facility] [address] [facility] [id number] [place] [address]- 1236 Jul, [facility] [place] [facility] [id number] [place] [address]- 7759 Jul, [facility] [place] [facility] [address] [address]- 5035 June, Lumbar neuritis M54.16 [facility] [address] [address]- 6470 June, [facility] [id number] [address]- 2055 June, [facility] [id number] [place] [address] 74480- 3896 May, Lumbar neuritis M54.16 [facility] [address] [address]- 4212 May, [facility] [id number] [place] [address] 31297- 4966 May, [facility] [id number] [place] [address] 45278- 4781 Apr, [facility] [id number] [place] [address] 51043- 9570 14 May, 2015 [facility] [address] [address]- 8721 14 May, 2015 [facility] [address] [place] [address] 17064- 4381 Apr, [facility] [address], [place] [address]- 8832 24 Apr, 2015 [facility] [address] [address]- 2360 Apr, Inguinal hernia, right K40.90 [facility] [address] [address]- 1609 17 Apr, 2015 [facility] [id number] [place] [address] 15471- 4752 15 Apr, 2015 Low back pain M54.5 and Sciatica, unspecified side M54.30 [facility] [address], [place] [address]- 3500 Mar, [facility] [place] [facility] [address] [facility] [id number], [place] [address]- 6273 Mar, [facility] [place] [facility] [address] [facility] [id number] [place] [address], [place] [address]- 3536 Jan, [facility] [place] [facility] [address] [facility] [id number] [place] [address]- 2114 Jan, [facility] [place] [facility] [address] [facility] [id number] [place] [address], [place] [address]- 3019 Jan, [facility] [place] [facility] [address] [facility] [id number] [place] [address], [place] [address]- 9299 Dec, [facility] [place] [facility] [address] [facility] [id number] [place] [address] 35869- 5187 Dec, [facility] [id number] [place] [address], [place] [address]- 3645 Dec, [facility] [place] [facility] [id number] [place] [address] 66588- 9205 Dec, [facility] [place] [facility] [address], [place] [address]- 5329 Nov, [facility] [id number] [place] [address] 08731- 6238 Nov, Encounter for immunization Z23 [facility] [id number] [address]- 0438 Nov, [facility] [place] [facility] [address], [place] [address]- 0882 Nov, [facility] [place] [facility] [address] [facility] [id number], [place] [address]- 8597 Oct, [facility] [place] [facility] [id number] [address]- 0817 Oct, [facility] [place] [facility] [address] [address]- 1113 Sep, Lumbago 724.2 [facility] [place] [facility] [address] [id number] [place] [address]- 3529 Sep, [facility] [place] [facility] [address] [id number] [place] [address]- 3326 Aug, Lumbago 724.2 [facility] [place] [facility] [address] [id number] [place] [address]- 3468 Aug, [facility] [place] [facility] [address] [id number] [place] [address]- 5256 Aug, [facility] [place] [facility] [address] [id number] [place] [address]- 3440 Jul, [facility] [place] [facility] [address] [id number] [place] [address]- 3205 Jul, [facility] [place] [facility] [address] [id number] [place] [address]- 3453 Jul, [facility] [place] [facility] [address] [id number] [place] [address]- 6578 June, [facility] [place] [facility] [address] [id number] [place] [address]- 8070 May, [facility] [place] [facility] [address] [id number] [place] [address]- 8367 May, [facility] [place] [facility] [address] [id number] [place] [address]- 6818 Apr, [facility] [place] [facility] [address] [id number] [place] [address]- 9356 Apr, [facility] [place] [facility] [address] [id number] [place] [address]- 6940 Apr, [facility] [place] [facility] [address] [id number] [place] 4367 Apr, [facility] [place] [facility] [address] [id number] [place] [address]- 9488 Apr, [facility] [place] [facility] [address] [id number] [place] [address]- 6048 Apr, 2014 [facility] [place] [facility] [address] [id number] [place] [address]- 5414 Apr, [facility] [place] [facility] [address] [id number] [place] [address]- 9966 Apr, [facility] [place] [facility] [address] [id number] [place] [address]- 3390 Mar, [facility] [place] [facility] [address] [id number] [place] [address]- 6944 Mar, [facility] [place] [facility] [address] [id number] [place] 9549 Jan, [facility] [place] [facility] [address] [id number] [place] [address]- 1679 Jan, [facility] [place] [facility] [address] [id number] [place] [address]- 4756 Jan, [facility] [place] [facility] [address] [id number] [place] [address]- 4141 Jan, [facility] [place] [facility] [address] [id number] [place] [address]- 9967 Jan, [facility] [place] [facility] [address] [facility] [id number] [place] [address]- 3569 Jan, [facility] [place] [facility] [address] [id number] [place] [address]- 9933 Dec, [facility] [place] [facility] [address] [id number] [place] [address]- 1889 Dec, [facility] [place] [facility] [address] [id number] [place] [address]- 2500 Nov, [facility] [place] [facility] [address] [id number] [place] 6163 Nov, [facility] [place] [facility] [address] [id number] [place] [address]- 5547 Nov, [facility] [place] [facility] [address] [id number] [place] [address]- 2939 Nov, [facility] [place] [facility] [address] [id number] [place] 2242 Oct, [facility] [place] [facility] [address] [id number] [place] [address]- 5274 Oct, [facility] [place] [facility] [address] [id number] [place] [address]- 2943 Sep, [facility] [place] [facility] [address] [id number] [place] [address]- 0111 Sep, [facility] [place] [facility] [address] [id number] [place] [address]- 3202 Sep, [facility] [place] [facility] [address] [id number] [place] [address]- 8898 Sep, [facility] [place] [facility] [address] [id number] [place] [address]- 5367 Aug, [facility] [place] [facility] [address] [id number] [place] [address]- 0688 Aug, [facility] [place] [facility] [address] [id number] [place] [address]- 1513 Aug, [facility] [place] [facility] [address] [id number] [place] [address]- 9874 Aug, [facility] [place] [facility] [address] [id number] [place] [address] Jul, [facility] [place] [facility] [address] [id number] [place] [address] Jul, [facility] [place] [facility] [address] [id number] [place] [address] June, [facility] [place] [facility] [address] [id number] [place] [address] June, [facility] [place] [facility] [address] [id number] [place] [address] June, [facility] [place] [facility] [address] [id number] [place] [address] May, [facility] [place] [facility] [address] [id number] [place] [address] May, [facility] [place] [facility] [address] [id number] [place] [address] May, [facility] [place] [facility] [address] [id number] [place] [address] May, [facility] [place] [facility] [address] [id number] [place] [address] May, [facility] [place] [facility] [address] [id number] [place] [address] May, [facility] [place] [facility] [address] [id number] [place] [address] May, [facility] [place] [facility] [address] [id number] [place] [address] May, [facility] [place] [facility] [address] [id number] [place] [address] May, [facility] [place] [facility] [address] [id number] [place] [address] May, [facility] [place] [facility] [address] [id number] [place] [address] May, [facility] [place] [facility] [address] [id number] [place] [address] Apr, [facility] [place] [facility] [address] [id number] [place] [address] Apr, [facility] [place] [facility] [address] [id number] [place] [address] Apr, [facility] [place] [facility] [address] [id number] [place] [address] Apr, [facility] [place] [facility] [address] [id number] [place] [address] Apr, [facility] [place] [facility] [address] [id number] [place] [address] Apr, [facility] [place] [facility] [address] [id number] [place] [address] Apr, [facility] [place] [facility] [address] [id number] [place] [address] Apr, [facility] [place] [facility] [address] [id number] [place] [address] Apr, [facility] [place] [facility] [address] [id number] [place] [address] Apr, [facility] [place] [facility] [address] [id number] [place] [address] Apr, [facility] [place] [facility] [address] [id number] [place] [address] Apr, [facility] [place] [facility] [address] [id number] [place] [address] Mar, [facility] [place] [facility] [address] [facility] [id number] [place] [address] Mar, [facility] [place] [facility] [address] [id number] [place] [address] Mar, [facility] [place] [facility] [address] [id number] [place] [address] Mar, [facility] [place] [facility] [address] [id number] [place] [address] Mar, [facility] [place] [facility] [address] [id number] [place] [address] Mar, [facility] [place] [facility] [address] [id number] [place] [address] Jan, [facility] [place] [facility] [address] [id number] [place] [address] Jan, [facility] [address] [facility] [id number] [place] [address] Dec, [facility] [address] [facility] [id number] [place] [address] Dec, IMMUNIZATIONS No Known Immunizations SOCIAL HISTORY Never Assessed REASON FOR VISIT letter PLAN OF CARE VITAL SIGNS MEDICATIONS No Known Medications RESULTS No Results PROCEDURES No Known procedures INSTRUCTIONS MEDICATIONS ADMINISTERED No Known Medications MEDICAL (GENERAL) HISTORY Type Description Date Medical History narcolepsy Surgical History Gallbladder removed 05/2014 Surgical History Hernia repair 05/24/2015
--- OUTSIDE RECORDS SUMMARY | 2017-11-01 13:12 | XMS REPORT ---
Author SHAHNAZ Card [facility] eClinicalWorks Address Unknown Phone Unavailable Care Team Providers Care Brownell Operator Name Role Phone SHAHNAZ WIN CP [...] Instructions Start Date End Date Status Dosage Adderall [facility] [address]-66 10 mg Orally Once a day Dec 17, 2015 1 tablet in the morning Hydrocodone-Acetaminophen [facility] [address]-51 10-325 MG Orally every 6 hrs May 29, 2014 1 tablet as needed Results No Known Results Summary Purpose eClinicalWorks Submission
--- OUTSIDE RECORDS SUMMARY | 2017-11-01 13:12 | XMS REPORT ---
Author Author SHAHNAZ WIN Organization [facility] Address [address] [place] [address] Care Team Providers Care Nurse Liaison Name Role Phone SHAHNAZ WIN Unavailable PROBLEMS Type Condition ICD9-CM Code CAE51-TC Code Onset Dates Condition Status SNOMED Code Problem ADHD (attention deficit hyperactivity disorder), inattentive type F90.0 Active 53330854 Problem Arthritis M19.90 Active 2173719 Problem Positive skin test for tuberculosis R76.11 Active 983955084 Problem Lumbago with sciatica, left side M54.42 Active 240022755 Problem Excessive daytime sleepiness G47.19 Active 663562541573 Problem 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 28258151167321 Problem 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 Active [id number] ALLERGIES No Information ENCOUNTERS Encounter Location Date Diagnosis [place] [address] [address] Apr, ADHD (attention deficit hyperactivity disorder), inattentive type F90.0 ; Lumbago with sciatica, left side M54.42 and Arthritis M19.90 [place] [address] [place] [id number] [place] [address]12- 9765 Apr, ADHD (attention deficit hyperactivity disorder), inattentive type F90.0 and Lumbar neuritis M54.16 [place] [address] [place] [id number] [place] [address] 96691- 6235 Apr, [place] [address] [address]- [address] 16 Apr, 2017 Lumbar neuritis M54.16 [place] [address] [place] [id number] [place] [address] 97685- 7033 Apr, Low back pain M54.5 [facility] [id number] [place] [address] 98102- 5062 Apr, ADHD (attention deficit hyperactivity disorder), inattentive type F90.0 [facility] [address] [place] [id number] [place] [address] 79650- 7887 Apr, Positive skin test for tuberculosis R76.11 [facility] [address] [place] [id number] [place] [address] 76993- 8202 Apr, Positive skin test for tuberculosis R76.11 [facility] [address] [place] [id number] [place] [address] 00780- 9369 Apr, [facility] [address] [place] [id number] [place] [address] 87771- 1646 Mar, Lumbar neuritis M54.16 [facility] [address] [place] [id number] [place] [address] 95133- 8011 Mar, ADHD (attention deficit hyperactivity disorder), inattentive type F90.0 [facility] [address] [place] [id number] [place] [address] 49274- 4193 Mar, [facility] [address] [place] [id number] [place] [address] 10986- 6902 Jan, Lumbar neuritis M54.16 [facility] [address] [place] [id number] [place] [address] 95673- 3766 Jan, ADHD (attention deficit hyperactivity disorder), inattentive type F90.0 [facility] [id number] [place] [address] 04088- 4756 Jan, [facility] [address] [place] [id number] [place] [address] 31061- 2283 Jan, [facility] [address] [place] [id number] [place] [address] 49728- 0720 Dec, Lumbar neuritis M54.16 [facility] [address] [place] [id number] [place] [address] 45222- 3362 Dec, ADHD (attention deficit hyperactivity disorder), inattentive type F90.0 and 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 [facility] [address] [place] [id number] [place] [address] 02577- 6466 Dec, [facility] [address] [place] [id number] [place] [address] 05952- 2492 Dec, [facility] [address] [place] [id number] [place] [address] 21221- 7205 Nov, Lumbar neuritis M54.16 and ADHD (attention deficit hyperactivity disorder), inattentive type F90.0 [facility] [address] [place] [id number] [place] [address] 47965- 2851 Nov, [facility] [address] [place] [id number] [place] [address] 36287- 7376 Oct, Lumbar neuritis M54.16 and ADHD (attention deficit hyperactivity disorder), inattentive type F90.0 [facility] [address] [place] [id number] [place] [address] 65281- 1465 Oct, [facility] [address] [place] [id number] [place] [address] 44231- 4679 Sep, ADHD (attention deficit hyperactivity disorder), inattentive type F90.0 and Lumbar neuritis M54.16 [facility] [address] [place] [id number] [place] [address] 13866- 4084 Sep, Lumbar neuritis M54.16 [facility] [address] [place] [id number] [place] [address] 49651- 3130 Sep, [facility] [address] [place] [id number] [place] [address] 00643- 5686 Sep, ADHD (attention deficit hyperactivity disorder), inattentive type F90.0 and Lumbar neuritis M54.16 [facility] [address] [place] [id number] [place] [address] 42197- 5330 Sep, [facility] [address] [place] [address]- 5306 Aug, [facility] [address] [address]- 5896 Aug, [facility] [address] [address]- 4821 Aug, [facility] [address] [place] [id number] [place] [address] 69325- 9300 Aug, [facility] [address] [place] [id number] [place] [address] 30309- 5418 Aug, ADHD (attention deficit hyperactivity disorder), inattentive type F90.0 and Lumbar neuritis M54.16 [facility] [address] [address]- 6115 Jul, [facility] [address] [place] [id number] [place] [address] 48007- 2753 Jul, [facility] [id number] [place] [address] 89469- 2621 Jul, Lumbar neuritis M54.16 and ADHD (attention deficit hyperactivity disorder), inattentive type F90.0 [facility] [address] [address]- 8602 Jul, [facility] [address] [address]- 7127 June, Lumbar neuritis M54.16 and ADHD (attention deficit hyperactivity disorder), inattentive type F90.0 [facility] [address], [place] [address]- 9916 June, [facility] [address] [address]- 6262 June, [facility] [address] [address]- 2778 May, 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 and Lumbago with sciatica, left side M54.42 [facility] [place] [facility] [address], [place] [address]- 2739 14 May, 2016 Lumbar neuritis M54.16 and ADHD (attention deficit hyperactivity disorder), inattentive type F90.0 [facility] [address] [place] [id number] [address]- 2186 Apr, [facility] [address] [place] [id number] [place] [address] 45617- 8129 Apr, Lumbar neuritis M54.16 and ADHD (attention deficit hyperactivity disorder), inattentive type F90.0 [facility] [address] [place] [id number] [place] [address] 81071- 2013 Apr, [facility] [address] [place] [id number] [place] [address] 54045- 6846 Apr, [facility] [address] [place] [id number] [place] [address] 24417- 4958 15 Apr, 2016 ADHD (attention deficit hyperactivity disorder), inattentive type F90.0 [facility] [address] [place] [address] 43216- 3319 15 Apr, 2016 Lumbar neuritis M54.16 [facility] [address] [place] [id number] [address]- 0595 08 Apr, 2016 [facility] [address] [place] [id number] [place] [address] 13488- 7160 Apr, [facility] [address] [place] [id number] [place] [address] 88485- 4396 Mar, Attention deficit hyperactivity disorder (ADHD), predominantly inattentive type F90.0 [facility] [address] [place] [id number] [place] [address] 24457- 9855 Mar, [facility] [address] [address]- 2979 Mar, [facility] [address] [place] [id number] [place] [address] 44716- 9844 Mar, [facility] [id number] [place] [address] 94542- 0985 Jan, Attention deficit hyperactivity disorder (ADHD), predominantly inattentive type F90.0 [facility] [address] [place] [id number] [place] [address] 43791- 5321 Jan, [facility] [address] [place] [id number] [place] [address] 86587- 6274 Jan, [facility] [address] [place] [id number] [place] [address] 55138- 5921 Jan, [facility] [address] [place] [id number] [place] [address] 50807- 0111 Jan, Low TSH level R94.6 [facility] [address] [place] [id number] [place] [address] 94863- 7690 Jan, [facility] [address] [place] [id number] [place] [address] 78097- 4213 Jan, [facility] [address] [place] [id number] [place] [address] 76004- 0840 Dec, [facility] [address] [place] [id number] [place] [address] 95876- 1291 Dec, [facility] [address] [place] [id number] [place] [address] 13989- 9065 Dec, [facility] [address] [place] [id number] [place] [address] 02688- 4098 Nov, Low TSH level R94.6 [facility] [address] [place] [id number] [place] [address] 38254- 4470 Nov, Excessive daytime sleepiness G47.19 and ADHD (attention deficit hyperactivity disorder), inattentive type F90.0 [facility] [address] [place] [address] 53957- 4251 13 Dec, 2015 [facility] [address] [place] [id number] [place] [address] 34033- 5751 Nov, [facility] [address] [facility] [id number] [place] [address]- 8366 Nov, [facility] [address] [facility] [id number] [place] [address], [place] [address]- 9674 Oct, [facility] [address] [facility] [id number] [place] [address]- 4434 Oct, [facility] [address] [facility] [id number] [place] [address], [place] [address]- 8355 Oct, [facility] [address] [facility] [id number] [place] [address], [place] [address]- 2938 Sep, [facility] [address] [facility] [id number] [place] [address], [place] [address]- 0494 Sep, [facility] [address] [facility] [id number] [place] [address], [place] [address]- 7194 Sep, [facility] [address] [place] [id number] [place] [address] 24400- 0253 Aug, Lumbar neuritis M54.16 [facility] [address] [place] [id number] [address]- 1863 Aug, [facility] [address] [place] [id number], [place] [address]- 1574 Aug, [facility] [address], [place] [address]- 9160 Jul, Lumbar neuritis M54.16 [facility] [address] [facility] [id number] [address]- 7364 Jul, [facility] [address] [place] [id number] [address]- 9077 Jul, [facility] [place] [facility] [address] [facility] [id number] [address]- 8894 June, Lumbar neuritis M54.16 [facility] [address] [place] [id number], [place] [address]- 5201 June, [facility] [address] [place] [address] 63634- 7256 June, [facility] [address] [place] [id number] [place] [address] 82280- 4019 May, Lumbar neuritis M54.16 [facility] [address] [place] [id number] [place] [address] 31024- 3014 May, [facility] [address] [place] [id number] [place] [address] 19140- 6955 May, [facility] [address] [place] [id number] [place] [address] 25211- 9512 Apr, [facility] [address] [place] [id number] [place] [address] 69348- 3795 Apr, [facility] [address] [place] [id number] [place] [address] 05365- 5163 Apr, [facility] [address] [place] [id number] [place] [address] 28489- 2905 Apr, [facility] [address] [place] [id number] [place] [address] 06882- 6043 24 Apr, 2015 [facility] [address] [id number], [place] [address]- 3054 Apr, Inguinal hernia, right K40.90 [facility] [address] [place] [id number] [place] [address] 77457- 3123 Apr, [facility] [address] [place] [address] 94371- 8249 15 Apr, 2015 Low back pain M54.5 and Sciatica, unspecified side M54.30 [facility] [address] [id number], [place] [address]- 1899 Mar, [facility] [address] [place] [id number] [place] [address] 29229- 3501 Mar, [facility] [address] [facility] [id number] [place] [address]- 2686 Jan, [facility] [address] [place] [id number] [place] [address], [place] [address]- 7877 Jan, [facility] [place] [facility] [address] [facility] [id number] [place] [address]- 1319 Jan, [facility] [place] [facility] [address] [facility] [id number] [place] [address], [place] [address]- 1396 Dec, [facility] [place] [facility] [address] [facility] [id number] [place] [address]- 6755 Dec, [facility] [place] [facility] [address] [place] [id number] [place] [address], [place] [address]- 4088 Dec, [facility] [place] [facility] [address] [place] [id number] [place] [address], [place] [address]- 6448 Dec, [facility] [place] [facility] [address] [place] [id number] [place] [address], [place] [address]- 9109 Nov, [facility] [address] [place] [id number] [place] [address] 65780- 4706 Nov, Encounter for immunization Z23 [facility] [id number] [place] [address] 73327- 3462 Nov, [facility] [address], [place] [address]- 8952 Nov, [facility] [place] [facility] [address], [place] [address]- 1649 Oct, [facility] [place] [facility] [address] [place] [id number] [address]- 9332 Oct, [facility] [place] [facility] [address] [id number], [place] [address]- 1241 Sep, Lumbago 724.2 [facility] [place] [facility] [address] [place] [address]- 5689 Sep, [facility] [place] [facility] [address] [place] [id number] [address]- 4469 Aug, Lumbago 724.2 [facility] [place] [facility] [address] [id number] [place] [address]- 7273 17 Aug, 2014 [facility] [place] [facility] [address] [id number] [place] [address]- 2868 Aug, [facility] [place] [facility] [address] [id number] [place] [address]- 1010 Jul, [facility] [place] [facility] [address] [id number] [place] [address]- 7534 Jul, [facility] [place] [facility] [address] [id number] [place] [address]- 1764 Jul, [facility] [place] [facility] [address] [facility] [id number] [place] [address]- 8933 June, [facility] [place] [facility] [address] [facility] [id number] [place] [address]- 7577 May, [facility] [place] [facility] [address] [facility] [id number] [place] [address]- 6696 May, [facility] [place] [facility] [address] [facility] [id number] [place] [address]- 5557 Apr, [facility] [place] [facility] [address] [facility] [id number] [place] [address]- 2684 Apr, [facility] [place] [facility] [address] [facility] [id number] [place] [address]- 2546 Apr, [facility] [place] [facility] [address] [facility] [id number] [place] [address]- 1916 Apr, [facility] [place] [facility] [address] [facility] [id number] [place] [address]- 8816 Apr, [facility] [place] [facility] [address] [facility] [id number] [place] [address]- 2546 Apr, [facility] [place] [facility] [address] [facility] [id number] [place] [address]- 9213 Apr, [facility] [place] [facility] [address] [id number] [place] [address]- 1862 Apr, [facility] [place] [facility] [address] [id number] [place] [address]- 2921 Mar, [facility] [place] [facility] [address] [facility] [id number] [place] [address]- 0699 Mar, [facility] [place] [facility] [address] [id number] [place] [address]- 1099 Jan, [facility] [place] [facility] [address] [id number] [place] 5214 Jan, [facility] [place] [facility] [address] [facility] [id number] [place] [address]- 5269 Jan, [facility] [place] [facility] [address] [facility] [id number] [place] [address]- 9437 Jan, [facility] [place] [facility] [address] [id number] [place] [address]- 9645 Jan, [facility] [place] [facility] [address] [facility] [id number] [place] [address]- 5494 Jan, [facility] [place] [facility] [address] [facility] [id number] [place] [address]- 7043 Dec, [facility] [place] [facility] [address] [facility] [id number], [place] [address]- 4449 Dec, [facility] [place] [facility] [address] [id number], [place] [address]- 4899 Nov, [facility] [place] [facility] [address] [id number] [place] [address]- 5307 Nov, [facility] [place] [facility] [address] [facility] [id number], [place] [address]- 7635 Nov, [facility] [place] [facility] [address] [facility] [id number], [place] [address]- 0134 Nov, [facility] [place] [facility] [address] [id number] [place] [address]- 6257 15 Oct, 2013 [facility] [address] [id number] [place] [address]- 8053 Oct, [facility] [place] [facility] [address] [id number] [place] [address]- 8451 Sep, [facility] [place] [facility] [address] [id number] [place] [address]- 0104 Sep, [facility] [place] [facility] [address] [id number] [place] [address]- 8702 Sep, [facility] [place] [facility] [address] [id number] [place] [address]- 1530 Sep, [facility] [place] [facility] [address] [id number] [place] [address]- 8654 Aug, [facility] [place] [facility] [address] [id number] [place] [address]- 4945 Aug, [facility] [address] [id number] [place] [address]- 3119 Aug, [facility] [place] [facility] [address] [id number] [place] [address]- 5320 Aug, [facility] [address] [id number] [place] [address]- 5602 Jul, [facility] [place] [facility] [address] [id number] [place] [address]- 7835 Jul, [facility] [place] [facility] [address] [id number] [place] [address]- 2696 June, [facility] [place] [facility] [address] [id number] [place] [address]- 4477 June, [facility] [place] [facility] [address] [id number] [place] [address] June, [facility] [place] [facility] [address] [id number] [place] [address] May, [facility] [place] [facility] [address] [id number] [place] [address] 30 May, 2013 [facility] [place] [facility] [address] [id number] [place] [address] May, [facility] [place] [facility] [address] [id number] [place] [address] May, [facility] [place] [facility] [address] [id number] [place] [address] May, [facility] [place] [facility] [address] [id number] [place] [address] May, [facility] [place] [facility] [address] [id number] [place] [address] May, [facility] [place] [facility] [address] [id number] [place] [address] May, [facility] [place] [facility] [address] [id number] [place] [address] May, [facility] [place] [facility] [address] [id number] [place] [address] May, [facility] [place] [facility] [address] [id number] [place] [address] May, [facility] [place] [facility] [address] [id number] [place] [address] Apr, [facility] [place] [facility] [address] [id number] [place] [address] Apr, [facility] [place] [facility] [address] [id number] [place] [address] Apr, [facility] [place] [facility] [address] [id number] [place] [address] Apr, [facility] [place] [facility] [address] [id number] [place] [address] Apr, [facility] [place] [facility] [address] [id number] [place] [address] Apr, [facility] [place] [facility] [address] [id number] [place] [address] Apr, [facility] [place] [facility] [address] [id number] [place] [address] Apr, [facility] [place] [facility] [address] [id number] [place] [address] Apr, [facility] [place] [facility] [address] [id number] [place] [address] Apr, [facility] [place] [facility] [address] [id number] [place] [address] Apr, [facility] [place] [facility] [address] [id number] [place] [address] Apr, [facility] [place] [facility] [address] [id number] [place] [address] Mar, [facility] [place] [facility] [address] [id number] [place] [address] Mar, [facility] [place] [facility] [address] [id number] [place] [address] Mar, [facility] [place] [facility] [address] [id number] [place] [address] Mar, [facility] [place] [facility] [address] [id number] [place] [address] Mar, [facility] [place] [facility] [address] [id number] [place] [address] Mar, [facility] [place] [facility] [address] [id number] [place] [address] Jan, [facility] [place] [facility] [address] [id number] [place] [address] Jan, [facility] [place] [facility] [address] [id number] [place] [address] Dec, [facility] [address] [facility] [id number] [place] [address] Dec, IMMUNIZATIONS No Known Immunizations SOCIAL HISTORY Never Assessed REASON FOR VISIT Refill request PLAN OF CARE VITAL SIGNS MEDICATIONS No Known Medications RESULTS No Results PROCEDURES No Known procedures INSTRUCTIONS MEDICATIONS ADMINISTERED No Known Medications MEDICAL (GENERAL) HISTORY Type Description Date Medical History narcolepsy Surgical History Gallbladder removed 05/2014 Surgical History Hernia repair 05/24/2015
--- OUTSIDE RECORDS SUMMARY | 2017-11-01 13:12 | XMS REPORT ---
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 91485179336913 Problem Lumbago with sciatica, left side M54.42 Active 749052972 Problem Excessive daytime sleepiness G47.19 Active 791827264722 Problem ADHD (attention deficit hyperactivity disorder), inattentive type F90.0 Active 49377610 ALLERGIES Substance Reaction Event Type Date Status Penicillins Unknown Non Drug Allergy Jan, Active SOCIAL HISTORY No smoking Hx information available PLAN OF CARE VITAL SIGNS Height 59 in 2016-02-21 Weight 110.6 lbs 2016-02-21 Temperature 98.0 degrees Fahrenheit 2016-02-21 Heart Rate 88 bpm 2016-02-21 Respiratory Rate 18 2016-02-21 BMI 22.34 kg/m2 2016-02-21 Blood pressure systolic 118 mmHg 2016-02-21 Blood pressure diastolic 82 mmHg 2016-02-21 MEDICATIONS Medication Instructions Dosage Frequency Start Date End Date Duration Status Alprazolam 1 MG 1 tablet 8h Apr, Active Tramadol HCl 50 mg Orally every 6 hrs 1 tablet as needed 6h Jan, Active Adderall XR 20 mg Orally Once a day 1 capsule in the morning 24h Jan, Active Hydrocodone-Acetaminophen 10-325 MG Orally every 6 hrs 1 tablet as needed 6h Jan, Active RESULTS No Results PROCEDURES Procedure Date Ordered Related Diagnosis Body Site Office Visit, Est Pt., Level 3 Feb 21, 2016 IMMUNIZATIONS No Known Immunizations
--- OUTSIDE RECORDS SUMMARY | 2017-11-01 13:13 | XMS REPORT ---
Author Author SHAHNAZ WIN Organization [facility] Address [address] [place] [address] Care Team Providers Care Checkroom Chief Name Role Phone SHAHNAZ WIN Unavailable PROBLEMS Type Condition ICD9-CM Code [id number] Code Onset Dates Condition Status SNOMED Code Problem ADHD (attention deficit hyperactivity disorder), inattentive type F90.0 Active 14498674 Problem Arthritis M19.90 Active 5450610 Problem Positive skin test for tuberculosis R76.11 Active 163317507 Problem Lumbago with sciatica, left side M54.42 Active 746367531 Problem Excessive daytime sleepiness G47.19 Active 610066888114 Problem 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 93789382457783 Problem 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 Active [id number] ALLERGIES No Information ENCOUNTERS Encounter Location Date Diagnosis [facility] [id number] [place] [address] 37139- 9376 Jul, Right lower quadrant abdominal pain R10.31 and Rash R21 [facility] [id number] [place] [address] 08527- 6215 14 Apr, 2017 ADHD (attention deficit hyperactivity disorder), inattentive type F90.0 ; Lumbago with sciatica, left side M54.42 and Arthritis M19.90 [facility] [id number] [place] [address] 42479- 7866 Apr, ADHD (attention deficit hyperactivity disorder), inattentive type F90.0 and Lumbar neuritis M54.16 [facility] [id number] [place] [address] 77758- 0569 Apr, [facility] [id number] [place] [address] 15608- 5689 Apr, Lumbar neuritis M54.16 [facility] [id number] [place] [address] 22456- 6252 16 Apr, 2017 Low back pain M54.5 [facility] [id number] [place] [address] 73886- 7057 11 Apr, 2017 ADHD (attention deficit hyperactivity disorder), inattentive type F90.0 [facility] [id number] [place] [address] 09974- 5025 09 Apr, 2017 Positive skin test for tuberculosis R76.11 [facility] [id number] [place] [address] 87041- 7599 Apr, Positive skin test for tuberculosis R76.11 [facility] [id number] [place] [address] 75996- 2230 Apr, [facility] [id number] [place] [address] 30210- 1175 Mar, Lumbar neuritis M54.16 [facility] [id number] [place] [address] 75824- 0565 Mar, ADHD (attention deficit hyperactivity disorder), inattentive type F90.0 [facility] [id number] [place] [address] 12499- 7642 Mar, [facility] [id number] [place] [address] 15141- 1447 Jan, Lumbar neuritis M54.16 [facility] [id number] [place] [address] 11429- 0627 Jan, ADHD (attention deficit hyperactivity disorder), inattentive type F90.0 [facility] [id number] [place] [address] 17280- 7949 Jan, [facility] [id number] [place] [address] 38637- 3787 Jan, [facility] [id number] [place] [address] 94808- 0535 Dec, Lumbar neuritis M54.16 [facility] [id number] [place] [address] 95790- 3702 Dec, ADHD (attention deficit hyperactivity disorder), inattentive type F90.0 and 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 [facility] [id number] [place] [address] 71983- 9069 Dec, [facility] [id number] [place] [address] 02821- 5446 Dec, [facility] [id number] [place] [address] 93369- 4602 Nov, Lumbar neuritis M54.16 and ADHD (attention deficit hyperactivity disorder), inattentive type F90.0 [facility] [id number] [place] [address] 15414- 8213 Nov, [facility] [id number] [place] [address] 97799- 1097 Oct, Lumbar neuritis M54.16 and ADHD (attention deficit hyperactivity disorder), inattentive type F90.0 [facility] [id number] [place] [address] 17471- 9798 Oct, [facility] [id number] [place] [address] 52709- 9471 Sep, ADHD (attention deficit hyperactivity disorder), inattentive type F90.0 and Lumbar neuritis M54.16 [facility] [id number] [place] [address] 44941- 6796 Sep, Lumbar neuritis M54.16 [facility] [id number] [place] [address] 63925- 3469 Sep, [facility] [id number] [place] [address] 58128- 3989 Sep, ADHD (attention deficit hyperactivity disorder), inattentive type F90.0 and Lumbar neuritis M54.16 [facility] [address] [address]- 8886 Sep, [facility] [address] [address]- 2217 Aug, [facility] [address] [address]- 9363 Aug, [facility] [id number] [place] [address] 92456- 0408 Aug, [facility] [id number] [place] [address] 13480- 7941 Aug, [facility] [id number] [place] [address] 48806- 7214 Aug, ADHD (attention deficit hyperactivity disorder), inattentive type F90.0 and Lumbar neuritis M54.16 [facility] [id number] [place] [address] 88624- 3719 Jul, [facility] [address] [address]- 5680 Jul, [facility] [id number] [place] [address] 05298- 0401 Jul, Lumbar neuritis M54.16 and ADHD (attention deficit hyperactivity disorder), inattentive type F90.0 [facility] [address] [address]- 4328 Jul, [facility] [address] [place] [address]- 2177 June, Lumbar neuritis M54.16 and ADHD (attention deficit hyperactivity disorder), inattentive type F90.0 [facility] [address] 9966 June, [facility] [address] [address]- 1506 June, [facility] [id number] [place] [address] 85544- 2036 May, 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 and Lumbago with sciatica, left side M54.42 [facility] [id number] [place] [address] 39442- 2997 14 May, 2016 Lumbar neuritis M54.16 and ADHD (attention deficit hyperactivity disorder), inattentive type F90.0 [facility] [id number] [place] [address] 08616- 4520 Apr, [facility] [id number] [place] [address] 12022- 1079 Apr, Lumbar neuritis M54.16 and ADHD (attention deficit hyperactivity disorder), inattentive type F90.0 [facility] [id number] [place] [address] 81299- 2571 Apr, [facility] [id number] [place] [address] 96445- 4682 Apr, [facility] [id number] [place] [address] 51224- 4648 15 Apr, 2016 ADHD (attention deficit hyperactivity disorder), inattentive type F90.0 [facility] [id number] [place] [address] 71949- 2098 15 Apr, 2016 Lumbar neuritis M54.16 [facility] [id number] [place] [address] 65101- 6249 08 Apr, 2016 [facility] [id number] [place] [address] 26846- 9008 07 Apr, 2016 [facility] [id number] [place] [address] 45024- 2396 Mar, Attention deficit hyperactivity disorder (ADHD), predominantly inattentive type F90.0 [facility] [id number] [place] [address] 90859- 8838 Mar, [facility] [address] [place] [address]- 3387 Mar, [facility] [id number] [place] [address] 95666- 0619 Mar, [facility] [id number] [place] [address] 74661- 5313 Jan, Attention deficit hyperactivity disorder (ADHD), predominantly inattentive type F90.0 [facility] [id number] [place] [address] 49783- 9925 Jan, [facility] [id number] [place] [address] 55258- 9885 Jan, [facility] [id number] [place] [address] 51672- 0480 Jan, [facility] [id number] [place] [address] 29911- 5380 Jan, Low TSH level R94.6 [facility] [address] [address]- 2269 Jan, [facility] [id number] [place] [address] 71718- 8040 Jan, [facility] [id number] [place] [address] 09326- 5947 Dec, [facility] [address] [address]- 6144 Dec, [facility] [address], [place] [address]- 1967 Dec, [facility] [address], [place] [address]- 9576 Nov, Low TSH level R94.6 [facility] [id number] [place] [address] 08160- 4172 Nov, Excessive daytime sleepiness G47.19 and ADHD (attention deficit hyperactivity disorder), inattentive type F90.0 [facility] [id number] [place] [address]- 1879 13 Dec, 2015 [facility] [address] [facility] [id number] [place] [address]- 6965 Nov, [facility] [place] [facility] [address] [facility] [id number] [place] [address]- 9514 Nov, [facility] [address] [facility] [id number] [place] [address]- 1651 Oct, [facility] [place] [facility] [address] [facility] [id number] [place] [address]- 1608 14 Nov, 2015 [facility] [address] [facility] [id number] [place] [address], [place] [address]- 7431 Oct, [facility] [place] [facility] [id number] [place] [address]- 8966 Sep, [facility] [id number] [place] [address], [place] [address]- 1674 Sep, [facility] [address] [facility] [id number] [place] [address]- 0040 Sep, [facility] [id number] [place] [address], [place] [address]- 7262 Aug, Lumbar neuritis M54.16 [facility] [id number], [place] [address]- 1584 Aug, [facility] [place] [facility] [id number] [place] [address]- 6918 Aug, [facility] [place] [facility] [address] [facility] [id number], [place] [address]- 4533 Jul, Lumbar neuritis M54.16 [facility] [address] [facility] [id number] [place] [address]- 0502 Jul, [facility] [place] [facility] [id number] [place] [address]- 7968 Jul, [facility] [place] [facility] [address], [place] [address]- 5972 June, Lumbar neuritis M54.16 [facility] [address] [address]- 1664 June, [facility] [id number] [address]- 6054 June, [facility] [id number] [place] [address] 03011- 6590 May, Lumbar neuritis M54.16 [facility] [address], [place] [address]- 3140 May, [facility] [id number] [place] [address] 24309- 3952 May, [facility] [id number] [place] [address] 28753- 5420 Apr, [facility] [id number] [place] [address] 49036- 2037 14 May, 2015 [facility] [address], [place] [address]- 6251 14 May, 2015 [facility] [id number] [place] [address] 29400- 6053 Apr, [facility] [address], [place] [address]- 4722 24 Apr, 2015 [facility] [address] [address]- 9046 Apr, Inguinal hernia, right K40.90 [facility] [address], [place] [address]- 9987 17 Apr, 2015 [facility] [id number] [place] [address] 34528- 5765 15 Apr, 2015 Low back pain M54.5 and Sciatica, unspecified side M54.30 [facility] [address], [place] [address]- 8876 Mar, [facility] [place] [facility] [address] [facility] [id number], [place] [address]- 5937 Mar, [facility] [place] [facility] [address] [facility] [id number] [place] [address], [place] [address]- 3892 Jan, [facility] [place] [facility] [address] [facility] [id number] [place] [address]- 3130 Jan, [facility] [place] [facility] [address] [facility] [id number] [place] [address], [place] [address]- 3679 Jan, [facility] [place] [facility] [address] [facility] [id number] [place] [address], [place] [address]- 1826 Dec, [facility] [place] [facility] [address] [facility] [id number] [place] [address] 92258- 8908 Dec, [facility] [id number] [place] [address], [place] [address]- 7998 Dec, [facility] [place] [facility] [id number] [place] [address] 30013- 7249 Dec, [facility] [place] [facility] [address], [place] [address]- 2660 Nov, [facility] [id number] [place] [address] 12103- 1576 Nov, Encounter for immunization Z23 [facility] [id number], [place] [address]- 7019 Nov, [facility] [place] [facility] [address], [place] [address]- 1338 Nov, [facility] [place] [facility] [address] [facility] [id number], [place] [address]- 3187 Oct, [facility] [place] [facility] [id number], [place] [address]- 2740 Oct, [facility] [place] [facility] [address], [place] [address]- 4409 Sep, Lumbago 724.2 [facility] [place] [facility] [address] [id number] [place] [address]- 9083 Sep, [facility] [place] [facility] [address] [id number] [place] [address]- 1241 Aug, Lumbago 724.2 [facility] [place] [facility] [address] [id number] [place] [address]- 2053 Aug, [facility] [place] [facility] [address] [id number] [place] [address]- 2805 Aug, [facility] [place] [facility] [address] [id number] [place] [address]- 0201 Jul, [facility] [place] [facility] [address] [id number] [place] [address]- 0691 Jul, [facility] [place] [facility] [address] [id number] [place] [address]- 9501 Jul, [facility] [place] [facility] [address] [id number] [place] [address]- 2129 June, [facility] [place] [facility] [address] [id number] [place] [address]- 8888 May, [facility] [place] [facility] [address] [id number] [place] [address]- 6789 May, [facility] [place] [facility] [address] [id number] [place] [address]- 1898 Apr, [facility] [place] [facility] [address] [id number] [place] [address]- 7402 Apr, [facility] [place] [facility] [address] [id number] [place] [address]- 4358 Apr, [facility] [place] [facility] [address] [id number] [place] 9535 Apr, [facility] [place] [facility] [address] [id number] [place] [address]- 5837 Apr, [facility] [place] [facility] [address] [id number] [place] [address]- 1164 Apr, 2014 [facility] [place] [facility] [address] [id number] [place] [address]- 9907 Apr, [facility] [place] [facility] [address] [id number] [place] [address]- 4606 Apr, [facility] [place] [facility] [address] [id number] [place] [address]- 7481 Mar, [facility] [place] [facility] [address] [id number] [place] [address]- 4792 Mar, [facility] [place] [facility] [address] [id number] [place] 2348 Jan, [facility] [place] [facility] [address] [id number] [place] [address]- 8874 Jan, [facility] [place] [facility] [address] [id number] [place] [address]- 9308 Jan, [facility] [place] [facility] [address] [id number] [place] [address]- 7399 Jan, [facility] [place] [facility] [address] [id number] [place] [address]- 2758 Jan, [facility] [place] [facility] [address] [facility] [id number] [place] [address]- 6643 Jan, [facility] [place] [facility] [address] [id number] [place] [address]- 0660 Dec, [facility] [place] [facility] [address] [id number] [place] [address]- 6345 Dec, [facility] [place] [facility] [address] [id number] [place] [address]- 6882 Nov, [facility] [place] [facility] [address] [id number] [place] 5218 Nov, [facility] [place] [facility] [address] [id number] [place] [address]- 2454 Nov, [facility] [place] [facility] [address] [id number] [place] [address]- 5963 Nov, [facility] [place] [facility] [address] [id number] [place]- 4687 Oct, [facility] [place] [facility] [address] [id number] [place] [address]- 1274 Oct, [facility] [place] [facility] [address] [id number] [place] [address]- 2858 Sep, [facility] [place] [facility] [address] [id number] [place] [address]- 2894 Sep, [facility] [place] [facility] [address] [id number] [place] [address]- 1224 Sep, [facility] [place] [facility] [address] [id number] [place] [address]- 3126 Sep, [facility] [place] [facility] [address] [id number] [place] [address]- 3124 Aug, [facility] [place] [facility] [address] [id number] [place] [address]- 2710 Aug, [facility] [place] [facility] [address] [id number] [place] [address]- 3599 Aug, [facility] [place] [facility] [address] [id number] [place] [address]- 8722 Aug, [facility] [place] [facility] [address] [id number] [place] [address]- 3555 Jul, [facility] [place] [facility] [address] [id number] [place] [address]- 6472 Jul, [facility] [place] [facility] [address] [id number] [place] [address]- 9436 June, [facility] [place] [facility] [address] [id number] [place] [address]- 6593 June, [facility] [place] [facility] [address] [id number] [place] [address]- 7972 June, [facility] [place] [facility] [address] [id number] [place] [address]- 5510 May, [facility] [place] [facility] [address] [id number] [place] [address]- 2036 May, [facility] [place] [facility] [address] [id number] [place] [address] May, [facility] [place] [facility] [address] [id number] [place] [address] May, [facility] [place] [facility] [address] [id number] [place] [address] May, [facility] [place] [facility] [address] [id number] [place] [address] May, [facility] [place] [facility] [address] [id number] [place] [address] May, [facility] [place] [facility] [address] [id number] [place] [address] May, [facility] [place] [facility] [address] [id number] [place] [address] May, [facility] [place] [facility] [address] [id number] [place] [address] May, [facility] [place] [facility] [address] [id number] [place] [address] May, [facility] [place] [facility] [address] [id number] [place] [address] Apr, [facility] [place] [facility] [address] [id number] [place] [address] Apr, [facility] [place] [facility] [address] [id number] [place] [address] Apr, [facility] [place] [facility] [address] [id number] [place] [address] Apr, [facility] [place] [facility] [address] [id number] [place] [address] Apr, [facility] [place] [facility] [address] [id number] [place] [address]- [address] Apr, [facility] [place] [facility] [address] [id number] [place] [address] Apr, [facility] [place] [facility] [address] [id number] [place] [address] Apr, [facility] [place] [facility] [address] [id number] [place] [address] Apr, [facility] [place] [facility] [address] [id number] [place] [address] Apr, [facility] [place] [facility] [address] [id number] [place] [address] Apr, [facility] [place] [facility] [address] [id number] [place] [address] Apr, [facility] [place] [facility] [address] [id number] [place] [address] Mar, [facility] [place] [facility] [address] [facility] [id number] [place] [address] Mar, [facility] [place] [facility] [address] [id number] [place] [address] Mar, [facility] [place] [facility] [address] [id number] [place] [address] Mar, [facility] [place] [facility] [address] [id number] [place] [address] Mar, [facility] [place] [facility] [address] [id number] [place] [address] Mar, [facility] [place] [facility] [address] [id number] [place] [address] Jan, [facility] [place] [facility] [address] [id number] [place] [address] Jan, [facility] [address] [facility] [id number] [place] [address] Dec, [facility] [address] [facility] [id number] [place] [address] Dec, IMMUNIZATIONS No Known Immunizations SOCIAL HISTORY Never Assessed REASON FOR VISIT Controlled Med Refill 02/18/17 PLAN OF CARE VITAL SIGNS MEDICATIONS Medication [...]
--- OUTSIDE RECORDS SUMMARY | 2017-11-01 13:13 | XMS REPORT ---
Author Author SHAHNAZ WIN Organization [facility] Address [address] [place] [address] Care Team Providers Care Branch Associate Name Role Phone SHAHNAZ WIN Unavailable PROBLEMS Type Condition ICD9-CM Code CQR08-KC Code Onset Dates Condition Status SNOMED Code Problem ADHD (attention deficit hyperactivity disorder), inattentive type F90.0 Active 42876949 Problem Arthritis M19.90 Active 8144556 Problem Positive skin test for tuberculosis R76.11 Active 852466153 Problem Lumbago with sciatica, left side M54.42 Active 572097909 Problem Excessive daytime sleepiness G47.19 Active 057727350636 Problem 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 [id number] Problem 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 Active [id number] ALLERGIES No Information ENCOUNTERS Encounter Location Date Diagnosis [place] [id number] [place] [address] 82898- 4654 Jul, Right lower quadrant abdominal pain R10.31 and Rash R21 [place] [id number] [place] [address] 19728- 4827 14 Apr, 2017 ADHD (attention deficit hyperactivity disorder), inattentive type F90.0 ; Lumbago with sciatica, left side M54.42 and Arthritis M19.90 [facility] [address] [place] [address] 24204- 5080 Apr, ADHD (attention deficit hyperactivity disorder), inattentive type F90.0 and Lumbar neuritis M54.16 [facility] [id number] [place] [address] 23013- 1672 Apr, [place] [id number] [place] [address] 61285- 7484 Apr, Lumbar neuritis M54.16 [facility] [address] [place] [address] 06874- 6264 16 Apr, 2017 Low back pain M54.5 [facility] [id number] [place] [address] 27666- 8539 11 Apr, 2017 ADHD (attention deficit hyperactivity disorder), inattentive type F90.0 [facility] [id number] [place] [address] 17520- 2477 09 Apr, 2017 Positive skin test for tuberculosis R76.11 [facility] [id number] [place] [address] 02694- 0752 Apr, Positive skin test for tuberculosis R76.11 [facility] [id number] [place] [address] 60240- 8075 Apr, [facility] [id number] [place] [address] 08659- 6904 Mar, Lumbar neuritis M54.16 [facility] [id number] [place] [address] 99474- 2305 Mar, ADHD (attention deficit hyperactivity disorder), inattentive type F90.0 [facility] [address] [place] [address] 61240- 4762 Mar, [facility] [address] [place] [address] 30300- 1093 Jan, Lumbar neuritis M54.16 [facility] [id number] [place] [address] 98178- 0978 Jan, ADHD (attention deficit hyperactivity disorder), inattentive type F90.0 [facility] [id number] [place] [address] 85872- 6492 Jan, [facility] [id number] [place] [address] 70854- 2652 Jan, [facility] [id number] [place] [address] 98609- 7494 Dec, Lumbar neuritis M54.16 [facility] [id number] [place] [address] 34374- 3513 Dec, ADHD (attention deficit hyperactivity disorder), inattentive type F90.0 and 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16 and ADHD (attention deficit hyperactivity disorder), inattentive type F90.0 [facility] [id number] [place] [address] 32234- 5967 Oct, [facility] [id number] [place] [address] 79787- 5730 Sep, ADHD (attention deficit hyperactivity disorder), inattentive type F90.0 and Lumbar neuritis M54.16 [facility] [id number] [place] [address] 92520- 1496 Sep, Lumbar neuritis M54.16 [facility] [id number] [place] [address] 51877- 4265 Sep, [facility] [id number] [place] [address] 52370- 3428 Sep, ADHD (attention deficit hyperactivity disorder), inattentive type F90.0 and Lumbar neuritis M54.16 [facility] [address] [address]- 6805 Sep, [facility] [address] [address]- 6970 Aug, [facility] [address] [place] [address]- 4355 Aug, [facility] [id number] [place] [address] 93783- 0154 Aug, [facility] [id number] [place] [address] 52309- 3426 Aug, [facility] [id number] [place] [address] 80278- 8348 Aug, ADHD (attention deficit hyperactivity disorder), inattentive type F90.0 and Lumbar neuritis M54.16 [facility] [id number] [place] [address] 86923- 8738 Jul, [facility] [address] [address]- 5002 Jul, [facility] [id number] [place] [address] 30138- 1982 Jul, Lumbar neuritis M54.16 and ADHD (attention deficit hyperactivity disorder), inattentive type F90.0 [facility] [address] [address]- 7818 Jul, [facility] [address] [address]- 9140 June, Lumbar neuritis M54.16 and ADHD (attention deficit hyperactivity disorder), inattentive type F90.0 [facility] [address] 2746 June, [facility] [address] [address]- 2800 June, [facility] [address] [place] [address] 48708- 8844 May, 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 and Lumbago with sciatica, left side M54.42 [facility] [id number] [place] [address] 68707- 0303 14 May, 2016 Lumbar neuritis M54.16 and ADHD (attention deficit hyperactivity disorder), inattentive type F90.0 [facility] [id number] [place] [address] 93680- 5672 Apr, [facility] [id number] [place] [address] 85422- 1911 Apr, Lumbar neuritis M54.16 and ADHD (attention deficit hyperactivity disorder), inattentive type F90.0 [facility] [id number] [place] [address] 72360- 9400 Apr, [facility] [id number] [place] [address] 86286- 4883 Apr, [facility] [id number] [place] [address] 86113- 7568 15 Apr, 2016 ADHD (attention deficit hyperactivity disorder), inattentive type F90.0 [facility] [id number] [place] [address] 64838- 8836 15 Apr, 2016 Lumbar neuritis M54.16 [facility] [id number] [place] [address] 88996- 2952 08 Apr, 2016 [facility] [id number] [place] [address] 23800- 9975 07 Apr, 2016 [facility] [id number] [place] [address] 66037- 3182 Mar, Attention deficit hyperactivity disorder (ADHD), predominantly inattentive type F90.0 [facility] [id number] [place] [address] 56499- 3789 Mar, [facility] [address] [place] [address]- 5024 Mar, [facility] [id number] [place] [address] 74635- 7031 Mar, [facility] [id number] [place] [address] 37145- 0483 Jan, Attention deficit hyperactivity disorder (ADHD), predominantly inattentive type F90.0 [facility] [id number] [place] [address] 54899- 4940 Jan, [facility] [id number] [place] [address] 67065- 0241 Jan, [facility] [id number] [place] [address] 05121- 1686 Jan, [facility] [id number] [place] [address] 93869- 6348 Jan, [facility] [id number] [place] [address] 46820- 0111 Jan, Low TSH level R94.6 [facility] [id number] [place] [address] 69671- 6852 Jan, [facility] [id number] [place] [address] 05807- 4521 Dec, [facility] [address], [place] [address]- 6416 Dec, [facility] [address] [place] [address] 19002- 1430 Dec, [facility] [address], [place] [address]- 3172 Nov, Low TSH level R94.6 [facility] [id number] [place] [address] 08631- 5472 Nov, Excessive daytime sleepiness G47.19 and ADHD (attention deficit hyperactivity disorder), inattentive type F90.0 [facility] [id number] [place] [address]- 5712 13 Dec, 2015 [facility] [address] [facility] [id number] [place] [address]- 4120 Nov, [facility] [place] [facility] [address] [facility] [id number] [place] [address]- 3860 Nov, [facility] [address] [facility] [id number] [place] [address]- 5794 Oct, [facility] [place] [facility] [address] [facility] [id number] [place] [address]- 5999 14 Nov, 2015 [facility] [address] [facility] [id number] [place] [address], [place] [address]- 1397 Oct, [facility] [place] [facility] [id number] [place] [address]- 8832 Sep, [facility] [id number] [place] [address], [place] [address]- 0328 Sep, [facility] [address] [facility] [id number] [place] [address]- 0695 Sep, [facility] [id number] [place] [address], [place] [address]- 4304 Aug, Lumbar neuritis M54.16 [facility] [address] [address]- 4821 Aug, [facility] [place] [facility] [address] [place] [address]- 0568 Aug, [facility] [place] [facility] [address] [facility] [id number] [address]- 6577 Jul, Lumbar neuritis M54.16 [facility] [address] [facility] [id number] [place] [address]- 4277 Jul, [facility] [place] [facility] [id number] [place] [address]- 7883 Jul, [facility] [place] [facility] [address], [place] [address]- 4015 June, Lumbar neuritis M54.16 [facility] [address], [place] [address]- 6862 June, [facility] [id number] [address]- 2843 June, [facility] [address] [place] [address] 95555- 4224 May, Lumbar neuritis M54.16 [facility] [address], [place] [address]- 8733 May, [facility] [id number] [place] [address] 08788- 1980 May, [facility] [address] [place] [address] 93493- 3511 Apr, [facility] [id number] [place] [address] 43917- 0223 14 May, 2015 [facility] [address], [place] [address]- 5960 14 May, 2015 [facility] [address] [place] [address] 51753- 2907 Apr, [facility] [address], [place] [address]- 9849 24 Apr, 2015 [facility] [address], [place] [address]- 5877 Apr, Inguinal hernia, right K40.90 [facility] [address], [place] [address]- 3625 17 Apr, 2015 [facility] [address] [place] [address] 99380- 0169 15 Apr, 2015 Low back pain M54.5 and Sciatica, unspecified side M54.30 [facility] [address], [place] [address]- 3086 Mar, [facility] [place] [facility] [address] [facility] [id number], [place] [address]- 8670 Mar, [facility] [place] [facility] [address] [facility] [id number] [place] [address], [place] [address]- 7266 Jan, [facility] [place] [facility] [address] [facility] [id number] [place] [address]- 3090 Jan, [facility] [place] [facility] [address] [facility] [id number] [place] [address], [place] [address]- 1217 Jan, [facility] [place] [facility] [address] [facility] [id number] [place] [address], [place] [address]- 4037 Dec, [facility] [place] [facility] [address] [facility] [id number] [place] [address] 47936- 1824 Dec, [facility] [id number] [place] [address], [place] [address]- 1341 Dec, [facility] [place] [facility] [id number] [place] [address] 99859- 9252 Dec, [facility] [place] [facility] [address], [place] [address]- 9999 Nov, [facility] [address] [place] [address] 27021- 3867 Nov, Encounter for immunization Z23 [facility] [id number], [place] [address]- 0910 Nov, [facility] [place] [facility] [address], [place] [address]- 7811 Nov, [facility] [place] [facility] [address] [facility] [id number], [place] [address]- 8747 Oct, [facility] [place] [facility] [id number], [place] [address]- 5969 Oct, [facility] [place] [facility] [address], [place] [address]- 4059 Sep, Lumbago 724.2 [facility] [place] [facility] [address] [id number] [place] [address]- 8556 Sep, [facility] [place] [facility] [address] [id number] [place] [address]- 7883 Aug, Lumbago 724.2 [facility] [place] [facility] [address] [id number] [place] [address]- 7814 Aug, [facility] [place] [facility] [address] [id number] [place] [address]- 8956 Aug, [facility] [place] [facility] [address] [id number] [place] [address]- 3482 Jul, [facility] [place] [facility] [address] [id number] [place] [address]- 3962 Jul, [facility] [place] [facility] [address] [id number] [place] [address]- 0895 Jul, [facility] [place] [facility] [address] [id number] [place] [address]- 9712 June, [facility] [place] [facility] [address] [id number] [place] [address]- 4661 May, [facility] [place] [facility] [address] [id number] [place] [address]- 8832 May, [facility] [place] [facility] [address] [id number] [place] [address]- 7586 Apr, [facility] [place] [facility] [address] [id number] [place] [address]- 9953 Apr, [facility] [place] [facility] [address] [id number] [place] [address]- 8100 Apr, [facility] [place] [facility] [address] [id number] [place] 6204 Apr, [facility] [place] [facility] [address] [id number] [place] [address]- 3256 Apr, [facility] [place] [facility] [address] [id number] [place] [address]- 3121 Apr, 2014 [facility] [place] [facility] [address] [id number] [place] [address]- 5283 Apr, [facility] [place] [facility] [address] [id number] [place] [address]- 1666 Apr, [facility] [place] [facility] [address] [id number] [place] [address]- 1480 Mar, [facility] [place] [facility] [address] [id number] [place] [address]- 8789 Mar, [facility] [place] [facility] [address] [id number] [place] 0505 Jan, [facility] [place] [facility] [address] [id number] [place] [address]- 8967 Jan, [facility] [place] [facility] [address] [id number] [place] [address]- 0324 Jan, [facility] [place] [facility] [address] [id number] [place] [address]- 7332 Jan, [facility] [place] [facility] [address] [id number] [place] [address]- 1113 Jan, [facility] [place] [facility] [address] [facility] [id number] [place] [address]- 5486 Jan, [facility] [place] [facility] [address] [id number] [place] [address]- 1465 Dec, [facility] [place] [facility] [address] [id number] [place] [address]- 9037 Dec, [facility] [place] [facility] [address] [id number] [place] [address]- 0008 Nov, [facility] [place] [facility] [address] [id number] [place] 7685 Nov, [facility] [place] [facility] [address] [id number] [place] [address]- 1981 Nov, [facility] [place] [facility] [address] [id number] [place] [address]- 0824 Nov, [facility] [place] [facility] [address] [id number] [place] 6369 Oct, [facility] [place] [facility] [address] [id number] [place] [address]- 3493 Oct, [facility] [place] [facility] [address] [id number] [place] [address]- 7965 Sep, [facility] [place] [facility] [address] [id number] [place] [address]- 7080 Sep, [facility] [place] [facility] [address] [id number] [place] [address]- 0548 Sep, [facility] [place] [facility] [address] [id number] [place] [address]- 4475 Sep, [facility] [place] [facility] [address] [id number] [place] [address]- 0586 Aug, [facility] [place] [facility] [address] [id number] [place] [address]- 7101 Aug, [facility] [place] [facility] [address] [id number] [place] [address]- 7694 Aug, [facility] [place] [facility] [address] [id number] [place] [address]- 1039 Aug, [facility] [place] [facility] [address] [id number] [place] [address]- 6031 Jul, [facility] [place] [facility] [address] [id number] [place] [address]- 3439 Jul, [facility] [place] [facility] [address] [id number] [place] [address]- 6963 June, [facility] [place] [facility] [address] [id number] [place] [address]- 8873 June, [facility] [place] [facility] [address] [id number] [place] [address]- 7452 June, [facility] [place] [facility] [address] [id number] [place] [address]- 0143 May, [facility] [place] [facility] [address] [id number] [place] [address]- 1716 May, [facility] [place] [facility] [address] [id number] [place] [address]- 9145 May, [facility] [place] [facility] [address] [id number] [place] [address]- 6189 May, [facility] [place] [facility] [address] [id number] [place] [address]- 7928 May, [facility] [place] [facility] [address] [id number] [place] [address]- 3927 May, [facility] [place] [facility] [address] [id number] [place] [address] May, [facility] [place] [facility] [address] [id number] [place] [address] May, [facility] [place] [facility] [address] [id number] [place] [address] May, [facility] [place] [facility] [address] [id number] [place] [address] May, [facility] [place] [facility] [address] [id number] [place] [address] May, [facility] [place] [facility] [address] [id number] [place] [address] Apr, [facility] [place] [facility] [address] [id number] [place] [address] Apr, [facility] [place] [facility] [address] [id number] [place] [address] Apr, [facility] [place] [facility] [address] [id number] [place] [address] Apr, [facility] [place] [facility] [address] [id number] [place] [address] Apr, [facility] [place] [facility] [address] [id number] [place] [address] Apr, [facility] [place] [facility] [address] [id number] [place] [address] Apr, [facility] [place] [facility] [address] [id number] [place] [address] Apr, [facility] [place] [facility] [address] [id number] [place] [address] Apr, [facility] [place] [facility] [address] [id number] [place] [address] Apr, [facility] [place] [facility] [address] [id number] [place] [address] Apr, [facility] [place] [facility] [address] [id number] [place] [address] Apr, [facility] [place] [facility] [address] [id number] [place] [address] Mar, [facility] [place] [facility] [address] [facility] [id number] [place] [address] Mar, [facility] [place] [facility] [address] [id number] [place] [address] Mar, [facility] [place] [facility] [address] [id number] [place] [address] Mar, [facility] [place] [facility] [address] [id number] [place] [address] Mar, [facility] [place] [facility] [address] [id number] [place] [address] Mar, [facility] [place] [facility] [address] [id number] [place] [address] Jan, [facility] [place] [facility] [address] [id number] [place] [address] Jan, [facility] [address] [facility] [id number] [place] [address] Dec, [facility] [address] [facility] [id number] [place] [address] Dec, IMMUNIZATIONS No Known Immunizations SOCIAL HISTORY Never Assessed REASON FOR VISIT Controlled Med Refill 03/10 PLAN OF CARE VITAL SIGNS MEDICATIONS Medication Instructions Dosage Frequency Start Date End Date Duration Status Needles 10-325 MG Orally every 6 hrs 1 tablet as needed 6h Mar, 28 days Active Xanax 1 MG Orally 3 times a day 1 tablet 8h Sep, 28 days Active RESULTS No Results PROCEDURES No Known procedures INSTRUCTIONS MEDICATIONS ADMINISTERED No Known Medications MEDICAL (GENERAL) HISTORY Type Description Date Medical History narcolepsy Surgical History Gallbladder removed 05/2014 Surgical History Hernia repair 05/24/2015
--- OUTSIDE RECORDS SUMMARY | 2017-11-01 13:13 | XMS REPORT ---
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
--- OUTSIDE RECORDS SUMMARY | 2017-11-01 13:13 | XMS REPORT ---
Author Author SHAHNAZ WIN Organization [employer] Address Unknown Phone Unavailable Care Team Providers Care Deckhand [employer] Name Role Phone SHAHNAZ WIN CP Unavailable [...]
--- OUTSIDE RECORDS SUMMARY | 2017-11-01 13:13 | XMS REPORT ---
Author SHAHNAZ Card Organization [employer] Address Unknown Phone Unavailable Care Team Providers Care Cripple Worker Name Role Phone SHAHNAZ WIN CP Unavailable [...] of other cardiovascular diseases V17.49 Active Medications No Known Medications Results No Known Results Summary Purpose [facility] [employer] Submission
--- OUTSIDE RECORDS SUMMARY | 2017-11-01 13:13 | XMS REPORT ---
Author Author SHAHNAZ WIN Organization [employer] Address Unknown Phone Unavailable Care Team Providers Care Derrick Car Operator Name Role Phone SHAHNAZ WIN CP [...]
--- OUTSIDE RECORDS SUMMARY | 2017-11-01 13:14 | XMS REPORT ---
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 59407838410421 Problem ADHD (attention deficit hyperactivity disorder), inattentive type F90.0 Active 09599347 Problem Excessive daytime sleepiness G47.19 Active 143492892390 ALLERGIES No Information SOCIAL HISTORY Never Assessed PLAN OF CARE VITAL SIGNS MEDICATIONS Medication Instructions Dosage Frequency Start Date End Date Duration Status Hydrocodone-Acetaminophen 10-325 MG Orally every 6 hrs 1 tablet as needed 6h Jul, 28 days Active Alprazolam 1 MG Orally Three times a day 1 tablet 8h Apr, 28 days Active RESULTS No Results PROCEDURES No Known procedures IMMUNIZATIONS No Known Immunizations MEDICAL (GENERAL) HISTORY Type Description Date Surgical History Gallbladder removed 05/2014 Surgical History Hernia repair 05/24/2015
--- OUTSIDE RECORDS SUMMARY | 2017-11-01 13:14 | XMS REPORT ---
Author Author SHAHNAZ WIN [facility] Address [address] [place] [address] Care Team Providers Care Child Custody Evaluator Name Role Phone SHAHNAZ WIN Unavailable PROBLEMS Type Condition ICD9-CM Code [id number] Code Onset Dates Condition Status SNOMED Code Problem Lumbago 724.2 Active 576902693 Problem Family history of diabetes mellitus V18.0 Active 487226964 Problem Anxiety state, unspecified 300.00 Active 738394633 Problem Screening examination for pulmonary tuberculosis V74.1 Active 863386370 Problem Pneumonia, organism unspecified 486 Active 889161799 Problem Pain in joint, pelvic region and thigh 719.45 Active 072197582 Problem Excessive daytime sleepiness G47.19 Active 933022084619 Problem ADHD (attention deficit hyperactivity disorder), inattentive type F90.0 Active 47664007 Problem Family history of other cardiovascular diseases V17.49 Active 994424445 Problem Family history of malignant neoplasm of breast V16.3 Active 452773981 Problem Unspecified arthropathy, site unspecified 716.90 Active 878667083 Problem Family history of ischemic heart disease V17.3 Active 910433758 ALLERGIES Unknown Allergies SOCIAL HISTORY No smoking Hx information available PLAN OF CARE VITAL SIGNS MEDICATIONS Medication Instructions Dosage Frequency Start Date End Date Duration Status Adderall 10 mg Orally 2 times a day 1 tablet in the morning 12h Jan, Active Adderall 10 mg Orally Once a day 1 tablet in the morning 24h Jan, Active RESULTS No Results PROCEDURES No Known procedures IMMUNIZATIONS No Known Immunizations
--- OUTSIDE RECORDS SUMMARY | 2017-11-01 13:14 | XMS REPORT ---
Author Author SHAHNAZ WIN Organization [employer] Address Unknown Phone Unavailable Care Team Providers Care Mash Grinder Name Role Phone SHAHNAZ WIN CP Unavailable [...] Date End Date Status Dosage Alprazolam [facility] [address]-82 1 MG May 29, 2014 take 1 tablet (1 mg) by oral route 3 times per day tramadol [facility] 0 50 mg May 29, 2014 take 1 tablet (50 mg) by oral route every 6 hours as needed Hydrocodone-Acetaminophen [facility] [address]-19 10-325 MG May 29, 2014 take 1 tablet by oral route every 6 hours as needed for pain PRN Results No Known Results Summary Purpose [employer] Submission
--- OUTSIDE RECORDS SUMMARY | 2017-11-01 13:14 | XMS REPORT ---
Author Author SHAHNAZ WIN Organization [facility] Address [address] [place] [address] Care Team Providers Care Circle Saw Operator Name Role Phone SHAHNAZ WIN Unavailable PROBLEMS Type Condition ICD9-CM Code MSW50-VA Code Onset Dates Condition Status SNOMED Code Problem ADHD (attention deficit hyperactivity disorder), inattentive type F90.0 Active 33983486 Problem Arthritis M19.90 Active 2270495 Problem Positive skin test for tuberculosis R76.11 Active 756731242 Problem Lumbago with sciatica, left side M54.42 Active 488717334 Problem Excessive daytime sleepiness G47.19 Active 104346384767 Problem 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 42683343743098 Problem 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 Active [id number] ALLERGIES No Information ENCOUNTERS Encounter Location Date Diagnosis [place] [id number] [place] [address] 55054- 5798 June, [place] [id number] [place] [address] 79514- 8775 Apr, ADHD (attention deficit hyperactivity disorder), inattentive type F90.0 ; Lumbago with sciatica, left side M54.42 and Arthritis M19.90 [facility] [id number] [place] [address] 50698- 0327 Apr, ADHD (attention deficit hyperactivity disorder), inattentive type F90.0 and Lumbar neuritis M54.16 [place] [id number] [place] [address] 52022- 5904 Apr, [place] [id number] [place] [address] 43670- 3703 Apr, Lumbar neuritis M54.16 [place] [id number] [place] [address] 36704- 1948 16 Apr, 2017 Low back pain M54.5 [facility] [id number] [place] [address] 52522- 7316 Apr, ADHD (attention deficit hyperactivity disorder), inattentive type F90.0 [facility] [id number] [place] [address] 19542- 9374 Apr, Positive skin test for tuberculosis R76.11 [facility] [id number] [place] [address] 80483- 8389 Apr, Positive skin test for tuberculosis R76.11 [facility] [id number] [place] [address] 88575- 1607 Apr, [facility] [id number] [place] [address] 45039- 5849 Mar, Lumbar neuritis M54.16 [facility] [id number] [place] [address] 57078- 1827 Mar, ADHD (attention deficit hyperactivity disorder), inattentive type F90.0 [facility] [id number] [place] [address] 95792- 6270 Mar, [facility] [id number] [place] [address] 81684- 9373 Jan, Lumbar neuritis M54.16 [facility] [id number] [place] [address] 53994- 7900 Jan, ADHD (attention deficit hyperactivity disorder), inattentive type F90.0 [facility] [id number] [place] [address] 91452- 1285 Jan, [facility] [id number] [place] [address] 94784- 1094 Jan, [facility] [id number] [place] [address] 08566- 0410 Dec, Lumbar neuritis M54.16 [facility] [id number] [place] [address] 90240- 3806 Dec, ADHD (attention deficit hyperactivity disorder), inattentive type F90.0 and 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 [facility] [id number] [place] [address] 46832- 5681 Dec, [facility] [id number] [place] [address] 95137- 1292 Dec, [facility] [id number] [place] [address] 20777- 0343 Nov, Lumbar neuritis M54.16 and ADHD (attention deficit hyperactivity disorder), inattentive type F90.0 [facility] [id number] [place] [address] 20187- 5798 Nov, [facility] [id number] [place] [address] 48516- 2298 Oct, Lumbar neuritis M54.16 and ADHD (attention deficit hyperactivity disorder), inattentive type F90.0 [facility] [id number] [place] [address] 99115- 2283 Oct, [facility] [id number] [place] [address] 32198- 1942 Sep, ADHD (attention deficit hyperactivity disorder), inattentive type F90.0 and Lumbar neuritis M54.16 [facility] [id number] [place] [address] 61122- 2044 Sep, Lumbar neuritis M54.16 [facility] [id number] [place] [address] 70011- 9666 Sep, [facility] [id number] [place] [address] 15517- 0035 Sep, ADHD (attention deficit hyperactivity disorder), inattentive type F90.0 and Lumbar neuritis M54.16 [facility] [address] [place] [address]- 0275 Sep, [facility] [address] [place] [address]- 2119 Aug, [facility] [address] 9309 Aug, [facility] [address] [address]- 2536 Aug, [facility] [address] [address]- 1549 Aug, [facility] [id number] [place] [address] 92024- 1041 Aug, ADHD (attention deficit hyperactivity disorder), inattentive type F90.0 and Lumbar neuritis M54.16 [facility] [id number] [address]- 4776 Jul, [facility] [id number] [address]- 4851 Jul, [facility] [id number] [place] [address] 07291- 2764 Jul, Lumbar neuritis M54.16 and ADHD (attention deficit hyperactivity disorder), inattentive type F90.0 [facility] [address] [address]- 0276 Jul, [facility] [address], [place] [address]- 6731 June, Lumbar neuritis M54.16 and ADHD (attention deficit hyperactivity disorder), inattentive type F90.0 [facility] [address] 6292 June, [facility] [address] 4761 June, [facility] [address] [address]- 9186 May, 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 and Lumbago with sciatica, left side M54.42 [facility] [id number] [place] [address] 58126- 4519 May, Lumbar neuritis M54.16 and ADHD (attention deficit hyperactivity disorder), inattentive type F90.0 [facility] [id number] [place] [address] 22700- 6936 Apr, [facility] [id number] [place] [address] 54880- 6484 Apr, Lumbar neuritis M54.16 and ADHD (attention deficit hyperactivity disorder), inattentive type F90.0 [facility] [id number] [place] [address] 77362- 3449 Apr, [facility] [id number] [place] [address] 18655- 3559 Apr, [facility] [id number] [place] [address] 67312- 7986 Apr, ADHD (attention deficit hyperactivity disorder), inattentive type F90.0 [facility] [id number] [place] [address] 04777- 0165 Apr, Lumbar neuritis M54.16 [facility] [id number] [place] [address] 55457- 8395 08 Apr, 2016 [facility] [id number] [place] [address] 03256- 0552 07 Apr, 2016 [facility] [id number] [place] [address] 36990- 2247 Mar, Attention deficit hyperactivity disorder (ADHD), predominantly inattentive type F90.0 [facility] [id number] [place] [address] 87147- 3905 Mar, [facility] [id number] [place] [address] 63705- 1483 Mar, [facility] [id number] [place] [address] 98618- 3809 Mar, [facility] [id number] [place] [address] 57041- 3561 Jan, Attention deficit hyperactivity disorder (ADHD), predominantly inattentive type F90.0 [facility] [id number] [place] [address] 10117- 9610 Jan, [facility] [id number] [place] [address] 96659- 5075 Jan, [facility] [id number] [place] [address] 12906- 2982 Jan, [facility] [id number] [place] [address] 11198- 9051 Jan, Low TSH level R94.6 [facility] [id number] [place] [address] 06314- 8976 Jan, [facility] [id number] [place] [address] 40400- 4561 Jan, [facility] [id number] [place] [address] 53165- 5388 Dec, [facility] [id number] [place] [address] 65699- 4007 Dec, [facility] [id number] [place] [address] 29483- 9503 Dec, [facility] [id number] [place] [address] 03267- 1947 Nov, Low TSH level R94.6 [facility] [id number] [place] [address] 52180- 4113 Nov, Excessive daytime sleepiness G47.19 and ADHD (attention deficit hyperactivity disorder), inattentive type F90.0 [facility] [id number] [place] [address] 52758- 4394 Nov, [facility] [address] [facility] [id number] [place] [address]- 7142 Nov, [facility] [place] [facility] [address] [facility] [id number] [place] [address]- 6342 Nov, [facility] [address] [facility] [id number] [place] [address]- 2986 Oct, [facility] [place] [facility] [address] [facility] [id number] [place] [address], [place] [address]- 4548 Oct, [facility] [place] [facility] [address] [facility] [id number] [place] [address]- 2810 Oct, [facility] [place] [facility] [id number] [place] [address], [place] [address]- 6194 Sep, [facility] [place] [facility] [id number] [place] [address], [place] [address]- 8440 Sep, [facility] [place] [facility] [address] [facility] [id number] [place] [address], [place] [address]- 6648 Sep, [facility] [id number] [address]- 8759 Aug, Lumbar neuritis M54.16 [facility] [id number], [place] [address]- 2414 Aug, [facility] [place] [facility] [address], [place] [address]- 7805 Aug, [facility] [place] [facility] [address] [facility] [id number], [place] [address]- 8374 Jul, Lumbar neuritis M54.16 [facility] [place] [facility] [address] [facility] [id number] [place] 0511 Jul, [facility] [place] [facility] [address] [facility] [id number] [place] [address]- 5478 Jul, [facility] [place] [facility] [address], [place] [address]- 7736 June, Lumbar neuritis M54.16 [facility] [address] [place] [address]- 2539 June, [facility] [id number] [place] [address] 96870- 2086 June, [facility] [id number] [place] [address] 29728- 3466 May, Lumbar neuritis M54.16 [facility] [id number] [place] [address] 62791- 2669 May, [facility] [id number] [place] [address] 74830- 7220 May, [facility] [id number] [place] [address] 61144- 0576 23 May, 2015 [facility] [id number] [place] [address] 61040- 2500 Apr, [facility] [id number] [place] [address] 40941- 4113 14 May, 2015 [facility] [id number] [place] [address] 23473- 2950 Apr, [facility] [id number] [address]- 9076 24 Apr, 2015 [facility] [id number] [place] [address] 42287- 7382 22 Apr, 2015 Inguinal hernia, right K40.90 [facility] [address], [place] [address]- 9037 17 Apr, 2015 [facility] [id number] [place] [address] 20605- 7609 15 Apr, 2015 Low back pain M54.5 and Sciatica, unspecified side M54.30 [facility] [address], [place] [address]- 1186 Mar, [facility] [address] [id number] [place] [address]- 8718 Mar, [facility] [address] [facility] [id number] [place] [address], [place] [address]- 4354 Jan, [facility] [place] [facility] [address] [facility] [id number] [place] [address]- 4866 Jan, [facility] [address] [facility] [id number] [place] [address], [place] [address]- 7709 Jan, [facility] [place] [facility] [address] [facility] [id number] [place] [address]- 3020 Dec, [facility] [id number] [place] [address], [place] [address]- 0468 Dec, [facility] [id number] [place] [address], [place] [address]- 5586 Dec, [facility] [id number] [place] [address], [place] [address]- 0852 Dec, [facility] [id number] [place] [address] 86162- 3081 Nov, [facility] [id number] [place] [address] 69756- 8596 Nov, Encounter for immunization Z23 [facility] [address], [place] [address]- 4886 Nov, [facility] [id number], [place] [address]- 4318 Nov, [facility] [id number], [place] [address]- 9840 Oct, [facility] [id number] [place] [address]- 5290 Oct, [facility] [id number] [address]- 6915 Sep, Lumbago 724.2 [facility] [id number] [place] [address]- 6604 Sep, [facility] [place] [facility] [address] [id number] [place] [address]- 7120 Aug, Lumbago 724.2 [facility] [place] [facility] [address] [id number] [place] [address]- 8146 Aug, [facility] [place] [facility] [address] [id number] [place] [address]- 1891 Aug, [facility] [place] [facility] [address] [id number] [place] [address]- 3714 Jul, [facility] [place] [facility] [address] [id number] [place] [address]- 2292 Jul, [facility] [place] [facility] [address] [id number] [place] [address]- 1565 Jul, [facility] [place] [facility] [address] [id number] [place] [address]- 3760 June, [facility] [place] [facility] [address] [id number] [place] [address]- 6147 May, [facility] [place] [facility] [address] [id number] [place] [address]- 2070 May, [facility] [place] [facility] [address] [facility] [id number] [place] [address]- 7811 Apr, [facility] [place] [facility] [address] [id number] [place] [address]- 1386 Apr, [facility] [place] [facility] [address] [id number] [place] [address]- 1461 Apr, [facility] [place] [facility] [address] [id number] [place] [address]- 3786 Apr, [facility] [place] [facility] [address] [id number] [place] [address]- 4636 Apr, [facility] [place] [facility] [address] [id number] [place] [address]- 2508 Apr, [facility] [place] [facility] [address] [id number] [place] [address]- 4946 Apr, [facility] [place] [facility] [address] [id number] [place] [address]- 9416 Apr, [facility] [place] [facility] [address] [facility] [id number] [place] [address]- 2110 Mar, [facility] [place] [facility] [address] [id number] [place] [address]- 4496 Mar, [facility] [place] [facility] [address] [id number] [place] [address]- 9417 Jan, [facility] [place] [facility] [address] [id number] [place] [address]- 0617 Jan, [facility] [place] [facility] [address] [id number] [place] [address]- 9961 Jan, [facility] [place] [facility] [address] [id number] [place] [address]- 7875 Jan, [facility] [place] [facility] [address] [id number] [place] [address]- 4998 Jan, [facility] [place] [facility] [address] [facility] [id number] [place] [address]- 8139 Jan, [facility] [place] [facility] [address] [id number] [place] [address]- 3433 Dec, [facility] [place] [facility] [address] [id number], [place] [address]- 4360 Dec, [facility] [place] [facility] [address] [id number] [place] [address]- 1776 Nov, [facility] [place] [facility] [address] [id number] [place] [address]- 3672 Nov, [facility] [place] [facility] [address] [facility] [id number] [place] [address]- 9483 Nov, [facility] [place] [facility] [address] [id number] [place] [address]- 0364 Nov, [facility] [place] [facility] [address] [id number] [place] [address]- 4799 Oct, [facility] [place] [facility] [address] [id number] [place] 7928 Oct, [facility] [place] [facility] [address] [id number] [place] [address]- 8888 Sep, [facility] [place] [facility] [address] [id number] [place] [address]- 0576 Sep, [facility] [place] [facility] [address] [id number] [place] [address]- 0560 Sep, [facility] [place] [facility] [address] [id number] [place] [address]- 0374 Sep, [facility] [place] [facility] [address] [id number] [place] [address]- 1638 Aug, [facility] [place] [facility] [address] [id number] [place] [address]- 2988 Aug, [facility] [place] [facility] [address] [id number] [place] [address]- 4425 Aug, [facility] [place] [facility] [address] [id number] [place] [address]- 0075 Aug, [facility] [place] [facility] [address] [id number] [place] [address]- 7564 Jul, [facility] [place] [facility] [address] [id number] [place] [address]- 1671 Jul, [facility] [place] [facility] [address] [id number] [place] [address]- 5564 June, [facility] [place] [facility] [address] [id number] [place] [id number] June, [facility] [place] [facility] [address] [id number] [place] [address] June, [facility] [place] [facility] [address] [id number] [place] [address] May, [facility] [place] [facility] [address] [id number] [place] [address] May, [facility] [place] [facility] [address] [id number] [place] [address] May, [facility] [place] [facility] [address] [id number] [place] [address] May, [facility] [place] [facility] [address] [id number] [place] [address] May, [facility] [place] [facility] [address] [id number] [place] [address] May, [facility] [place] [facility] [address] [id number] [place] [address] May, [facility] [place] [facility] [address] [id number] [place] [address] May, [facility] [place] [facility] [address] [id number] [place] [address] May, [facility] [place] [facility] [address] [id number] [place] [address] May, [facility] [place] [facility] [address] [id number] [place] [address] May, [facility] [place] [facility] [address] [id number] [place] [address] Apr, [facility] [place] [facility] [address] [id number] [place] [address] Apr, [facility] [place] [facility] [address] [id number] [place] [address] Apr, [facility] [place] [facility] [address] [id number] [place] [address] Apr, [facility] [place] [facility] [address] [id number] [place] [address] Apr, [facility] [place] [facility] [address] [id number] [place] [address] Apr, [facility] [place] [facility] [address] [id number] [place] [address] Apr, [facility] [place] [facility] [address] [id number] [place] [address] Apr, [facility] [place] [facility] [address] [id number] [place] [address] Apr, [facility] [place] [facility] [address] [id number] [place] [address] Apr, [facility] [place] [facility] [address] [id number] [place] [address] Apr, [facility] [place] [facility] [address] [id number] [place] [address] Apr, [facility] [place] [facility] [address] [id number] [place] [address] Mar, [facility] [place] [facility] [address] [id number] [place] [address] Mar, [facility] [place] [facility] [address] [facility] [id number] [place] [address] Mar, [facility] [place] [facility] [address] [id number] [place] [address] Mar, [facility] [place] [facility] [address] [id number] [place] [address] Mar, [facility] [place] [facility] [address] [id number] [place] [address] Mar, [facility] [place] [facility] [address] [id number] [place] [address] Jan, [facility] [place] [facility] [address] [id number] [place] [address] Jan, [facility] [address] [facility] [id number] [place] [address] Dec, [facility] [address] [facility] [id number] [id number] Dec, IMMUNIZATIONS No Known Immunizations SOCIAL HISTORY Never Assessed REASON FOR VISIT Refill request PLAN OF CARE VITAL SIGNS MEDICATIONS Unknown Medications RESULTS No Results PROCEDURES No Known procedures INSTRUCTIONS MEDICATIONS ADMINISTERED No Known Medications MEDICAL (GENERAL) HISTORY Type Description Date Medical History narcolepsy Surgical History Gallbladder removed 05/2014 Surgical History Hernia repair 05/24/2015
--- OUTSIDE RECORDS SUMMARY | 2017-11-01 13:14 | XMS REPORT ---
Author SHAHNAZ Card [facility] eClinicalWorks Address Unknown Phone Unavailable Care Team Providers Care Mixing Roll Operator Name Role Phone SHAHNAZ WIN CP [...] of other cardiovascular diseases V17.49 Active Assessment ADHD (attention deficit hyperactivity disorder), inattentive type F90.0 Active Assessment Excessive daytime sleepiness G47.19 Active Problem Screening examination for pulmonary tuberculosis V74.1 Active Problem Pneumonia, organism unspecified 486 Active Medications Medication Code System Code Instructions Start Date End Date Status Dosage Hydrocodone-Acetaminophen [facility] [address]-51 10-325 MG every 6 hrs April 1 tablet as needed tramadol [facility] 0 50 mg May 29, 2014 take 1 tablet (50 mg) by oral route every 6 hours as needed Adderall [facility] [address]-14 10 mg Orally Once a day Dec 17, 2015 1 tablet in the morning Alprazolam [facility] [address]-32 1 MG Three times a day May 29, 2014 1 tablet Procedures Procedure Coding System Code Date VENIPUNCT, ROUTINE* CPT-4 82976 Dec 17, 2015 COMPLETE CBC W/AUTO DIFF WBC CPT-4 17976 Dec 17, 2015 Office Visit, Est Pt., Level 3 CPT-4 94851 Dec 17, 2015 ASSAY THYROID STIM HORMONE CPT-4 92919 Dec 17, 2015 COMPREHEN METABOLIC PANEL CPT-4 33470 Dec 17, 2015 Vital Signs Date/Time: Dec 17, 2015 Cardiac Monitoring Heart Rate 82 bpm Weight 116.4 lbs Height 59 in BMI 23.51 Index Blood Pressure Diastolic 82 mmHg Blood Pressure Systolic 134 mmHg Results Name Result Date Reference Range Unit Abnormality Flag CBC ----Lymphs 35 10102016 % ----Neutrophils 58 21867332 % ----Baso (Absolute) 0.0 25659289 0.0-0.2 x10E3/uL ----Hemoglobin 13.6 28173674 11.1-15.9 g/dL ----Eos (Absolute) 0.1 18538518 0.0-0.4 x10E3/uL ----Hematocrit 40.5 05549669 34.0-46.6 % ----Monocytes(Absolute) 0.3 31497314 0.1-0.9 x10E3/uL ----MCV 94 17843266 79-97 fL ----Lymphs (Absolute) 1.9 95066433 0.7-3.1 x10E3/uL ----MCH 31.7 73276164 26.6-33.0 pg ----Neutrophils (Absolute) 3.1 07423307 1.4-7.0 x10E3/uL ----MCHC 33.6 49124678 31.5-35.7 g/dL ----Immature Granulocytes 0 67007069 % ----Basos 0 64582184 % ----RDW 14.2 41738852 12.3-15.4 % ----Immature Grans (Abs) 0.0 89338450 0.0-0.1 x10E3/uL ----WBC 5.4 43693455 3.4-10.8 x10E3/uL ----Platelets 176 15043282 150-379 x10E3/uL ----Eos 2 14156350 % ----RBC 4.29 14234994 3.77-5.28 x10E6/uL ----Monocytes 5 80762926 % CMP ----Globulin, Total 2.5 64981230 1.5-4.5 g/dL ----eGFR If Africn Am 95 71949859 >59 mL/min/1.73 ----eGFR If NonAfricn Am 82 20151217 >59 mL/min/1.73 ----Albumin, Serum 4.2 47872918 3.5-5.5 g/dL ----Sodium, Serum 138 33221223 136-144 mmol/L ----Protein, Total, Serum 6.7 44129037 6.0-8.5 g/dL ----BUN/Creatinine Ratio 15 20151217 9-23 ----Calcium, Serum 9.2 70719131 8.7-10.2 mg/dL ----AST (SGOT) 25 20720109 0-40 IU/L ----Glucose, Serum 96 24665355 65-99 mg/dL ----Alkaline Phosphatase, S 83 20151217 39-117 IU/L ----Bilirubin, Total 0.3 53282806 0.0-1.2 mg/dL ----Creatinine, Serum 0.79 56588136 0.57-1.00 mg/dL ----A/G Ratio 1.7 76853641 1.1-2.5 ----BUN 12 20151217 6-24 mg/dL ----Carbon Dioxide, Total 24 06705878 18-29 mmol/L ----ALT (SGPT) 12 20151217 0-32 IU/L ----Potassium, Serum 4.0 17480760 3.5-5.2 mmol/L ----Chloride, Serum 101 92227270 97-106 mmol/L ROUTINE VENIPUNCTURE TSH ----TSH 0.356 52369186 0.450-4.500 uIU/mL L Summary Purpose eClinicalWorks Submission
--- OUTSIDE RECORDS SUMMARY | 2017-11-01 13:14 | XMS REPORT ---
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
--- OUTSIDE RECORDS SUMMARY | 2017-11-01 13:15 | XMS REPORT ---
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 Name Role Phone SHAHNAZ WIN Unavailable PROBLEMS Type Condition ICD9-CM Code AEL94-WL Code Onset Dates Condition Status SNOMED Code Problem ADHD (attention deficit hyperactivity disorder), inattentive type F90.0 Active 67206830 Problem Arthritis M19.90 Active 6841928 Problem Positive skin test for tuberculosis R76.11 Active 321450701 Problem Lumbago with sciatica, left side M54.42 Active 366000968 Problem Excessive daytime sleepiness G47.19 Active 754130051526 Problem 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 91090000996854 Problem 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 Active [id number] ALLERGIES No Information ENCOUNTERS Encounter Location Date Diagnosis [place] [address] [address] Apr, ADHD (attention deficit hyperactivity disorder), inattentive type F90.0 ; Lumbago with sciatica, left side M54.42 and Arthritis M19.90 [place] [place] [id number] [place] [address] 85351- 2819 Apr, ADHD (attention deficit hyperactivity disorder), inattentive type F90.0 and Lumbar neuritis M54.16 [place] [place] [id number] [place] [address] 66112- 2417 Apr, [place] [address] [address]- 9[address] 16 Apr, 2017 Lumbar neuritis M54.16 [place] [place] [id number] [place] [address] 39201- 2729 Apr, Low back pain M54.5 [facility] [id number] [place] [address] 49792- 0706 Apr, ADHD (attention deficit hyperactivity disorder), inattentive type F90.0 [facility] [address] [place] [id number] [place] [address] 48726- 0924 Apr, Positive skin test for tuberculosis R76.11 [facility] [address] [place] [id number] [place] [address] 60003- 2827 Apr, Positive skin test for tuberculosis R76.11 [facility] [address] [place] [id number] [place] [address] 47990- 8709 Apr, [facility] [address] [place] [id number] [place] [address] 52038- 0698 Mar, Lumbar neuritis M54.16 [facility] [address] [place] [id number] [place] [address] 37427- 7035 Mar, ADHD (attention deficit hyperactivity disorder), inattentive type F90.0 [facility] [address] [place] [id number] [place] [address] 05804- 5271 Mar, [facility] [address] [place] [id number] [place] [address] 85701- 8872 Jan, Lumbar neuritis M54.16 [facility] [address] [place] [id number] [place] [address] 67929- 6310 Jan, ADHD (attention deficit hyperactivity disorder), inattentive type F90.0 [facility] [id number] [place] [address] 49921- 2293 Jan, [facility] [address] [place] [id number] [place] [address] 89926- 5478 Jan, [facility] [address] [place] [id number] [place] [address] 18864- 1955 Dec, Lumbar neuritis M54.16 [facility] [address] [place] [id number] [place] [address] 62036- 5096 Dec, ADHD (attention deficit hyperactivity disorder), inattentive type F90.0 and 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 [facility] [address] [place] [id number] [place] [address] 82961- 2163 Dec, [facility] [address] [place] [id number] [place] [address] 88905- 2237 Dec, [facility] [address] [place] [id number] [place] [address] 24124- 6865 Nov, Lumbar neuritis M54.16 and ADHD (attention deficit hyperactivity disorder), inattentive type F90.0 [facility] [address] [place] [id number] [place] [address] 66180- 7363 Nov, [facility] [address] [place] [id number] [place] [address] 13339- 7052 Oct, Lumbar neuritis M54.16 and ADHD (attention deficit hyperactivity disorder), inattentive type F90.0 [facility] [address] [place] [id number] [place] [address] 26081- 7096 Oct, [facility] [address] [place] [id number] [place] [address] 91247- 5129 Sep, ADHD (attention deficit hyperactivity disorder), inattentive type F90.0 and Lumbar neuritis M54.16 [facility] [address] [place] [id number] [place] [address] 04939- 3212 Sep, Lumbar neuritis M54.16 [facility] [address] [place] [id number] [place] [address] 68371- 2981 Sep, [facility] [address] [place] [id number] [place] [address] 42345- 8952 Sep, ADHD (attention deficit hyperactivity disorder), inattentive type F90.0 and Lumbar neuritis M54.16 [facility] [address] [place] [id number] [place] [address] 10324- 8389 Sep, [facility] [address] [place] [address]- 2703 Aug, [facility] [address] [address]- 9629 Aug, [facility] [address] [address]- 4316 Aug, [facility] [address] [place] [id number] [place] [address] 28114- 3389 Aug, [facility] [address] [place] [id number] [place] [address] 41036- 2838 Aug, ADHD (attention deficit hyperactivity disorder), inattentive type F90.0 and Lumbar neuritis M54.16 [facility] [address] [address]- 0168 Jul, [facility] [address] [place] [id number] [place] [address] 99341- 0453 Jul, [facility] [id number] [place] [address] 51916- 9421 Jul, Lumbar neuritis M54.16 and ADHD (attention deficit hyperactivity disorder), inattentive type F90.0 [facility] [address] [address]- 3979 Jul, [facility] [address] [address]- 9042 June, Lumbar neuritis M54.16 and ADHD (attention deficit hyperactivity disorder), inattentive type F90.0 [facility] [address] [address]- 8170 June, [facility] [address] [address]- 5072 June, [facility] [address], [place] [address]- 7707 May, 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 and Lumbago with sciatica, left side M54.42 [facility] [place] [facility] [address], [place] [address]- 2903 14 May, 2016 Lumbar neuritis M54.16 and ADHD (attention deficit hyperactivity disorder), inattentive type F90.0 [facility] [address] [place] [id number] [address]- 6336 Apr, [facility] [address] [place] [id number] [place] [address] 95381- 0377 Apr, Lumbar neuritis M54.16 and ADHD (attention deficit hyperactivity disorder), inattentive type F90.0 [facility] [address] [place] [id number] [place] [address] 40699- 2152 Apr, [facility] [address] [place] [id number] [place] [address] 24140- 7656 Apr, [facility] [address] [place] [id number] [place] [address] 15858- 3598 15 Apr, 2016 ADHD (attention deficit hyperactivity disorder), inattentive type F90.0 [facility] [id number] [place] [address] 49995- 4747 15 Apr, 2016 Lumbar neuritis M54.16 [facility] [address] [place] [id number] [address]- 0479 08 Apr, 2016 [facility] [address] [place] [id number] [place] [address] 39593- 5060 Apr, [facility] [address] [place] [id number] [place] [address] 66792- 8432 Mar, Attention deficit hyperactivity disorder (ADHD), predominantly inattentive type F90.0 [facility] [address] [place] [id number] [place] [address] 01291- 4403 Mar, [facility] [address], [place] [address]- 3128 Mar, [facility] [address] [place] [id number] [place] [address] 63656- 3904 Mar, [facility] [id number] [place] [address] 76375- 5531 Jan, Attention deficit hyperactivity disorder (ADHD), predominantly inattentive type F90.0 [facility] [address] [place] [id number] [place] [address] 68816- 0105 Jan, [facility] [address] [place] [id number] [place] [address] 73171- 8378 Jan, [facility] [address] [place] [id number] [place] [address] 67936- 3189 Jan, [facility] [address] [place] [id number] [place] [address] 52479- 0353 Jan, [facility] [address] [place] [id number] [place] [address] 19825- 6845 Jan, Low TSH level R94.6 [facility] [address] [place] [id number] [place] [address] 51529- 0414 Jan, [facility] [address] [place] [id number] [place] [address] 30860- 4581 Dec, [facility] [address] [place] [id number] [place] [address] 72294- 5150 Dec, [facility] [address] [place] [id number] [place] [address] 95393- 1326 Dec, [facility] [address] [place] [id number] [place] [address] 79569- 7170 Nov, Low TSH level R94.6 [facility] [id number] [place] [address] 88604- 6535 Nov, Excessive daytime sleepiness G47.19 and ADHD (attention deficit hyperactivity disorder), inattentive type F90.0 [facility] [id number] [place] [address] 52412- 8761 13 Dec, 2015 [facility] [address] [place] [id number] [place] [address] 98076- 1131 Nov, [facility] [address] [facility] [id number] [address]- 4717 Nov, [facility] [address] [facility] [id number] [place] [address], [place] [address]- 4855 Oct, [facility] [address] [facility] [id number] [place] [address]- 1071 Oct, [facility] [address] [facility] [id number] [place] [address], [place] [address]- 2097 Oct, [facility] [address] [facility] [id number] [place] [address], [place] [address]- 0207 Sep, [facility] [address] [facility] [id number] [place] [address], [place] [address]- 6326 Sep, [facility] [address] [facility] [id number] [place] [address], [place] [address]- 8413 Sep, [facility] [address] [place] [id number] [place] [address] 42839- 0207 Aug, Lumbar neuritis M54.16 [facility] [address] [place] [id number] [address]- 8559 Aug, [facility] [address] [place] [id number] [address]- 3311 Aug, [facility] [address], [place] [address]- 0631 Jul, Lumbar neuritis M54.16 [facility] [address] [facility] [id number] [address]- 7384 Jul, [facility] [address] [place] [id number] [address]- 0269 Jul, [facility] [place] [facility] [address] [facility] [id number], [place] [address]- 8974 June, Lumbar neuritis M54.16 [facility] [address] [place] [id number] [address]- 3241 June, [facility] [id number] [place] [address] 24833- 4104 June, [facility] [address] [place] [id number] [place] [address] 42277- 5231 May, Lumbar neuritis M54.16 [facility] [address] [place] [id number] [place] [address] 44706- 4660 May, [facility] [address] [place] [id number] [place] [address] 65559- 7198 May, [facility] [address] [place] [id number] [place] [address] 87685- 8990 Apr, [facility] [address] [place] [id number] [place] [address] 61356- 4139 Apr, [facility] [address] [place] [id number] [place] [address] 20949- 7223 Apr, [facility] [address] [place] [id number] [place] [address] 99432- 6199 Apr, [facility] [address] [place] [id number] [place] [address] 81962- 3352 24 Apr, 2015 [facility] [address] [place] [id number] [address]- 9399 Apr, Inguinal hernia, right K40.90 [facility] [address] [place] [id number] [place] [address] 79292- 0684 Apr, [facility] [id number] [place] [address] 30265- 5935 15 Apr, 2015 Low back pain M54.5 and Sciatica, unspecified side M54.30 [facility] [address] [place] [id number] [address]- 9361 Mar, [facility] [address] [place] [id number] [place] [address] 21455- 8697 Mar, [facility] [address] [facility] [id number] [place] [address]- 5555 Jan, [facility] [address] [place] [id number] [place] [address], [place] [address]- 3140 Jan, [facility] [place] [facility] [address] [facility] [id number] [place] [address]- 7219 Jan, [facility] [place] [facility] [address] [facility] [id number] [place] [address], [place] [address]- 1864 Dec, [facility] [place] [facility] [address] [facility] [id number] [place] [address]- 7719 Dec, [facility] [place] [facility] [address] [place] [id number] [place] [address], [place] [address]- 7019 Dec, [facility] [place] [facility] [address] [place] [id number] [place] [address], [place] [address]- 3365 Dec, [facility] [place] [facility] [address] [place] [id number] [place] [address], [place] [address]- 3537 Nov, [facility] [address] [place] [id number] [place] [address] 15270- 5802 Nov, Encounter for immunization Z23 [facility] [id number] [place] [address] 73117- 8081 Nov, [facility] [address], [place] [address]- 6089 Nov, [facility] [place] [facility] [address], [place] [address]- 4758 Oct, [facility] [place] [facility] [address] [place] [id number] [address]- 2211 Oct, [facility] [place] [facility] [address] [place] [id number] [address]- 6841 Sep, Lumbago 724.2 [facility] [place] [facility] [address] [place] [address]- 6206 Sep, [facility] [place] [facility] [address] [place] [id number] [place] [address]- 2242 Aug, Lumbago 724.2 [facility] [place] [facility] [address] [id number] [place] [address]- 9922 17 Aug, 2014 [facility] [place] [facility] [address] [id number] [place] [address]- 2082 Aug, [facility] [place] [facility] [address] [id number] [place] [address]- 5721 Jul, [facility] [place] [facility] [address] [id number] [place] [address]- 2447 Jul, [facility] [place] [facility] [address] [id number] [place] [address]- 8306 Jul, [facility] [place] [facility] [address] [facility] [id number] [place] [address]- 6611 June, [facility] [place] [facility] [address] [facility] [id number] [place] [address]- 0105 May, [facility] [place] [facility] [address] [facility] [id number] [place] [address]- 9425 May, [facility] [place] [facility] [address] [facility] [id number] [place] [address]- 9229 Apr, [facility] [place] [facility] [address] [facility] [id number] [place] [address]- 4956 Apr, [facility] [place] [facility] [address] [facility] [id number] [place] [address]- 2546 Apr, [facility] [place] [facility] [address] [facility] [id number] [place] [address]- 4696 Apr, [facility] [place] [facility] [address] [facility] [id number] [place] [address]- 8886 Apr, [facility] [place] [facility] [address] [facility] [id number] [place] [address]- 2546 Apr, [facility] [place] [facility] [address] [facility] [id number] [place] [address]- 5360 Apr, [facility] [place] [facility] [address] [id number] [place] [address]- 4984 Apr, [facility] [place] [facility] [address] [id number] [place] [address]- 6002 Mar, [facility] [place] [facility] [address] [facility] [id number] [place] [address]- 0143 Mar, [facility] [place] [facility] [address] [id number] [place] [address]- 4140 Jan, [facility] [place] [facility] [address] [id number] [place] 8755 Jan, [facility] [place] [facility] [address] [facility] [id number] [place] [address]- 8270 Jan, [facility] [place] [facility] [address] [facility] [id number] [place] [address]- 5102 Jan, [facility] [place] [facility] [address] [id number] [place] [address]- 4144 Jan, [facility] [place] [facility] [address] [facility] [id number] [place] [address]- 8381 Jan, [facility] [place] [facility] [address] [facility] [id number] [place] [address]- 4945 Dec, [facility] [place] [facility] [address] [facility] [id number], [place] [address]- 3838 Dec, [facility] [place] [facility] [address] [id number], [place] [address]- 5577 Nov, [facility] [place] [facility] [address] [id number] [place] [address]- 9840 Nov, [facility] [place] [facility] [address] [facility] [id number], [place] [address]- 0097 Nov, [facility] [place] [facility] [address] [facility] [id number], [place] [address]- 6641 Nov, [facility] [place] [facility] [address] [id number] [place] [address]- 6559 15 Oct, 2013 [facility] [address] [id number] [place] [address]- 9235 Oct, [facility] [place] [facility] [address] [id number] [place] [address]- 9772 Sep, [facility] [place] [facility] [address] [id number] [place] [address]- 9618 Sep, [facility] [place] [facility] [address] [id number] [place] [address]- 4891 Sep, [facility] [place] [facility] [address] [id number] [place] [address]- 4566 Sep, [facility] [place] [facility] [address] [id number] [place] [address]- 2341 Aug, [facility] [place] [facility] [address] [id number] [place] [address]- 6219 Aug, [facility] [address] [id number] [place] [address]- 8283 Aug, [facility] [place] [facility] [address] [id number] [place] [address]- 0332 Aug, [facility] [address] [id number] [place] [address]- 2635 Jul, [facility] [place] [facility] [address] [id number] [place] [address]- 9878 Jul, [facility] [place] [facility] [address] [id number] [place] [address]- 7783 June, [facility] [place] [facility] [address] [id number] [place] [address]- 8593 June, [facility] [place] [facility] [address] [id number] [place] [address]- 9275 June, [facility] [place] [facility] [address] [id number] [place] [address]- 3138 May, [facility] [place] [facility] [address] [id number] [place] [address]- 8180 30 May, 2013 [facility] [place] [facility] [address] [id number] [place] [address]- 6768 May, [facility] [place] [facility] [address] [id number] [place] [address]- 0559 May, [facility] [place] [facility] [address] [id number] [place] [address] May, [facility] [place] [facility] [address] [id number] [place] [address] May, [facility] [place] [facility] [address] [id number] [place] [address] May, [facility] [place] [facility] [address] [id number] [place] [address] May, [facility] [place] [facility] [address] [id number] [place] [address] May, [facility] [place] [facility] [address] [id number] [place] [address] May, [facility] [place] [facility] [address] [id number] [place] [address] May, [facility] [place] [facility] [address] [id number] [place] [address] Apr, [facility] [place] [facility] [address] [id number] [place] [address] Apr, [facility] [place] [facility] [address] [id number] [place] [address] Apr, [facility] [place] [facility] [address] [id number] [place] [address] Apr, [facility] [place] [facility] [address] [id number] [place] [address] Apr, [facility] [place] [facility] [address] [id number] [place] [address] Apr, [facility] [place] [facility] [address] [id number] [place] [address] Apr, [facility] [place] [facility] [address] [id number] [place] [address] Apr, [facility] [place] [facility] [address] [id number] [place] [address] Apr, [facility] [place] [facility] [address] [id number] [place] [address] Apr, [facility] [place] [facility] [address] [id number] [place] [address] Apr, [facility] [place] [facility] [address] [id number] [place] [address] Apr, [facility] [place] [facility] [address] [id number] [place] [address] Mar, [facility] [place] [facility] [address] [id number] [place] [address] Mar, [facility] [place] [facility] [address] [id number] [place] [address] Mar, [facility] [place] [facility] [address] [id number] [place] [address] Mar, [facility] [place] [facility] [address] [id number] [place] [address] Mar, [facility] [place] [facility] [address] [id number] [place] [address] Mar, [facility] [place] [facility] [address] [id number] [place] [address] Jan, [facility] [place] [facility] [address] [id number] [place] [address] Jan, [facility] [place] [facility] [address] [id number] [place] [address] Dec, [facility] [address] [facility] [id number] [place] [address] Dec, IMMUNIZATIONS No Known Immunizations SOCIAL HISTORY Never Assessed REASON FOR VISIT Medication refill request PLAN OF CARE VITAL SIGNS MEDICATIONS No Known Medications RESULTS No Results PROCEDURES No Known procedures INSTRUCTIONS MEDICATIONS ADMINISTERED No Known Medications MEDICAL (GENERAL) HISTORY Type Description Date Medical History narcolepsy Surgical History Gallbladder removed 05/2014 Surgical History Hernia repair 05/24/2015
--- OUTSIDE RECORDS SUMMARY | 2017-11-01 13:15 | XMS REPORT ---
Author Author SHAHNAZ WIN Organization [facility] Address [address] [place] [address] Care Team Providers Care Director Of Online Education Name Role Phone SHAHNAZ WIN Unavailable PROBLEMS Type Condition ICD9-CM Code ZIC06-XW Code Onset Dates Condition Status SNOMED Code Problem ADHD (attention deficit hyperactivity disorder), inattentive type F90.0 Active 96566696 Problem Arthritis M19.90 Active 6013779 Problem Positive skin test for tuberculosis R76.11 Active 224167937 Problem Lumbago with sciatica, left side M54.42 Active 748395851 Problem Excessive daytime sleepiness G47.19 Active 138098590467 Problem 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 78155963225392 Problem 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 Active 31692211179945 ALLERGIES Substance Reaction Event Type Date Status Penicillins Unknown Non Drug Allergy Dec, Active ENCOUNTERS Encounter Location Date Diagnosis [place] [id number] [place] [address] 08654- 5478 Apr, ADHD (attention deficit hyperactivity disorder), inattentive type F90.0 ; Lumbago with sciatica, left side M54.42 and Arthritis M19.90 [place] [id number] [place] [address] 46008- 2297 Apr, ADHD (attention deficit hyperactivity disorder), inattentive type F90.0 and Lumbar neuritis M54.16 [place] [address] 69788- 7068 Apr, [place] [id number] [place] [address] 69658- 5365 16 Apr, 2017 Lumbar neuritis M54.16 [place] [address] 35570- 2427 Apr, Low back pain M54.5 [facility] [id number] [place] [address] 88165- 6685 Apr, ADHD (attention deficit hyperactivity disorder), inattentive type F90.0 [facility] [id number] [place] [address] 14339- 4145 Apr, Positive skin test for tuberculosis R76.11 [facility] [id number] [place] [address] 32319- 3463 Apr, Positive skin test for tuberculosis R76.11 [facility] [id number] [place] [address] 99097- 8920 Apr, [facility] [id number] [place] [address] 41885- 0575 Mar, Lumbar neuritis M54.16 [facility] [id number] [place] [address] 14317- 4788 Mar, ADHD (attention deficit hyperactivity disorder), inattentive type F90.0 [facility] [id number] [place] [address] 25678- 4527 Mar, [facility] [id number] [place] [address] 03204- 7498 Jan, Lumbar neuritis M54.16 [facility] [id number] [place] [address] 91500- 4625 Jan, ADHD (attention deficit hyperactivity disorder), inattentive type F90.0 [facility] [id number] [place] [address] 51331- 9263 Jan, [facility] [id number] [place] [address] 87282- 6151 Jan, [facility] [id number] [place] [address] 48324- 4684 Dec, Lumbar neuritis M54.16 [facility] [id number] [place] [address] 63074- 2448 Dec, ADHD (attention deficit hyperactivity disorder), inattentive type F90.0 and 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 [facility] [id number] [place] [address] 85681- 1522 Dec, [facility] [id number] [place] [address] 92235- 4582 Dec, [facility] [id number] [place] [address] 09332- 7444 Nov, Lumbar neuritis M54.16 and ADHD (attention deficit hyperactivity disorder), inattentive type F90.0 [facility] [id number] [place] [address] 81420- 0509 Nov, [facility] [id number] [place] [address] 04076- 6381 Oct, Lumbar neuritis M54.16 and ADHD (attention deficit hyperactivity disorder), inattentive type F90.0 [facility] [id number] [place] [address] 36650- 8445 Oct, [facility] [id number] [place] [address] 80490- 0811 Sep, ADHD (attention deficit hyperactivity disorder), inattentive type F90.0 and Lumbar neuritis M54.16 [facility] [id number] [place] [address] 38657- 5429 Sep, Lumbar neuritis M54.16 [facility] [id number] [place] [address] 84994- 1771 Sep, [facility] [id number] [place] [address] 05818- 0415 Sep, ADHD (attention deficit hyperactivity disorder), inattentive type F90.0 and Lumbar neuritis M54.16 [facility] [id number] [place] [address] 06373- 5958 Sep, [facility] [address] [address]- 3951 Aug, [facility] [address] [address]- 5677 Aug, [facility] [address] [address]- 5427 Aug, [facility] [address] [address]- 8521 Aug, [facility] [address] [address]- 0608 Aug, ADHD (attention deficit hyperactivity disorder), inattentive type F90.0 and Lumbar neuritis M54.16 [facility] [address] [address]- 3992 Jul, [facility] [address] [address]- 4331 Jul, [facility] [address] [address]- 9499 Jul, Lumbar neuritis M54.16 and ADHD (attention deficit hyperactivity disorder), inattentive type F90.0 [facility] [address] [address]- 3375 Jul, [facility] [address] [address]- 3255 June, Lumbar neuritis M54.16 and ADHD (attention deficit hyperactivity disorder), inattentive type F90.0 [facility] [address] [address]- 7497 June, [facility] [address] [address]- 1812 June, [facility] [address] [id number] [address]- 0018 May, 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 and Lumbago with sciatica, left side M54.42 [facility] [id number] [place] [address] 16245- 0144 May, Lumbar neuritis M54.16 and ADHD (attention deficit hyperactivity disorder), inattentive type F90.0 [facility] [id number] [place] [address] 05855- 0547 Apr, [facility] [id number] [place] [address] 36535- 0989 Apr, Lumbar neuritis M54.16 and ADHD (attention deficit hyperactivity disorder), inattentive type F90.0 [facility] [id number] [place] [address] 51302- 4623 Apr, [facility] [id number] [place] [address] 48775- 5321 Apr, [facility] [id number] [place] [address] 77915- 3114 Apr, ADHD (attention deficit hyperactivity disorder), inattentive type F90.0 [facility] [id number] [place] [address] 94444- 2598 Apr, Lumbar neuritis M54.16 [facility] [id number] [place] [address] 22702- 5661 Apr, [facility] [id number] [place] [address] 77469- 5934 Apr, [facility] [id number] [place] [address] 23770- 3927 Mar, Attention deficit hyperactivity disorder (ADHD), predominantly inattentive type F90.0 [facility] [id number] [place] [address] 68600- 0030 Mar, [facility] [id number] [place] [address] 96221- 9968 Mar, [facility] [id number] [address]- 7095 Mar, [facility] [id number] [place] [address] 09559- 1850 Jan, Attention deficit hyperactivity disorder (ADHD), predominantly inattentive type F90.0 [facility] [id number] [place] [address] 52421- 1038 Jan, [facility] [id number] [place] [address] 69953- 2124 Jan, [facility] [id number] [place] [address] 15549- 8136 Jan, [facility] [id number] [place] [address] 62411- 4238 Jan, Low TSH level R94.6 [facility] [id number] [place] [address] 09225- 5511 Jan, [facility] [id number] [place] [address] 94950- 0299 Jan, [facility] [id number] [place] [address] 03402- 5618 Dec, [facility] [id number] [place] [address] 90699- 3947 Dec, [facility] [id number] [place] [address] 77219- 2976 Dec, [facility] [id number] [place] [address] 24927- 2990 Nov, Low TSH level R94.6 [facility] [id number] [place] [address] 49730- 2663 Nov, Excessive daytime sleepiness G47.19 and ADHD (attention deficit hyperactivity disorder), inattentive type F90.0 [facility] [id number] [place] [address] 98696- 0078 Nov, [facility] [address] [place] [address]- 6659 Nov, [facility] [address] [id number] [place] [address]- 2260 Nov, [facility] [place] [facility] [address] [id number] [place] [address]- 6336 Oct, [facility] [address] [id number] [place] [address]- 9535 Oct, [facility] [address] [id number] [place] [address]- 8183 Oct, [facility] [id number] [place] [address], [place] [address]- 4185 Sep, [facility] [address] [id number] [place] [address]- 5189 Sep, [facility] [address] [id number] [place] [address]- 5825 Sep, [facility] [address] [id number] [place] [address]- 4728 Aug, Lumbar neuritis M54.16 [facility] [address] [id number] [place] [address]- 4600 Aug, [facility] [address] [facility] [id number] [place] [address]- 4144 Aug, [facility] [address] [id number] [place] [address]- 8935 Jul, Lumbar neuritis M54.16 [facility] [address] [id number] [place] [address]- 4684 Jul, [facility] [place] [facility] [address] [facility] [id number] [place] [address]- 1884 Jul, [facility] [place] [facility] [address] [facility] [id number] [place] [address]- 8361 June, Lumbar neuritis M54.16 [facility] [place] [facility] [id number] [address]- 0803 June, [facility] [id number] [place] [address] 30197- 6844 June, [facility] [id number] [place] [address], [place] [address]- 4046 28 Jun, 2015 Lumbar neuritis M54.16 [facility] [id number] [place] [address], [place] [address]- 0805 May, [facility] [id number] [place] [address] 02611- 9886 11 Jun, 2015 [facility] [id number] [place] [address], [place] [address]- 7340 23 May, 2015 [facility] [id number] [place] [address] 85702- 4736 14 May, 2015 [facility] [id number] [place] [address] 47281- 4701 14 May, 2015 [facility] [id number] [place] [address] 39551- 2452 Apr, [facility] [id number] [place] [address] 36104- 1065 24 Apr, 2015 [facility] [id number] [place] [address] 89741- 5073 22 Apr, 2015 Inguinal hernia, right K40.90 [facility] [id number] [place] [address] 16663- 8415 17 Apr, 2015 [facility] [id number] [place] [address] 32029- 2196 15 Apr, 2015 Low back pain M54.5 and Sciatica, unspecified side M54.30 [facility] [address] [address]- 3150 Mar, [facility] [id number] [place] [address] 96436- 5737 Mar, [facility] [address] [address]- 7339 Jan, [facility] [id number] [place] [address] 77168- 9623 Jan, [facility] [id number] [place] [address] 42789- 4740 Jan, [facility] [id number] [place] [address] 69413- 5850 Dec, [facility] [id number] [place] [address] 31695- 3643 Dec, [facility] [id number] [place] [address] 46903- 1340 Dec, [facility] [id number] [place] [address] 50631- 4653 Dec, [facility] [id number] [place] [address] 26523- 0545 Nov, [facility] [id number] [place] [address] 54518- 4956 Nov, Encounter for immunization Z23 [facility] [id number] [place] [address] 74568- 0272 Nov, [facility] [id number] [place] [address] 60088- 5917 Nov, [facility] [address] [address]- 7716 Oct, [facility] [id number] [place] [address] 65032- 7721 Oct, [facility] [id number] [place] [address] 79478- 7299 Sep, Lumbago 724.2 [facility] [id number] [place] [address] 98383- 3518 Sep, [facility] [place] [facility] [address] [id number] [place] [address]- 5164 Aug, Lumbago 724.2 [facility] [place] [facility] [address] [id number] [place] [address]- 3384 Aug, [facility] [place] [facility] [address] [facility] [id number] [place] [address]- 4513 Aug, [facility] [place] [facility] [address] [id number] [place] [address]- 7776 Jul, [facility] [place] [facility] [address] [id number] [place] [address]- 7636 Jul, [facility] [place] [facility] [address] [id number] [place] [address]- 9364 Jul, [facility] [place] [facility] [address] [facility] [id number] [place] [address]- 4176 June, [facility] [place] [facility] [address] [id number] [place] [address]- 9662 May, [facility] [place] [facility] [address] [id number] [place] [address]- 2642 May, [facility] [place] [facility] [address] [facility] [id number] [place] [address]- 2178 Apr, [facility] [place] [facility] [address] [id number] [place] [address]- 8923 Apr, [facility] [place] [facility] [address] [id number] [place] [address]- 0566 Apr, [facility] [place] [facility] [address] [id number] [place] [address]- 3983 Apr, [facility] [place] [facility] [address] [facility] [id number] [place] [address]- 1370 Apr, [facility] [place] [facility] [address] [facility] [id number] [place] [address]- 3226 Apr, [facility] [place] [facility] [address] [id number] [place] [address]- 4304 Apr, 2014 [facility] [address] [id number] [place] [address]- 5422 Apr, [facility] [place] [facility] [address] [id number] [place] [address]- 7698 Mar, [facility] [place] [facility] [address] [id number] [place] [address]- 5050 Mar, [facility] [place] [facility] [address] [id number] [place] [address]- 2499 Jan, [facility] [place] [facility] [address] [id number] [place] [address]- 3742 Jan, [facility] [place] [facility] [address] [facility] [id number] [place] [address]- 6482 Jan, [facility] [place] [facility] [address] [id number] [place] [address]- 9970 Jan, [facility] [place] [facility] [address] [id number] [place] [address]- 4524 Jan, [facility] [place] [facility] [address] [id number] [place] [address]- 1463 Jan, [facility] [place] [facility] [address] [facility] [id number] [place] [address]- 0389 Dec, [facility] [place] [facility] [address] [id number] [place] [address]- 5054 Dec, [facility] [place] [facility] [address] [id number] [place] [address]- 0104 Nov, [facility] [place] [facility] [address] [id number] [place] [address]- 5794 Nov, [facility] [place] [facility] [address] [id number] [place] [address]- 5486 Nov, [facility] [place] [facility] [address] [id number] [place] [address]- 7608 Nov, [facility] [place] [facility] [address] [id number] [place] [address]- 2789 Oct, [facility] [place] [facility] [address] [id number] [place] [address]- 2459 Oct, [facility] [place] [facility] [address] [id number] [place] [address]- 9663 Sep, [facility] [place] [facility] [address] [id number] [place] [address]- 5152 Sep, [facility] [place] [facility] [address] [id number] [place] [address]- 1597 Sep, [facility] [place] [facility] [address] [id number] [place] [address]- 1271 Sep, [facility] [place] [facility] [address] [id number] [place] [address]- 5984 Aug, [facility] [place] [facility] [address] [id number] [place] [address]- 8205 Aug, [facility] [place] [facility] [address] [id number] [place] [address]- 0960 Aug, [facility] [place] [facility] [address] [id number] [place] [address]- 2513 Aug, [facility] [place] [facility] [address] [id number] [place] [address]- 3379 Jul, [facility] [place] [facility] [address] [id number] [place] [address]- 3731 Jul, [facility] [place] [facility] [address] [id number] [place] [address]- 1853 June, [facility] [place] [facility] [address] [id number] [place] [address] June, [facility] [place] [facility] [address] [id number] [place] June, [facility] [place] [facility] [address] [id number] [place] [address] 30 May, 2013 [facility] [place] [facility] [address] [id number] [place] [address] 30 May, 2013 [facility] [place] [facility] [address] [id number] [place] [address] May, [facility] [place] [facility] [address] [id number] [place] [address] May, [facility] [place] [facility] [address] [id number] [place] [address] May, [facility] [place] [facility] [address] [id number] [place] [address] May, [facility] [place] [facility] [address] [id number] [place] [address] May, [facility] [place] [facility] [address] [id number] [place] [address] May, [facility] [place] [facility] [address] [id number] [place] [address] May, [facility] [place] [facility] [address] [id number] [place] [address] May, [facility] [place] [facility] [address] [id number] [place] [address] May, [facility] [place] [facility] [address] [id number] [place] [address] Apr, [facility] [place] [facility] [address] [id number] [place] [address] Apr, [facility] [place] [facility] [address] [id number] [place] [address] Apr, [facility] [place] [facility] [address] [id number] [place] [address] Apr, [facility] [place] [facility] [address] [id number] [place] [address] Apr, [facility] [place] [facility] [address] [id number] [place] [address] Apr, [facility] [place] [facility] [address] [id number] [place] [address] Apr, [facility] [place] [facility] [address] [id number] [place] [address] Apr, [facility] [place] [facility] [address] [id number] [place] [address] Apr, [facility] [place] [facility] [address] [id number] [place] [address] Apr, [facility] [place] [facility] [address] [id number] [place] [address] Apr, [facility] [place] [facility] [address] [id number] [place] [address] Apr, [facility] [place] [facility] [address] [id number] [place] [address] Mar, [facility] [place] [facility] [address] [id number] [place] [address] Mar, [facility] [place] [facility] [address] [id number] [place] [address] Mar, [facility] [place] [facility] [address] [id number] [place] [address] Mar, [facility] [place] [facility] [address] [id number] [place] [address] Mar, [facility] [place] [facility] [address] [id number] [place] [address] Mar, [facility] [place] [facility] [address] [id number] [place] [address] Jan, [facility] [place] [facility] [address] [id number] [place] [address] Jan, [facility] [place] [facility] [address] [id number] [place] [address] Dec, [facility] [address] [facility] [id number] [place] [address] Dec, IMMUNIZATIONS No Known Immunizations SOCIAL HISTORY Never Assessed REASON FOR VISIT Pain management (chronic)- Luis Angel MADDEN PLAN OF CARE VITAL SIGNS Height 59 in 2017-01-19 Weight 118.3 lbs 2017-01-19 Temperature 98.2 degrees Fahrenheit 2017-01-19 Heart Rate 82 bpm 2017-01-19 Respiratory Rate 18 2017-01-19 BMI 23.89 kg/m2 2017-01-19 Blood pressure systolic 124 mmHg 2017-01-19 Blood pressure diastolic 78 mmHg 2017-01-19 MEDICATIONS Medication Instructions Dosage Frequency Start Date End Date Duration Status Xanax 1 MG Orally 3 times a day 1 tablet 8h Sep, Active Tramadol HCl 50 MG Orally every 6 hrs 1 tablet as needed 6h Jan, 28 days Active Perry 10-325 MG Orally every 6 hrs 1 tablet as needed 6h 13 Dec, 2016 Active Adderall XR 30 MG Orally Once a day 1 capsule in the morning 24h Dec, 28 days Active RESULTS Name Result Date Reference Range AMERITOX 2017-01-19 PROCEDURES Procedure Date Ordered Result Body Site No Charge Jan 19, 2017 INSTRUCTIONS MEDICATIONS ADMINISTERED No Known Medications MEDICAL (GENERAL) HISTORY Type Description Date Medical History narcolepsy Surgical History Gallbladder removed 05/2014 Surgical History Hernia repair 05/24/2015
--- OUTSIDE RECORDS SUMMARY | 2017-11-01 13:16 | XMS REPORT ---
Author Author SHAHNAZ WIN Organization [employer] Address Unknown Phone Unavailable Care Team Providers Care Tank Truck Mechanic Name Role Phone SHAHNAZ WIN CP Unavailable Allergies No Known Allergies Problems Problem Type Condition ICD-9 Code Onset [...] route every 6 hours as needed Hydrocodone-Acetaminophen [facility] [address]-82 10-325 MG May 29, 2014 take 1 tablet by oral route every 6 hours as needed for pain PRN Alprazolam [facility] [address]-91 1 MG May 29, 2014 take 1 tablet (1 mg) by oral route 3 times per day Results No Known Results Summary Purpose [employer] Submission
--- OUTSIDE RECORDS SUMMARY | 2017-11-01 13:16 | XMS REPORT ---
Author SHAHNAZ Card Organization [employer] Address Unknown Phone Unavailable Care Team Providers Care Sign Out Clerk Name Role Phone SHAHNAZ WIN CP Unavailable [...] Status Dosage tramadol NDC 0 50 mg by oral route 4 times a day May 29, 2014 1 tablet as needed Results No Known Results Summary Purpose [employer] Submission
--- OUTSIDE RECORDS SUMMARY | 2017-11-01 13:16 | XMS REPORT ---
Author Author SHAHNAZ WIN Organization [employer] Address Unknown Phone Unavailable Care Team Providers Care Die Repairer Forging Name Role Phone SHAHNAZ WIN CP Unavailable [...] Start Date End Date Status Dosage Hydrocodone-Acetaminophen [facility] [address]-30 10-325 MG every 6 hrs April 1 tablet as needed Alprazolam [facility] [address]-36 1 MG Three times a day May 29, 2014 1 tablet Results No Known Results Summary Purpose [employer] Submission
--- OUTSIDE RECORDS SUMMARY | 2017-11-01 13:16 | XMS REPORT ---
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 Name Role Phone SHAHNAZ WIN Unavailable PROBLEMS Type Condition ICD9-CM Code DMG08-DQ Code Onset Dates Condition Status SNOMED Code Problem ADHD (attention deficit hyperactivity disorder), inattentive type F90.0 Active 93552540 Problem Arthritis M19.90 Active 2185956 Problem Positive skin test for tuberculosis R76.11 Active 578164745 Problem Lumbago with sciatica, left side M54.42 Active 100378133 Problem Excessive daytime sleepiness G47.19 Active 435638737824 Problem 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 08846462785870 Problem 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 Active [id number] ALLERGIES No Information ENCOUNTERS Encounter Location Date Diagnosis [place] [id number] [place] [address] 96359- 9527 Jul, Right lower quadrant abdominal pain R10.31 and Rash R21 [place] [id number] [place] [address] 67376- 6248 14 Apr, 2017 ADHD (attention deficit hyperactivity disorder), inattentive type F90.0 ; Lumbago with sciatica, left side M54.42 and Arthritis M19.90 [facility] [id number] [place] [address] 83541- 4113 Apr, ADHD (attention deficit hyperactivity disorder), inattentive type F90.0 and Lumbar neuritis M54.16 [facility] [id number] [place] [address] 10010- 7661 Apr, [place] [id number] [place] [address] 03772- 6839 Apr, Lumbar neuritis M54.16 [facility] [id number] [place] [address] 02630- 3549 16 Apr, 2017 Low back pain M54.5 [facility] [id number] [place] [address] 79057- 8067 11 Apr, 2017 ADHD (attention deficit hyperactivity disorder), inattentive type F90.0 [facility] [id number] [place] [address] 20429- 8108 09 Apr, 2017 Positive skin test for tuberculosis R76.11 [facility] [id number] [place] [address] 08607- 5528 Apr, Positive skin test for tuberculosis R76.11 [facility] [id number] [place] [address] 60177- 8400 Apr, [facility] [id number] [place] [address] 96975- 8498 Mar, Lumbar neuritis M54.16 [facility] [id number] [place] [address] 01527- 8885 Mar, ADHD (attention deficit hyperactivity disorder), inattentive type F90.0 [facility] [id number] [place] [address] 71045- 4739 Mar, [facility] [id number] [place] [address] 31891- 0301 Jan, Lumbar neuritis M54.16 [facility] [id number] [place] [address] 01783- 2888 Jan, ADHD (attention deficit hyperactivity disorder), inattentive type F90.0 [facility] [id number] [place] [address] 52506- 5196 Jan, [facility] [id number] [place] [address] 32433- 3491 Jan, [facility] [id number] [place] [address] 40646- 2986 Dec, Lumbar neuritis M54.16 [facility] [id number] [place] [address] 32034- 8994 Dec, ADHD (attention deficit hyperactivity disorder), inattentive type F90.0 and 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 [facility] [id number] [place] [address] 61262- 5618 Dec, [facility] [id number] [place] [address] 16151- 8033 Dec, [facility] [id number] [place] [address] 70617- 3662 Nov, Lumbar neuritis M54.16 and ADHD (attention deficit hyperactivity disorder), inattentive type F90.0 [facility] [id number] [place] [address] 59919- 8884 Nov, [facility] [id number] [place] [address] 37184- 5305 Oct, Lumbar neuritis M54.16 and ADHD (attention deficit hyperactivity disorder), inattentive type F90.0 [facility] [id number] [place] [address] 54752- 3671 Oct, [facility] [id number] [place] [address] 84184- 3205 Sep, ADHD (attention deficit hyperactivity disorder), inattentive type F90.0 and Lumbar neuritis M54.16 [facility] [id number] [place] [address] 56228- 1958 Sep, Lumbar neuritis M54.16 [facility] [id number] [place] [address] 30519- 1543 Sep, [facility] [id number] [place] [address] 49998- 8677 Sep, ADHD (attention deficit hyperactivity disorder), inattentive type F90.0 and Lumbar neuritis M54.16 [facility] [address] [address]- 6285 Sep, [facility] [address] [address]- 7722 Aug, [facility] [address] [address]- 4701 Aug, [facility] [id number] [place] [address] 56689- 0822 Aug, [facility] [id number] [place] [address] 21253- 6968 Aug, [facility] [id number] [place] [address] 56905- 3211 Aug, ADHD (attention deficit hyperactivity disorder), inattentive type F90.0 and Lumbar neuritis M54.16 [facility] [id number] [place] [address] 04345- 4961 Jul, [facility] [address] [address]- 2449 Jul, [facility] [id number] [place] [address] 74011- 6975 Jul, Lumbar neuritis M54.16 and ADHD (attention deficit hyperactivity disorder), inattentive type F90.0 [facility] [address] [address]- 6339 Jul, [facility] [address] [address]- 1268 June, Lumbar neuritis M54.16 and ADHD (attention deficit hyperactivity disorder), inattentive type F90.0 [facility] [address] 2656 June, [facility] [address] [address]- 7267 June, [facility] [id number] [place] [address] 42572- 6411 May, 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 and Lumbago with sciatica, left side M54.42 [facility] [id number] [place] [address] 40455- 0626 14 May, 2016 Lumbar neuritis M54.16 and ADHD (attention deficit hyperactivity disorder), inattentive type F90.0 [facility] [id number] [place] [address] 99999- 3551 Apr, [facility] [id number] [place] [address] 38417- 8181 Apr, Lumbar neuritis M54.16 and ADHD (attention deficit hyperactivity disorder), inattentive type F90.0 [facility] [id number] [place] [address] 39607- 9340 Apr, [facility] [id number] [place] [address] 93897- 0017 Apr, [facility] [id number] [place] [address] 21964- 7469 15 Apr, 2016 ADHD (attention deficit hyperactivity disorder), inattentive type F90.0 [facility] [id number] [place] [address] 35122- 6963 15 Apr, 2016 Lumbar neuritis M54.16 [facility] [id number] [place] [address] 54128- 7381 08 Apr, 2016 [facility] [id number] [place] [address] 62280- 1632 07 Apr, 2016 [facility] [id number] [place] [address] 68209- 8150 Mar, Attention deficit hyperactivity disorder (ADHD), predominantly inattentive type F90.0 [facility] [id number] [place] [address] 32537- 1350 Mar, [facility] [address] [place] [address]- 1331 Mar, [facility] [id number] [place] [address] 65238- 0151 Mar, [facility] [id number] [place] [address] 33519- 5150 Jan, Attention deficit hyperactivity disorder (ADHD), predominantly inattentive type F90.0 [facility] [id number] [place] [address] 67941- 9892 Jan, [facility] [id number] [place] [address] 87952- 6699 Jan, [facility] [id number] [place] [address] 29872- 6299 Jan, [facility] [id number] [place] [address] 08976- 6204 Jan, Low TSH level R94.6 [facility] [address] [address]- 7845 Jan, [facility] [id number] [place] [address] 03877- 2905 Jan, [facility] [id number] [place] [address] 51550- 2617 Dec, [facility] [address], [place] [address]- 7239 Dec, [facility] [address], [place] [address]- 1296 Dec, [facility] [address] [address]- 9957 Nov, Low TSH level R94.6 [facility] [id number] [place] [address] 29026- 1101 Nov, Excessive daytime sleepiness G47.19 and ADHD (attention deficit hyperactivity disorder), inattentive type F90.0 [facility] [id number] [place] [address]- 4587 13 Dec, 2015 [facility] [address] [facility] [id number] [place] [address]- 3596 Nov, [facility] [place] [facility] [address] [facility] [id number] [place] [address]- 5335 Nov, [facility] [address] [facility] [id number] [place] [address]- 3033 Oct, [facility] [place] [facility] [address] [facility] [id number] [place] [address]- 7605 14 Nov, 2015 [facility] [address] [facility] [id number] [place] [address], [place] [address]- 8312 Oct, [facility] [place] [facility] [id number] [place] [address]- 2001 Sep, [facility] [id number] [place] [address], [place] [address]- 9512 Sep, [facility] [address] [facility] [id number] [place] [address]- 8001 Sep, [facility] [id number] [place] [address], [place] [address]- 6354 Aug, Lumbar neuritis M54.16 [facility] [address] [address]- 4384 Aug, [facility] [place] [facility] [id number] [place] [address]- 0860 Aug, [facility] [place] [facility] [address] [facility] [id number] [address]- 9648 Jul, Lumbar neuritis M54.16 [facility] [address] [facility] [id number] [place] [address]- 1808 Jul, [facility] [place] [facility] [id number] [place] [address]- 2059 Jul, [facility] [place] [facility] [address], [place] [address]- 9668 June, Lumbar neuritis M54.16 [facility] [address], [place] [address]- 2211 June, [facility] [id number] [address]- 9952 June, [facility] [id number] [place] [address] 66935- 2193 May, Lumbar neuritis M54.16 [facility] [address], [place] [address]- 9736 May, [facility] [id number] [place] [address] 86019- 4893 May, [facility] [id number] [place] [address] 59923- 2301 Apr, [facility] [id number] [place] [address] 16846- 4434 14 May, 2015 [facility] [address], [place] [address]- 8461 14 May, 2015 [facility] [id number] [place] [address] 23232- 7883 Apr, [facility] [address], [place] [address]- 1980 24 Apr, 2015 [facility] [address], [place] [address]- 3601 Apr, Inguinal hernia, right K40.90 [facility] [address], [place] [address]- 0484 17 Apr, 2015 [facility] [id number] [place] [address] 09420- 5465 15 Apr, 2015 Low back pain M54.5 and Sciatica, unspecified side M54.30 [facility] [address], [place] [address]- 6412 Mar, [facility] [place] [facility] [address] [facility] [id number], [place] [address]- 6137 Mar, [facility] [place] [facility] [address] [facility] [id number] [place] [address], [place] [address]- 3252 Jan, [facility] [place] [facility] [address] [facility] [id number] [place] [address]- 0667 Jan, [facility] [place] [facility] [address] [facility] [id number] [place] [address], [place] [address]- 2845 Jan, [facility] [place] [facility] [address] [facility] [id number] [place] [address], [place] [address]- 7378 Dec, [facility] [place] [facility] [address] [facility] [id number] [place] [address] 87520- 9585 Dec, [facility] [id number] [place] [address], [place] [address]- 2293 Dec, [facility] [place] [facility] [id number] [place] [address] 76089- 9168 Dec, [facility] [place] [facility] [address], [place] [address]- 6510 Nov, [facility] [id number] [place] [address] 11576- 0406 Nov, Encounter for immunization Z23 [facility] [id number], [place] [address]- 7229 Nov, [facility] [place] [facility] [address], [place] [address]- 8980 Nov, [facility] [place] [facility] [address] [facility] [id number], [place] [address]- 5498 Oct, [facility] [place] [facility] [id number], [place] [address]- 4976 Oct, [facility] [place] [facility] [address], [place] [address]- 6731 Sep, Lumbago 724.2 [facility] [place] [facility] [address] [id number] [place] [address]- 7244 Sep, [facility] [place] [facility] [address] [id number] [place] [address]- 1610 Aug, Lumbago 724.2 [facility] [place] [facility] [address] [id number] [place] [address]- 0755 Aug, [facility] [place] [facility] [address] [id number] [place] [address]- 7507 Aug, [facility] [place] [facility] [address] [id number] [place] [address]- 7724 Jul, [facility] [place] [facility] [address] [id number] [place] [address]- 9914 Jul, [facility] [place] [facility] [address] [id number] [place] [address]- 5359 Jul, [facility] [place] [facility] [address] [id number] [place] [address]- 5769 June, [facility] [place] [facility] [address] [id number] [place] [address]- 1732 May, [facility] [place] [facility] [address] [id number] [place] [address]- 0425 May, [facility] [place] [facility] [address] [id number] [place] [address]- 8746 Apr, [facility] [place] [facility] [address] [id number] [place] [address]- 1327 Apr, [facility] [place] [facility] [address] [id number] [place] [address]- 0466 Apr, [facility] [place] [facility] [address] [id number] [place] 7997 Apr, [facility] [place] [facility] [address] [id number] [place] [address]- 5335 Apr, [facility] [place] [facility] [address] [id number] [place] [address]- 0555 Apr, 2014 [facility] [place] [facility] [address] [id number] [place] [address]- 2397 Apr, [facility] [place] [facility] [address] [id number] [place] [address]- 9956 Apr, [facility] [place] [facility] [address] [id number] [place] [address]- 4465 Mar, [facility] [place] [facility] [address] [id number] [place] [address]- 9224 Mar, [facility] [place] [facility] [address] [id number] [place] 4776 Jan, [facility] [place] [facility] [address] [id number] [place] [address]- 9646 Jan, [facility] [place] [facility] [address] [id number] [place] [address]- 4489 Jan, [facility] [place] [facility] [address] [id number] [place] [address]- 7870 Jan, [facility] [place] [facility] [address] [id number] [place] [address]- 5824 Jan, [facility] [place] [facility] [address] [facility] [id number] [place] [address]- 6920 Jan, [facility] [place] [facility] [address] [id number] [place] [address]- 8804 Dec, [facility] [place] [facility] [address] [id number] [place] [address]- 1122 Dec, [facility] [place] [facility] [address] [id number] [place] [address]- 3081 Nov, [facility] [place] [facility] [address] [id number] [place] 1205 Nov, [facility] [place] [facility] [address] [id number] [place] [address]- 7502 Nov, [facility] [place] [facility] [address] [id number] [place] [address]- 1529 Nov, [facility] [place] [facility] [address] [id number] [place] 8910 Oct, [facility] [place] [facility] [address] [id number] [place] [address]- 6892 Oct, [facility] [place] [facility] [address] [id number] [place] [address]- 7298 Sep, [facility] [place] [facility] [address] [id number] [place] [address]- 1517 Sep, [facility] [place] [facility] [address] [id number] [place] [address]- 1888 Sep, [facility] [place] [facility] [address] [id number] [place] [address]- 1320 Sep, [facility] [place] [facility] [address] [id number] [place] [address]- 2634 Aug, [facility] [place] [facility] [address] [id number] [place] [address]- 5709 Aug, [facility] [place] [facility] [address] [id number] [place] [address]- 1442 Aug, [facility] [place] [facility] [address] [id number] [place] [address]- 2900 Aug, [facility] [place] [facility] [address] [id number] [place] [address]- 0459 Jul, [facility] [place] [facility] [address] [id number] [place] [address]- 8771 Jul, [facility] [place] [facility] [address] [id number] [place] [address]- 7222 June, [facility] [place] [facility] [address] [id number] [place] [address]- 1209 June, [facility] [place] [facility] [address] [id number] [place] [address]- 1935 June, [facility] [place] [facility] [address] [id number] [place] [address]- 2540 May, [facility] [place] [facility] [address] [id number] [place] [address] May, [facility] [place] [facility] [address] [id number] [place] [address] May, [facility] [place] [facility] [address] [id number] [place] [address] May, [facility] [place] [facility] [address] [id number] [place] [address] May, [facility] [place] [facility] [address] [id number] [place] [address] May, [facility] [place] [facility] [address] [id number] [place] [address] May, [facility] [place] [facility] [address] [id number] [place] [address] May, [facility] [place] [facility] [address] [id number] [place] [address] May, [facility] [place] [facility] [address] [id number] [place] [address] May, [facility] [place] [facility] [address] [id number] [place] [address] May, [facility] [place] [facility] [address] [id number] [place] [address] Apr, [facility] [place] [facility] [address] [id number] [place] [address] Apr, [facility] [place] [facility] [address] [id number] [place] [address] Apr, [facility] [place] [facility] [address] [id number] [place] [address] Apr, [facility] [place] [facility] [address] [id number] [place] [address] Apr, [facility] [place] [facility] [address] [id number] [place] [address] Apr, [facility] [place] [facility] [address] [id number] [place] [address] Apr, [facility] [place] [facility] [address] [id number] [place] [address] Apr, [facility] [place] [facility] [address] [id number] [place] [address] Apr, [facility] [place] [facility] [address] [id number] [place] [address] Apr, [facility] [place] [facility] [address] [id number] [place] [address] Apr, [facility] [place] [facility] [address] [id number] [place] [address] Apr, [facility] [place] [facility] [address] [id number] [place] [address] Mar, [facility] [place] [facility] [address] [facility] [id number] [place] [address] Mar, [facility] [place] [facility] [address] [id number] [place] [address] Mar, [facility] [place] [facility] [address] [id number] [place] [address] Mar, [facility] [place] [facility] [address] [id number] [place] [address] Mar, [facility] [place] [facility] [address] [id number] [place] [address] Mar, [facility] [place] [facility] [address] [id number] [place] [address] Jan, [facility] [place] [facility] [address] [id number] [place] [address] Jan, [facility] [address] [facility] [id number] [place] [address] Dec, [facility] [address] [facility] [id number] [place] [address] Dec, IMMUNIZATIONS No Known Immunizations SOCIAL HISTORY Never Assessed REASON FOR VISIT Controlled Med Refill 02/16/17 PLAN OF CARE VITAL SIGNS MEDICATIONS Medication Instructions Dosage Frequency Start Date End Date Duration Status Adderall XR 30 MG Orally Once a day 1 capsule in the morning 24h Jan, 28 days Active RESULTS No Results PROCEDURES No Known procedures INSTRUCTIONS MEDICATIONS ADMINISTERED No Known Medications MEDICAL (GENERAL) HISTORY Type Description Date Medical History narcolepsy Surgical History Gallbladder removed 05/2014 Surgical History Hernia repair 05/24/2015
--- OUTSIDE RECORDS SUMMARY | 2017-11-01 13:17 | XMS REPORT ---
Author Author SHAHNAZ WIN Organization [facility] Address [address] [place] [address] Care Team Providers Care Education Program Specialist Name Role Phone SHAHNAZ WIN Unavailable PROBLEMS Type Condition ICD9-CM Code CNX75-EY Code Onset Dates Condition Status SNOMED Code Problem ADHD (attention deficit hyperactivity disorder), inattentive type F90.0 Active 79886356 Problem Arthritis M19.90 Active 2951626 Problem Positive skin test for tuberculosis R76.11 Active 408657333 Problem Lumbago with sciatica, left side M54.42 Active 982812083 Problem Excessive daytime sleepiness G47.19 Active 582462404576 Problem 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 27420978639815 Problem 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 Active [id number] ALLERGIES No Information ENCOUNTERS Encounter Location Date Diagnosis [place] [id number] [place] [address] 88109- 9070 June, [place] [id number] [place] [address] 44904- 4344 Apr, ADHD (attention deficit hyperactivity disorder), inattentive type F90.0 ; Lumbago with sciatica, left side M54.42 and Arthritis M19.90 [facility] [id number] [place] [address] 71388- 2349 Apr, ADHD (attention deficit hyperactivity disorder), inattentive type F90.0 and Lumbar neuritis M54.16 [place] [id number] [place] [address] 36963- 8351 Apr, [place] [id number] [place] [address] 38598- 8883 Apr, Lumbar neuritis M54.16 [place] [id number] [place] [address] 02453- 8035 16 Apr, 2017 Low back pain M54.5 [facility] [id number] [place] [address] 57363- 4386 Apr, ADHD (attention deficit hyperactivity disorder), inattentive type F90.0 [facility] [id number] [place] [address] 11081- 2374 Apr, Positive skin test for tuberculosis R76.11 [facility] [id number] [place] [address] 42013- 8405 Apr, Positive skin test for tuberculosis R76.11 [facility] [id number] [place] [address] 88893- 1167 Apr, [facility] [id number] [place] [address] 51559- 0377 Mar, Lumbar neuritis M54.16 [facility] [id number] [place] [address] 40935- 9433 Mar, ADHD (attention deficit hyperactivity disorder), inattentive type F90.0 [facility] [id number] [place] [address] 95068- 7120 Mar, [facility] [id number] [place] [address] 41784- 0573 Jan, Lumbar neuritis M54.16 [facility] [id number] [place] [address] 17509- 3708 Jan, ADHD (attention deficit hyperactivity disorder), inattentive type F90.0 [facility] [id number] [place] [address] 72789- 8292 Jan, [facility] [id number] [place] [address] 88404- 1973 Jan, [facility] [id number] [place] [address] 66275- 0577 Dec, Lumbar neuritis M54.16 [facility] [id number] [place] [address] 65430- 7558 Dec, ADHD (attention deficit hyperactivity disorder), inattentive type F90.0 and 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 [facility] [id number] [place] [address] 72535- 6867 Dec, [facility] [id number] [place] [address] 19137- 0028 Dec, [facility] [id number] [place] [address] 48196- 7061 Nov, Lumbar neuritis M54.16 and ADHD (attention deficit hyperactivity disorder), inattentive type F90.0 [facility] [id number] [place] [address] 17137- 9332 Nov, [facility] [id number] [place] [address] 28064- 8089 Oct, Lumbar neuritis M54.16 and ADHD (attention deficit hyperactivity disorder), inattentive type F90.0 [facility] [id number] [place] [address] 99228- 0249 Oct, [facility] [id number] [place] [address] 26510- 8117 Sep, ADHD (attention deficit hyperactivity disorder), inattentive type F90.0 and Lumbar neuritis M54.16 [facility] [id number] [place] [address] 17312- 7002 Sep, Lumbar neuritis M54.16 [facility] [id number] [place] [address] 28437- 2353 Sep, [facility] [id number] [place] [address] 53970- 4692 Sep, ADHD (attention deficit hyperactivity disorder), inattentive type F90.0 and Lumbar neuritis M54.16 [facility] [address] [address]- 5099 Sep, [facility] [address] [address]- 7085 Aug, [facility] [address] 0987 Aug, [facility] [address] [address]- 7026 Aug, [facility] [address] [address]- 3065 Aug, [facility] [id number] [place] [address] 72449- 1854 Aug, ADHD (attention deficit hyperactivity disorder), inattentive type F90.0 and Lumbar neuritis M54.16 [facility] [id number] [address]- 1117 Jul, [facility] [id number] [address]- 2740 Jul, [facility] [id number] [place] [address] 19621- 7684 Jul, Lumbar neuritis M54.16 and ADHD (attention deficit hyperactivity disorder), inattentive type F90.0 [facility] [address] [address]- 0461 Jul, [facility] [address] [address]- 5752 June, Lumbar neuritis M54.16 and ADHD (attention deficit hyperactivity disorder), inattentive type F90.0 [facility] [address] 5391 June, [facility] [address] 0824 June, [facility] [address] [address]- 8591 May, 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 and Lumbago with sciatica, left side M54.42 [facility] [id number] [place] [address] 24664- 0100 May, Lumbar neuritis M54.16 and ADHD (attention deficit hyperactivity disorder), inattentive type F90.0 [facility] [id number] [place] [address] 31153- 8233 Apr, [facility] [id number] [place] [address] 10785- 8132 Apr, Lumbar neuritis M54.16 and ADHD (attention deficit hyperactivity disorder), inattentive type F90.0 [facility] [id number] [place] [address] 21238- 4099 Apr, [facility] [id number] [place] [address] 11931- 0619 Apr, [facility] [id number] [place] [address] 39290- 2456 Apr, ADHD (attention deficit hyperactivity disorder), inattentive type F90.0 [facility] [id number] [place] [address] 52841- 2474 Apr, Lumbar neuritis M54.16 [facility] [id number] [place] [address] 09144- 5900 08 Apr, 2016 [facility] [id number] [place] [address] 84914- 3929 07 Apr, 2016 [facility] [id number] [place] [address] 01709- 0230 Mar, Attention deficit hyperactivity disorder (ADHD), predominantly inattentive type F90.0 [facility] [id number] [place] [address] 44720- 9592 Mar, [facility] [id number] [place] [address] 54914- 2817 Mar, [facility] [id number] [place] [address] 47479- 7544 Mar, [facility] [id number] [place] [address] 98745- 2576 Jan, Attention deficit hyperactivity disorder (ADHD), predominantly inattentive type F90.0 [facility] [id number] [place] [address] 21435- 4577 Jan, [facility] [id number] [place] [address] 28336- 4411 Jan, [facility] [id number] [place] [address] 18895- 3748 Jan, [facility] [id number] [place] [address] 40199- 7512 Jan, Low TSH level R94.6 [facility] [id number] [place] [address] 54787- 5218 Jan, [facility] [id number] [place] [address] 16994- 2075 Jan, [facility] [id number] [place] [address] 47623- 0118 Dec, [facility] [id number] [place] [address] 99040- 0944 Dec, [facility] [id number] [place] [address] 27647- 4142 Dec, [facility] [id number] [place] [address] 90595- 9422 Nov, Low TSH level R94.6 [facility] [id number] [place] [address] 32828- 1782 Nov, Excessive daytime sleepiness G47.19 and ADHD (attention deficit hyperactivity disorder), inattentive type F90.0 [facility] [id number] [place] [address] 65830- 6157 Nov, [facility] [address] [facility] [id number] [place] [address]- 9159 Nov, [facility] [place] [facility] [address] [facility] [id number] [place] [address]- 6029 Nov, [facility] [address] [facility] [id number] [place] [address]- 8781 Oct, [facility] [place] [facility] [address] [facility] [id number] [place] [address], [place] [address]- 7663 Oct, [facility] [place] [facility] [address] [facility] [id number] [place] [address]- 9411 Oct, [facility] [place] [facility] [id number] [place] [address], [place] [address]- 0799 Sep, [facility] [place] [facility] [id number] [place] [address], [place] [address]- 6403 Sep, [facility] [place] [facility] [address] [facility] [id number] [place] [address], [place] [address]- 5200 Sep, [facility] [id number] [address]- 2770 Aug, Lumbar neuritis M54.16 [facility] [id number] [address]- 7906 Aug, [facility] [place] [facility] [address] [address]- 3389 Aug, [facility] [place] [facility] [address] [facility] [id number] [place] [address]- 5677 Jul, Lumbar neuritis M54.16 [facility] [place] [facility] [address] [facility] [id number] [place] 4565 Jul, [facility] [place] [facility] [address] [facility] [id number] [place] [address]- 5213 Jul, [facility] [place] [facility] [address] [address]- 2106 June, Lumbar neuritis M54.16 [facility] [address] [address]- 8146 June, [facility] [id number] [place] [address] 64808- 0293 June, [facility] [id number] [place] [address] 67945- 3674 May, Lumbar neuritis M54.16 [facility] [id number] [place] [address] 29045- 7855 May, [facility] [id number] [place] [address] 30014- 5871 May, [facility] [id number] [place] [address] 34125- 9058 23 May, 2015 [facility] [id number] [place] [address] 23294- 0077 Apr, [facility] [id number] [place] [address] 63652- 7542 14 May, 2015 [facility] [id number] [place] [address] 68219- 3627 Apr, [facility] [id number] [address]- 7667 24 Apr, 2015 [facility] [id number] [place] [address] 11426- 6243 22 Apr, 2015 Inguinal hernia, right K40.90 [facility] [address] [address]- 8067 17 Apr, 2015 [facility] [id number] [place] [address] 24680- 9266 15 Apr, 2015 Low back pain M54.5 and Sciatica, unspecified side M54.30 [facility] [address] [address]- 4799 Mar, [facility] [address] [id number] [place] [address]- 9308 Mar, [facility] [address] [facility] [id number] [place] [address], [place] [address]- 4329 Jan, [facility] [place] [facility] [address] [facility] [id number] [place] [address]- 8599 Jan, [facility] [address] [facility] [id number] [place] [address], [place] [address]- 0295 Jan, [facility] [place] [facility] [address] [facility] [id number] [place] [address]- 7654 Dec, [facility] [id number] [place] [address], [place] [address]- 2468 Dec, [facility] [id number] [place] [address], [place] [address]- 9553 Dec, [facility] [id number] [place] [address], [place] [address]- 1102 Dec, [facility] [id number] [place] [address] 18100- 5548 Nov, [facility] [id number] [place] [address] 14010- 2845 Nov, Encounter for immunization Z23 [facility] [address] [address]- 4532 Nov, [facility] [id number] [address]- 9722 Nov, [facility] [id number] [address]- 6303 Oct, [facility] [id number] [address]- 3265 Oct, [facility] [id number] [address]- 3816 Sep, Lumbago 724.2 [facility] [id number] [address]- 1544 Sep, [facility] [place] [facility] [address] [id number] [place] [address]- 7330 Aug, Lumbago 724.2 [facility] [place] [facility] [address] [id number] [place] [address]- 4836 Aug, [facility] [place] [facility] [address] [id number] [place] [address]- 2276 Aug, [facility] [place] [facility] [address] [id number] [place] [address]- 5051 Jul, [facility] [place] [facility] [address] [id number] [place] [address]- 7625 Jul, [facility] [place] [facility] [address] [id number] [place] [address]- 2893 Jul, [facility] [place] [facility] [address] [id number] [place] [address]- 6528 June, [facility] [place] [facility] [address] [id number] [place] [address]- 2577 May, [facility] [place] [facility] [address] [id number] [place] [address]- 9708 May, [facility] [place] [facility] [address] [facility] [id number] [place] [address]- 3516 Apr, [facility] [place] [facility] [address] [id number] [place] [address]- 7778 Apr, [facility] [place] [facility] [address] [id number] [place] [address]- 0727 Apr, [facility] [place] [facility] [address] [id number] [place] [address]- 3766 Apr, [facility] [place] [facility] [address] [id number] [place] [address]- 9796 Apr, [facility] [place] [facility] [address] [id number] [place] [address]- 9222 Apr, [facility] [place] [facility] [address] [id number] [place] [address]- 0656 Apr, [facility] [place] [facility] [address] [id number] [place] [address]- 8546 Apr, [facility] [place] [facility] [address] [facility] [id number] [place] [address]- 5262 Mar, [facility] [place] [facility] [address] [id number] [place] [address]- 9410 Mar, [facility] [place] [facility] [address] [id number] [place] [address]- 6455 Jan, [facility] [place] [facility] [address] [id number] [place] [address]- 1772 Jan, [facility] [place] [facility] [address] [id number] [place] [address]- 8204 Jan, [facility] [place] [facility] [address] [id number] [place] [address]- 6582 Jan, [facility] [place] [facility] [address] [id number] [place] [address]- 4718 Jan, [facility] [place] [facility] [address] [facility] [id number] [place] [address]- 5654 Jan, [facility] [place] [facility] [address] [id number] [place] [address]- 4574 Dec, [facility] [place] [facility] [address] [id number] [address]- 2106 Dec, [facility] [place] [facility] [address] [id number] [place] [address]- 9301 Nov, [facility] [place] [facility] [address] [id number] [place] [address]- 8454 Nov, [facility] [place] [facility] [address] [facility] [id number] [place] [address]- 2619 Nov, [facility] [place] [facility] [address] [id number] [place] [address]- 7940 Nov, [facility] [place] [facility] [address] [id number] [place] [address]- 8905 Oct, [facility] [place] [facility] [address] [id number] [place] 7989 Oct, [facility] [place] [facility] [address] [id number] [place] [address]- 6962 Sep, [facility] [place] [facility] [address] [id number] [place] [address]- 6379 Sep, [facility] [place] [facility] [address] [id number] [place] [address]- 2097 Sep, [facility] [place] [facility] [address] [id number] [place] [address]- 9060 Sep, [facility] [place] [facility] [address] [id number] [place] [address]- 2237 Aug, [facility] [place] [facility] [address] [id number] [place] [address]- 4738 Aug, [facility] [place] [facility] [address] [id number] [place] [address]- 8828 Aug, [facility] [place] [facility] [address] [id number] [place] [address]- 7640 Aug, [facility] [place] [facility] [address] [id number] [place] [address] Jul, [facility] [place] [facility] [address] [id number] [place] [address] Jul, [facility] [place] [facility] [address] [id number] [place] [address] June, [facility] [place] [facility] [address] [id number] [place] [id number] June, [facility] [place] [facility] [address] [id number] [place] [address] June, [facility] [place] [facility] [address] [id number] [place] [address] May, [facility] [place] [facility] [address] [id number] [place] [address] May, [facility] [place] [facility] [address] [id number] [place] [address] May, [facility] [place] [facility] [address] [id number] [place] [address] May, [facility] [place] [facility] [address] [id number] [place] [address] May, [facility] [place] [facility] [address] [id number] [place] [address] May, [facility] [place] [facility] [address] [id number] [place] [address] May, [facility] [place] [facility] [address] [id number] [place] [address] May, [facility] [place] [facility] [address] [id number] [place] [address] May, [facility] [place] [facility] [address] [id number] [place] [address] May, [facility] [place] [facility] [address] [id number] [place] [address] May, [facility] [place] [facility] [address] [id number] [place] [address] Apr, [facility] [place] [facility] [address] [id number] [place] [address] Apr, [facility] [place] [facility] [address] [id number] [place] [address] Apr, [facility] [place] [facility] [address] [id number] [place] [address] Apr, [facility] [place] [facility] [address] [id number] [place] [address] Apr, [facility] [place] [facility] [address] [id number] [place] [address] Apr, [facility] [place] [facility] [address] [id number] [place] [address] Apr, [facility] [place] [facility] [address] [id number] [place] [address] Apr, [facility] [place] [facility] [address] [id number] [place] [address] Apr, [facility] [place] [facility] [address] [id number] [place] [address] Apr, [facility] [place] [facility] [address] [id number] [place] [address] Apr, [facility] [place] [facility] [address] [id number] [place] [address] Apr, [facility] [place] [facility] [address] [id number] [place] [address] Mar, [facility] [place] [facility] [address] [id number] [place] [address] Mar, [facility] [place] [facility] [address] [facility] [id number] [place] [address] Mar, [facility] [place] [facility] [address] [id number] [place] [address] Mar, [facility] [place] [facility] [address] [id number] [place] [address] Mar, [facility] [place] [facility] [address] [id number] [place] [address] Mar, [facility] [place] [facility] [address] [id number] [place] [address] Jan, [facility] [place] [facility] [address] [id number] [place] [address] Jan, [facility] [address] [facility] [id number] [place] [address] Dec, [facility] [address] [facility] [id number] [place] [id number] Dec, IMMUNIZATIONS No Known Immunizations SOCIAL HISTORY Never Assessed REASON FOR VISIT medication refill PLAN OF CARE VITAL SIGNS MEDICATIONS Unknown Medications RESULTS No Results PROCEDURES No Known procedures INSTRUCTIONS MEDICATIONS ADMINISTERED No Known Medications MEDICAL (GENERAL) HISTORY Type Description Date Medical History narcolepsy Surgical History Gallbladder removed 05/2014 Surgical History Hernia repair 05/24/2015
--- OUTSIDE RECORDS SUMMARY | 2017-11-01 13:18 | XMS REPORT ---
Author Author SHAHNAZ WIN Organization [employer] Address Unknown Phone Unavailable Care Team Providers Care Enamel Dipper Name Role Phone SHAHNAZ WIN CP Unavailable [...]
--- OUTSIDE RECORDS SUMMARY | 2017-11-01 13:18 | XMS REPORT ---
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 51652484783804 Problem ADHD (attention deficit hyperactivity disorder), inattentive type F90.0 Active 59844111 Problem Excessive daytime sleepiness G47.19 Active [id number] ALLERGIES No Information SOCIAL HISTORY Never Assessed PLAN OF CARE VITAL SIGNS MEDICATIONS Medication Instructions Dosage Frequency Start Date End Date Duration Status Tramadol HCl 50 mg Orally every 6 hrs 1 tablet as needed 6h Jan, 28 days Active Adderall XR 20 mg Orally Once a day 1 capsule in the morning 24h Apr, 28 days Active RESULTS No Results PROCEDURES No Known procedures IMMUNIZATIONS No Known Immunizations MEDICAL (GENERAL) HISTORY Type Description Date Surgical History Gallbladder removed 05/2014 Surgical History Hernia repair 05/24/2015
--- OUTSIDE RECORDS SUMMARY | 2017-11-01 13:18 | XMS REPORT ---
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 97842071083800 Problem ADHD (attention deficit hyperactivity disorder), inattentive type F90.0 Active 98657508 Problem Excessive daytime sleepiness G47.19 Active [id number] ALLERGIES No Information SOCIAL HISTORY Never Assessed PLAN OF CARE VITAL SIGNS MEDICATIONS Medication Instructions Dosage Frequency Start Date End Date Duration Status Adderall XR 20 mg Orally Once a day 1 capsule in the morning 24h Apr, 28 days Active RESULTS No Results PROCEDURES No Known procedures IMMUNIZATIONS No Known Immunizations MEDICAL (GENERAL) HISTORY Type Description Date Surgical History Gallbladder removed 05/2014 Surgical History Hernia repair 05/24/2015
--- OUTSIDE RECORDS SUMMARY | 2017-11-01 13:19 | XMS REPORT ---
Author Author SHAHNAZ WIN Organization [facility] [place] Address [address] [place] [address] Care Team Providers Care Fixing Machine Operator Name Role Phone SHAHNAZ WIN Unavailable PROBLEMS Type Condition ICD9-CM Code [id number] Code Onset Dates Condition Status SNOMED Code Problem ADHD (attention deficit hyperactivity disorder), inattentive type F90.0 Active 75328657 Problem Arthritis M19.90 Active 8548323 Problem Positive skin test for tuberculosis R76.11 Active 210820679 Problem Lumbago with sciatica, left side M54.42 Active 237249477 Problem Excessive daytime sleepiness G47.19 Active 629548558938 Problem 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 10049304058872 Problem 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 Active [id number] ALLERGIES No Information ENCOUNTERS Encounter Location Date Diagnosis [place] [id number] [place] [address] 04282- 2454 June, [place] [id number] [place] [address] 00704- 3861 Apr, ADHD (attention deficit hyperactivity disorder), inattentive type F90.0 ; Lumbago with sciatica, left side M54.42 and Arthritis M19.90 [facility] [place] [id number] [place] [address] 25094- 3995 Apr, ADHD (attention deficit hyperactivity disorder), inattentive type F90.0 and Lumbar neuritis M54.16 [place] [id number] [place] [address] 15039- 0096 Apr, [place] [id number] [place] [address] 90325- 6689 Apr, Lumbar neuritis M54.16 [place] [id number] [place] [address] 86518- 9236 16 Apr, 2017 Low back pain M54.5 [facility] [place] [id number] [place] [address] 26806- 8565 Apr, ADHD (attention deficit hyperactivity disorder), inattentive type F90.0 [facility] [place] [id number] [place] [address] 83917- 6381 Apr, Positive skin test for tuberculosis R76.11 [facility] [place] [id number] [place] [address] 86275- 8089 Apr, Positive skin test for tuberculosis R76.11 [facility] [place] [id number] [place] [address] 77512- 5809 Apr, [facility] [place] [id number] [place] [address] 27961- 6830 Mar, Lumbar neuritis M54.16 [facility] [place] [id number] [place] [address] 00601- 6402 Mar, ADHD (attention deficit hyperactivity disorder), inattentive type F90.0 [facility] [place] [id number] [place] [address] 59887- 8842 Mar, [facility] [place] [id number] [place] [address] 80174- 7781 Jan, Lumbar neuritis M54.16 [facility] [place] [id number] [place] [address] 80391- 0449 Jan, ADHD (attention deficit hyperactivity disorder), inattentive type F90.0 [facility] [place] [id number] [place] [address] 40477- 0254 Jan, [facility] [place] [id number] [place] [address] 65398- 9342 Jan, [facility] [place] [id number] [place] [address] 34757- 5350 Dec, Lumbar neuritis M54.16 [facility] [place] [id number] [place] [address] 23650- 3502 Dec, ADHD (attention deficit hyperactivity disorder), inattentive type F90.0 and 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 [facility] [place] [id number] [place] [address] 31375- 1840 Dec, [facility] [place] [id number] [place] [address] 90147- 6810 Dec, [facility] [place] [id number] [place] [address] 61276- 1785 Nov, Lumbar neuritis M54.16 and ADHD (attention deficit hyperactivity disorder), inattentive type F90.0 [facility] [place] [id number] [place] [address] 69907- 2670 Nov, [facility] [place] [id number] [place] [address] 68626- 2591 Oct, Lumbar neuritis M54.16 and ADHD (attention deficit hyperactivity disorder), inattentive type F90.0 [facility] [place] [id number] [place] [address] 57751- 4428 Oct, [facility] [place] [id number] [place] [address] 37182- 5293 Sep, ADHD (attention deficit hyperactivity disorder), inattentive type F90.0 and Lumbar neuritis M54.16 [facility] [place] [id number] [place] [address] 81786- 6211 Sep, Lumbar neuritis M54.16 [facility] [place] [id number] [place] [address] 54668- 5004 Sep, [facility] [place] [id number] [place] [address] 82312- 2458 Sep, ADHD (attention deficit hyperactivity disorder), inattentive type F90.0 and Lumbar neuritis M54.16 [facility] [place] [address] [address]- 9912 Sep, [facility] [place] [address] [address]- 2473 Aug, [facility] [place] [address] 5809 Aug, [facility] [place] [address] [address]- 4349 Aug, [facility] [place] [address] [address]- 4040 Aug, [facility] [place] [id number] [place] [address] 70428- 4075 Aug, ADHD (attention deficit hyperactivity disorder), inattentive type F90.0 and Lumbar neuritis M54.16 [facility] [place] [id number] [address]- 2988 Jul, [facility] [place] [id number] [address]- 4016 Jul, [facility] [place] [id number] [place] [address] 68701- 9576 Jul, Lumbar neuritis M54.16 and ADHD (attention deficit hyperactivity disorder), inattentive type F90.0 [facility] [place] [address] [address]- 1839 Jul, [facility] [place] [address] [address]- 6244 June, Lumbar neuritis M54.16 and ADHD (attention deficit hyperactivity disorder), inattentive type F90.0 [facility] [place] [address] 9128 June, [facility] [place] [address] [address] 2230 June, [facility] [place] [address] [address]- 2421 May, 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 and Lumbago with sciatica, left side M54.42 [facility] [place] [id number] [place] [address] 63972- 0822 May, Lumbar neuritis M54.16 and ADHD (attention deficit hyperactivity disorder), inattentive type F90.0 [facility] [place] [id number] [place] [address] 87706- 7960 Apr, [facility] [place] [id number] [place] [address] 70392- 1744 Apr, Lumbar neuritis M54.16 and ADHD (attention deficit hyperactivity disorder), inattentive type F90.0 [facility] [place] [id number] [place] [address] 76620- 9589 Apr, [facility] [place] [id number] [place] [address] 09663- 7387 Apr, [facility] [place] [id number] [place] [address] 05725- 0119 Apr, ADHD (attention deficit hyperactivity disorder), inattentive type F90.0 [facility] [place] [id number] [place] [address] 64452- 2864 Apr, Lumbar neuritis M54.16 [facility] [place] [id number] [place] [address] 94074- 7327 08 Apr, 2016 [facility] [place] [id number] [place] [address] 05916- 5204 07 Apr, 2016 [facility] [place] [id number] [place] [address] 56870- 3779 Mar, Attention deficit hyperactivity disorder (ADHD), predominantly inattentive type F90.0 [facility] [place] [id number] [place] [address] 66481- 4861 Mar, [facility] [place] [id number] [place] [address] 11635- 8449 Mar, [facility] [place] [id number] [place] [address] 75542- 7592 Mar, [facility] [place] [id number] [place] [address] 84567- 4001 Jan, Attention deficit hyperactivity disorder (ADHD), predominantly inattentive type F90.0 [facility] [place] [id number] [place] [address] 34143- 9525 Jan, [facility] [place] [id number] [place] [address] 37554- 6190 Jan, [facility] [place] [id number] [place] [address] 49576- 8899 Jan, [facility] [place] [id number] [place] [address] 44495- 5726 Jan, Low TSH level R94.6 [facility] [place] [id number] [place] [address] 26596- 9145 Jan, [facility] [place] [id number] [place] [address] 67885- 3723 Jan, [facility] [place] [id number] [place] [address] 87412- 6902 Dec, [facility] [place] [id number] [place] [address] 18088- 8479 Dec, [facility] [place] [id number] [place] [address] 04255- 0671 Dec, [facility] [place] [id number] [place] [address] 34637- 6344 Nov, Low TSH level R94.6 [facility] [place] [id number] [place] [address] 29744- 3749 Nov, Excessive daytime sleepiness G47.19 and ADHD (attention deficit hyperactivity disorder), inattentive type F90.0 [facility] [place] [id number] [place] [address] 67826- 4018 Nov, [facility] [address] [facility] [id number] [place] [address]- 2957 Nov, [facility] [place] [facility] [address] [facility] [id number] [place] [address]- 4232 Nov, [facility] [address] [facility] [id number] [place] [address]- 2196 Oct, [facility] [place] [facility] [address] [facility] [id number] [place] [address], [place] [address]- 4876 Oct, [facility] [place] [facility] [address] [facility] [id number] [place] [address]- 8401 Oct, [facility] [place] [facility] [id number] [place] [address], [place] [address]- 2773 Sep, [facility] [place] [facility] [id number] [place] [address], [place] [address]- 5409 Sep, [facility] [place] [facility] [address] [facility] [id number] [place] [address], [place] [address]- 3681 Sep, [facility] [id number], [place] [address]- 8483 Aug, Lumbar neuritis M54.16 [facility] [id number], [place] [address]- 5738 Aug, [facility] [place] [facility] [address], [place] [address]- 3687 Aug, [facility] [place] [facility] [address] [facility] [id number] [address]- 4287 Jul, Lumbar neuritis M54.16 [facility] [place] [facility] [address] [facility] [id number] [place] 3413 Jul, [facility] [place] [facility] [address] [facility] [id number] [place] [address]- 2601 Jul, [facility] [place] [facility] [address], [place] [address]- 9896 June, Lumbar neuritis M54.16 [facility] [place] [address] [place] [address]- 4666 June, [facility] [place] [id number] [place] [address] 90856- 1468 June, [facility] [place] [id number] [place] [address] 68009- 8742 May, Lumbar neuritis M54.16 [facility] [place] [id number] [place] [address] 46264- 8875 May, [facility] [place] [id number] [place] [address] 67251- 9872 May, [facility] [place] [id number] [place] [address] 50191- 6143 23 May, 2015 [facility] [place] [id number] [place] [address] 81916- 4713 Apr, [facility] [place] [id number] [place] [address] 94897- 5935 14 May, 2015 [facility] [place] [id number] [place] [address] 35600- 8991 Apr, [facility] [place] [id number] [address]- 6338 24 Apr, 2015 [facility] [place] [id number] [place] [address] 83367- 1734 22 Apr, 2015 Inguinal hernia, right K40.90 [facility] [place] [address], [place] [address]- 4139 17 Apr, 2015 [facility] [place] [id number] [place] [address] 21453- 5406 15 Apr, 2015 Low back pain M54.5 and Sciatica, unspecified side M54.30 [facility] [place] [address], [place] [address]- 7785 Mar, [facility] [place] [address] [id number] [place] [address]- 5847 Mar, [facility] [address] [facility] [id number] [place] [address], [place] [address]- 9456 Jan, [facility] [place] [facility] [address] [facility] [id number] [place] [address]- 5067 Jan, [facility] [address] [facility] [id number] [place] [address], [place] [address]- 0839 Jan, [facility] [place] [facility] [address] [facility] [id number] [place] [address]- 3653 Dec, [facility] [id number] [place] [address], [place] [address]- 4986 Dec, [facility] [id number] [place] [address], [place] [address]- 8219 Dec, [facility] [id number] [place] [address], [place] [address]- 7836 Dec, [facility] [id number] [place] [address] 60985- 3676 Nov, [facility] [id number] [place] [address] 08357- 8005 Nov, Encounter for immunization Z23 [facility] [address], [place] [address]- 6573 Nov, [facility] [id number], [place] [address]- 0561 Nov, [facility] [id number], [place] [address]- 1899 Oct, [facility] [id number] [place] [address]- 8545 Oct, [facility] [id number], [place] [address]- 8123 Sep, Lumbago 724.2 [facility] [id number] [place] [address]- 9560 Sep, [facility] [place] [facility] [address] [id number] [place] [address]- 3127 Aug, Lumbago 724.2 [facility] [place] [facility] [address] [id number] [place] [address]- 6446 Aug, [facility] [place] [facility] [address] [id number] [place] [address]- 4692 Aug, [facility] [place] [facility] [address] [id number] [place] [address]- 1299 Jul, [facility] [place] [facility] [address] [id number] [place] [address]- 2142 Jul, [facility] [place] [facility] [address] [id number] [place] [address]- 1513 Jul, [facility] [place] [facility] [address] [id number] [place] [address]- 3584 June, [facility] [place] [facility] [address] [id number] [place] [address]- 6115 May, [facility] [place] [facility] [address] [id number] [place] [address] May, [facility] [place] [facility] [address] [facility] [id number] [place] [address] Apr, [facility] [place] [facility] [address] [id number] [place] [address] Apr, [facility] [place] [facility] [address] [id number] [place] [address] Apr, [facility] [place] [facility] [address] [id number] [place] [address] Apr, [facility] [place] [facility] [address] [id number] [place] [address] Apr, [facility] [place] [facility] [address] [id number] [place] [address] Apr, [facility] [place] [facility] [address] [id number] [place] [address] Apr, [facility] [place] [facility] [address] [id number] [place] [address] Apr, [facility] [place] [facility] [address] [facility] [id number] [place] [address] Mar, [facility] [place] [facility] [address] [id number] [place] [address] Mar, [facility] [place] [facility] [address] [id number] [place] [address] Jan, [facility] [place] [facility] [address] [id number] [place] [address] Jan, [facility] [place] [facility] [address] [id number] [place] [address] Jan, [facility] [place] [facility] [address] [id number] [place] [address] Jan, [facility] [place] [facility] [address] [id number] [place] [address] Jan, [facility] [place] [facility] [address] [facility] [id number] [place] [address] Jan, [facility] [place] [facility] [address] [id number] [place] [address] Dec, [facility] [place] [facility] [address] [id number], [place] [address] Dec, [facility] [place] [facility] [address] [id number] [place] [address] Nov, [facility] [place] [facility] [address] [id number] [place] [address] Nov, [facility] [place] [facility] [address] [facility] [id number] [place] [address] Nov, [facility] [place] [facility] [address] [id number] [place] [address] Nov, [facility] [place] [facility] [address] [id number] [place] [address] Oct, [facility] [place] [facility] [address] [id number] [place] [address] Oct, [facility] [place] [facility] [address] [id number] [place] [address] Sep, [facility] [place] [facility] [address] [id number] [place] [address] Sep, [facility] [place] [facility] [address] [id number] [place] [address] Sep, [facility] [place] [facility] [address] [id number] [place] [address] Sep, [facility] [place] [facility] [address] [id number] [place] [address] Aug, [facility] [place] [facility] [address] [id number] [place] [address] Aug, [facility] [place] [facility] [address] [id number] [place] [address] Aug, [facility] [place] [facility] [address] [id number] [place] [address] Aug, [facility] [place] [facility] [address] [id number] [place] [address] Jul, [facility] [place] [facility] [address] [id number] [place] [address] Jul, [facility] [place] [facility] [address] [id number] [place] [address] June, [facility] [place] [facility] [address] [id number] [place] [id number] June, [facility] [place] [facility] [address] [id number] [place] [address] June, [facility] [facility] [address] [id number] [place] [address] May, [facility] [place] [facility] [address] [id number] [place] [address] May, [facility] [place] [facility] [address] [id number] [place] [address] May, [facility] [place] [facility] [address] [id number] [place] [address] May, [facility] [place] [facility] [address] [id number] [place] [address] May, [facility] [place] [facility] [address] [id number] [place] [address] May, [facility] [place] [facility] [address] [id number] [place] [address] May, [facility] [place] [facility] [address] [id number] [place] [address] May, [facility] [place] [facility] [address] [id number] [place] [address] May, [facility] [place] [facility] [address] [id number] [place] [address] May, [facility] [place] [facility] [address] [id number] [place] [address] May, [facility] [place] [facility] [address] [id number] [place] [address] Apr, [facility] [place] [facility] [address] [id number] [place] [address] Apr, [facility] [place] [facility] [address] [id number] [place] [address] Apr, [facility] [place] [facility] [address] [id number] [place] [address] Apr, [facility] [place] [facility] [address] [id number] [place] [address] Apr, [facility] [place] [facility] [address] [id number] [place] [address] Apr, [facility] [place] [facility] [address] [id number] [place] [address] Apr, [facility] [place] [facility] [address] [id number] [place] [address] Apr, [facility] [place] [facility] [address] [id number] [place] [address] Apr, [facility] [place] [facility] [address] [id number] [place] [address] Apr, [facility] [place] [facility] [address] [id number] [place] [address] Apr, [facility] [place] [facility] [address] [id number] [place] [address] Apr, [facility] [place] [facility] [address] [id number] [place] [address] Mar, [facility] [place] [facility] [address] [id number] [place] [address] Mar, [facility] [address] [facility] [id number] [place] [address] Mar, [facility] [place] [facility] [address] [id number] [place] [address] Mar, [facility] [place] [facility] [address] [id number] [place] [address] Mar, [facility] [place] [facility] [address] [id number] [place] [address] Mar, [facility] [place] [facility] [address] [id number] [place] [address] Jan, [facility] [place] [facility] [address] [id number] [place] [address] Jan, [facility] [place] [address] [facility] [id number] [place] [id number] Dec, [facility] [place] [address] [facility] [id number], [place] [address] Dec, IMMUNIZATIONS No Known Immunizations SOCIAL HISTORY Never Assessed REASON FOR VISIT Controlled Refill Requests Due 09/25 PLAN OF CARE VITAL SIGNS MEDICATIONS Medication Instructions Dosage Frequency Start Date End Date Duration Status Alprazolam 1 MG Orally Three times a day 1 tablet 8h Apr, 28 days Active Hydrocodone-Acetaminophen 10-325 MG Orally every 6 hrs 1 tablet as needed 6h Aug, 28 days Active RESULTS No Results PROCEDURES No Known procedures INSTRUCTIONS MEDICATIONS ADMINISTERED No Known Medications MEDICAL (GENERAL) HISTORY Type Description Date Medical History narcolepsy Surgical History Gallbladder removed 05/2014 Surgical History Hernia repair 05/24/2015
--- OUTSIDE RECORDS SUMMARY | 2017-11-01 13:20 | XMS REPORT ---
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 55521407378554 Problem ADHD (attention deficit hyperactivity disorder), inattentive type F90.0 Active 74439838 Problem Excessive daytime sleepiness G47.19 Active [id number] ALLERGIES No Information SOCIAL HISTORY Never Assessed PLAN OF CARE VITAL SIGNS MEDICATIONS Medication Instructions Dosage Frequency Start Date End Date Duration Status Tramadol HCl 50 MG Orally every 6 hrs 1 tablet as needed 6h Jan, 28 days Active Adderall XR 20 MG Orally Once a day 1 capsule in the morning 24h June, 28 days Active RESULTS No Results PROCEDURES No Known procedures IMMUNIZATIONS No Known Immunizations MEDICAL (GENERAL) HISTORY Type Description Date Surgical History Gallbladder removed 05/2014 Surgical History Hernia repair 05/24/2015
--- OUTSIDE RECORDS SUMMARY | 2017-11-01 13:21 | XMS REPORT ---
Author Author SHAHNAZ WIN Organization [facility] Address [address] [place] [address] Care Team Providers Care Frame Stripper Name Role Phone SHAHNAZ WIN Unavailable PROBLEMS Type Condition ICD9-CM Code [id number] Code Onset Dates Condition Status SNOMED Code Problem Pneumonia, organism unspecified 486 Active 740147382 Problem Lumbago 724.2 Active 246689895 Problem Pain in joint, pelvic region and thigh 719.45 Active 457873291 Problem Screening examination for pulmonary tuberculosis V74.1 Active 162361822 Problem Unspecified arthropathy, site unspecified 716.90 Active 998185153 Problem Family history of ischemic heart disease V17.3 Active 364254030 Problem Family history of diabetes mellitus V18.0 Active 494041292 Problem Anxiety state, unspecified 300.00 Active 434273391 Problem Family history of other cardiovascular diseases V17.49 Active 371608057 Problem Family history of malignant neoplasm of breast V16.3 Active 876780670 ALLERGIES Unknown Allergies SOCIAL HISTORY No smoking Hx information available PLAN OF CARE VITAL SIGNS MEDICATIONS Medication Instructions Dosage Frequency Start Date End Date Duration Status Hydrocodone-Acetaminophen 10-325 MG 1 tablet as needed 6h Apr, Active Alprazolam 1 MG 1 tablet 8h Apr, Active RESULTS No Results PROCEDURES No Known procedures IMMUNIZATIONS No Known Immunizations
--- OUTSIDE RECORDS SUMMARY | 2017-11-01 13:21 | XMS REPORT ---
Author Author SHAHNAZ WIN Organization [employer] Address Unknown Phone Unavailable Care Team Providers Care Staff Electronic Warfare Officer Name Role Phone SHAHNAZ WIN CP Unavailable [...]
--- OUTSIDE RECORDS SUMMARY | 2017-11-01 13:21 | XMS REPORT ---
Author Author SHAHNAZ WIN Organization [facility] Address [address] [place] [address] Care Team Providers Care Bicycle Repair Technician Name Role Phone SHAHNAZ WIN Unavailable PROBLEMS Type Condition ICD9-CM Code [id number] Code Onset Dates Condition Status SNOMED Code Problem ADHD (attention deficit hyperactivity disorder), inattentive type F90.0 Active 01902500 Problem Arthritis M19.90 Active 7839928 Problem Positive skin test for tuberculosis R76.11 Active 345561158 Problem Lumbago with sciatica, left side M54.42 Active 792426197 Problem Excessive daytime sleepiness G47.19 Active 780136340060 Problem 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 95024703580017 Problem 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 Active [id number] ALLERGIES No Information ENCOUNTERS Encounter Location Date Diagnosis [place] [address] [address] Apr, ADHD (attention deficit hyperactivity disorder), inattentive type F90.0 ; Lumbago with sciatica, left side M54.42 and Arthritis M19.90 [place] [address] [place] [id number] [place] [address] 08445- 6173 Apr, ADHD (attention deficit hyperactivity disorder), inattentive type F90.0 and Lumbar neuritis M54.16 [place] [address] [place] [id number] [place] [address] 75303- 1416 Apr, [place] [address] [address]- [address] Apr, Lumbar neuritis M54.16 [place] [address] [place] [id number] [place] [address] 26263- 4953 Apr, Low back pain M54.5 [facility] [id number] [place] [address] 07845- 4101 Apr, ADHD (attention deficit hyperactivity disorder), inattentive type F90.0 [facility] [address] [place] [id number] [place] [address] 83371- 7123 Apr, Positive skin test for tuberculosis R76.11 [facility] [address] [place] [id number] [place] [address] 69042- 5848 Apr, Positive skin test for tuberculosis R76.11 [facility] [address] [place] [id number] [place] [address] 09445- 2217 Apr, [facility] [address] [place] [id number] [place] [address] 30630- 6651 Mar, Lumbar neuritis M54.16 [facility] [address] [place] [id number] [place] [address] 06285- 0794 Mar, ADHD (attention deficit hyperactivity disorder), inattentive type F90.0 [facility] [address] [place] [id number] [place] [address] 50578- 4669 Mar, [facility] [address] [place] [id number] [place] [address] 35373- 7492 Jan, Lumbar neuritis M54.16 [facility] [address] [place] [id number] [place] [address] 75377- 3600 Jan, ADHD (attention deficit hyperactivity disorder), inattentive type F90.0 [facility] [id number] [place] [address] 76238- 3175 Jan, [facility] [address] [place] [id number] [place] [address] 02493- 2817 Jan, [facility] [address] [place] [id number] [place] [address] 57861- 2032 Dec, Lumbar neuritis M54.16 [facility] [address] [place] [id number] [place] [address] 03672- 1262 Dec, ADHD (attention deficit hyperactivity disorder), inattentive type F90.0 and 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 [facility] [address] [place] [id number] [place] [address] 76886- 7827 Dec, [facility] [address] [place] [id number] [place] [address] 87802- 8587 Dec, [facility] [address] [place] [id number] [place] [address] 82908- 5776 Nov, Lumbar neuritis M54.16 and ADHD (attention deficit hyperactivity disorder), inattentive type F90.0 [facility] [address] [place] [id number] [place] [address] 18345- 5698 Nov, [facility] [address] [place] [id number] [place] [address] 02421- 2665 Oct, Lumbar neuritis M54.16 and ADHD (attention deficit hyperactivity disorder), inattentive type F90.0 [facility] [address] [place] [id number] [place] [address] 62786- 1593 Oct, [facility] [address] [place] [id number] [place] [address] 26432- 2245 Sep, ADHD (attention deficit hyperactivity disorder), inattentive type F90.0 and Lumbar neuritis M54.16 [facility] [address] [place] [id number] [place] [address] 82815- 7053 Sep, Lumbar neuritis M54.16 [facility] [address] [place] [id number] [place] [address] 37056- 6169 Sep, [facility] [address] [place] [id number] [place] [address] 63512- 1782 Sep, ADHD (attention deficit hyperactivity disorder), inattentive type F90.0 and Lumbar neuritis M54.16 [facility] [address] [place] [id number] [place] [address] 97915- 5754 Sep, [facility] [address] [id number] [address]- 7228 Aug, [facility] [address] [address]- 6014 Aug, [facility] [address] [address]- 8302 Aug, [facility] [address] [place] [id number] [place] [address] 37193- 8397 Aug, [facility] [address] [place] [id number] [place] [address] 69838- 6521 Aug, ADHD (attention deficit hyperactivity disorder), inattentive type F90.0 and Lumbar neuritis M54.16 [facility] [address] [address]- 9182 Jul, [facility] [address] [place] [id number] [place] [address] 00560- 3464 Jul, [facility] [id number] [place] [address] 50785- 0224 Jul, Lumbar neuritis M54.16 and ADHD (attention deficit hyperactivity disorder), inattentive type F90.0 [facility] [address] [address]- 5289 Jul, [facility] [address] [address]- 0435 June, Lumbar neuritis M54.16 and ADHD (attention deficit hyperactivity disorder), inattentive type F90.0 [facility] [address] [address]- 8034 June, [facility] [address] [address]- 9309 June, [facility] [address] [address]- 2515 May, 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 and Lumbago with sciatica, left side M54.42 [facility] [place] [facility] [address] [address]- 6601 14 May, 2016 Lumbar neuritis M54.16 and ADHD (attention deficit hyperactivity disorder), inattentive type F90.0 [facility] [address] [place] [id number] [address]- 0056 Apr, [facility] [address] [place] [id number] [place] [address] 07819- 0536 Apr, Lumbar neuritis M54.16 and ADHD (attention deficit hyperactivity disorder), inattentive type F90.0 [facility] [address] [place] [id number] [place] [address] 44983- 1045 Apr, [facility] [address] [place] [id number] [place] [address] 17478- 7786 Apr, [facility] [address] [place] [id number] [place] [address] 43835- 3556 15 Apr, 2016 ADHD (attention deficit hyperactivity disorder), inattentive type F90.0 [facility] [id number] [place] [address] 35934- 8132 15 Apr, 2016 Lumbar neuritis M54.16 [facility] [address] [place] [id number] [address]- 0320 08 Apr, 2016 [facility] [address] [place] [id number] [place] [address] 58731- 6700 Apr, [facility] [address] [place] [id number] [place] [address] 19487- 9851 Mar, Attention deficit hyperactivity disorder (ADHD), predominantly inattentive type F90.0 [facility] [address] [place] [id number] [place] [address] 84446- 3605 Mar, [facility] [address] [address]- 0523 Mar, [facility] [address] [place] [id number] [place] [address] 26295- 2591 Mar, [facility] [id number] [place] [address] 25964- 9745 Jan, Attention deficit hyperactivity disorder (ADHD), predominantly inattentive type F90.0 [facility] [address] [place] [id number] [place] [address] 28119- 8521 Jan, [facility] [address] [place] [id number] [place] [address] 24712- 7014 Jan, [facility] [address] [place] [id number] [place] [address] 73885- 6337 Jan, [facility] [address] [place] [id number] [place] [address] 08793- 3222 Jan, Low TSH level R94.6 [facility] [address] [place] [id number] [place] [address] 04862- 3905 Jan, [facility] [address] [place] [id number] [place] [address] 14451- 4926 Jan, [facility] [address] [place] [id number] [place] [address] 30180- 7347 Dec, [facility] [address] [place] [id number] [place] [address] 11222- 7752 Dec, [facility] [address] [place] [id number] [place] [address] 72871- 1762 Dec, [facility] [address] [place] [id number] [place] [address] 27921- 8766 Nov, Low TSH level R94.6 [facility] [address] [place] [id number] [place] [address] 13698- 8199 Nov, Excessive daytime sleepiness G47.19 and ADHD (attention deficit hyperactivity disorder), inattentive type F90.0 [facility] [id number] [place] [address] 71928- 5928 13 Dec, 2015 [facility] [address] [place] [id number] [place] [address] 38814- 3967 Nov, [facility] [address] [facility] [id number] [place] [address]- 9419 Nov, [facility] [address] [facility] [id number] [place] [address], [place] [address]- 5190 Oct, [facility] [address] [facility] [id number] [place] [address]- 4912 Oct, [facility] [address] [facility] [id number] [place] [address], [place] [address]- 4415 Oct, [facility] [address] [facility] [id number] [place] [address], [place] [address]- 0320 Sep, [facility] [address] [facility] [id number] [place] [address], [place] [address]- 6788 Sep, [facility] [address] [facility] [id number] [place] [address], [place] [address]- 6232 Sep, [facility] [address] [place] [id number] [place] [address] 60436- 1397 Aug, Lumbar neuritis M54.16 [facility] [address] [place] [id number] [address]- 4901 Aug, [facility] [address] [place] [id number] [address]- 5937 Aug, [facility] [address] [address]- 5973 Jul, Lumbar neuritis M54.16 [facility] [address] [facility] [id number] [place] [address]- 1199 Jul, [facility] [address] [place] [id number] [address]- 4842 Jul, [facility] [place] [facility] [address] [facility] [id number] [address]- 5337 June, Lumbar neuritis M54.16 [facility] [address] [place] [id number] [address]- 5737 June, [facility] [id number] [place] [address] 54245- 9817 June, [facility] [address] [place] [id number] [place] [address] 04020- 6361 May, Lumbar neuritis M54.16 [facility] [address] [place] [id number] [place] [address] 26685- 7916 May, [facility] [address] [place] [id number] [place] [address] 76026- 7892 May, [facility] [address] [place] [id number] [place] [address] 87984- 1490 Apr, [facility] [address] [place] [id number] [place] [address] 56431- 6628 Apr, [facility] [address] [place] [id number] [place] [address] 76076- 4229 Apr, [facility] [address] [place] [id number] [place] [address] 99144- 3471 Apr, [facility] [address] [place] [id number] [place] [address] 03044- 8093 24 Apr, 2015 [facility] [address] [place] [id number] [address]- 9855 Apr, Inguinal hernia, right K40.90 [facility] [address] [place] [id number] [place] [address] 39068- 6191 Apr, [facility] [id number] [place] [address] 40260- 1688 15 Apr, 2015 Low back pain M54.5 and Sciatica, unspecified side M54.30 [facility] [address] [place] [id number] [address]- 5071 Mar, [facility] [address] [place] [id number] [place] [address] 93420- 8047 Mar, [facility] [address] [facility] [id number] [place] [address]- 8521 Jan, [facility] [address] [place] [id number] [place] [address], [place] [address]- 5639 Jan, [facility] [place] [facility] [address] [facility] [id number] [place] [address]- 9185 Jan, [facility] [place] [facility] [address] [facility] [id number] [place] [address], [place] [address]- 3408 Dec, [facility] [place] [facility] [address] [facility] [id number] [place] [address]- 0035 Dec, [facility] [place] [facility] [address] [place] [id number] [place] [address], [place] [address]- 7358 Dec, [facility] [place] [facility] [address] [place] [id number] [place] [address], [place] [address]- 1697 Dec, [facility] [place] [facility] [address] [place] [id number] [place] [address], [place] [address]- 4398 Nov, [facility] [address] [place] [id number] [place] [address] 40787- 9736 Nov, Encounter for immunization Z23 [facility] [id number] [place] [address] 94556- 7833 Nov, [facility] [address] [address]- 4941 Nov, [facility] [place] [facility] [address] [address]- 3932 Oct, [facility] [place] [facility] [address] [place] [id number] [address]- 0054 Oct, [facility] [place] [facility] [address] [place] [id number] [address]- 5761 Sep, Lumbago 724.2 [facility] [place] [facility] [id number] [address]- 1188 Sep, [facility] [place] [facility] [address] [place] [id number] [address]- 7898 Aug, Lumbago 724.2 [facility] [place] [facility] [address] [id number] [place] [address]- 7074 17 Aug, 2014 [facility] [place] [facility] [address] [id number] [place] [address]- 2427 Aug, [facility] [place] [facility] [address] [id number] [place] [address]- 4925 Jul, [facility] [place] [facility] [address] [id number] [place] [address]- 3440 Jul, [facility] [place] [facility] [address] [id number] [place] [address]- 2589 Jul, [facility] [place] [facility] [address] [facility] [id number] [place] [address]- 8704 June, [facility] [place] [facility] [address] [facility] [id number] [place] [address]- 9506 May, [facility] [place] [facility] [address] [facility] [id number] [place] [address]- 8473 May, [facility] [place] [facility] [address] [facility] [id number] [place] [address]- 3277 Apr, [facility] [place] [facility] [address] [facility] [id number] [place] [address]- 7860 Apr, [facility] [place] [facility] [address] [facility] [id number] [place] [address]- 2546 Apr, [facility] [place] [facility] [address] [facility] [id number] [place] [address]- 2946 Apr, [facility] [place] [facility] [address] [facility] [id number] [place] [address]- 9956 Apr, [facility] [place] [facility] [address] [facility] [id number] [place] [address]- 2546 Apr, [facility] [place] [facility] [address] [facility] [id number] [place] [address]- 6182 Apr, [facility] [place] [facility] [address] [id number] [place] [address]- 8959 Apr, [facility] [place] [facility] [address] [id number] [place] [address]- 0173 Mar, [facility] [place] [facility] [address] [facility] [id number] [place] [address]- 9919 Mar, [facility] [place] [facility] [address] [id number] [place] [address]- 4640 Jan, [facility] [place] [facility] [address] [id number] [place] 7189 Jan, [facility] [place] [facility] [address] [facility] [id number] [place] [address]- 7838 Jan, [facility] [place] [facility] [address] [facility] [id number] [place] [address]- 2585 Jan, [facility] [place] [facility] [address] [id number] [place] [address]- 7565 Jan, [facility] [place] [facility] [address] [facility] [id number] [place] [address]- 3616 Jan, [facility] [place] [facility] [address] [facility] [id number] [place] [address]- 8026 Dec, [facility] [place] [facility] [address] [facility] [id number] [place] [address]- 4389 Dec, [facility] [place] [facility] [address] [id number] [place] [address]- 0405 Nov, [facility] [place] [facility] [address] [id number] [place] [address]- 5415 Nov, [facility] [place] [facility] [address] [facility] [id number] [place] [address]- 5352 Nov, [facility] [place] [facility] [address] [facility] [id number] [place] [address]- 4298 Nov, [facility] [place] [facility] [address] [id number] [place] [address]- 9538 15 Oct, 2013 [facility] [address] [id number] [place] [address]- 3560 Oct, [facility] [place] [facility] [address] [id number] [place] [address]- 2576 Sep, [facility] [place] [facility] [address] [id number] [place] [address]- 2013 Sep, [facility] [place] [facility] [address] [id number] [place] [address]- 6335 Sep, [facility] [place] [facility] [address] [id number] [place] [address]- 6034 Sep, [facility] [place] [facility] [address] [id number] [place] [address] Aug, [facility] [place] [facility] [address] [id number] [place] [address] Aug, [facility] [address] [id number] [place] [address] Aug, [facility] [place] [facility] [address] [id number] [place] [address] Aug, [facility] [address] [id number] [place] [address] Jul, [facility] [place] [facility] [address] [id number] [place] [address] Jul, [facility] [place] [facility] [address] [id number] [place] [address] June, [facility] [place] [facility] [address] [id number] [place] [address] June, [facility] [place] [facility] [address] [id number] [place] [address] June, [facility] [place] [facility] [address] [id number] [place] [address] May, [facility] [place] [facility] [address] [id number] [place] [address] 30 May, 2013 [facility] [place] [facility] [address] [id number] [place] [address] May, [facility] [place] [facility] [address] [id number] [place] [address] May, [facility] [place] [facility] [address] [id number] [place] [address] May, [facility] [place] [facility] [address] [id number] [place] [address] May, [facility] [place] [facility] [address] [id number] [place] [address] May, [facility] [place] [facility] [address] [id number] [place] [address] May, [facility] [place] [facility] [address] [id number] [place] [address] May, [facility] [place] [facility] [address] [id number] [place] [address] May, [facility] [place] [facility] [address] [id number] [place] [address] May, [facility] [place] [facility] [address] [id number] [place] [address] Apr, [facility] [place] [facility] [address] [id number] [place] [address] Apr, [facility] [place] [facility] [address] [id number] [place] [address] Apr, [facility] [place] [facility] [address] [id number] [place] [address] Apr, [facility] [place] [facility] [address] [id number] [place] [address] Apr, [facility] [place] [facility] [address] [id number] [place] [address] Apr, [facility] [place] [facility] [address] [id number] [place] [address] Apr, [facility] [place] [facility] [address] [id number] [place] [address] Apr, [facility] [place] [facility] [address] [id number] [place] [address] Apr, [facility] [place] [facility] [address] [id number] [place] [address] Apr, [facility] [place] [facility] [address] [id number] [place] [address] Apr, [facility] [place] [facility] [address] [id number] [place] [address] Apr, [facility] [place] [facility] [address] [id number] [place] [address] Mar, [facility] [place] [facility] [address] [id number] [place] [address] Mar, [facility] [place] [facility] [address] [id number] [place] [address] Mar, [facility] [place] [facility] [address] [id number] [place] [address] Mar, [facility] [place] [facility] [address] [id number] [place] [address] Mar, [facility] [place] [facility] [address] [id number] [place] [address] Mar, [facility] [place] [facility] [address] [id number] [place] [address] Jan, [facility] [place] [facility] [address] [id number] [place] [address] Jan, [facility] [place] [facility] [address] [id number] [place] [address] Dec, [facility] [address] [facility] [id number] [place] [address] Dec, IMMUNIZATIONS No Known Immunizations SOCIAL HISTORY Never Assessed REASON FOR VISIT Controlled Med Refill PLAN OF CARE VITAL SIGNS MEDICATIONS Medication Instructions Dosage Frequency Start Date End Date Duration Status Adderall XR 20 MG Orally Once a day 1 capsule in the morning 24h Jul, 28 days Active Tramadol HCl 50 MG Orally every 6 hrs 1 tablet as needed 6h Jan, 28 days Active RESULTS No Results PROCEDURES No Known procedures INSTRUCTIONS MEDICATIONS ADMINISTERED No Known Medications MEDICAL (GENERAL) HISTORY Type Description Date Medical History narcolepsy Surgical History Gallbladder removed 05/2014 Surgical History Hernia repair 05/24/2015
--- OUTSIDE RECORDS SUMMARY | 2017-11-01 13:21 | XMS REPORT ---
Author Author SHAHNAZ WIN Organization [employer] Address Unknown Phone Unavailable Care Team Providers Care Archivist Military History Name Role Phone SHAHNAZ WIN CP Unavailable [...]
--- OUTSIDE RECORDS SUMMARY | 2017-11-01 13:21 | XMS REPORT ---
Author Author SHAHNAZ WIN Organization [employer] Address Unknown Phone Unavailable Care Team Providers Care Semiconductor Package Symbol Stamper Name Role Phone SHAHNAZ WIN CP Unavailable [...]
--- OUTSIDE RECORDS SUMMARY | 2017-11-01 13:21 | XMS REPORT ---
Author Author SHAHNAZ WIN Organization [employer] Address Unknown Phone Unavailable Care Team Providers Care Emergency Medicine Physician Name Role Phone SHAHNAZ WIN CP Unavailable [...] Start Date End Date Status Dosage Alprazolam [facility] [address]-18 1 MG May 29, 2014 take 1 tablet (1 mg) by oral route 3 times per day tramadol [facility] 0 50 mg May 29, 2014 take 1 tablet (50 mg) by oral route every 6 hours as needed Hydrocodone-Acetaminophen [facility] [address]-33 10-325 MG May 29, 2014 take 1 tablet by oral route every 6 hours as needed for pain PRN Results No Known Results Summary Purpose [employer] Submission
--- OUTSIDE RECORDS SUMMARY | 2017-11-01 13:22 | XMS REPORT | Continuity of Care Document ---
Author Author [facility] Address Unknown Phone Unavailable Allergies Active Description Code Type Severity Reaction Onset Reported/Identified Relationship to Patient Clinical Status Yes Penicillins [id number] Drug Allergy Unknown N/A 02/12/2007 Yes Penicillins Drug Allergy N/A N/A 01/12/2013 Medications There is no data. Problems Date Dx Coded Attending Type Code Diagnosis Diagnosed By 10/26/2011 Ot 041.12 METHICILLIN RESISTANT STAPHYLOCOCCUS AUR 10/26/2011 Ot 682.3 CELLULITIS OF ARM 01/12/2013 SHAHNAZ WIN APRN 300.00 ANXIETY UNSPEC 01/12/2013 SHAHNAZ WIN APRN 724.2 BACK PAIN, LOWER 01/12/2013 ELEANOR NEGRON MD 300.00 ANXIETY UNSPEC 01/12/2013 ELEANOR NEGRON MD 724.2 BACK PAIN, LOWER 01/12/2013 SHAHNAZ WIN APRN 300.00 ANXIETY UNSPEC 01/12/2013 SHAHNAZ WIN APRN 724.2 BACK PAIN, LOWER 01/12/2013 SHAHNAZ WIN APRN T 300.00 ANXIETY UNSPEC 01/12/2013 SHAHNAZ WIN APRN 724.2 BACK PAIN, LOWER 01/12/2013 SHAHNAZ WIN APRN T 300.00 ANXIETY UNSPEC 01/12/2013 SHAHNAZ WIN APRN 724.2 BACK PAIN, LOWER 01/12/2013 SHAHNAZ WIN APRN 300.00 ANXIETY UNSPEC 01/12/2013 SHAHNAZ WIN APRN 724.2 BACK PAIN, LOWER 04/29/2013 SHAHNAZ WIN APRN V74.1 TB SCREENING 04/29/2013 ELEANOR NEGRON MD V74.1 TB SCREENING 04/29/2013 SHAHNAZ WIN APRN V74.1 TB SCREENING 04/29/2013 SHAHNAZ WIN APRN V74.1 TB SCREENING 04/29/2013 SHAHNAZ WIN APRN V74.1 TB SCREENING 04/29/2013 SHAHNAZ WIN APRN V74.1 TB SCREENING 05/01/2013 STACY BRUNO, JESSI R Ot 922.1 CONTUSION OF CHEST WALL 05/01/2013 STACY BRUNO, JESSI R Ot 959.11 OTH INJURY OF CHEST WALL 05/01/2013 JESSI KUMAR MD R Ot E000.8 OTHER EXTERNAL CAUSE STATUS 05/01/2013 JESSI KUMAR MD R Ot E888.9 FALL NOS 06/01/2013 ELEANOR NEGRON MD V16.3 family hx of breast cancer 06/01/2013 ELEANOR NEGRON MD V17.3 FAM HX TX 06/01/2013 ELEANOR NEGRON MD V17.49 FAMILY HISTORY OF OTHER CARDIOVASCULAR DISEASES 06/01/2013 ELEANOR NEGRON MD V18.0 FAMILY HISTORY OF DIABETES MELLITUS 06/01/2013 SHAHNAZ WIN APRN V16.3 family hx of breast cancer 06/01/2013 SHAHNAZ WIN APRN V17.3 FAM HX TX 06/01/2013 SHAHNAZ WIN APRN V17.49 FAMILY HISTORY OF OTHER CARDIOVASCULAR DISEASES 06/01/2013 SHAHNAZ WIN APRN V18.0 FAMILY HISTORY OF DIABETES MELLITUS 06/01/2013 SHAHNAZ WIN APRN V16.3 family hx of breast cancer 06/01/2013 SHAHNAZ WIN APRN V17.3 FAM HX TX 06/01/2013 SHAHNAZ WIN APRN V17.49 FAMILY HISTORY OF OTHER CARDIOVASCULAR DISEASES 06/01/2013 SHAHNAZ WIN APRN V18.0 FAMILY HISTORY OF DIABETES MELLITUS 06/01/2013 SHAHNAZ WIN APRN V16.3 family hx of breast cancer 06/01/2013 SHAHNAZ WIN APRN V17.3 FAM HX TX 06/01/2013 SHAHNAZ WIN APRN V17.49 FAMILY HISTORY OF OTHER CARDIOVASCULAR DISEASES 06/01/2013 SHAHNAZ WIN APRN V18.0 FAMILY HISTORY OF DIABETES MELLITUS 06/01/2013 SHAHNAZ WIN APRN V16.3 family hx of breast cancer 06/01/2013 SHAHNAZ WIN APRN V17.3 FAM HX TX 06/01/2013 SHAHNAZ WIN APRN V17.49 FAMILY HISTORY OF OTHER CARDIOVASCULAR DISEASES 06/01/2013 SHAHNAZ WIN APRN V18.0 FAMILY HISTORY OF DIABETES MELLITUS 06/17/2013 SHAHNAZ WIN APRN 719.45 PAIN- HIP 06/17/2013 QUIRINO JAUREGUIN, SHAHNAZ T 719.45 PAIN- HIP 06/17/2013 QUIRINO HYDRO STATION OPERATOR, SHAHNAZ T 719.45 PAIN- HIP 06/17/2013 QUIRINO HYDRO STATION OPERATOR, SHAHNAZ T 719.45 PAIN- HIP 08/27/2013 ANYI MC HYDRO STATION OPERATOR Ot 708.9 URTICARIA NOS 10/17/2013 QUIRINO HYDRO STATION OPERATOR, SHAHNAZ T 486 PNEUMONIA UNSPECIFIED 10/17/2013 QUIRINO HYDRO STATION OPERATOR, SHAHNAZ T 486 PNEUMONIA UNSPECIFIED 10/17/2013 QUIRINO HYDRO STATION OPERATOR, SHAHNAZ T 486 PNEUMONIA UNSPECIFIED 11/30/2013 QUIRINO HYDRO STATION OPERATOR, SHAHNAZ T 716.90 ARTHRITIS/ ARTHROPATHY, UNSPECIFIED 11/30/2013 QUIRINO HYDRO STATION OPERATOR, SHAHNAZ T 716.90 ARTHRITIS/ ARTHROPATHY, UNSPECIFIED 03/23/2014 Ot 786.2 03/23/2014 Ot 721.3 03/23/2014 SHAHNAZ WIN PRE PLANNING ADVISOR Ot 737.30 03/23/2014 SHAHNAZ WIN PRE PLANNING ADVISOR Ot 795.51 03/23/2014 SHAHNAZ WINP Ot V74.1 03/23/2014 ROSSANA DO, IVELISSE K Ot 574.20 CHOLELITHIASIS NOS 03/23/2014 ROSSANA DO, IVELISSE K Ot 599.0 URIN TRACT INFECTION NOS 03/23/2014 ROSSANA DO, IVELISSE K Ot 789.03 ABDOMINAL PAIN, RIGHT LOWER QUADRANT 04/17/2015 Ot 786.2 04/17/2015 Ot 721.3 04/17/2015 SHAHNAZ WIN PRE PLANNING ADVISOR Ot 737.30 04/17/2015 SHAHNAZ WINP Ot 795.51 04/17/2015 SHAHNAZ WIN PRE PLANNING ADVISOR Ot V74.1 04/17/2015 KANDY PANIAGUA Ot F17.210 NICOTINE DEPENDENCE, CIGARETTES, UNCOMPL 04/17/2015 KANDY PANIAGUA Ot G89.29 OTHER CHRONIC PAIN 04/17/2015 KANDY PANIAGUA Ot K40.90 UNIL INGUINAL HERNIA, W/O OBST OR GANGR, 04/17/2015 KANDY PANIAGUA Ot M54.5 LOW BACK PAIN 05/08/2015 Ot 786.2 05/08/2015 Ot 721.3 05/08/2015 SHAHNAZ WIN PRE PLANNING ADVISOR Ot 737.30 05/08/2015 SHAHNAZ WIN PRE PLANNING ADVISOR Ot 795.51 05/08/2015 SHAHNAZ WIN Ot V74.1 05/08/2015 MAUREEN ALLEN DO Ot K40.90 UNIL INGUINAL HERNIA, W/O OBST OR GANGR, 05/08/2015 MAUREEN ALLEN DO Ot Z01.818 ENCOUNTER FOR OTHER PREPROCEDURAL EXAMIN 05/08/2015 MAUREEN ALLEN DO Ot Z11.2 ENCOUNTER FOR SCREENING FOR OTHER BACTER 05/24/2015 ALLEN NICOLLE HENSLEYMOHAMUD Griffin Ot K40.90 UNIL INGUINAL HERNIA, W/O OBST OR GANGR, 05/24/2015 MAUREEN ALLEN DO Ot K40.90 12/04/2015 Ot 721.3 LUMBOSACRAL SPONDYLOSIS 12/04/2015 SHAHNAZ WIN PRE PLANNING ADVISOR Ot 737.30 IDIOPATHIC SCOLIOSIS 12/04/2015 SHAHNAZ WIN Ot 795.51 NONSP RX TO TUBERCULIN SKIN TEST W/O ACT 12/04/2015 SHAHNAZ WIN Ot V74.1 SCREENING-PULMONARY TB 01/12/2016 MONTRELL BRUNO, ELMER T Ot F17.210 NICOTINE DEPENDENCE, CIGARETTES, UNCOMPL 01/12/2016 MONTRELL BRUNO, ELMER T Ot M54.9 DORSALGIA, UNSPECIFIED 01/12/2016 MONTRELL BRUNO, ELMER T Ot R07.89 OTHER CHEST PAIN 01/12/2016 Ot 721.3 LUMBOSACRAL SPONDYLOSIS 01/12/2016 SHAHNAZ WIN PRE PLANNING ADVISOR Ot 737.30 IDIOPATHIC SCOLIOSIS 01/12/2016 SHAHNAZ WIN Ot 795.51 NONSP RX TO TUBERCULIN SKIN TEST W/O ACT 01/12/2016 SHAHNAZ WIN Ot V74.1 SCREENING-PULMONARY TB 01/14/2016 MONTRELL BRUNO, ELMER T Ot F17.210 NICOTINE DEPENDENCE, CIGARETTES, UNCOMPL 01/14/2016 MONTRELL BRUNO, ELMER T Ot M54.5 LOW BACK PAIN 01/14/2016 MONTRELL BRUNO, ELMER T Ot R07.89 OTHER CHEST PAIN 01/14/2016 MONTRELL BRUNO, ELMER T Ot F17.210 NICOTINE DEPENDENCE, CIGARETTES, UNCOMPL 01/14/2016 MONTRELL BRUNO, ELMER T Ot M54.9 DORSALGIA, UNSPECIFIED 01/14/2016 MONTRELL BRUNO, ELMER T Ot R07.89 OTHER CHEST PAIN Procedures Code Description [place] [address] XRAY CHEST 2 VIEW 01/12/2013 [employer]ITOX AMER[employer]OX DRUG SCREEN 06/01/2013 02223 XRAY HIP RIGHT UNILATERAL MIN 2 VIEWS 06/17/2013 Results Test Result Range CBC With Differential/Platelet - 12/17/15 16:15 WBC 5.4 x10E3/uL 3.4-10.8 RBC 4.29 x10E6/uL 3.77-5.28 Hemoglobin 13.6 g/dL 11.1-15.9 Hematocrit 40.5 % 34.0-46.6 MCV 94 fL 79-97 MCH 31.7 pg 26.6-33.0 MCHC 33.6 g/dL 31.5-35.7 RDW 14.2 % 12.3-15.4 Platelets 176 x10E3/uL 150-379 Neutrophils 58 % Lymphs 35 % Monocytes 5 % Eos 2 % Basos 0 % Neutrophils (Absolute) 3.1 x10E3/uL 1.4-7.0 Lymphs (Absolute) 1.9 x10E3/uL 0.7-3.1 Monocytes(Absolute) 0.3 x10E3/uL 0.1-0.9 Eos (Absolute) 0.1 x10E3/uL 0.0-0.4 Baso (Absolute) 0.0 x10E3/uL 0.0-0.2 Immature Granulocytes 0 % Immature Grans (Abs) 0.0 x10E3/uL 0.0-0.1 Comp. Metabolic Panel (14) - 12/17/15 16:15 Glucose, Serum 96 mg/dL 65-99 BUN 12 mg/dL 6-24 Creatinine, Serum 0.79 mg/dL 0.57-1.00 eGFR If NonAfricn Am 82 mL/min/1.73 >59 eGFR If Africn Am 95 mL/min/1.73 >59 BUN/Creatinine Ratio 15 9-23 Sodium, Serum 138 mmol/L 136-144 Potassium, Serum 4.0 mmol/L 3.5-5.2 Chloride, Serum 101 mmol/L 97-106 Carbon Dioxide, Total 24 mmol/L 18-29 Calcium, Serum 9.2 mg/dL 8.7-10.2 Protein, Total, Serum 6.7 g/dL 6.0-8.5 Albumin, Serum 4.2 g/dL 3.5-5.5 Globulin, Total 2.5 g/dL 1.5-4.5 A/G Ratio 1.7 1.1-2.5 Bilirubin, Total 0.3 mg/dL 0.0-1.2 Alkaline Phosphatase, S 83 IU/L 39-117 AST (SGOT) 25 IU/L 0-40 ALT (SGPT) 12 IU/L 0-32 TSH - 12/17/15 16:15 TSH 0.356 uIU/mL 0.450-4.500 TSH - 02/04/16 13:05 TSH 0.467 uIU/mL 0.450-4.500 ANTINUCLEAR ANTIBODIES TITER AND PATTERN - 05/13/17 09:11 ASHLEY PATTERN HOMOGENEOUS NRG ASHLEY TITER 1:80 titer NRG Encounters ACCT No. Visit Date/Time Discharge Status Pt. Type Provider Facility Loc./Unit Complaint [id number] 04/28/2014 09:34:00 04/28/2014 23:59:59 CLS Outpatient SHAHNAZ WIN APRN [id number] 11/30/2013 10:19:00 11/30/2013 23:59:59 CLS Outpatient SHAHNAZ WIN APRN [id number] 10/17/2013 15:00:00 10/17/2013 23:59:59 CLS Outpatient SHAHNAZ WIN APRN [id number] 06/17/2013 12:41:00 06/17/2013 23:59:59 CLS Outpatient SHAHNAZ WIN APRN [id number] 06/01/2013 09:43:00 06/01/2013 23:59:59 CLS Outpatient ELEANOR NEGRON MD [id number] 01/12/2013 11:47:00 01/12/2013 23:59:59 CLS Outpatient SHAHNAZ WIN APRN [id number] 09/14/2017 16:40:00 09/14/2017 23:59:59 CLS Outpatient [id number] 05/13/2017 08:20:00 Document Registration [id number] 09/18/2017 11:00:00 09/18/2017 23:59:59 CLS Preadmit SHAHNAZ WIN PRE PLANNING ADVISOR [facility] RAD RLQ PAIN,CHRONIC PAIN [id number] 01/12/2016 05:21:00 01/12/2016 07:06:00 DIS Emergency ELMER STOCK MD [facility] ER R SIDE RIB AND BACK PAIN [id number] 05/24/2015 08:52:00 05/24/2015 15:45:00 DIS Outpatient MAUREEN ALLEN DO [facility] SDC RIGHT INGUINAL HERNIA [id number] 05/08/2015 09:22:00 05/08/2015 10:02:00 DIS Outpatient MAUREEN ALLEN DO [facility] PREOP RIGHT INGUINAL HERNIA [id number] 04/17/2015 20:02:00 04/17/2015 23:25:00 DIS Emergency KANDY PANIAGUA [facility] ER R SIDE GROIN PAIN [id number] 03/23/2014 16:39:00 03/23/2014 20:07:00 DIS Emergency IVELISSE TRACY DO K [facility] ER LOWER ABD PAIN [id number] 08/27/2013 21:12:00 08/27/2013 22:06:00 DIS Emergency ANYI MC HYDRO STATION OPERATOR [facility] ER HIVES [id number] 05/18/2013 09:49:00 05/18/2013 23:59:59 CLS Outpatient SHAHNAZ WIN [facility] RAD TB SCREENING [id number] 05/01/2013 10:12:00 05/01/2013 11:31:00 DIS Emergency JESSI KUMAR MD [facility] ER R SIDE RIB PAIN [id number] 10/26/2011 20:25:00 Document Registration [id number] 09/17/2010 13:19:00 Document Registration [id number] 12/06/2009 09:23:00 Document Registration [id number] 02/05/2016 10:06:00 Document Registration [id number] 12/18/2015 08:41:00 Document Registration
[2017-11-01 14:59] LABS: BASOPHILS % (AUTO) 0 % (0-10); EOSINOPHILS # (AUTO) 0.4 10^3/uL (0.0-0.3); EOSINOPHILS % (AUTO) 7 % (0-10); HEMATOCRIT 40 % (35-52); HEMOGLOBIN 13.8 G/DL (11.5-16.0); LYMPHOCYTES # (AUTO) 1.6 X 10^3 (1.0-4.0); LYMPHOCYTES % (AUTO) 29 % (12-44); MEAN CORPUSCULAR HEMOGLOBIN 33 PG (25-34); MEAN CORPUSCULAR HGB CONC 34 G/DL (32-36); MEAN CORPUSCULAR VOLUME 97 FL (80-99); MONOCYTES # (AUTO) 0.4 X 10^3 (0.0-1.0); MONOCYTES % (AUTO) 7 % (0-12); NEUTROPHILS # (AUTO) 3.3 X 10^3 (1.8-7.8); NEUTROPHILS % (AUTO) 57 % (42-75); PLATELET COUNT 197 10^3/uL (130-400); RED BLOOD COUNT 4.16 10^6/uL (4.35-5.85); RED CELL DISTRIBUTION WIDTH 12.9 % (10.0-14.5); WHITE BLOOD COUNT 5.7 10^3/uL (4.3-11.0)
--- NOTE | 2017-11-01 15:01 | ED General ---
General Chief Complaint: General Problems/Pain Stated Complaint: GROIN PAIN Nursing Triage Note: RIGHT GROIN PAIN POST RIGHT HERNIA REPAIR IN 2016. PAIN HAS BEEN ALL DAY TODAY AND CURRENT PRESCRIBED MEDICATIONS ARE NOT RELIEVING THE PAIN. TAKING GABEPENTIN AND TYLENOL. APT TO SEE ISN'T UNTIL NEXT WEEK. Nursing Sepsis Screen: No Definite Risk Source of Information: Patient Exam Limitations: No Limitations History of Present Illness Date Seen by Provider: Nov 01, 2017 Time Seen by Provider: 14:00 Initial Comments Patient is 62-year-old female who presents to the emergency room with complaints of right groin pain for 6 months. She reports that back in 2016 she had a hernia repair to the right groin area. She states that she has had this pain for the past 6 months but has became worse today. She reports taking gabapentin and Tylenol without relief. She has an appointment next week to see Yobany Askew at [facility]. Timing/Duration: Other (6 months) Associated Systoms: Denies Symptoms Allergies and Home Medications Allergies Coded Allergies: Penicillins (Verified Allergy, Unknown, 02/12/07) Home Medications Alprazolam 1 Mg Tablet, 1 MG PO TID, (Reported) Docusate Sodium 100 Mg Capsule, 100 MG PO BID Prescribed by: MAUREEN ALLEN on 05/24/15 1249 Hydrocodone Bit/Acetaminophen 1 Each Tablet, 1 TAB PO Q4H PRN Prescribed by: MAUREEN ALLEN on 05/24/15 1249 Hydrocodone Bit/Acetaminophen 1 Tab Tab, 1 EACH PO Q6H PRN for PAIN Prescribed by: TL GRAY on 11/01/17 1602 Patient Home Medication List Home Medication List Reviewed: Yes Review of Systems Review of Systems Constitutional: see HPI; No chills, No fever Gastrointestinal: see HPI, other (right groin pain. ) All Other Systems Reviewed Negative Unless Noted: Yes Past Sugznul-Vfvfnj-Olhgwz Hx Patient Social History Alcohol Use: Denies Use Recreational Drug Use: Yes (SMOKES 1/2 PPD) Smoking Status: Current Everyday Smoker Type Used: Cigarettes Recent Foreign Travel: No Contact w/Someone Who Travel: No Recent Infectious Disease Expo: No Recent Hopitalizations: No Immunizations Up To Date Tetanus Booster (TDap): More than 5yrs Date of Pneumonia Vaccine: Mar 02, 2008 Seasonal Allergies Seasonal Allergies: No Past Medical History Surgeries: Yes (T) Abdominal, Adenoidectomy, Gallbladder, Hysterectomy, Tonsillectomy Respiratory: Yes (tobaccoism) Pneumonia Cardiac: No Neurological: No : No Reproductive Disorders: No Female Reproductive Disorders: Denies TRAVEL RN History: Hysterectomy Sexually Transmitted Disease: No HIV/AIDS: No Gastrointestinal: Yes Chronic Diarrhea Musculoskeletal: Yes (DISC PROBLEMS) Degenerate Disk Disease, Chronic Back Pain Endocrine: No Loss of Vision: Bilateral Hearing Impairment: Denies Cancer: No Psychosocial: Yes Anxiety Integumentary: No Blood Disorders: No Adverse Reaction/Blood Tranf: No Physical Exam Vital Signs Vital Signs - First Documented 11/01/17 11/01/17 13:20 16:17 Temp 98.2 Pulse 85 Resp 20 B/P (MAP) 119/67 (84) Pulse Ox 98 O2 Delivery Room Air Capillary Refill : Less Than 3 Seconds Height, Weight, BMI Height: 4'11.00" Weight: 130lbs. 9.0oz. 58.209009bs; 20.30 BMI Method:Stated General Appearance: No Apparent Distress, WD/WN Respiratory: Chest Non Tender, Lungs Clear, Normal Breath Sounds, No Accessory Muscle Use, No Respiratory Distress Cardiovascular: Regular Rate, Rhythm, No Edema, No Gallop, No JVD, No Murmur, Normal Peripheral Pulses Gastrointestinal: Normal Bowel Sounds, No Organomegaly, No Pulsatile Mass, Non Tender, Soft, Tenderness (tinderness to her right groin area at scar of previous hernia repair site. No bulging or lumps noted on exam. ) Neurologic/Psychiatric: Alert, Oriented x3, No Motor/Sensory Deficits Skin: Normal Color, Warm/Dry Progress/Results/Core Measures Suspected Sepsis Recent Fever Within 48 Hours: No Infection Criteria Present: None New/Unexplained Altered Menta: No Sepsis Screen: No Definite Risk SIRS Temperature:98.2 Pulse: 85 Respiratory Rate: 20 Blood Pressure 119 /67 Mean: 84 Results/Orders Lab Results My Orders Medications Given in ED Vital Signs/I&O Capillary Refill : Less Than 3 Seconds Blood Pressure Mean: 84 Progress Note : Time: 16:00 Progress Note I have seen and evaluated the patient. I have informed her of her laboratory and imaging studies. She reports that she has an appointment with her doctor next week for a check up. She agrees with plans for discharge and return precautions were given. Diagnostic Imaging Diagonstic Imaging: CT Plain Films/CT/US/NM/MRI: abdomen, pelvis Comments NAME: EDITH ALVARADO REC#: [id number] PHYSICIAN: TL GRAY CC: TL GRAY; VILMA MEJIA MD Page 2 of 2 RADIOLOGY REPORT VIA [facility], [facility]. [place], [place] CC: TL GRAY; VILMA MEJIA MD Page 1 of 1 RADIOLOGY REPORT NAME: EDITH ALVARADO REC#: [id number] PT STATUS: DEP ER : [id number] PHYSICIAN: TL GRAY ADMIT DATE: 11/01/17/ER Signed Date of Exam: 11/01/17 CT ABDOMEN/PELVIS W PROCEDURE: CT abdomen and pelvis with contrast. TECHNIQUE: Multiple contiguous axial images were obtained through the abdomen and pelvis after administration of intravenous contrast. INDICATION: Right lower quadrant pain. FINDINGS: The previous CT abdomen/pelvis exam of 04/17/2015 failed to show any sign of an acute abnormality of the abdomen or pelvis. In the interval since the prior study, several fluid filled segments of small bowel have developed in the left midabdomen. There does seem to be generalized thickening of the wall of these segments of the small bowel. The thickened appearance of the wall could be related to incomplete distention. The possibility that there is an element of enteritis present should certainly be considered, however. There is no sign of a small bowel obstruction. The appendix was visualized and is not abnormally thickened. There is no pelvic mass or free fluid collection evident. The uterus is surgically absent. The urinary bladder is grossly unremarkable. The liver is of lower density than usually seen and this does suggest fatty metamorphosis. The spleen, pancreas, adrenals, kidneys, aorta and inferior vena cava are unremarkable for an acute abnormality. As noted previously, the gallbladder is surgically absent. The stomach is partially filled with fluid and consequently difficult to assess. The lung bases are clear. The bone windows show no evidence for a fracture or for a destructive lesion. IMPRESSION: 1. The fluid-filled segments of small bowel in the left midabdomen are nonspecific but may be secondary to enteritis. Clinical follow up is recommended. 2. There is no acute abnormality in the abdomen or pelvis noted otherwise. In particular, there is no sign of appendicitis. 3. The gallbladder and uterus are surgically absent. Dictated by: Dictated on workstation # [id number] Dict: 11/01/17 1516 Trans: 11/01/17 1744 Interpreted by: VILMA MEJIA MD Electronically signed by: VILMA MEJIA MD 11/01/174 Departure Impression Primary Impression: Groin pain, chronic, right Disposition: 01 HOME, SELF-CARE Condition: Stable/Unchanged Departure-Patient Inst. Decision time for Depature: 16:01 Referrals: SHAHNAZ ASKEW (PCP/Family) Primary Care Physician Patient Instructions: CHRONIC PAIN Add. Discharge Instructions: Follow-up with your primary care provider within 1 week for recheck. Take medications as directed. Return back to the emergency room for any worsening symptoms or concerns as needed. All discharge instructions reviewed with patient and/or family. Voiced understanding. Scripts Hydrocodone Bit/Acetaminophen (Hydrocodone/Acetaminophen 5/325mg Tablet) 1 Tab Tab 1 EACH PO Q6H PRN for PAIN, #10 TAB Prov: TL GRAY 11/01/17 TL GRAY Nov 01, 2017 15:01
[2017-11-01 15:03] LABS: ALANINE AMINOTRANSFERASE 18 U/L (0-55); ALBUMIN 4.6 GM/DL (3.2-4.5); ALKALINE PHOSPHATASE 92 U/L (40-136); BILIRUBIN,TOTAL 0.6 MG/DL (0.1-1.0); BUN/CREATININE RATIO 16; CALCIUM 9.7 MG/DL (8.5-10.1); CARBON DIOXIDE 22 MMOL/L (21-32); CHLORIDE 106 MMOL/L (98-107); GFR ESTIMATED > 60; GLUCOSE 85 MG/DL (70-105); POTASSIUM 4.1 MMOL/L (3.6-5.0); SODIUM 137 MMOL/L (135-145); TOTAL PROTEIN 7.6 GM/DL (6.4-8.2)
[2017-11-01] MEDS ORDERED: CATHETER FLUSH 10 ML SYR IV PRN (15:15)
[2017-11-01] MEDS ORDERED: NS 250 ML (IVPB) BAG IV ONE (15:15)
[2017-11-01] MEDS ORDERED: IOHEXOL 350 MG/ML 100 ML (OMNIPAQUE 350) VIAL IV ONE (15:15)
--- NOTE | 2017-11-01 15:39 | Diagnostic Imaging Report ---
PROCEDURE: CT abdomen and pelvis with contrast. TECHNIQUE: Multiple contiguous axial images were obtained through the abdomen and pelvis after administration of intravenous contrast. INDICATION: Right lower quadrant pain. FINDINGS: The previous CT abdomen/pelvis exam of 04/17/2015 failed to show any sign of an acute abnormality of the abdomen or pelvis. In the interval since the prior study, several fluid filled segments of small bowel have developed in the left midabdomen. There does seem to be generalized thickening of the wall of these segments of the small bowel. The thickened appearance of the wall could be related to incomplete distention. The possibility that there is an element of enteritis present should certainly be considered, however. There is no sign of a small bowel obstruction. The appendix was visualized and is not abnormally thickened. There is no pelvic mass or free fluid collection evident. The uterus is surgically absent. The urinary bladder is grossly unremarkable. The liver is of lower density than usually seen and this does suggest fatty metamorphosis. The spleen, pancreas, adrenals, kidneys, aorta and inferior vena cava are unremarkable for an acute abnormality. As noted previously, the gallbladder is surgically absent. The stomach is partially filled with fluid and consequently difficult to assess. The lung bases are clear. The bone windows show no evidence for a fracture or for a destructive lesion. IMPRESSION: 1. The fluid-filled segments of small bowel in the left midabdomen are nonspecific but may be secondary to enteritis. Clinical follow up is recommended. 2. There is no acute abnormality in the abdomen or pelvis noted otherwise. In particular, there is no sign of appendicitis. 3. The gallbladder and uterus are surgically absent. Dictated by: Dictated on workstation # [id number]
[2017-11-01] MEDS ORDERED: ACHD5005 PO (16:02)
[2017-11-01 16:17] VITALS: BP 119/67
== END 2017-11-01 16:17 | disposition home or self-care (01) ==
LOC: EDUNIT# 12:56 → ER 12:58
DX: R10.31 Right lower quadrant pain (principal); G89.29 Other chronic pain; F41.9 Anxiety disorder, unspecified; F17.210 Nicotine dependence, cigarettes, uncomplicated; Z87.01 Personal history of pneumonia (recurrent); Z87.19 Personal history of other diseases of the digestive system; Z90.710 Acquired absence of both cervix and uterus; Z90.89 Acquired absence of other organs; Z88.0 Allergy status to penicillin; Z98.890 Other specified postprocedural states
CPT/HCPCS: 36415; 74177; 80053; 85025

== ENCOUNTER 2018-01-12 06:36 | Outpatient (CLI) | payer OTHER ==
[~2018-01-12] VITALS: Ht 149.9 cm; Wt 63.5 kg
[2018-01-12] MEDS ORDERED: GABA600T2 PO (13:34)
[2018-01-12] MEDS ORDERED: BUPR150T9 PO (13:34)
== END 2018-01-12 13:37 | disposition home or self-care (01) ==
LOC: PREOP 06:36
PROVIDERS: ATTEND Surgery
DX: Z01.818 Encounter for other preprocedural examination (principal)

== ENCOUNTER → 2018-01-19 | Day surgery (SDC) | payer OTHER ==
[~2018-01-19] VITALS: Ht 149.9 cm; Wt 63.5 kg
[~2018-01-19] MED LIST changes: +BUPR150T9 PO; +GABA600T2 PO; +LACTATED RINGERS 1,000 ML IV ONE; +LACTATED RINGERS 1,000 ML IV PRN; +MIDAZOLAM 2 MG/2 ML (VERSED) VIAL ONE; +proPOfol 200 MG/20 ML (DIPRIVAN) VIAL IV ONE
[2018-01-19 08:20] VITALS: BP 132/70
--- NOTE | 2018-01-19 10:06 | Progress Note-Pre Operative ---
Pre-Operative Progress Note H&P Reviewed The H&P was reviewed, patient examined and no changes noted. Date Seen by Provider: Jan 19, 2018 Time Seen by Provider: 10:05 Date H&P Reviewed: Jan 19, 2018 Time H&P Reviewed: 10:05 Pre-Operative Diagnosis: diarrhea, lower abdominal pain MAUREEN ALLEN DO Jan 19, 2018 10:05
--- NOTE | 2018-01-19 10:45 | Progress Note-Post Operative ---
Post-Operative Progess Note Surgeon (s)/Plastic Block Boiler Reliner (s) Surgeon MAUREEN ALLEN DO Plastic Block Boiler Reliner: na Pre-Operative Diagnosis diarrhea, lower abdominal pain Post-Operative Diagnosis transverse colon polyp Procedure & Operative Findings Date of Procedure 01/19/18 Procedure Performed/Findings colonoscopy c cold bx ileum, random cold biopsies, hot bx polypectomy transverse colon Anesthesia Type per loss control manager Estimated Blood Loss Estimated blood loss (mL): none Specimens/Packing Specimens Removed ileum, random cold bx, transverse colon MAUREEN ALLEN DO Jan 19, 2018 10:45
--- NOTE | 2018-01-19 10:46 | Discharge Inst-Simple/Standard ---
Discharge Inst-Standard Patient Instructions/Follow Up Plan of Care/Instructions/FU: 2 weeks Jose Activity as Tolerated: Yes Discharge Diet: Regular Diet MAUREEN ALLEN DO Jan 19, 2018 10:46
[2018-01-19 11:05] VITALS: BP 130/76
[2018-01-19 11:35] VITALS: BP 129/77
[2018-01-19 11:37] VITALS: BP 129/77
--- NOTE | 2018-01-19 12:14 | Anesthesia-General Post-Op ---
MAC Patient Condition Mental Status/LOC: Same as Preop Cardiovascular: Satisfactory Nausea/Vomiting: Absent Respiratory: Satisfactory Pain: Controlled Complications: Absent Post Op Complications Complications None Follow Up Care/Instructions Patient Instructions None needed. Anesthesiology Discharge Order Discharge Order Patient is doing well, no complaints, stable vital signs, no apparent adverse anesthesia problems. No complications reported per nursing. COLE FLANNERY CRNA Jan 19, 2018 12:14
--- NOTE | 2018-01-19 19:19 | OPERATIVE REPORT ---
DATE OF SERVICE: 01/19/2018 PREOPERATIVE DIAGNOSES: Diarrhea and lower abdominal pain. POSTOPERATIVE DIAGNOSIS: Transverse colon polyp. PROCEDURE: Colonoscopy with cold biopsy ileum, random cold biopsies of colon and hot biopsy polypectomy transverse colon. SURGEON: Maureen Garcia DO ANESTHESIA: Per FISCAL MANAGER. ESTIMATED BLOOD LOSS: None. COMPLICATIONS: None. INDICATIONS: The patient is a 62-year-old female who has never had colonoscopy. She has been having diarrhea. She has multiple stools per day and has lower abdominal pain. She had a recent CT scan, which suggested some enteritis. She was explained risks and benefits of procedure and wished to proceed with procedure. Consent was signed in the chart. DESCRIPTION OF PROCEDURE: The patient was taken to the endoscopy suite, placed in left lateral recumbent position. Timeout was performed. Digital rectal exam was performed. There were no palpable polyps, masses or ulcerations. Scope was inserted in the rectum, advanced all the way to the cecum with minimal difficulty. The terminal ileum was intubated and ileum had normal appearance. Biopsy of the ileum was obtained. Scope was then slowly retracted back. There were no polyps, masses or ulcerations within the cecum, ascending colon. Transverse colon, a small polyp was present, which hot biopsy polypectomy was performed. Scope was continued to be slowly retracted back. There were no polyps, mass or ulcerations within the remainder of the transverse colon, descending colon, sigmoid colon and rectum. As scope was being retracted, random cold biopsies were obtained. Scope was retroflexed in the rectum, noting no other pathology. Scope was returned to its normal position, slowly withdrawn until completely removed. The patient tolerated procedure well without any complications. She was taken to recovery room in stable condition. RECOMMENDATIONS: The patient will need repeat colonoscopy in 5 years unless she has any problems, which she should be reevaluated at that time. The patient will follow up in the office in 2 weeks to discuss pathology results and further recommendations pending. Cc: Yobany Askew (distribution did not occur) Job ID: [id number] DocumentID: [id number] Dictated Date: 01/19/2018 10:49:41 Inter Com Installer Date: 01/19/2018 19:18:16 Dictated By: MAUREEN GARCIA DO
== END | disposition home or self-care (01) ==
LOC: ENDO 08:05
PROVIDERS: ATTEND Surgery
DX: R19.7 Diarrhea, unspecified (principal); K63.5 Polyp of colon; F17.210 Nicotine dependence, cigarettes, uncomplicated
CPT/HCPCS: 88305